=== PATIENT | male | born 1950 | race Caucasian/White ===

== ENCOUNTER 2025-01-25 14:57 | Observation (INO) ==
[2025-01-25] MEDS: ONDANSETRON INJ 2 MG/ML 2 ML VIAL IV STA (16:00)
[2025-01-25 16:09] LABS: Basophils # (auto) 0.02 K/uL (0.00-0.20); Basophils % (auto) 0.2 %; Hematocrit (blood only) 44.7 % (42.0-52.0); Hemoglobin 15.5 g/dl (14.0-18.0); Immature Granulocytes # (auto) 0.05 K/uL (0.01-0.20); Immature Granulocytes % (auto) 0.5 %; Lymphocytes % (auto) 6.5 %; Mean Corpuscular Hemoglobin 30.9 pg (25.0-34.0); Mean Corpuscular Hgb Conc 34.7 g/dL (32.0-36.0); Mean Platelet Volume 12.7 fL (9.4-12.4); Monocytes % (auto) 5.6 %; Neutrophils # (auto) 9.38 K/uL (1.40-6.50); Neutrophils % (auto) 87.2 %; Platelet Count 168 K/uL (130-400); RDW Coefficient of Variation 12.5 % (11.5-14.5); RDW Standard Deviation 40.7 fL (36.4-46.3); Red Blood Count 5.02 M/uL (4.70-6.10); White Blood Count 10.75 K/ul (4.8-10.8)
[2025-01-25 16:15] LABS: Albumin Globulin Ratio 1.3 (0.9-2); Albumin Level 4.8 gm/dl (3.4-5.0); BUN Creatinine Ratio 27.2 (10-20); Bilirubin,Total 0.8 mg/dl (0.2-1.0); Calcium 9.9 mg/dl (8.6-10.3); Creatinine Clr Calc Pharmacy 57.9 ml/min; Globulin 3.7 gm/dl (2.5-4.0); Total Protein 8.5 gm/dl (6.0-8.3)
[2025-01-25 17:28] LABS: Appearance Urine Clear (Clear); Bacteria Urine Automated None Seen (None Seen); Bilirubin Urine Negative (Negative); Blood Urine Negative (Negative); Cast Urine Automated 0-2 /lpf (0-2); Color Urine Yellow; Epithelial Cell Urine Auto 0-2 /hpf (0-2); Glucose Urine UA 3+ (Negative); Ketones Urine 2+ (Negative); Leukocyte Esterase Urine Negative (Negative); Nitrite Urine Negative (Negative); Protein Urine Trace (Negative); RBC Urine Automated 0-2 /hpf (0-2); Specific Gravity Urine 1.035 (1.000-1.030); Urobilinogen Urine Negative (Negative); WBC Urine Automated 21-50 /hpf (0-5); pH Urine 5.5 (4.5-7.5)
[2025-01-25] MEDS: SODIUM CHLORIDE 0.9% 1,000 ML IV SCH ×2 (17:28→23:12)
[2025-01-25] MEDS: SODIUM CHLORIDE 0.9% 500 ML IV ONE (17:28)
--- NOTE | 2025-01-25 18:13 | Emergency Department Note ---
Impression & Plan Generalized weakness ED Provider Note NAME: EMMY GANN AGE: 74 SEX: Male INFORMANT: Patient ED PROVIDER(S): Louis Bloom MD CHIEF COMPLAINT: Illness PLAN: Disposition: Admitted Outpatient prescription management: none Referral: None MEDICAL DECISION MAKING: Patient was evaluated. He was confused but easily redirectable. He seemed clinically dry and given the vomiting and diarrhea patient was hydrated. He responded well to IV fluids. His CBC and chemistry panel only revealed dehydration. He had mild hyperglycemia but no signs of DKA. CO2 was normal. Lipase was unremarkable. ECG was unremarkable. Head CT and CT scan of the abdomen pelvis did not reveal any emergent pathology. Patient might have a UTI and was treated with IV Rocephin. In light of the vomiting and dehydration with confusion the patient will need further evaluation management. Consultation was made with the [facility] service, Dr. Cage. Patient was evaluated in the ER and admitted for further management Care/management discussed with: ED case Man Level of care consideration(s): After review of the information above and other included data, I feel the patient requires escalation of care to admission. Triage Nursing notes: reviewed and agree them. Vital Signs: reviewed and remarkable for no significant abnormalities Additional History obtained from: none Chronic Medical/Social Conditions affecting care: Diabetes Prior/ Outside/ External records reviewed: none Differential Diagnosis: Infection, dehydration, metabolic abnormality, hypo/hyperglycemia, electrolyte disturbance, anemia, hypoxia, cardiac sources, intracerebral event, toxicologic, neurologic, as well as other pathologies. 61 Diagnostics, independently interpreted by me: ECG: Twelve-lead ECG reveals a sinus tachycardia [address] elevation or depression. Cardiac Monitoring: Cardiac monitoring ordered by me: The patient was placed on continuous cardiac monitoring and observed. It revealed a normal sinus rhythm at 61 beats per minute without ectopy or evidence of dysrhythmia. Medical decision rules: none Imaging studies: Head CT: A noncontrast CT scan of the head was performed and was negative for tumor, fracture, intracranial hemorrhage, or other acute pathology. CT scan of the abdomen pelvis was unremarkable for emergent pathology. Cholelithiasis noted. Patient does not have any abdominal pain HPI: 74 year old Male arrives for evaluation of illness. EMS was summoned to the patient's house and he seemed to be confused. The patient was defecating on the kitchen floor. He was also vomiting and had trash can. Apparently he has been sick for the last 2 days with GI symptoms. Significant other told EMS that the patient has had the symptoms plus he was slow, dizzy and had some headaches. No reported trauma. Patient denied any pain currently. He is unable to provide any significant details. He seems confused. History is limited secondary to the patient's confusion and inability to recall details. PAST MEDICAL HISTORY: See Below, diabetes PAST SURGICAL HISTORY: See Below, SOCIAL HISTORY: See Below, non-smoker HOME MEDICATIONS: See Below ALLERGIES: See Below VITALS: See Below PHYSICAL EXAMINATION: GENERAL: Awake, alert, [id number], in no distress HENT: Normocephalic, atraumatic. Oropharynx unremarkable. EYES: Normal conjunctiva. Sclera non-icteric. NECK: Inspection normal. Non-tender. Supple. No nuchal rigidity. FROM. No masses. RESPIRATORY: Clear to auscultation. No wheezes. No rales. Normal respiratory effort. CARDIAC: Borderline tachycardic rate. Normal rhythm. No murmurs. No rubs. Extremities warm and well perfused. Pulses equal. No JVD. GI: Soft, non-distended. No tenderness to palpation. No rebound or guarding. No masses. RECTAL: Deferred. MUSCULOSKELETAL: Atraumatic. Chest examination reveals no tenderness. The back is symmetrical on inspection without obvious abnormality. There is no CVA tenderness to palpation. No joint edema. LOWER EXTREMITIES: Calves are equal size bilaterally and non-tender. No edema. No discoloration. NEURO: Mildly altered sensorium. Confused. Patient oriented to person not place or time. No focal sensory or motor deficits noted. Patient was able to bear weight and ambulate SKIN: No rash or jaundice noted. PROCEDURES: none CRITICAL CARE: none OBSERVATION NOTE: none Past Med/Surg History Problem List (Updated 01/25/25 @ 18:13 by Louis Bloom MD) Generalized weakness (Acute) Social History Smoking Status: Never smoker Hx Alcohol Use: No Hx Substance Use: No Preferred Language: Ghanaian Communication Ability: Effective Multimedia Instructional Designer Required: No Beliefs That Will Affect Care: None Current Living Situation: Spouse Other Information That Helps Us Care for You: No Feels Safe at Home: Yes Safety Concerns: Feels Safe At This Time Assistive Devices: Glasses and Hearing Aid - Bilateral Allergies Allergies Allergy/AdvReac Type Severity Reaction Status Date / Time amoxicillin [From Augmentin] Allergy Intermediate HIVES--PER Verified 01/25/25 18:00 [facility] clavulanic acid Allergy Intermediate HIVES--PER Verified 01/25/25 18:00 [From Augmentin] [facility] metformin AdvReac Severe SEVERE Verified 01/25/25 18:06 [facility] Home Meds Home Medications Medication Instructions Recorded Confirmed atorvastatin 40 mg tablet 40 mg PO DAILY 01/25/25 01/25/25 clobetasol 0.05 % scalp solution 1 applic topical DAILY PRN ITCHY 01/25/25 01/25/25 SCALP dulaglutide 4.5 mg/0.5 mL 4.5 mg subcut WK 01/25/25 01/25/25 subcutaneous pen injector (Trulicity) empagliflozin 25 mg tablet 25 mg PO DAILY 01/25/25 01/25/25 (Jardiance) hydrochlorothiazide 25 mg tablet 25 mg PO QAM 01/25/25 01/25/25 insulin glargine 100 unit/mL (3 30 unit subcut QAM 01/25/25 01/25/25 mL) subcutaneous pen (Lantus Solostar U-100 Insulin) ketoconazole 2 % shampoo 1 ea topical 3XWK 01/25/25 01/25/25 metoprolol tartrate 25 mg tablet 25 mg PO BID 01/25/25 01/25/25 omeprazole 20 mg capsule,delayed 20 mg PO DAILYBB 01/25/25 01/25/25 release tamsulosin 0.4 mg capsule 0.4 mg PO HS 01/25/25 01/25/25 triamcinolone acetonide 0.1 % 1 applic topical BID PRN Skin 01/25/25 01/25/25 topical cream Irritation Previous Rx's Medication Instructions Recorded ciprofloxacin HCl 500 mg tablet 500 mg PO BID 4 days #8 tabs 01/26/25 (Cipro) ondansetron 4 mg disintegrating 4 mg PO Q8H PRN nausea and 01/26/25 tablet vomiting 5 days #20 tabs Results & Data (ED) Vital Signs Vital Signs - 24 hr 01/25/25 15:19 01/25/25 15:19 01/25/25 15:22 Temperature 37.5 C 37.5 C Temperature Source Oral Oral Pulse Rate 106 H 104 H Pulse Rate [Apical] 106 H Pulse Rhythm Regular Pulse Rhythm [Apical] Regular Pulse Strength Normal Pulse Strength [Apical] Normal Respiratory Rate 14 14 Respiratory Effort / Characteristics Non-Labored Spontaneous Non-Labored Spontaneous Respiratory Depth Normal Normal Respiratory Pattern Regular Regular Blood Pressure 168/107 H Blood Pressure [Left Arm] 168/107 H Blood Pressure Mean 127 Blood Pressure Mean [Left Arm] 127 Blood Pressure Position Semi-fowlers Pulse Oximetry 98 98 Oxygen Delivery Method Room Air Room Air Sepsis Recent Fever Within 48 Hours Yes Sepsis New/Unexplained Change in Mental Status Yes Sepsis Action Taken by Nursing No Action Required 01/25/25 17:01 01/25/25 19:02 01/25/25 19:36 Temperature Temperature Source Pulse Rate 92 H Pulse Rate [Apical] 101 H 97 H Pulse Rhythm Pulse Rhythm [Apical] Pulse Strength Pulse Strength [Apical] Respiratory Rate 20 18 Respiratory Effort / Characteristics Non-Labored Spontaneous Respiratory Depth Normal Respiratory Pattern Blood Pressure Blood Pressure [Left Arm] 168/87 H 133/75 Blood Pressure Mean Blood Pressure Mean [Left Arm] 114 94 Blood Pressure Position Pulse Oximetry 98 97 Oxygen Delivery Method Room Air Room Air Sepsis Recent Fever Within 48 Hours Sepsis New/Unexplained Change in Mental Status Sepsis Action Taken by Nursing 01/25/25 21:37 Temperature Temperature Source Pulse Rate Pulse Rate [Apical] 81 Pulse Rhythm Pulse Rhythm [Apical] Pulse Strength Pulse Strength [Apical] Respiratory Rate 18 Respiratory Effort / Characteristics Non-Labored Spontaneous Respiratory Depth Normal Respiratory Pattern Blood Pressure Blood Pressure [Left Arm] 111/65 Blood Pressure Mean Blood Pressure Mean [Left Arm] 80 Blood Pressure Position Pulse Oximetry 94 Oxygen Delivery Method Room Air Sepsis Recent Fever Within 48 Hours Sepsis New/Unexplained Change in Mental Status Sepsis Action Taken by Nursing Laboratory Data 01/26/25 05:42 01/26/25 05:42 Lab Results 01/25/25 01/25/25 Range/Units 15:10 16:40 WBC 10.75 (4.8-10.8) K/ul RBC 5.02 (4.70-6.10) M/uL Hgb 15.5 (14.0-18.0) g/dl Hct 44.7 (42.0-52.0) % MCV 89.0 (80.0-100.0) fL MCH 30.9 (25.0-34.0) pg MCHC 34.7 (32.0-36.0) g/dL RDW Std Deviation 40.7 (36.4-46.3) fL RDW Coeff of Catia 12.5 (11.5-14.5) % Plt Count 168 (130-400) K/uL MPV 12.7 H (9.4-12.4) fL Immature Gran % (Auto) 0.5 % Neut % (Auto) 87.2 % Lymph % (Auto) 6.5 % Pettis % (Auto) 5.6 % Eos % (Auto) 0.0 % Baso % (Auto) 0.2 % Neut # (Auto) 9.38 H (1.40-6.50) K/uL Lymph # (Auto) 0.70 L (1.20-3.40) K/uL Pettis # (Auto) 0.60 H (0.11-0.59) K/uL Eos # (Auto) 0.00 (0.00-0.50) K/uL Baso # (Auto) 0.02 (0.00-0.20) K/uL Immature Gran # (Auto) 0.05 (0.01-0.20) K/uL Sodium 137 (136-145) mmol/L Potassium 4.0 (3.5-5.1) mmol/L Chloride 96 L (98-107) mmol/L Carbon Dioxide 26 (21-32) mmol/L Anion Gap 15 H (3-11) BUN 28 H (6-23) mg/dl Creatinine 1.03 (0.6-1.4) mg/dl Est Cr Clr Drug Dosing 57.9 ml/min eGFR 75.75 BUN/Creatinine Ratio 27.2 H (10-20) Glucose 195 H (70-99(Fasting)) mg/dl Calcium 9.9 (8.6-10.3) mg/dl Total Bilirubin 0.8 (0.2-1.0) mg/dl AST 20 (13-39) U/L ALT 24 (7-52) U/L Alkaline Phosphatase 91 (34-104) U/L Total Protein 8.5 H (6.0-8.3) gm/dl Albumin 4.8 (3.4-5.0) gm/dl Globulin 3.7 (2.5-4.0) gm/dl Albumin/Globulin Ratio 1.3 (0.9-2) Lipase 28 (11-82) U/L Procalcitonin 0.04 (0-0.5) ng/ml Urine Color Yellow Urine Appearance Clear (Clear) Urine pH 5.5 (4.5-7.5) Ur Specific [place] 1.035 H (1.000-1.030) Urine Protein Trace H (Negative) Urine Glucose (UA) 3+ H (Negative) Urine Ketones 2+ H (Negative) Urine Blood Negative (Negative) Urine Nitrite Negative (Negative) Urine Bilirubin Negative (Negative) Urine Urobilinogen Negative (Negative) Ur Leukocyte Esterase Negative (Negative) Urine WBC (Auto) 21-50 H (0-5) /hpf Urine RBC (Auto) 0-2 (0-2) /hpf U Hyaline Cast (Auto) 0-2 (0-2) /lpf U Epithel Cells (Auto) 0-2 (0-2) /hpf Urine Bacteria (Auto) None Seen (None Seen) Administered Medications Discontinued Medications Atorvastatin Calcium (Atorvastatin 40 Mg Tab) 40 mg PO DAILY ANIYAH Stop: 02/25/25 08:59 Last Admin: 01/26/25 10:18 Dose: 40 mg Documented By: OMAYRA Enoxaparin Sodium (Enoxaparin Inj 40 Mg/0.4 Ml Syr) 40 mg SQ QAM ANIYAH Stop: 02/25/25 08:59 Last Admin: 01/26/25 10:17 Dose: Not Given Documented By: OMAYRA Sodium Chloride (Nss) 1,000 mls @ 125 mls/hr IV .Q8H ANIYAH Stop: 01/26/25 17:29 Last Infusion: 01/26/25 01:48 Dose: Infused Documented By: Admin: 01/25/25 17:28 Dose: 125 mls/hr Documented By: LUCIA Sodium Chloride (Nss) 500 mls @ 999 mls/hr IV .Q31M ONE Stop: 01/25/25 17:52 Last Infusion: 01/25/25 18:19 Dose: Infused Documented By: Admin: 01/25/25 17:28 Dose: 999 mls/hr Documented By: LUCIA Ceftriaxone Sodium (Rocephin) 2,000 mg in 50 mls @ 100 mls/hr IV NOW STA Stop: 01/25/25 19:21 Last Infusion: 01/25/25 19:43 Dose: Infused Documented By: Admin: 01/25/25 19:00 Dose: 100 mls/hr Documented By: LUCIA Acetaminophen (Ofirmev) 1,000 mg in 100 mls @ 400 mls/hr IV NOW STA Stop: 01/25/25 19:21 Last Infusion: 01/25/25 20:08 Dose: Infused Documented By: Admin: 01/25/25 19:34 Dose: 400 mls/hr Documented By: CATINA Sodium Chloride (Nss) 1,000 mls @ 125 mls/hr IV .Q8H ANIYAH Stop: 01/26/25 22:54 Last Infusion: 01/26/25 15:12 Dose: Infused Documented By: Admin: 01/26/25 07:22 Dose: 125 mls/hr Documented By: Infusion: 01/26/25 07:20 Dose: Infused Documented By: Admin: 01/25/25 23:12 Dose: 125 mls/hr Documented By: SARTHAK Insulin Aspart (Insulin Aspart Per Unit Charge) 0 units SC ACHS ANIYAH Stop: 02/24/25 23:29 Last Admin: 01/26/25 13:25 Dose: 2 units Documented By: OMAYRA Co-signed By: [facility] Admin: 01/26/25 10:25 Dose: 1 units Documented By: OMAYRA Co-signed By: [facility] Admin: 01/26/25 00:04 Dose: Not Given Documented By: SARTHAK Insulin Glargine (Lantus Per Unit Charge) 30 units SQ QAM ANIYAH Stop: 02/25/25 08:59 Last Admin: 01/26/25 10:26 Dose: 30 units Documented By: OMAYRA Co-signed By: [facility] Metoprolol Tartrate (Metoprolol Tartrate 25 Mg Tab) 25 mg PO BID ANIYAH Stop: 02/25/25 08:59 Last Admin: 01/26/25 10:18 Dose: 25 mg Documented By: OMAYRA Ondansetron HCl (Ondansetron Inj 2 Mg/Ml 2 Ml Vial) 4 mg IV NOW STA Stop: 01/25/25 15:51 Last Admin: 01/25/25 16:00 Dose: 4 mg Documented By: LUCIA Pantoprazole Sodium (Pantoprazole 40 Mg Tab) 40 mg PO DAILYBB ANIYAH Stop: 02/25/25 06:29 Last Admin: 01/26/25 05:20 Dose: 40 mg Documented By: [facility] Imaging Data Radiologist's Impression: Abdomen/Pelvis CT 01/25/25 17:22 Clinical History: Vomiting. Confusion Technique: Axial computed tomography images were obtained of the abdomen and pelvis without intravenous contrast. Findings: The liver is overall of normal size, attenuation, and contour with no sign of cirrhosis or significant fatty infiltration. No definite liver mass lesion is seen on this noncontrast study. There are small gallstones. There is no definite sign of acute cholecystitis. No bile duct dilatation is noted. The spleen is of normal size. No focal splenic lesion is evident. The pancreas appears normal with no sign of acute or chronic pancreatitis and no mass lesion noted. The pancreatic duct is of normal caliber. There is an apparent 1.5 cm right adrenal nodule that measures 30 HU in average attenuation. The left adrenal gland appears normal There is a 1-2 mm calculus in the mid right kidney. No left renal or proximal ureteral calculi are seen. There is no hydronephrosis or perinephric stranding. No definite renal mass lesion is identified. The aorta is of normal caliber. There is extensive calcified plaque in the superior mesenteric artery. There is prominent plaque in the proximal renal arteries bilaterally as well. No abdominal adenopathy is seen. There is a small hiatal hernia. There is no sign of small bowel obstruction. There is diverticulosis without definite diverticulitis. No free intraperitoneal fluid or air is identified. No distal ureteral or bladder calculi are seen. No obvious bladder mass lesion is evident. The iliac arteries are of normal caliber. No pelvic adenopathy is noted. The lungs bases appear clear. There is coronary atherosclerosis Mild thoracolumbar degenerative disc disease is seen. No fracture is identified. There is a small sclerotic lesion in the right femoral head, likely a benign bone island. Impression: 1. Cholelithiasis without definite acute cholecystitis 2. 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 Small hiatal hernia 4. Right adrenal nodule that may represent a benign adenoma but is indeterminate in nature. A follow-up dedicated adrenal protocol CT or MRI could be considered 5. Small nonobstructing right renal calculus 6. Diverticulosis without definite diverticulitis ACT 112: Positive. There are findings on this exam that require communication between the performing entity and the patient following Patient Test Result Information Act ([place] ACT 112) guidelines. Electronically signed by Leonel Salas 01-25-2025 6:[address] 01/25/25 17:22 EXAM: CT Head Without Intravenous Contrast INDICATION: Confusion, altered mental status and vomiting. TECHNIQUE: Axial computed tomography images of the head/brain without intravenous contrast. Sagittal and/or coronal reformats are provided. Sagittal and coronal reformatted images were created and reviewed. This CT exam was performed using one or more of the following dose reduction techniques: automated exposure control, adjustment of the mA and/or kV according to patient size, and/or use of iterative reconstruction technique. COMPARISON: No relevant prior studies available. FINDINGS: Limitations: None. Brain and extra-axial spaces: There is age appropriate cortical atrophy and chronic ischemic periventricular white matter hypodensity. No acute infarct, hemorrhage or mass noted. Bones/joints: No acute changes. Soft tissues: No significant abnormality noted. Vasculature: There is dense atherosclerosis of the intracranial vertebral and carotid arteries. Sinuses: No layering fluid in the visualized portions of the paranasal sinuses. Mastoid air cells: No mastoid effusion. Orbits: No significant abnormality noted. IMPRESSION: Cerebral atrophy. No acute changes. ACT 112: N/A Electronically signed by Rose Grimaldo 01-25-2025 6:19 PM Discharge Plan Visit Data Chief Complaint: Illness ED Provider: Louis Bloom Discharge Problem: Generalized weakness Patient Disposition: Admitted As Inpatient Discharge Instructions Interventions: ED Discharge Assessment Last Done: 01/25/25 22:29
--- NOTE | 2025-01-25 18:20 | CT Scan Report ---
EXAM: CT Head Without Intravenous Contrast INDICATION: Confusion, altered mental status and vomiting. TECHNIQUE: Axial computed tomography images of the head/brain without intravenous contrast. Sagittal and/or coronal reformats are provided. Sagittal and coronal reformatted images were created and reviewed. This CT exam was performed using one or more of the following dose reduction techniques: automated exposure control, adjustment of the mA and/or kV according to patient size, and/or use of iterative reconstruction technique. COMPARISON: No relevant prior studies available. FINDINGS: Limitations: None. Brain and extra-axial spaces: There is age appropriate cortical atrophy and chronic ischemic periventricular white matter hypodensity. No acute infarct, hemorrhage or mass noted. Bones/joints: No acute changes. Soft tissues: No significant abnormality noted. Vasculature: There is dense atherosclerosis of the intracranial vertebral and carotid arteries. Sinuses: No layering fluid in the visualized portions of the paranasal sinuses. Mastoid air cells: No mastoid effusion. Orbits: No significant abnormality noted. IMPRESSION: Cerebral atrophy. No acute changes. ACT 112: N/A Electronically signed by Rose Grimaldo 01-25-2025 6:19 PM
--- NOTE | 2025-01-25 18:37 | CT Scan Report ---
Clinical History: Vomiting. Confusion Technique: Axial computed tomography images were obtained of the abdomen and pelvis without intravenous contrast. Findings: The liver is overall of normal size, attenuation, and contour with no sign of cirrhosis or significant fatty infiltration. No definite liver mass lesion is seen on this noncontrast study. There are small gallstones. There is no definite sign of acute cholecystitis. No bile duct dilatation is noted. The spleen is of normal size. No focal splenic lesion is evident. The pancreas appears normal with no sign of acute or chronic pancreatitis and no mass lesion noted. The pancreatic duct is of normal caliber. There is an apparent 1.5 cm right adrenal nodule that measures 30 HU in average attenuation. The left adrenal gland appears normal There is a 1-2 mm calculus in the mid right kidney. No left renal or proximal ureteral calculi are seen. There is no hydronephrosis or perinephric stranding. No definite renal mass lesion is identified. The aorta is of normal caliber. There is extensive calcified plaque in the superior mesenteric artery. There is prominent plaque in the proximal renal arteries bilaterally as well. No abdominal adenopathy is seen. There is a small hiatal hernia. There is no sign of small bowel obstruction. There is diverticulosis without definite diverticulitis. No free intraperitoneal fluid or air is identified. No distal ureteral or bladder calculi are seen. No obvious bladder mass lesion is evident. The iliac arteries are of normal caliber. No pelvic adenopathy is noted. The lungs bases appear clear. There is coronary atherosclerosis Mild thoracolumbar degenerative disc disease is seen. No fracture is identified. There is a small sclerotic lesion in the right femoral head, likely a benign bone island. Impression: 1. Cholelithiasis without definite acute cholecystitis 2. 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 Small hiatal hernia 4. Right adrenal nodule that may represent a benign adenoma but is indeterminate in nature. A follow-up dedicated adrenal protocol CT or MRI could be considered 5. Small nonobstructing right renal calculus 6. Diverticulosis without definite diverticulitis ACT 112: Positive. There are findings on this exam that require communication between the performing entity and the patient following Patient Test Result Information Act ([place] ACT 112) guidelines. Electronically signed by Leonel Salas 01-25-2025 6:36 PM
[2025-01-25] MEDS: cefTRIAXone SODIUM 2,000 MG/50 ML BAG IV STA (19:00)
[2025-01-25] MEDS: ACETAMINOPHEN 1,000 MG/100 ML VIAL IV STA (19:34)
--- NOTE | 2025-01-25 22:06 | History & Physical Report ---
Date of Service January 25, 2025 Assessment & Plan (1) Generalized weakness: Plan: 74-year-old male with past medical history significant for gout, hyperlipidemia, diabetes, CKD stage III, chronic atrial fibrillation, hypertension, GERD, osteoarthritis, history of psoriasis, history of polymyalgia rheumatica, history of monoclonal paraproteinemia, who lives at home with his fiance was brought in because of weakness and some confusion. Patient is currently alert and awake. Can tell his name. Knows that he is in the hospital. Can tell his age. Could tell current month. But could not tell current year. Denies any headache. Denies neck pain. Denies chest pain. Denies abdominal pain. Denies back pain. Denies leg pain. No runny nose or sore throat or cough. No shortness of breath. No nausea. Somewhat slow to answer. Hemodynamics are okay. As per ER initially was more confused but with the fluids his mental status seem to be improving. Called but could not able to reach his fiance currently Generalized weakness Some confusion Dehydration Possible UTI Empiric Rocephin Fluids Will follow cultures CT head is okay. Follow repeat labs If Not improving will do further workup Diabetes Continue home Lantus Hold p.o. 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 History of Present Illness Chief Complaint: Weakness and confusion Primary Care Provider: Milton Mcdaniel MD 74-year-old male with past medical history significant for gout, hyperlipidemia, diabetes, CKD stage III, chronic atrial fibrillation, hypertension, GERD, osteoarthritis, history of psoriasis, history of polymyalgia rheumatica, history of monoclonal paraproteinemia, who lives at home with his fiance was brought in because of weakness and some confusion. Patient is currently alert and awake. Can tell his name. Knows that he is in the hospital. Can tell his age. Could tell current month. But could not tell current year. Denies any headache. Denies neck pain. Denies chest pain. Denies abdominal pain. Denies back pain. Denies leg pain. No runny nose or sore throat or cough. No shortness of breath. No nausea. Somewhat slow to answer. Hemodynamics are okay. As per ER initially was more confused but with the fluids his mental status seem to be improving. Called but could not able to reach his fiance currently Past medical history. As mentioned above Past surgical history. Left total knee arthroplasty. Bilateral carpal tunnel surgery. Colonoscopy. EGD. Appendectomy. Right reverse shoulder arthroplasty. Left tendon sheath incision finger. Social history. No smoking. No alcohol use. No drug use. Family history. Father had diabetes. Heart attack. Stroke. Mother had diabetes. Brother has diabetes. Allergies Allergy/AdvReac Type Severity Reaction Status Date / Time amoxicillin [From Augmentin] Allergy Intermediate HIVES--PER Verified 01/25/25 18:00 [facility] clavulanic acid Allergy Intermediate HIVES--PER Verified 01/25/25 18:00 [From Augmentin] [facility] metformin AdvReac Severe SEVERE Verified 01/25/25 18:06 [facility] Home Medications Medication Instructions Recorded Confirmed Type atorvastatin 40 mg tablet 40 mg PO DAILY 01/25/25 01/25/25 History clindamycin phosphate 1 % topical 1 - 2 applic topical DAILY PRN TO 01/25/25 01/25/25 History solution SCALP NEEDED clobetasol 0.05 % scalp solution 1 applic topical DAILY PRN ITCHY 01/25/25 01/25/25 History SCALP dulaglutide 4.5 mg/0.5 mL 4.5 mg subcut WK 01/25/25 01/25/25 History subcutaneous pen injector (Trulicity) empagliflozin 25 mg tablet 25 mg PO DAILY 01/25/25 01/25/25 History (Jardiance) hydrochlorothiazide 25 mg tablet 25 mg PO QAM 01/25/25 01/25/25 History insulin glargine 100 unit/mL (3 30 unit subcut QAM 01/25/25 01/25/25 History mL) subcutaneous pen (Lantus Solostar U-100 Insulin) ketoconazole 2 % shampoo 1 ea topical 3XWK 01/25/25 01/25/25 History metoprolol tartrate 25 mg tablet 25 mg PO BID 01/25/25 01/25/25 History omeprazole 20 mg capsule,delayed 20 mg PO DAILYBB 01/25/25 01/25/25 History release tamsulosin 0.4 mg capsule 0.4 mg PO HS 01/25/25 01/25/25 History triamcinolone acetonide 0.1 % 1 applic topical BID PRN Skin 01/25/25 01/25/25 History topical cream Irritation Past Med/Surg History Problem List (Updated 01/25/25 @ 18:13 by Louis Bloom MD) Generalized weakness (Acute) Social History Smoking Status: Never smoker Hx Alcohol Use: No Hx Substance Use: No Preferred Language: Sinhala Communication Ability: Effective Patient Care Secretary Required: No Beliefs That Will Affect Care: None Current Living Situation: Spouse Other Information That Helps Us Care for You: No Feels Safe at Home: Yes Safety Concerns: Feels Safe At This Time Assistive Devices: Glasses and Hearing Aid - Bilateral Review of Systems Review of Systems: All systems reviewed & are unremarkable except as noted in HPI & below Physical Exam Physical Exam: General- Not in distress Head- atraumatic Eyes- PERRL. ENT- oropharynx clear Neck- supple, no JVD. Lungs- clear to auscultation no wheezing or crackles Heart- regular rate and rhythm; no murmur, no gallop. Abdomen- normal bowel sounds, soft, nontender, no distension Extremities- no pretibial edema, no erythema seen Neuro- alert, oriented x 2 PERRL, EOMI; no facial palsy; no dysarthria; moves extremities Results & Data Results & Data Vital Signs (Past 12 Hours) Vital Signs Temp Pulse Pulse Resp BP BP Pulse Ox 01/25/25 21:37 81 18 111/65 94 01/25/25 19:36 97 H 18 133/75 97 01/25/25 19:02 92 H 01/25/25 17:01 101 H 20 168/87 H 98 01/25/25 15:22 104 H 01/25/25 15:19 37.5 C 106 H 14 168/107 H 98 01/25/25 15:19 37.5 C 106 H 14 168/107 H 98 O2 Del Method 01/25/25 21:37 Room Air 01/25/25 19:36 Room Air 01/25/25 19:02 01/25/25 17:01 Room Air 01/25/25 15:22 01/25/25 15:19 Room Air 01/25/25 15:19 Room Air Diagnostic Findings Laboratory Results WBC 10.75 K/ul (4.8-10.8) 01/25/25 15:10 RBC 5.02 M/uL (4.70-6.10) 01/25/25 15:10 Hgb 15.5 g/dl (14.0-18.0) 01/25/25 15:10 Hct 44.7 % (42.0-52.0) 01/25/25 15:10 MCV 89.0 fL (80.0-100.0) 01/25/25 15:10 MCH 30.9 pg (25.0-34.0) 01/25/25 15:10 MCHC 34.7 g/dL (32.0-36.0) 01/25/25 15:10 RDW Std Deviation 40.7 fL (36.4-46.3) 01/25/25 15:10 RDW Coeff of Catia 12.5 % (11.5-14.5) 01/25/25 15:10 Plt Count 168 K/uL (130-400) 01/25/25 15:10 MPV 12.7 fL (9.4-12.4) H 01/25/25 15:10 Immature Gran % (Auto) 0.5 % 01/25/25 15:10 Neut % (Auto) 87.2 % 01/25/25 15:10 Lymph % (Auto) 6.5 % 01/25/25 15:10 [place] % (Auto) 5.6 % 01/25/25 15:10 Eos % (Auto) 0.0 % 01/25/25 15:10 Baso % (Auto) 0.2 % 01/25/25 15:10 Neut # (Auto) 9.38 K/uL (1.40-6.50) H 01/25/25 15:10 Lymph # (Auto) 0.70 K/uL (1.20-3.40) L 01/25/25 15:10 [place] # (Auto) 0.60 K/uL (0.11-0.59) H 01/25/25 15:10 Eos # (Auto) 0.00 K/uL (0.00-0.50) 01/25/25 15:10 Baso # (Auto) 0.02 K/uL (0.00-0.20) 01/25/25 15:10 Immature Gran # (Auto) 0.05 K/uL (0.01-0.20) 01/25/25 15:10 Sodium 137 mmol/L (136-145) 01/25/25 15:10 Potassium 4.0 mmol/L (3.5-5.1) 01/25/25 15:10 Chloride 96 mmol/L (98-107) L 01/25/25 15:10 Carbon Dioxide 26 mmol/L (21-32) 01/25/25 15:10 Anion Gap 15 (3-11) H 01/25/25 15:10 BUN 28 mg/dl (6-23) H 01/25/25 15:10 Creatinine 1.03 mg/dl (0.6-1.4) 01/25/25 15:10 Est Cr Clr Drug Dosing 57.9 ml/min 01/25/25 15:10 eGFR 75.75 01/25/25 15:10 BUN/Creatinine Ratio 27.2 (10-20) H 01/25/25 15:10 Glucose 195 mg/dl (70-99(Fasting)) H 01/25/25 15:10 Calcium 9.9 mg/dl (8.6-10.3) 01/25/25 15:10 Total Bilirubin 0.8 mg/dl (0.2-1.0) 01/25/25 15:10 AST 20 U/L (13-39) 01/25/25 15:10 ALT 24 U/L (7-52) 01/25/25 15:10 Alkaline Phosphatase 91 U/L (34-104) 01/25/25 15:10 Total Protein 8.5 gm/dl (6.0-8.3) H 01/25/25 15:10 Albumin 4.8 gm/dl (3.4-5.0) 01/25/25 15:10 Globulin 3.7 gm/dl (2.5-4.0) 01/25/25 15:10 Albumin/Globulin Ratio 1.3 (0.9-2) 01/25/25 15:10 Lipase 28 U/L (11-82) 01/25/25 15:10 Procalcitonin 0.04 ng/ml (0-0.5) 01/25/25 15:10 Urine Color Yellow 01/25/25 16:40 Urine Appearance Clear (Clear) 01/25/25 16:40 Urine pH 5.5 (4.5-7.5) 01/25/25 16:40 Ur Specific [place] 1.035 (1.000-1.030) H 01/25/25 16:40 Urine Protein Trace (Negative) H 01/25/25 16:40 Urine Glucose (UA) 3+ (Negative) H 01/25/25 16:40 Urine Ketones 2+ (Negative) H 01/25/25 16:40 Urine Blood Negative (Negative) 01/25/25 16:40 Urine Nitrite Negative (Negative) 01/25/25 16:40 Urine Bilirubin Negative (Negative) 01/25/25 16:40 Urine Urobilinogen Negative (Negative) 01/25/25 16:40 Ur Leukocyte Esterase Negative (Negative) 01/25/25 16:40 Urine WBC (Auto) 21-50 /hpf (0-5) H 01/25/25 16:40 Urine RBC (Auto) 0-2 /hpf (0-2) 01/25/25 16:40 U Hyaline Cast (Auto) 0-2 /lpf (0-2) 01/25/25 16:40 U Epithel Cells (Auto) 0-2 /hpf (0-2) 01/25/25 16:40 Urine Bacteria (Auto) None Seen (None Seen) 01/25/25 16:40 Impressions Abdomen/Pelvis CT 01/25/25 17:22 Clinical History: Vomiting. Confusion Technique: Axial computed tomography images were obtained of the abdomen and pelvis without intravenous contrast. Findings: The liver is overall of normal size, attenuation, and contour with no sign of cirrhosis or significant fatty infiltration. No definite liver mass lesion is seen on this noncontrast study. There are small gallstones. There is no definite sign of acute cholecystitis. No bile duct dilatation is noted. The spleen is of normal size. No focal splenic lesion is evident. The pancreas appears normal with no sign of acute or chronic pancreatitis and no mass lesion noted. The pancreatic duct is of normal caliber. There is an apparent 1.5 cm right adrenal nodule that measures 30 HU in average attenuation. The left adrenal gland appears normal There is a 1-2 mm calculus in the mid right kidney. No left renal or proximal ureteral calculi are seen. There is no hydronephrosis or perinephric stranding. No definite renal mass lesion is identified. The aorta is of normal caliber. There is extensive calcified plaque in the superior mesenteric artery. There is prominent plaque in the proximal renal arteries bilaterally as well. No abdominal adenopathy is seen. There is a small hiatal hernia. There is no sign of small bowel obstruction. There is diverticulosis without definite diverticulitis. No free intraperitoneal fluid or air is identified. No distal ureteral or bladder calculi are seen. No obvious bladder mass lesion is evident. The iliac arteries are of normal caliber. No pelvic adenopathy is noted. The lungs bases appear clear. There is coronary atherosclerosis Mild thoracolumbar degenerative disc disease is seen. No fracture is identified. There is a small sclerotic lesion in the right femoral head, likely a benign bone island. Impression: 1. Cholelithiasis without definite acute cholecystitis 2. 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 Small hiatal hernia 4. Right adrenal nodule that may represent a benign adenoma but is indeterminate in nature. A follow-up dedicated adrenal protocol CT or MRI could be considered 5. Small nonobstructing right renal calculus 6. Diverticulosis without definite diverticulitis ACT 112: Positive. There are findings on this exam that require communication between the performing entity and the patient following Patient Test Result Information Act ([place] ACT 112) guidelines. Electronically signed by Leonel Salas 01-25-2025 6:[address] 01/25/25 17:22 EXAM: CT Head Without Intravenous Contrast INDICATION: Confusion, altered mental status and vomiting. TECHNIQUE: Axial computed tomography images of the head/brain without intravenous contrast. Sagittal and/or coronal reformats are provided. Sagittal and coronal reformatted images were created and reviewed. This CT exam was performed using one or more of the following dose reduction techniques: automated exposure control, adjustment of the mA and/or kV according to patient size, and/or use of iterative reconstruction technique. COMPARISON: No relevant prior studies available. FINDINGS: Limitations: None. Brain and extra-axial spaces: There is age appropriate cortical atrophy and chronic ischemic periventricular white matter hypodensity. No acute infarct, hemorrhage or mass noted. Bones/joints: No acute changes. Soft tissues: No significant abnormality noted. Vasculature: There is dense atherosclerosis of the intracranial vertebral and carotid arteries. Sinuses: No layering fluid in the visualized portions of the paranasal sinuses. Mastoid air cells: No mastoid effusion. Orbits: No significant abnormality noted. IMPRESSION: Cerebral atrophy. No acute changes. ACT 112: N/A Electronically signed by Rose Grimaldo 01-25-2025 6:19 PM ECG Additional Comments: ECG. Sinus tachycardia rate of 102. Nonspecific T wave abnormality.
[2025-01-25] MEDS ORDERED: DEXTROSE 50% 50 ML SYRINGE IV PRN (22:55)
[2025-01-25] MEDS ORDERED: CARBOHYDRATES FOR HYPOGLYCEMIA PO PRN (22:55)
[2025-01-25] MEDS ORDERED: GLUCAGON FOR INJ 1 MG VIAL SQ PRN (22:55)
[2025-01-25] MEDS ORDERED: GLUCOSE 10 TAB/TUBE PO PRN (22:55)
[2025-01-25] MEDS ORDERED: ACETAMINOPHEN 325 MG TAB PO PRN (22:55)
[2025-01-25] MEDS ORDERED: GLUCOSE 40% GEL 15 GM TUBE PO PRN (22:55)
[2025-01-25] MEDS ORDERED: NITROGLYCERIN SL 0.4 MG/TAB TAB SL PRN (22:55)
[2025-01-26] MEDS: INSULIN ASPART PER UNIT CHARGE SC SCH (00:04)
--- OUTSIDE RECORDS SUMMARY | 2025-01-26 00:16 | External Medical Summary | Summary of Care ---
Author Name Unknown Organization [facility] Address [address] [place] [address] Phone [phone] Care Team Providers Care Drug Purchaser Name Role Phone Milton Mcdaniel MD Primary Care Provider [phone] Reason for Visit * Auth/Cert Specialty Diagnoses / Procedures Referred By Nikhil polanco Referred To Contact Diagnoses Irritable bowel syndrome with both constipation and diarrhea Irritable bowel syndrome with both constipation and diarrhea [K58.2] Procedures COLONOSCOPY, DIAGNOSTIC (RECTUM) EGD, FLEXIBLE, DIAGNOSTIC COLONOSCOPY FLEXIBLE PROXIMAL DIAGNOSTIC ESOPHAGOGASTRODUODENOSCOPY (EGD), FLEXIBLE, TRANSORAL, DIAGNOSTIC Kermit Arevalo DO [address] [place] [address] Phone: tel: fax: ENDO [facility], Endoscopy Room [facility] [address] [facility] [place] [address] Phone: tel: Referral ID Status Reason Start Date Expiration Date Visits Re quested Visits Authorized [id number] Encounter Details Date Type Department Care Team (Latest Contact Info) Description 12/31/2024 12:36 PM EDT - 12/31/2024 2:35 PM EDT Hospital Encounter ENDO [facility], Endoscopy Room [facility] [address] [place] [address] Kermit Arevalo DO [address] [place] [address] Various: GICOLON,UGI Discharge Disposition: Home - Self Care Allergies Active Allergy Reactions Criticality Noted Date Comments Amoxicillin-Pot Clavulanate Hives 06/16/20 16 Clavulanic Acid Hives 07/09/2016 documented as of this encounter (statuses as of 01/01/2025) Medications Clindamycin Phosphate 1 % External Solution apply to the scalp 1-2 times daily as needed Active Clobetasol Propionate 0.05 % External Liquid apply to the scalp daily as needed when itchy 59 mL 2 2 Active Triamcinolone Acetonide 0.1 % External Cream (Aristocort) Apply to the back/arms/legs twice daily as needed 80 g 1 2 Active Ketoconazole 2 % External Shampoo (Nizoral) Apply topically to affected area every 3 days. Apply to the chest/arms/back/ scalp. Leave on for 5 min then rinse. 120 mL 2 3 Active Trulicity 4.5 MG/0.5ML Subcutaneous Solution Pen-injector (Dulaglutide)Ind ications:Diabete s mellitus with stage 3 chronic kidney disease (HCC) INJECT 4.5MG UNDER THE SKIN ONCE A WEEK 6 mL 3 3 Active Metoprolol Tartrate 25 MG Oral Tablet (Lopressor) TAKE 1 TABLET IN THE MORNING AND 1 TABLET BEFORE BEDTIME 180 Tablet 3 4 Active Pen Elkins 32G X 4 MMIndications:Di abetes mellitus with stage 3 chronic kidney disease (HCC) Use as directed. Once daily with Lantus insulin DX E11.9 - substitution permissible for both size/length as well as brand that are covered by insurance and in stock with pharmacy 100 Each 3 4 Active Jardiance 25 MG Oral Tablet (Empagliflozin) TAKE 1 TABLET BY MOUTH DAILY 90 Tablet 3 4 Active FreeStyle Aida 3 SensorIndication s:Diabetes mellitus with stage 3 chronic kidney disease (HCC) Use as directed. Replace sensor every 14 days DX E11.9 6 Each 3 4 Active Omeprazole 20 MG Oral Capsule Delayed Release (PriLOSEC) TAKE 1 CAPSULE IN THE MORNING 1 HOUR BEFORE THE FIRST MEAL OF THE DAY 90 Capsule 1 4 Active Tamsulosin HCl 0.4 MG Oral Capsule (Flomax)Indicati ons:BPH with obstruction/lowe r urinary tract symptoms Take 1 Capsule by mouth every night at bedtime. 90 Capsule 3 4 Active Atorvastatin Calcium 40 MG Oral Tablet (Lipitor) TAKE 1 TABLET DAILY 90 Tablet 3 5 Active hydroCHLOROthiaz mark 25 MG Oral Tablet (Hydrodiuril) TAKE 1 TABLET IN THE MORNING 90 Tablet 3 5 Active Lantus SoloStar 100 UNIT/ML Subcutaneous Solution Pen-injector (Insulin Glargine Solostar)Indicat ions:Diabetes mellitus with stage 3 chronic kidney disease (HCC) INJECT 23 UNITS UNDER THE SKIN IN THE MORNING 15 mL 4 5 Active metFORMIN HCl ER 500 MG Oral Tablet Extended Release 24 Hour (Glucophage XR)Indications:T ype 2 diabetes mellitus with hemoglobin A1c goal of less than 7.0% (HCC) Take 2 Tablets by mouth in the morning and 2 Tablets before bedtime. 360 Tablet 3 5 Active documented as of this encounter (statuses as of 01/01/2025) Active Problems Problem Noted Date Diagnosed Date Monoclonal paraproteinemia 05/10/2023 PMR (polymyalgia rheumatica) 10/25/2022 Hypertensive kidney disease with stage 3 chronic kidney disease 10/25/2022 Postoperative follow-up 07/12/2022 Bilateral carpal tunnel syndrome 03/23/2022 Arthralgia 03/10/2022 Essential hypertension with goal blood pressure less than 140/90 03/19/2020 Psoriasis 11/26/2019 Gait abnormality 10/24/2019 Osteoarthritis of left knee 10/22/2019 Diabetes mellitus with stage 3 chronic kidney di sease 07/27/2019 Gastroesophageal reflux disease without esophagi tis 11/28/2018 Diabetes mellitus with arthr opathy, without long-term current use of insulin 07/18/2018 Chronic atrial fibrillation 07/18/2018 Gout 05/28/2018 Mixed hyperlipidemia 05/28/2018 documented as of this encounter (statuses as of 01/01/2025) Resolved Problems Problem Noted Date Diagnosed Date Resolved Date Hypertensive kidney disease with stage 3 chronic kidney disease 12/15/2021 12/30/2021 Hypertensive kidney disease with chronic kidney disease stage III 09/12/2019 03/24/2022 Essential hypertension with goal blood pressure less than 130/80 09/12/2019 03/19/2020 Kidney disease, chronic, sta ge III (GFR 30-59 ml/min) 02/26/2019 08/01/2019 Overview: Per CKD protocol #1 Atrial fibrillation 05/28/2018 07/18/20 18 CAD (coronary artery disease) 05/28/2018 07/18/2018 Type 2 diabetes mellitus wit hout complication, without long-term current use of insulin 05/28/2018 07/25/2019 Overview (07/25/2019): Complication on list Impotence of organic origin 05/28/2018 11/28/2018 Lumbago 05/28/2018 07/18/2018 Osteoarthritis 05/28/2018 11/28/2018 Peptic ulcer disease 05/28/2018 019 Rotator cuff arthropathy, right 12/12/2017 11/28/2018 Diverticulosis of colon 11/09/2016 10/11/2017 Overview (05/28/2018): By colonosopy Hemorrhoid 11/09/2016 11/28/2018 Overview (05/28/2018): By colonoscopy documented as of this encounter (statuses as of 01/01/2025) Immunizations Name Administration Dates Next Due COVID-19 mRNA, LNP-s, No Pre serve, 2-Dose Series (SafeNet) 09/23/2021,01/13/2021,12/23/2020 Pneumococcal Conjugate Vacc, 13 Valent (Prevnar) 07/26/2017 Pneumococcal Polysaccharide PPV23 (Pneumovax) 09/12/2019,08/22/2018 Season Influenza, Quad, PF, Adjuvanted, 65+ Yrs, IM (FLUAD) 08/12/2020 Seasonal Influenza, High Dos e, Trivalent, PF, IM (Fluzone HD) 07/11/2024,07/26/2017 Seasonal Influenza, PF, 6 M & above, IM , (FluLaval or Fluzone) 07/18/2018 Seasonal Influenza, Quadriva lent Hd (Fluzone Hd) 07/26/2023,06/30/2022,09/02/2021 Seasonal Influenza, Trivalen t, Adjuvanted, 65+ YRS, PF, (Fluad) 09/12/2019 TDAP (age 10 and older)(Boostrix) 11/25/2021 TDAP, Age 7 and older, IM (Adacel) 04/16/2016 Varicella Zoster Vaccine (Adult) 07/26/2017 Zoster Vaccine Recombinant (Shingrix) 08/25/2018 ,06/06/2018 documented as of this encounter Social History Tobacco Use Types Packs/Day Years Used Date Smoking Tobacco: Never Smokeless Tobacco: Never Alcohol Use Standard Drinks/Week Comments No 0 (1 standard drink = 0.6 oz pur e alcohol) PHQ-2 Answer Date Recorded PHQ Adult Total Score 0 04/03/2024 Hunger Vital Sign Answer Date Recorded Within the past 12 months, y ou worried that your food would run out before you got the money to buy more. Never true 10/02/20 24 Within the past 12 months, t he food you bought just didn't last and you didn't have money to get more. Never true 10/02/2024 Childcare Answer Date Recorded Do you feel overwhelmed with taking care of a child, family member or friend? No 10/02/2024 Does your family need help f inding childcare? (Household - for ages 0-17 years) Not on file 10/02/2024 Clothing Answer Date Recorded Have you been unable to get clothing when it was really needed? No 10/02/2024 Is your family able to get c lothes or diapers when needed? (Household - for ages 0-17 years) Not on file 10/02/2024 Personal Safety Answer Date Recorded Do you feel unsafe or have concerns for your saf ety? No 10/02/2024 Do you have concerns for you r family's safety? (Household - for ages 0-17 years) Not on file 10/02/2024 Utilities Answer Date Recorded Do you have trouble paying y our heating, water, or electric bill? No 10/02/2024 Is your family able to pay t he heat, water, or electric bill? (Household - for ages 0-17 years) Not on file 10/02/2024 Does your family have access to good internet? (Household - for ages 0-17 years) Not on file 10/02/2024 Employment Status Answer Date Recorded Are you unemployed or without regular income? Ye s 10/02/2024 Does the household have a re gular source of income? (Household - for ages 0-17 years) Not on file 10/02/2024 Social Connections Answer Date Recorded How often do you feel lonely or isolated from th ose around you? Never 10/02/2024 Financial Resource Strain Answer Date R ecorded Do you have any trouble payi ng for your medications, or do you think you might in the future? No 10/02/2024 Does your family have troubl e paying for medicine? (Household - for ages 0-17 years) Not on file 10/02/2024 Transportation Needs Answer Date Record ed Do you have trouble getting a ride to medical visits or work? (Adult - for ages 18 years and over) Not on file 10/02/2024 Does your family have a hard time getting a ride to doctors visits? (Household - for ages 0-17 years) Not on file 10/02/2024 Has lack of transportation k ept you from medical appointments, meetings, work, or from getting things needed for daily living? Check all that apply. No 10/02/2024 Do you (or your family) have trouble finding or paying for a ride (transportation)? (Household - for ages 0-17 years) Not on file 10/02/2024 Housing Stability Answer Date Recorded Do you currently live in a s helter or have no steady place to sleep at night? Yes 10/02/2024 Do you think you are at risk of becoming homeless? (Adult - for ages 18 years and over) Not on file 10/02/2024 Does your family worry about paying for your home or becoming homeless? (Household - for ages 0-17 years) Not on file 1 12/03/2023 Are you homeless or worried that you might be in the future? No 10/02/2024 Are you (or your family) ana m eless or worried that you might be in the future? (Household - for ages 0-17 years) Not on file Food Insecurity Answer Date Recorded Do you need food for this week? No 10/02/2024 Are you able to get enough f ood for your family? (Household - for ages 0-17 years) Not on file 10/02/2024 Does your family need food t his week? (Household - for ages 0-17 years) Not on file 10/02/2024 Do you always have enough fo od for your family? (Household - for ages 0-17 years) Not on file 10/02/2024 Food Insecurity Answer Date Recorded Within the past 12 months, y ou worried that your food would run out before you got the money to buy more. Never true 10/02/20 24 Within the past 12 months, t he food you bought just didn't last and you didn't have money to get more. Never true 10/02/2024 Do you need food for this week? No 10/02/2024 Sex and Gender Information Value Date Recorded Sex Assigned at Male 07/25/2023 6:49 PM EDT Legal Sex Male 6:08 AM EST Gender Identity Male 07/25/2023 6:53 PM EDT Sexual Orientation Straight 07/25/2023 6: 53 PM EDT documented as of this encounter Last Filed Vital Signs Vital Sign Reading Time Taken Comments Blood Pressure 159/66 12/31/2024 2:21 PM EDT Pulse 78 12/31/2024 2:21 PM EDT Temperature 36.2 °C (97.2 °F) 12/31/2024 2:21 PM ED T Respiratory Rate 16 12/31/2024 2:21 PM EDT Oxygen Saturation 96% 12/31/2024 2:21 PM EDT Inhaled Oxygen Concentration - - Weight - - Height - - Body Mass Index - - documented in this encounter Functional Status * Are you deaf or do you have serious difficulty hearing? Answer Date of Assessment Author No 10/22/2019 3:14 PM Booker Reece RN * Are you blind or do you have serious difficulty seeing, even when wearing glasses? Answer Date of Assessment Author No 10/22/2019 3:14 PM Booker Reece RN * Do you have serious difficulty walking or climbing stairs? (5 years old or older) Answer Date of Assessment Author No 10/22/2019 3:14 PM Booker Reece RN * Do you have difficulty dressing or bathing? (5 years old or older) Answer Date of Assessment Author No 10/22/2019 3:14 PM Booker Reece RN * Because of a physical, mental, or emotional condition, do you have difficulty doing errands alone such as visiting a doctor’s office or shopping? (15 years old or older) Answer Date of Assessment Author No 10/22/2019 3:14 PM Booker Reece RN documented as of this encounter Mental Status * Because of a physical, mental, or emotional condition, do you have serious difficulty concentrating, remembering, or making decisions? (5 years old or older) Answer Entry Date Author No 10/22/2019 3:14 PM Booker Reece RN documented in this encounter H&P Notes * Kermit Arevalo, - 12/31/2024 1:30 PM EDT Endoscopy Pre-Procedure Assessment Name: Gilberto Valles Date: 12/31/2024 Time: 1:30 PM Procedure(s): Colonoscopy; with Indication(s) of average risk screening Upper GI Endoscopy; with Indication(s) of upper abdominal symptoms that persist despite an appropriate trial of therapy Endoscopy Pre-Procedure Assessment: Prior to the procedure, the patient is identified. The patient's history, medications and allergieshave been reviewed. The patient is competent. The risks and benefits of the proposed procedure and the planned sedation have been discussed with the patient. All questions have been answered and informed consent for the procedure has been obtained. Prior to Admission medications Medication Sig Last Dose Discont. Lantus SoloStar 100 UNIT/ML Subcutaneous Solution Pen-injector (Insulin Glargine Solostar) INJECT 23 UNITS UNDER THE SKIN IN THE MORNING Past Week metFORMIN HCl ER 500 MG Oral Tablet Extended Release 24 Hour (Glucophage XR) Take 2 Tablets by mouth in the morning and 2 Tablets before bedtime. Past Week hydroCHLOROthiazide 25 MG Oral Tablet (Hydrodiuril) TAKE 1 TABLET IN THE MORNING Past Week Atorvastatin Calcium 40 MG Oral Tablet (Lipitor) TAKE 1 TABLET DAILY Past Week Tamsulosin HCl 0.4 MG Oral Capsule (Flomax) Take 1 Capsule by mouth every night at bedtime. Past Week Omeprazole 20 MG Oral Capsule Delayed Release (PriLOSEC) TAKE 1 CAPSULE IN THE MORNING 1 HOUR BEFORE THE FIRST MEAL OF THE DAY Past Week FreeStyle Aida 3 Sensor Use as directed. Replace sensor every 14 days DX E11.9 12/31/2024 Jardiance 25 MG Oral Tablet (Empagliflozin) TAKE 1 TABLET BY MOUTH DAILY Past Week Pen Elkins 32G X 4 MM Use as directed. Once daily with Lantus insulin DX E11.9 - substitution permissible for both size/length as well as brand that are covered by insurance and in stock with pharmacy Past Week Metoprolol Tartrate 25 MG Oral Tablet (Lopressor) TAKE 1 TABLET IN THE MORNING AND 1 TABLET BEFORE BEDTIME Past Week Trulicity 4.5 MG/0.5ML Subcutaneous Solution Pen-injector (Dulaglutide) INJECT 4.5MG UNDER THE SKINONCE A WEEK Past Month Ketoconazole 2 % External Shampoo (Nizoral) Apply topically to affected area every 3 days. Apply tothe chest/arms/back/scalp. Leave on for 5 min then rinse. Over 30 Days Clindamycin Phosphate 1 % External Solution apply to the scalp 1-2 times daily as needed Over 30 Days Clobetasol Propionate 0.05 % External Liquid apply to the scalp daily as needed when itchy Over 30 Days Triamcinolone Acetonide 0.1 % External Cream (Aristocort) Apply to the back/arms/legs twice daily as needed Over 30 Days Review of patient's allergies indicates: Allergen Reactions Augmentin [Amoxicillin-Pot Clavulanate] Hives Clavulanic Acid Hives BP 171/90 | Pulse 63 | Temp 36.3 °C (97.3 °F) (Tympanic) | Resp 16 | SpO2 100% Physical Exam: Mental Status Examination: alert and oriented. Airway Examination: normal oropharyngeal airway and neck mobility. Respiratory Examination: clear to auscultation. CV Examination: systolic murmur. ASA Grade: III - A patient with severe systemic disease. Abdomen: soft and nontender This patient has undergone a preprocedural evaluation. A determination has been made to proceed with the planned procedure under [facility] procedural guidelines and the [facility] Non-Emergent, Elective Medical Services and Treatment Recommendations (published on 01-22-20). The community and hospital prevalence of COVID-19 has been discussed as well as this patient's specific risks associated with SARS-CoV-19 infection. Based upon the clinical acuity and patient-specific care considerations, this procedure is deemed a Tier II - Intermediate acuity treatment or service with either progression or the threat of progressive disease related to the delay in treatment. Not providing the service has the potential for increasing morbidity or mortality. After reviewing the risks and benefits, the patient is deemed in satisfactory condition to undergo the procedure. The anesthesia plan is to use general anesthesia. We have discussed the risks and benefits of upper endoscopy to include bleeding, infection, perforation, discomfort, aspiration and need for follow-up studies. I have discussed the risks of colonoscopy to include bleeding, infection, perforation, pain, missedpolyps, and need for follow-up studies. Kermit Arevalo DO 12/31/2024 documented in this encounter Procedure Notes * Milton Mcdaniel MD - 12/31/2024 1:36 PM EDTAssociated Order(s): COLONOSCOPY [facility] Patient Name: Gilberto Valles Procedure Date: 12/31/2024 1:36 PM Date of : 1950 Admit Type: Outpatient Note Status: Finalized Date of : 1950 Admit Type: Outpatient Age: 74 Room: Endo 4 Gender: Male Note Status: Finalized Procedure: Colonoscopy Indications: Change in bowel habits Providers: Kermit Arevalo DO (Doctor) Referring MD: Milton Mcdaniel (Referring MD), Meagan Chase (Referring MD) Medicines: General Anesthesia Complications: No immediate complications. Estimated blood loss: Minimal. Procedure: Pre-Anesthesia Assessment: - Prior to the procedure, a History and Physical was performed, and patient medications, allergies and sensitivities were reviewed. The patient's tolerance of previous anesthesia was reviewed. - The risks and benefits of the procedure and the sedation options and risks were discussed with the patient. All questions were answered and informed consent was obtained. - Patient identification and proposed procedure were verified prior to the procedure by the physician, the nurse and the best worker. The procedure was verified in the procedure room. - Pre-procedure physical examination revealed no contraindications to sedation. - ASA Grade Assessment: III - A patient with severe systemic disease. - After reviewing the risks and benefits, the patient was deemed in satisfactory condition to undergo the procedure. - The anesthesia plan was to use general anesthesia. - Immediately prior to administration of medications, the patient was re- assessed for adequacy to receive sedatives. - The heart rate, respiratory rate, oxygen saturations, blood pressure, adequacy of pulmonary ventilation, and response to care were monitored throughout the procedure. - The physical status of the patient was re-assessed after the procedure. After I obtained informed consent, the scope was passed under direct vision. All instruments were visually inspected immediately before and after removal from the patient to ensure they are fully intact. Throughout the procedure, the patient's blood pressure, pulse, and oxygen saturations were monitored continuously. The PCF-H190L Colonoscope ([id number]) was introduced through the anus and advanced to the terminal ileum. The colonoscopy was performed without difficulty. The patient tolerated the procedure well. The quality of the bowel preparation was good. Findings & Specimens: Hemorrhoids were found on perianal exam. The terminal ileum appeared normal. Normal mucosa was found in the entire colon. Biopsies for histology were taken with a cold forceps from the entire colon for evaluation of microscopic colitis. The pathology specimen was placed into Bottle Number 3. Estimated blood loss was minimal. Multiple small and large-mouthed diverticula were found in the sigmoid colon and descending colon. Internal hemorrhoids were found during retroflexion. The hemorrhoids were moderate. Anal papilla(e) were hypertrophied. The exam was otherwise without abnormality. Impression: - Hemorrhoids found on perianal exam. - The examined portion of the ileum was normal. - Normal mucosa in the entire examined colon. Biopsied. - Moderate diverticulosis in the sigmoid colon and in the descending colon. - Internal hemorrhoids. - Anal papilla(e) were hypertrophied. - The examination was otherwise normal. Recommendation: - The patient will be observed post-procedure, until all discharge criteria are met. - Advance diet as tolerated today. - Repeat colonoscopy in 10 years for screening purposes. - Return to GI office PRN. Kermit Arevalo DO 12/31/2024 2:01:18 PM This report has been signed electronically. * Milton Mcdaniel MD - 12/31/2024 1:34 PM EDTAssociated Order(s): UPPER GI ENDOSCOPY [facility] Patient Name: Gilberto Valles Procedure Date: 12/31/2024 1:34 PM Date of : 1950 Admit Type: Outpatient Note Status: Finalized Date of : 1950 Admit Type: Outpatient Age: 74 Room: [facility] 4 Gender: Male Note Status: Finalized Procedure: Upper GI endoscopy Indications: Epigastric abdominal pain, Suspected celiac disease Providers: Kermit Arevalo DO (Doctor) Referring MD: Milton Mcdaniel (Referring MD), Meagan Chase (Referring MD) Medicines: General Anesthesia Complications: No immediate complications. Estimated blood loss: Minimal. Procedure: Pre-Anesthesia Assessment: - Prior to the procedure, a History and Physical was performed, and patient medications, allergies and sensitivities were reviewed. The patient's tolerance of previous anesthesia was reviewed. - The risks and benefits of the procedure and the sedation options and risks were discussed with the patient. All questions were answered and informed consent was obtained. - Patient identification and proposed procedure were verified prior to the procedure by the physician, the nurse and the best worker. The procedure was verified in the procedure room. - Pre-procedure physical examination revealed no contraindications to sedation. - ASA Grade Assessment: III - A patient with severe systemic disease. - After reviewing the risks and benefits, the patient was deemed in satisfactory condition to undergo the procedure. - The anesthesia plan was to use general anesthesia. - Immediately prior to administration of medications, the patient was re- assessed for adequacy to receive sedatives. - The heart rate, respiratory rate, oxygen saturations, blood pressure, adequacy of pulmonary ventilation, and response to care were monitored throughout the procedure. - The physical status of the patient was re-assessed after the procedure. After obtaining informed consent, the endoscope was passed under direct vision. All instruments were visually inspected immediately before and after removal from the patient to ensure they are fully intact. Throughout the procedure, the patient's blood pressure, pulse, and oxygen saturations were monitored continuously. The PCF-H190L Colonoscope ([id number]) was introduced through the mouth, and advanced to the third part of duodenum. The upper GI endoscopy was accomplished without difficulty. The patient tolerated the procedure well. Findings & Specimens: The upper third of the esophagus and middle third of the esophagus were normal. The esophagus and gastroesophageal junction were examined with white light. There were esophageal mucosal changes classified as Emery's stage C1-M2 per [place] criteria. These changes involved the mucosa at the upper extent of the gastric folds (32 cm from the incisors) extending to the Z-line (30 cm from the incisors). The maximum longitudinal extent of these esophageal mucosal changes was 2 cmin length. Mucosa was biopsied with a cold forceps for histology. One specimen bottle was sent to pathology. The pathology specimen was placed into Bottle Number 2. Estimated blood loss was minimal. A 5 cm hiatal hernia was found. The proximal extent of the gastric folds (end of tubular esophagus)was 32 cm from the incisors. The hiatal narrowing was 37 cm from the incisors. The Z-line was 30 cm from the incisors. The gastric fundus, gastric body, incisura and gastric antrum were normal. The examined duodenum was normal. Biopsies were taken with a cold forceps for histology. The pathology specimen was placed into Bottle Number 1. Estimated blood loss was minimal. Impression: - Normal upper third of esophagus and middle third of esophagus. 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 Biopsied. - 5 cm hiatal hernia. - Normal gastric fundus, gastric body, incisura and antrum. - Normal examined duodenum. Biopsied. Recommendation: - Perform a colonoscopy today. - Await pathology results. Kermit Arevalo DO 12/31/2024 2:04:52 PM This report has been signed electronically. documented in this encounter Nursing Notes * Gilberto Moore RN - 12/31/2024 2:30 PM EDT Patient is alert, pain free, tolerating po fluids prior to discharge. Patient has been visited by Dr. Kermit Arevalo. Patient has received and demonstrates understanding of discharge instructions. Patient ambulated to private auto accompanied by endo staff. * Gilberto Moore RN - 12/31/2024 2:29 PM EDT Pt sitting at bedside dressing self denies any pain or dizziness. * Gilberto Moore RN - 12/31/2024 2:17 PM EDT Pt sitting up in bed tolerating liquids well. * Gilberto Moore RN - 12/31/2024 2:04 PM EDT Pt received in recovery sleeping on L side easily arousable by name, abd is soft and non distended,pt denies any pain. VSS * Rose Patel RN - 12/31/2024 2:02 PM EDT Specimen(s) and location(s) verified with physician post procedure 2:03 PM Rose Ptael RN See anesthesia record for medication administered during procedure. Rose Patel RN Pre cleaning of scope at the bedside started by audio visual technician. Mid abdominal pressure given per Dr. Kermit Arevalo to assist with scope advancement. Pt tolerated well * Jumana Lilly RN - 12/31/2024 12:47 PM EDT The following pt discharge instructions reviewed with pt prior to prodedure: No driving today. No alcohol today. No signing of legal documents. Rest as much as possible today and can return to normal activities tomorrow. No operating any heavy equipment today. Diet as tolerated. Pt verbalized understanding. documented in this encounter Miscellaneous Notes * Result Encounter Note - Milton Mcdaniel MD - 12/31/2024 2:35 PM EDT Result noted. Milton Mcdaniel MD * Result Encounter Note - Milton Mcdaniel MD - 12/31/2024 2:35 PM EDT Result noted. Milton Mcdaniel MD documented in this encounter Plan of Treatment Upcoming Encounters Date Type Department Care Team (Late st Contact Info) Description 01/09/2025 3:40 PM EDT Office Visit [facility] Tre[facility] [address] [phone] Milton Mcdaniel MD [address] [place] [phone] 01/10/2025 11:00 AM EDT Office Visit Gastroenterology, [facility] [address] [place] [address] Meagan Chase CRNP [address] [place] [address] 04/10/2025 6:20 PM EDT Office Visit [facility]iy Trevizo [address] [phone] Milton Mcdaniel MD [address] [place] [address] 09/19/2025 7:40 AM EST Laboratory Laboratory, [facility] [address] [phone] [facility] [address] [address] 09/26/2025 2:30 PM EST Office Visit Hematology/Oncology [facility] [place] [address] [facility] [place] [phone] Steph Romero CRNP [address] [place] [address] Pending Results Name Type Priority Associated Diagnoses Date /Time SURGICAL PATHOLOGY Pathology Routine Irritable bowel syndrome with both constipation and diarrhea 12/31/2024 2:00 PM EDT Scheduled Orders Name Type Priority Associated Diagnoses Orde r Schedule GLUCOSE METER, POINT OF CARE (COMMUNICATION ORDER) Point of Care Testing Routine Perform Now for 1 Occurrences starting 12/31/2024 until 12/31/2024 SURGICAL PATHOLOGY Pathology Routine Irritable bowel syndrome with both constipation and diarrhea Release Upon Ordering for 1 Occurrences starting 12/31/2024, 1 completed Health Maintenance Due Date Last Done Comments Hepatitis C Screening 1968 Adult Wellness Visit 2015 COVID-19 Vaccine ( season) 2024 09/23/2021, 01/13/2021, 12/23/2020 Albumin/Creatinine Ratio 09/02/2024 023, 09/16/2022, 09/09/2021, Additional history exists CKD PHOS USE SMARTSET 73762 09/02/202408/17, 03/08/2023, 09/16/2022 HbA1c 01/28/2025 07/30/2024, 03/17, 11/14/2023, Additional history exists B-12 03/26/2025 03/26/2024, 02/15, 03/10/2022, Additional history exists GFR 03/26/2025 09/25/2024, 07/17, 03/26/2024, Additional history exists Depression Screening 04/03/2025 04/03/2024 CKD HGB USE SMARTSET 08645 09/25/202509/25, 09/25/2024, 11/14/2023, Additional history exists Diabetic Foot Exam 10/03/2025 10/03/2024, 1 12/01/2022, 10/25/2022, Additional history exists Diabetic Eye Exam 12/27/2025 12/27/2024, , 01/06/2022, Additional history exists Colonoscopy 12/31/2029 12/31/2024, 03/18, 11/09/2016 DTap/Tdap Vaccines (3 - Td or Tdap) 11/25/2031 11/25/2021, 04/16/2016 Zoster Vaccines Completed 08/25/2018, 05/18, 07/26/2017 Fecal Occult Blood Test Discontinued 01/27/2019 Pneumococcal Vaccine: 50+ Years Completed 09/12/2019, 08/22/2018, 07/26/2017 Influenza Vaccine (FLU shot) Completed 07/11/2024, 07/26/2023, 06/30/2022, Additional history exists RETIRED - COLONOSCOPY-EVERY 5 YRS AGES 18-100 Discontinued 12/31/2024, 04/05/2019, 11/09/2016 HPV (Gardasil) Vaccine Aged Out No lo nger eligible based on patient's age to complete this topic Hepatitis B Vaccine Aged Out No longe r eligible based on patient's age to complete this topic MENINGOCOCCAL (MENACTRA/MENVEO) Aged Out No longer eligible based on patient's age to complete this topic Meningitis B Vaccine (Bexsero/Trumemba) Aged Out No longer eligible based on patient's age to complete this topic documented as of this encounter Medical Devices Implanted Type Area Lead Database Administrator Device Identifier Shelf Expiration Date Model / Serial / Lot Reunion Rsa Center Screw 6.5mm X 24mm Implanted:Qty: 1 on 09/14/2017 by Dante Morris DO [place] [facility] [place]: Shoulder PEMA : ORTHOPAEDICS 05/03/2022 [id number] / / [id number] Reunion Rsa Humeral Cup 36mm X 4mm Implanted:Qty: 1 on 09/14/2017 by Dante Morris DO at [place] [facility] [place] Right: Shoulder PEMA : ORTHOPAEDICS 08/22/2022 [id number] / / [id number] Reunion Rsa 3.1mm Drill Bit Implanted:Qty: 1 on 09/14/2017 by Dante Morris DO at [place] [facility] [place] Right: Shoulder PEMA : ORTHOPAEDICS 03/24/2022 [id number] / / [id number] Reunion Rsa Glenoid Baseplate 28mm Implanted:Qty: 1 on 09/14/2017 by Dante Morris DO at [place] [facility] [place] Right: Shoulder PEMA : ORTHOPAEDICS 08/01/2022 [id number] / / [id number] Reunion Rsa Peripheral Screw 4.5mm X 24mm Implanted:Qty: 1 on 09/14/2017 by Dante Morris DO at [place] [facility] [place] Right: Shoulder PEMA : ORTHOPAEDICS 06/30/2022 3815-2802 / / [id number] Reunion Rsa Peripheral Screw 4.5mm X 28mm Implanted:Qty: 1 on 09/14/2017 by Dante Morris DO [place] [facility] [place] Right: Shoulder PEMA : ORTHOPAEDICS 06/30/2022 [id number] / / [id number] Reunion Rsa Peripheral Screw 4.5mm X 20mm Implanted:Qty: 1 on 09/14/2017 by Dante Morris DO [place] [facility] [place] Right: Shoulder PEMA : ORTHOPAEDICS 04/13/2022 [id number] / / [id number] Reunion Rsa Concentric Glenosphere 36mm X 6mm Implanted:Qty: 1 on 09/14/2017 by Dante Morris DO [place] [facility] [place] Right: Shoulder PEMA : ORTHOPAEDICS 06/16/2022 5573-C-36 06 / / [id number] Reunion Rsa Peripheral Screw Implanted:Qty: 1 on 09/14/2017 by Dante Morris DO at [place] [facility] [place] Right: Shoulder PEMA : ORTHOPAEDICS 02/11/2021 8537-1677 / / [id number] Reunion Tsa Modular Humeral Stem Size11 X 123mm Implanted:Qty: 1 on 09/14/2017 by Dante Morris DO at [place] [facility] [place] Right: Shoulder PEMA : ORTHOPAEDICS 05/02/2022 5569-P-20 11 / / [id number] Reunion Rsa X3 Humeral Insert 36mm X 4mm Implanted:Qty: 1 on 09/14/2017 by Dante Morris DO at [place] [facility] [place] Right: Shoulder PEMA : ORTHOPAEDICS 03/22/2022 5571-S-36 04 / / [id number] Baseplate #5 Tritanium - [id number] Implanted:Qty: 1 on 10/22/2019 by Nick Vang MD at OR [facility] Left: Knee PEMA : ORTHOPAEDICS 08/07/2024 5536-B-50 0 / / [id number] Knee Triathlon Ps Stb Bead 4 L - [id number] Implanted:Qty: 1 on 10/22/2019 by Nick Vang MD at OR [facility] Left: Knee PEMA : ORTHOPAEDICS 04/08/2024 5516-F-40 1 / / [id number] Insert Tib Sz5 Knee - [id number] Implanted:Qty: 1 on 10/22/2019 by Nick Vang MD at OR [facility] Left: Knee PEMA : ORTHOPAEDICS 12/13/2022 5532-G-51 1 / / [id number] Triathlon Tritanium Symmetric Patella Implanted:Qty: 1 on 10/22/2019 by Nick Vang MD at OR [facility] Left: Knee 04/21/2024 5556-L-39 1 / / [id number] documented as of this encounter Procedures Procedure Name Priority Date/Time Associated Diagnosis Comments COLONOSCOPY 12/31/2024 1:36 PM EDT UPPER GI ENDOSCOPY 12/31/2024 1: 34 PM EDT GLUCOSE METER, POINT OF CARE ELBERT 12/31/2024 1:23 PM EDT documented in this encounter Results * COLONOSCOPY (12/31/2024 1:36 PM EDT) 12/31/2024 1:36 PM EDT Narrative Procedure Note Milton Mcdaniel MD - 12/31/2024 1:36 PM EDT [facility] Patient Name: Gilberto Valles Procedure Date: 12/31/2024 1:36 PM Date of : 1950 Admit Type: Outpatient Note Status:Finalized Date of : 1950 Admit Type: Outpatient Age: 74 Room: [facility] 4 Gender: Male Note Status: Finalized Procedure: Colonoscopy Indications: Change in bowel habits Providers: Kermit Arevalo DO (Doctor) Referring MD: Milton Mcdaniel (Referring MD), Meagan Chase (ReferringMD) Medicines: General Anesthesia Complications: No immediate complications. Estimated blood loss:Minimal. Procedure: Pre-Anesthesia Assessment: - Prior to the procedure, a History and Physicalwas performed, and patient medications, allergies and sensitivities werereviewed. The patient's tolerance of previous anesthesia was reviewed. - The risks and benefits of the procedure and thesedation options and risks were discussed with the patient. All questions wereanswered and informed consent was obtained. - Patient identification and proposed procedurewere verified prior to the procedure by the physician, the nurse and the best worker.The procedure was verified in the procedure room. - Pre-procedure physical examination revealed nocontraindications to sedation. - ASA Grade Assessment: III - A patient with severesystemic disease. - After reviewing the risks and benefits, thepatient was deemed in satisfactory condition to undergo the procedure. - The anesthesia plan was to use generalanesthesia. - Immediately prior to administration ofmedications, the patient was re-assessed for adequacy to receive sedatives. - The heart rate, respiratory rate, oxygensaturations, blood pressure, adequacy of pulmonary ventilation, and response to care weremonitored throughout the procedure. - The physical status of the patient wasre-assessed after the procedure. After I obtained informed consent, the scope waspassed under direct vision. All instruments were visually inspected immediatelybefore and after removal from the patient to ensure they are fully intact. Throughout the procedure, the patient's bloodpressure, pulse, and oxygen saturations were monitored continuously. The [id number] ([id number]) was introduced through the anus and advanced to the terminalileum. The colonoscopy was performed without difficulty. The patient tolerated theprocedure well. The quality of the bowel preparation was good. Findings & Specimens: Hemorrhoids were found on perianal exam. The terminal ileum appeared normal. Normal mucosa was found in the entire colon. Biopsies for histologywere taken with a cold forceps from the entire colon for evaluation of microscopic colitis. The pathologyspecimen was placed into Bottle Number 3. Estimated blood loss was minimal. Multiple small and large-mouthed diverticula were found in thesigmoid colon and descending colon. Internal hemorrhoids were found during retroflexion. The hemorrhoidswere moderate. Anal papilla(e) were hypertrophied. The exam was otherwise without abnormality. Impression: - Hemorrhoids found on perianal exam. - The examined portion of the ileum was normal. - Normal mucosa in the entire examined colon.Biopsied. - Moderate diverticulosis in the sigmoid colon andin the descending colon. - Internal hemorrhoids. - Anal papilla(e) were hypertrophied. - The examination was otherwise normal. Recommendation: - The patient will be observed post-procedure,until all discharge criteria are met. - Advance diet as tolerated today. - Repeat colonoscopy in 10 years for screeningpurposes. - Return to GI office PRN. Kermit Arevalo DO 12/31/2024 2:01:18 PM This report has been signed electronically. us Milton Mcdaniel MD GASTRO LOWER Final Result * UPPER GI ENDOSCOPY (12/31/2024 1:34 PM EDT) 12/31/2024 1:34 PM EDT Narrative Procedure Note Milton Mcdaniel MD - 12/31/2024 1:34 PM EDT [facility] Patient Name: Gilberto Valles Procedure Date: 12/31/2024 1:34 PM Date of : 1950 Admit Type: Outpatient Note Status:Finalized Date of : 1950 Admit Type: Outpatient Age: 74 Room: [facility] 4 Gender: Male Note Status: Finalized Procedure: Upper GI endoscopy Indications: Epigastric abdominal pain, Suspected celiacdisease Providers: Kermit Arevalo DO (Doctor) Referring MD: Milton Mcdaniel (Referring MD), Meagan Chase(Referring MD) Medicines: General Anesthesia Complications: No immediate complications. Estimated blood loss:Minimal. Procedure: Pre-Anesthesia Assessment: - Prior to the procedure, a History and Physicalwas performed, and patient medications, allergies and sensitivities werereviewed. The patient's tolerance of previous anesthesia was reviewed. - The risks and benefits of the procedure and thesedation options and risks were discussed with the patient. All questions wereanswered and informed consent was obtained. - Patient identification and proposed procedurewere verified prior to the procedure by the physician, the nurse and the best worker.The procedure was verified in the procedure room. - Pre-procedure physical examination revealed nocontraindications to sedation. - ASA Grade Assessment: III - A patient with severesystemic disease. - After reviewing the risks and benefits, thepatient was deemed in satisfactory condition to undergo the procedure. - The anesthesia plan was to use generalanesthesia. - Immediately prior to administration ofmedications, the patient was re-assessed for adequacy to receive sedatives. - The heart rate, respiratory rate, oxygensaturations, blood pressure, adequacy of pulmonary ventilation, and response to care weremonitored throughout the procedure. - The physical status of the patient wasre-assessed after the procedure. After obtaining informed consent, the endoscope waspassed under direct vision. All instruments were visually inspected immediatelybefore and after removal from the patient to ensure they are fully intact. Throughout the procedure, the patient's bloodpressure, pulse, and oxygen saturations were monitored continuously. The PCF-[id number] ([id number]) was introduced through the mouth, and advanced to the third partof duodenum. The upper GI endoscopy was accomplished without difficulty. The patienttolerated the procedure well. Findings & Specimens: The upper third of the esophagus and middle third of the esophaguswere normal. The esophagus and gastroesophageal junction were examined with whitelight. There were esophageal mucosal changes classified as Emery's stage C1-M2 per [place]eria. These changes involved the mucosa at the upper extent of the gastric folds (32 cm from theincisors) extending to the Z-line (30 cm from the incisors). The maximum longitudinal extent of theseesophageal mucosal changes was 2 cm in length. Mucosa was biopsied with a cold forceps for histology. Onespecimen bottle was sent to pathology. The pathology specimen was placed into Bottle Number 2.Estimated blood loss was minimal. A 5 cm hiatal hernia was found. The proximal extent of the gastricfolds (end of tubular esophagus) was 32 cm from the incisors. The hiatal narrowing was 37 cm from theincisors. The Z- line was 30 cm from the incisors. The gastric fundus, gastric body, incisura and gastric antrum werenormal. The examined duodenum was normal. Biopsies were taken with a coldforceps for histology. The pathology specimen was placed into Bottle Number 1. Estimated blood loss wasminimal. Impression: - Normal upper third of esophagus and middle thirdof esophagus. - Esophageal mucosal changes classified asBarrett's stage C1-M2 per [place] criteria. Biopsied. - 5 cm hiatal hernia. - Normal gastric fundus, gastric body, incisura andantrum. - Normal examined duodenum. Biopsied. Recommendation: - Perform a colonoscopy today. - Await pathology results. Kermit Arevalo DO 12/31/2024 2:04:52 PM This report has been signed electronically. Milton Mcdaniel MD GASTRO UPPER Final Result * (ABNORMAL) GLUCOSE METER, POINT OF CARE (12/31/2024 1:23 PM EDT) Glucose - POCT 174(H) 70 - 120 mg/dL 12/31/2024 1:29 PM EDT [facility] 57 Blood Whole blood specimen / Unknown 12/31/2024 1:23 PM EDT 12/31/2024 1:29 PM EDT Kermit Arevalo DO LAB POINT OF CARE TE ST DOCKED DEVICE UNSOLICITED RESULTS Final Result [facility] [address] [facility] [place] [address] documented in this encounter Visit Diagnoses Diagnosis Irritable bowel syndrome with both constipation and diarrhea documented in this encounter Administered Medications Inactive Administered Medications - up to 3 most recent administrations Medication Order MAR Action Action Date Dose Rate Site Isolyte-S pH 7.4 infusion Intravenous, at 100 mL/hr, Plasma-LYTE 148, isolyte-S, and isolyte-S pH 7.4 are considered equivalent - including for MAR barcode scanning., CONTINUOUS, Starting on Tue12/31/24 at 1315, Until 12/31/24 at 1835, Pre-Op Continue from Pre-Op 12/31/2024 1:31 PM EDT 100 mL/hr New Bag 12/31/2024 1:27 PM EDT 100 mL/hr documented in this encounter Active and Recently Administered Medications Times are shown in EDT. Continuous Medication Order 12/29/2024 12/30/2024 12/31/2024 Isolyte-S pH 7.4 infusion Intravenous, at 100 mL/hr, Plasma-LYTE 148, isolyte-S, and isolyte-S pH 7.4 are considered equivalent - including for MAR barcode scanning., CONTINUOUS, Starting on 12/31/24 at 1315, Until Tue12/31/24 at 1835, Pre-Op 1327 (New Bag - Prov ider: Jumana Lilly RN)1331 (Continue from Pre-Op - Provider: Kirstin Rodriguez CRNA)1406 (Anes Intra-Op Fluid - Provider: Kirstin Rodriguez CRNA) documented in this encounter Advance Directives * Full Code (Latest Code Status on File) Date Activated Date Inactivated Comments 06/25/2022 2:32 PM 06/25/2022 8:12 PM This order ref lects the patients wishes and were consensually agreed upon. Question Answer Comments Discussion of Advance Directives occurred with: Patient * Full Code Date Activated Date Inactivated Comments 05/03/2022 12:02 PM 05/03/2022 7:06 PM This order reflects the patients wishes and were consensually agreed upon. * Full Code Date Activated Date Inactivated Comments 10/22/2019 1:19 PM 10/25/2019 4:54 PM This order ref lects the patients wishes and were consensually agreed upon. * Full Code Date Activated Date Inactivated Comments 09/14/2017 1:48 PM 09/15/2017 6:08 PM . Question Answer Comments Discussion of Advance Directives occurred with: Not Discussed Care Teams Drug Purchaser Relationship Specialty Start Date End Date February, Milton Alvarez MD [address] [id number] PCP - General Family Medicine 11/29/24 documented as of this encounter"
--- OUTSIDE RECORDS SUMMARY | 2025-01-26 00:16 | External Medical Summary ---
Author Name Unknown Address Unknown Organization : Laboratory Report Ordering Provider Test Date Status [facility] C[facility] 12/31/2024 13:23:41 Final Observation Date Value Abnormality Reference (Units ) Status Glucose Point of Care 12/31/2024 13:23:41 174 Above high normal 70-120 (mg/dL) Final Performing Location
--- OUTSIDE RECORDS SUMMARY | 2025-01-26 00:16 | External Medical Summary | Summary of Care ---
Author Name Unknown Organization [facility] Address [address] [place] [address] Phone [phone] Care Team Providers Care Sand Slinger Operator Name Role Phone Milton Mcdaniel MD Primary Care Provider [phone] Encounter Details Date Type Department Care Team (Late st Contact Info) Description 12/28/2024 [facility] [address] [address] [place] [address] Milton Mcdaniel MD [address] [place] [address] Allergies Active Allergy Reactions Criticality Noted Date Comments Amoxicillin-Pot Clavulanate Hives 06/16/20 16 Clavulanic Acid Hives 07/09/2016 documented as of this encounter (statuses as of 12/28/2024) Medications Clindamycin Phosphate 1 % External Solution [...] 5 min then rinse. 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 11/28/2018 Diverticulosis of colon 11/09/201611/2017 Overview (05/28/2018): By colonosopy Hemorrhoid 11/09/2016 11/28/2018 Overview (05/28/2018): By colonoscopy documented as of this encounter (statuses as of 12/28/2024) Immunizations Name Administration Dates Next Due COVID-19 mRNA, LNP-s, No Pre serve, 2-Dose Series (Pfizer) 09/23/2021,01/13/2021,12/23/2020 Pneumococcal Conjugate Vacc, 13 Valent (Prevnar) [...] PM EDT documented as of this encounter Functional Status * Are you [...] Booker Reece RN documented in this encounter Plan of Treatment Upcoming Encounters Date Type Department Care Team (Latest Contact Info) Description 12/31/2024 1:30 PM EDT Hospital Encounter ENDO [facility], Endoscopy Room [facility] [address] [place] [phone] Kermit Arevalo, DO [address] [place] [address] 12/31/2024 1:30 PM EDT - 12/31/2024 2:30 PM EDT Surgery ENDO [facility], Endoscopy Room [facility] [address] [place] [phone] Kermit Arevalo, DO [address] [place] [address] COLONOSCOPY FLEXIBLE PROXIMAL DIAGNOSTIC 01/10/2025 11:00 AM EDT Office Visit Gastroenterology, [facility] [address] [place] [address] Meagan Chase CRNP [address] [place] [address] 04/10/2025 6:20 PM EDT [facility] [address] [facility] [address] FebruaryMilton MD [address] [facility] [address] 09/19/2025 7:40 AM EST [facility] [address] [facility] [phone] [place], Laboratory [address] [facility] [address] 09/26/2025 2:30 PM EST Office Visit Hematology/Oncolog y [facility] [address] [place] [phone] Steph Romero CRNP [address] [facility] [place] [address] Scheduled Procedures Name Priority Associated Diagnoses Date/Ti me COLONOSCOPY FLEXIBLE PROXIMA L DIAGNOSTIC Irritable bowel syndrome with both constipation and diarrhea 12/31/2024 1:30 PM EDT ESOPHAGOGASTRODUODENOSCOPY ( EGD), FLEXIBLE, TRANSORAL, DIAGNOSTIC Irritable bowel syndrome with both constipation and diarrhea 12/31/2024 1:30 PM EDT Health Maintenance Due Date Last Done Comments Hepatitis C Screening 1968 Adult Wellness Visit 2015 Colonoscopy 04/05/2024 04/05/2019, 11/09/2016 COVID-19 Vaccine ( season) 2024 09/23/2021, 01/13/2021, 12/23/2020 Albumin/Creatinine Ratio 09/02/2024 023, 09/16/2022, 09/09/2021, Additional history exists CKD PHOS USE SMARTSET 52197 09/02/202408/17, 03/08/2023, 09/16/2022 HbA1c 01/28/2025 07/30/2024, 03/17, 11/14/2023, Additional history exists B-12 03/26/2025 03/26/2024, 02/15, 03/10/2022, Additional history exists GFR 03/26/2025 09/25/2024, 07/17, 03/26/2024, Additional history exists Depression Screening 04/03/2025 04/03/2024 CKD HGB USE SMARTSET 94156 09/25/202509/25, 09/25/2024, 11/14/2023, Additional history exists Diabetic Foot Exam 10/03/2025 10/03/2024, 1 12/01/2022, 10/25/2022, Additional history exists Diabetic Eye Exam 12/28/2025 12/27/2024, , 01/06/2022, Additional history exists DTap/Tdap Vaccines (3 - Td or Tdap) 11/25/2031 11/25/2021, 04/16/2016 Zoster Vaccines Completed 08/25/2018, 05/18, 07/26/2017 Fecal Occult Blood Test Discontinued 01/27/2019 RETIRED - COLONOSCOPY-EVERY 5 YRS AGES 18-100 Discontinued 04/05/2019, 11/09/2016 Pneumococcal Vaccine: 50+ Years Completed 09/12/2019, 08/22/2018, 07/26/2017 Influenza Vaccine (FLU shot) Completed 07/11/2024, 07/26/2023, 06/30/2022, Additional history exists HPV (Gardasil) Vaccine Aged Out No lo [...] this encounter Medical Devices Implanted Type Area Stonehand Device Identifier Shelf Expiration Date Model / Serial / Lot Reunion Rsa Center Screw 6.5mm X 24mm Implanted:Qty: 1 on 09/14/2017 by Dante Morris DO [place] [facility] [place]: Shoulder PEMA : ORTHOPAEDICS 05/03/2022 [id number] / / [id number] Reunion Rsa Humeral Cup 36mm X 4mm Implanted:Qty: 1 on 09/14/2017 by Dante Morris DO [place] [facility] [place]: Shoulder PEMA : ORTHOPAEDICS 08/22/2022 [id number] / / [id number] Reunion Rsa 3.1mm Drill Bit Implanted:Qty: 1 on 09/14/2017 by Dante Morris DO [place] [facility] [place]: Shoulder PEMA : ORTHOPAEDICS 03/24/2022 [id number] / / [id number] Reunion Rsa Glenoid Baseplate 28mm Implanted:Qty: 1 on 09/14/2017 by Dante Morris DO [place] [facility] Right: Shoulder PEMA : ORTHOPAEDICS 08/01/2022 6134-5517 / / [id number] Reunion Rsa Peripheral Screw 4.5mm X 24mm Implanted:Qty: 1 on 09/14/2017 by Dante Morris DO [place] [facility] Right: Shoulder PEMA : ORTHOPAEDICS 06/30/2022 5911-1280 / / [id number] Reunion Rsa Peripheral Screw 4.5mm X 28mm Implanted:Qty: 1 on 09/14/2017 by Dante Morris DO at [place] [facility] Right: Shoulder PEMA : ORTHOPAEDICS 06/30/2022 1258-1849 / / [id number] Reunion Rsa Peripheral Screw 4.5mm X 20mm Implanted:Qty: 1 on 09/14/2017 by Dante Morris DO [place] [facility] Right: Shoulder PEMA : ORTHOPAEDICS 04/13/2022 [id number] / / [id number] Reunion Rsa Concentric Glenosphere 36mm X 6mm Implanted:Qty: 1 on 09/14/2017 by Dante Morris DO [place] [facility] [place]: Shoulder PEMA : ORTHOPAEDICS 06/16/2022 5573-C-36 06 / / [id number] Reunion Rsa Peripheral Screw Implanted:Qty: 1 on 09/14/2017 by Dante Morris DO [place] [facility] Right: Shoulder PEMA : ORTHOPAEDICS 02/11/2021 [id number] / / [id number] Reunion Tsa Modular Humeral Stem Size11 X 123mm Implanted:Qty: 1 on 09/14/2017 by Dante Morris DO [place] [facility] Right: Shoulder PEMA : ORTHOPAEDICS 05/02/2022 5569-P-20 11 / / [id number] Reunion Rsa X3 Humeral Insert 36mm X 4mm Implanted:Qty: 1 on 09/14/2017 by Dante Morris DO [place] [facility] Right: Shoulder PEMA : ORTHOPAEDICS 03/22/2022 5571-S-36 04 / / [id number] Baseplate #5 Tritanium - [id number] Implanted:Qty: 1 on 10/22/2019 by Nick Vang MD at OR [facility] Left: Knee PEMA : ORTHOPAEDICS 08/07/2024 5536-B-50 0 / / [id number] Knee Triathlon Ps Stb Bead 4 L - [id number] Implanted:Qty: 1 on 10/22/2019 by Nick Vang MD at OR [facility] Left: Knee PEMA : ORTHOPAEDICS 04/08/2024 5516-F-40 1 / / [id number] Insert Tib Sz5 Knee - [id number] Implanted:Qty: 1 on 10/22/2019 by Nick Vang MD at OR [facility] Left: Knee PEMA : ORTHOPAEDICS 12/13/2022 5532-G-51 / [id number] Triathlon Tritanium Symmetric Patella Implanted:Qty: 1 on 10/22/2019 by Nick Vang MD at OR [facility] Left: Knee 04/21/2024 5556-L-39 1 / / [id number] documented as of this encounter Procedures Procedure Name Priority Date/Time Associated Diagnosis Comments DIABETIC EYE EXAM Routine 12/27/2024 documented in this encounter Results * DIABETIC EYE EXAM (12/27/2024) 12/27/2024 us History Per Patient OTHER Final Result OUTSIDE LAB (SEE SCANNED REPORT) documented in this encounter Advance Directives * [...] Directives occurred with: Not Discussed Care Teams Sand Slinger Operator Relationship Specialty Start Date End Date February, Milton Alvarez MD [address] [place] [address] PCP - General Family Medicine 11/29/24 documented as of this encounter
--- OUTSIDE RECORDS SUMMARY | 2025-01-26 00:16 | External Medical Summary | Summary of Care ---
Author Name Unknown Organization [facility] Address [address] [place] [address] Phone [phone] Care Team Providers Care Wash Driller Name Role Phone Milton Mcdaniel MD Primary Care Provider [phone] Reason for Visit * Reason Onset Date Comments Advice 12/27/2024 Encounter Details Date Type Department Care Team (Late st Contact Info) Description 12/27/2024 Telephone [facility] [address] [place] [phone] Milton Mcdaniel MD [address] [place] [address] Advice Allergies Active Allergy Reactions Criticality Noted Date Comments Amoxicillin-Pot Clavulanate Hives 06/16/20 16 Clavulanic Acid Hives 07/09/2016 documented as of this encounter (statuses as of 12/31/2024) Medications Clindamycin Phosphate 1 % External Solution [...] BEDTIME 180 Tablet 3 4 Active Pen [place] 32G X 4 MMIndications:Di abetes mellitus with [...] hemoglobin A1c goal of less than 7.0% ([facility]) Take 2 Tablets by mouth in the morning and 2 Tablets before bedtime. 360 Tablet 3 5 Active documented as of this encounter (statuses as of 12/31/2024) Active Problems Problem Noted Date Diagnosed Date [...] as of this encounter (statuses as of 12/31/2024) Resolved Problems Problem Noted Date Diagnosed Date [...] right 12/12/2017 11/28/2018 Diverticulosis of colon 11/09/2016 1011/2017 Overview (05/28/2018): By colonosopy Hemorrhoid 11/09/2016 11/28/2018 Overview (05/28/2018): By colonoscopy documented as of this encounter (statuses as of 12/31/2024) Immunizations Name Administration Dates Next Due COVID-19 mRNA, LNP-s, No Pre serve, 2-Dose Series ([employer]) 09/23/2021,01/13/2021,12/23/2020 Pneumococcal Conjugate Vacc, 13 Valent (Prevnar) [...] Booker Reece RN documented in this encounter Miscellaneous Notes * Telephone Encounter - Carmella Morelos LPN - 12/31/2024 2:08 PM EDT Left message for pt regarding message below. Pt advised to call back to schedule an appointment with PCP to discuss his blood sugars. * Telephone Encounter - Milton Mcdaniel MD - 12/30/2024 5:54 PM EDT No need to hold any medications. He needs an appointment to discuss blood sugar control. Milton Mcdaniel MD * Telephone Encounter - Janelle Cardenas LPN - 12/28/2024 3:06 PM EDT See Note below.pre procedure medication Question: Patient has colonoscopy scheduled on 12/31, they advised him to contact PCP if he needs to hold Lantus and Metformin prior to procedure. Should he hold medications prior? Medication issue: Metformin He states since changed Metformin HCL to Metformin ER his BS have been elevated. Patient called with c/o with BS: Is BS high or low: high When did it start: since 09/2024 How often do you check your BS: Freestyle Aida 3 plus sensor Frequent urination: No Lightheaded: No Irritability or Nervousness: No Blurred vision: No Brain fog: No Cold/clammy: No SOB: No Numbness and/or tingling: No Weakness: No Any recent diet changes: No Tachycardia: No Fatigue: No Recent med changes: Yes - Which medications have been changed/added? Metformin HCL changed to Metformin ER, Lantus increased from 23 units to 26 units around 10/2024 -Review meds and confirm doses- Taking all meds as directed: Yes Date 12/28 FBS 345 Afternoon 145 03:15 PM- 244 No past readings- per patient He states changed med from HCL to ER has not helped with GI issues/Diarrhea. Please contact patient via phone at [phone] * Telephone Encounter - Kay Ching OSA - 12/28/2024 3:01 PM EDT Reason for patient's call: patient is asking to speak to nurse in regards to medication question. Caller was transferred to Anh at the nurse line. * Telephone Encounter - Georgina Vogel OSA - 12/28/2024 11:53 AM EDT Pt still waiting for Dr. Mcdaniel to call back. Pt's colonoscopy on Sunday 12/31. Pt was switched to Metformin ER and pt's numbers are still in the upper 200s. * Telephone Encounter - Brett JanuaryPABLO - 12/27/2024 8:08 AM EDT Pt called & has a colonoscopy scheduled on 12.31.24 & would like to know if he can continue taking Lantus? Also, metformin ER. Please contact pt ELBERT documented in this encounter Plan of Treatment Upcoming Encounters Date Type Department Care Team (Late st Contact Info) Description 01/09/2025 3:40 PM EDT [facility] [address] [place] [phone] Milton Mcdaniel MD [address] [place] [address] 01/10/2025 11:00 AM EDT Office Visit Gastroenterology, [facility] [address] [place] [address] Meagan Chase CRNP [address] [place] [address] 04/10/2025 6:20 PM EDT [facility] [address] [place] [phone] Milton Mcdaniel MD [address] [place] [address] 09/19/2025 7:40 AM EST Laboratory Laboratory, [address] [place] [phone] [place], Laboratory [address] [place] [address] 09/26/2025 2:30 PM EST Office Visit Hematology/Oncology [facility] [place] [address] [facility] [address] Steph Romero, ROBERTO [address] [place] [address] Scheduled Procedures Name Priority Associated Diagnoses Date/Ti me COLONOSCOPY FLEXIBLE PROXIMA L DIAGNOSTIC Irritable bowel syndrome with both constipation and diarrhea 12/31/2024 1:34 PM EDT ESOPHAGOGASTRODUODENOSCOPY ( EGD), FLEXIBLE, TRANSORAL, DIAGNOSTIC Irritable bowel syndrome with both constipation and diarrhea 12/31/2024 1:34 PM EDT Health Maintenance Due Date Last Done Comments Hepatitis C Screening 1968 Adult Wellness Visit 2015 COVID-19 Vaccine ( season) 2024 09/23/2021, 01/13/2021, 12/23/2020 Albumin/Creatinine Ratio 09/02/2024 023, 09/16/2022, 09/09/2021, Additional history exists CKD PHOS USE SMARTSET 01747 09/02/202408/17, 03/08/2023, 09/16/2022 HbA1c 01/28/2025 07/30/2024, 03/17, 11/14/2023, Additional history exists B-12 03/26/2025 03/26/2024, 02/15, 03/10/2022, Additional history exists GFR 03/26/2025 09/25/2024, 07/17, 03/26/2024, Additional history exists Depression Screening 04/03/2025 04/03/2024 CKD HGB USE SMARTSET 30897 09/25/202509/25, 09/25/2024, 11/14/2023, Additional history exists Diabetic [...] this encounter Medical Devices Implanted Type Area Valet Attendant Device Identifier Shelf Expiration Date Model / Serial / Lot Reunion Rsa Center Screw 6.5mm X 24mm Implanted:Qty: 1 on 09/14/2017 [place] DO [place] [facility] [place] PEMA : ORTHOPAEDICS 05/03/2022 9890-4752 / / [id number] Reunion Rsa Humeral Cup 36mm X 4mm Implanted:Qty: 1 on 09/14/2017 by Dante Morris DO [place] [facility] [place] Shoulder PEMA : ORTHOPAEDICS 08/22/2022 1524-2503 / / [id number] Reunion Rsa 3.1mm Drill Bit Implanted:Qty: 1 on 09/14/2017 by Dante Morris DO [place] [facility] [place]: Shoulder PEMA : ORTHOPAEDICS 03/24/2022 [id number] / / [id number] Reunion Rsa Glenoid Baseplate 28mm Implanted:Qty: 1 on 09/14/2017 by Dante Morris DO [place] [facility] [place]: Shoulder PEMA : ORTHOPAEDICS 08/01/2022 1479-3758 / / [id number] Reunion Rsa Peripheral Screw 4.5mm X 24mm Implanted:Qty: 1 on 09/14/2017 by Dante Morris DO [place] [facility] [place]: Shoulder PEMA : ORTHOPAEDICS 06/30/2022 6972-2417 / / [id number] Reunion Rsa Peripheral Screw 4.5mm X 28mm Implanted:Qty: 1 on 09/14/2017 by Dante Morris DO [place] [facility] [place]: Shoulder PEMA : ORTHOPAEDICS 06/30/2022 3132-7740 / / [id number] Reunion Rsa Peripheral Screw 4.5mm X 20mm Implanted:Qty: 1 on 09/14/2017 by Dante Morris DO [place] [facility] [place]: Shoulder PEMA : ORTHOPAEDICS 04/13/2022 4009-0167 / / [id number] Reunion Rsa Concentric Glenosphere 36mm X 6mm Implanted:Qty: 1 on 09/14/2017 by Dante Morris DO [place] [facility] [place]: Shoulder PEMA : ORTHOPAEDICS 06/16/2022 5573-C-36 06 / / [id number] Reunion Rsa Peripheral Screw Implanted:Qty: 1 on 09/14/2017 by Dante Morris DO [place] [facility] [place]: Shoulder PEMA : ORTHOPAEDICS 02/11/2021 3690-3689 / / [id number] Reunion Tsa Modular Humeral Stem Size11 X 123mm Implanted:Qty: 1 on 09/14/2017 by Dante Morris DO [place] [facility] [place]: Shoulder PEMA : ORTHOPAEDICS 05/02/2022 5569-P-20 11 / / [id number] Reunion Rsa X3 Humeral Insert 36mm X 4mm Implanted:Qty: 1 on 09/14/2017 by Dante Morris DO [place] [facility] [place]: Shoulder PEMA : ORTHOPAEDICS 03/22/2022 5571-S-36 04 / / [id number] Baseplate #5 Tritanium - [id number] Implanted:Qty: 1 on 10/22/2019 by Nick Vang MD at OR [facility] Left: Knee PEMA : ORTHOPAEDICS 08/07/2024 5536-B-50 0 / / [id number] Knee Triathlon Ps Stb Bead 4 L - [id number] Implanted:Qty: 1 on 10/22/2019 by Nick Vang MD at OR [facility] Left: Knee PEMA : ORTHOPAEDICS 04/08/2024 5516-F-40 1 / / [id number] Insert Tib Sz5 Knee - [id number] Implanted:Qty: 1 on 10/22/2019 by Nick Vang MD at OR [facility] Left: Knee PEMA : ORTHOPAEDICS 12/13/2022 5532-G-51 1 / / [id number] Triathlon Tritanium Symmetric Patella Implanted:Qty: 1 on 10/22/2019 by Nick Vang MD at OR [facility] Left: Knee 04/21/2024 5556-L-39 1 / / [id number] documented as of this encounter Advance Directives * Full Code [...] Directives occurred with: Not Discussed Care Teams Wash Driller Relationship Specialty Start Date End Date February, Milton Alvarez MD [address] [place] [address] PCP - General Family Medicine 11/29/24 documented as of this encounter
--- OUTSIDE RECORDS SUMMARY | 2025-01-26 00:16 | External Medical Summary | Summary of Care ---
Author Name Unknown Organization [facility] Address [address] [place] [address] Phone [phone] Care Team Providers Care Harp Regulator Name Role Phone Milton Mcdaniel MD Primary Care Provider [phone] Reason for Visit * Reason Onset Date Comments Health Maintenance 11/21/2024 Encounter Details Date Type Department Care Team (Late st Contact Info) Description 11/21/2024 Telephone [facility] [address] [place] [address] Milton Mcdaniel MD [address] [place] [address] Health Maintenance Allergies Active Allergy Reactions Criticality Noted Date Comments Amoxicillin-Pot Clavulanate Hives 06/16/20 16 Clavulanic Acid Hives 07/09/2016 documented as of this encounter (statuses as of 11/22/2024) Medications Clindamycin Phosphate 1 % External Solution [...] BEDTIME 180 Tablet 3 4 Active Pen [place] 32G X 4 MMIndications:Di abetes mellitus with [...] as of this encounter (statuses as of 11/22/2024) Active Problems Problem Noted Date Diagnosed Date [...] as of this encounter (statuses as of 11/22/2024) Resolved Problems Problem Noted Date Diagnosed Date [...] as of this encounter (statuses as of 11/22/2024) Immunizations Name Administration Dates Next Due COVID-19 [...] of Assessment Author No 10/22/2019 3:14 PM Booekr Reece RN documented as of this encounter Mental Status * Because of a physical, mental, or emotional condition, do you have serious difficulty concentrating, remembering, or making decisions? (5 years old or older) Answer Entry Date Author No 10/22/2019 3:14 PM Booker Reece RN documented in this encounter Miscellaneous Notes * Telephone Encounter - Sherie Rankin LPN - 11/21/2024 3:25 PM EST Care Gaps Comprehensive Care Outreach Last Office/Telemedicine Visit: 10/03/2024 (in office), Visit date not found (telemedicine) Next Office Visit: 04/10/2025 Hemoglobin AIC Results: Lab Results Component Value Date/Time HEMOGLOBIN A1C - [facility] 7.4 (H) 07/30/2024 01:23 PM HEMOGLOBIN A1C - [facility] 7.1 (H) 03/26/2024 02:55 PM HEMOGLOBIN A1C - [facility] 7.2 (H) 11/14/2023 07:34 AM HEMOGLOBIN A1C - [facility] 8.1 (H) 08/05/2020 01:52 PM HEMOGLOBIN A1C - [facility] 7.1 (H) 04/05/2020 08:04 AM HEMOGLOBIN A1C - [facility] 7.5 (H) 08/08/2019 04:02 PM BP Readings from Last 1 Encounters: 10/03/24 132/70 Reviewed Health Maintenance below: Health Maintenance Topic Date Due Hepatitis C Screening Never done Adult Wellness Visit Never done Colonoscopy 04/05/2024 Diabetic Eye Exam 06/04/2024 COVID-19 Vaccine ( season) 2024 Albumin/Creatinine Ratio 09/02/2024 CKD PHOS USE SMARTSET 68561 09/02/2024 HbA1c 01/28/2025 GFR 03/26/2025 B-12 03/26/2025 Colon already scheduled Eye will call [facility] and schedule Labs already ordered add phos and b12 Awv Care Gap Outreach Action Taken: Spoke to patient documented in this encounter Plan of Treatment Upcoming Encounters Date Type Department Care Team (Latest Contact Info) Description 12/31/2024 2:00 PM EDT Hospital Encounter ENDO OSSC, Endoscopy Room [facility] [address] [place] [phone] Kermit Arevalo DO [address] [place] [address] 12/31/2024 2:00 PM EDT - 12/31/2024 2:30 PM EDT Surgery ENDO OSSC, Endoscopy Room [facility] [address] [place] [phone] Kermit Arevalo DO [address] [place] [address] COLONOSCOPY FLEXIBLE PROXIMAL DIAGNOSTIC 04/10/2025 6:20 PM EDT [facility] [address] [place] [phone] Milton Mcdaniel MD [address] [place] [address] 09/19/2025 7:40 AM EST Laboratory Laboratory, [address] [place] [phone] V[facility], Laboratory [address] [place] [address] 09/26/2025 2:30 PM EST Office Visit Hematology/Oncolog y [facility] [place] [address] [place], [place] [address] Steph Romero CRNP [address] [facility] [place] [id number] Scheduled Orders Name Type Priority Associated Diagnoses Orde r Schedule PHOSPHORUS Lab Routine Chronic kidney disease, unspecified CKD stage Expected: 11/21/2024, Expires: 11/21/2025 VITAMIN B12 Lab Routine On termite technician drug therapy Expected: 03/26/2025, Expires: 11/21/2025 Scheduled Procedures Name Priority Associated Diagnoses Date/Ti me COLONOSCOPY FLEXIBLE PROXIMA L DIAGNOSTIC Irritable bowel syndrome with both constipation and diarrhea 12/31/2024 2:00 PM EDT ESOPHAGOGASTRODUODENOSCOPY ( EGD), FLEXIBLE, TRANSORAL, DIAGNOSTIC Irritable bowel syndrome with both constipation and diarrhea 12/31/2024 2:00 PM EDT Health Maintenance Due Date Last Done Comments Hepatitis C Screening 1968 Adult Wellness Visit 2015 Colonoscopy 04/05/2024 04/05/2019, 11/09/2016 Diabetic Eye Exam 06/04/2024 06/04/2023, , 02/04/2021, Additional history exists COVID-19 Vaccine ( season) 2024 09/23/2021, 01/13/2021, 12/23/2020 Albumin/Creatinine Ratio 09/02/202409/02/ 023, 09/16/2022, 09/09/2021, Additional history exists CKD PHOS USE SMARTSET 90747 09/02/202408/17, 03/08/2023, 09/16/2022 HbA1c 01/28/2025 07/30/2024, 03/17, 11/14/2023, Additional history exists B-12 03/26/2025 03/26/2024, 02/15, 03/10/2022, Additional history exists GFR 03/26/2025 09/25/2024, 07/17, 03/26/2024, Additional history exists Depression Screening 04/03/2025 04/03/2024 CKD HGB USE SMARTSET 22617 09/25/202509/25, 09/25/2024, 11/14/2023, Additional history exists Diabetic Foot Exam 10/03/2025 10/03/2024, 1 12/01/2022, 10/25/2022, Additional history exists DTap/Tdap Vaccines (3 - [...] this encounter Medical Devices Implanted Type Area Flame Hardening Machine Setter Device Identifier Shelf Expiration Date Model / Serial / Lot Reunion Rsa Center Screw 6.5mm X 24mm Implanted:Qty: 1 on 09/14/2017 by Dante Morris[place] [facility] [place] Shoulder PEMA : ORTHOPAEDICS 05/03/2022 [id number] / / [id number] Reunion Rsa Humeral Cup 36mm X 4mm Implanted:Qty: 1 on 09/14/2017 by Dante Morris DO [place] [facility] [place] Shoulder PEMA : ORTHOPAEDICS 08/22/2022 1998-4785 / / [id number] Reunion Rsa 3.1mm Drill Bit Implanted:Qty: 1 on 09/14/2017 by Dante Morris DO [place] [facility] [place]: Shoulder PEMA : ORTHOPAEDICS 03/24/2022 6110-9515 / / [id number] Reunion Rsa Glenoid Baseplate 28mm Implanted:Qty: 1 on 09/14/2017 by Dante Morris DO [place] [facility] [place]: Shoulder PEMA : ORTHOPAEDICS 08/01/2022 6025-9958 / / [id number] Reunion Rsa Peripheral Screw 4.5mm X 24mm Implanted:Qty: 1 on 09/14/2017 by Dante Morris DO [place] [facility] [place]: Shoulder PEMA : ORTHOPAEDICS 06/30/2022 5025-3652 / / [id number] Reunion Rsa Peripheral Screw 4.5mm X 28mm Implanted:Qty: 1 on 09/14/2017 by Dante Morris DO [place] [facility] [place]: Shoulder PEMA : ORTHOPAEDICS 06/30/2022 8448-4423 / / [id number] Reunion Rsa Peripheral Screw 4.5mm X 20mm Implanted:Qty: 1 on 09/14/2017 by Dante Morris DO [place] [facility] [place]: Shoulder PEMA : ORTHOPAEDICS 04/13/2022 4306-2377 / / [id number] Reunion Rsa Concentric Glenosphere 36mm X 6mm Implanted:Qty: 1 on 09/14/2017 by Dante Morris DO [place] [facility] [place]: Shoulder PEMA : ORTHOPAEDICS 06/16/2022 5573-C-36 06 / / [id number] Reunion Rsa Peripheral Screw Implanted:Qty: 1 on 09/14/2017 by Dante Morris DO [place] [facility] [place]: Shoulder PEMA : ORTHOPAEDICS 02/11/2021 4750-8010 / / [id number] Reunion Tsa Modular Humeral Stem Size11 X 123mm Implanted:Qty: 1 on 09/14/2017 by Dante Morris DO [place] [facility] [place]: Shoulder PEMA : ORTHOPAEDICS 05/02/2022 5569-P-20 11 / / [id number] Reunion Rsa X3 Humeral Insert 36mm X 4mm Implanted:Qty: 1 on 09/14/2017 by Dante Morris DO [place] [facility] [place]: Shoulder PEMA : ORTHOPAEDICS 03/22/2022 5571-S-36 04 / / [id number] Baseplate #5 Tritanium - [id number] Implanted:Qty: 1 on 10/22/2019 by Nick Vang MD at OR [facility] Left: Knee PEMA : ORTHOPAEDICS 08/07/2024 5536-B-50 0 / / [id number] Knee Triathlon Ps Stb Bead 4 L - [id number] Implanted:Qty: 1 on 10/22/2019 by Nick Vang MD at OR [facility] Left: Knee PEMA : ORTHOPAEDICS 04/08/2024 5516-F-40 1 / / [id number] Insert Tib Sz5 Knee - [id number] Implanted:Qty: 1 on 10/22/2019 by Nick Vang MD at OR [facility] Left: Knee PEMA : ORTHOPAEDICS 12/13/2022 5532-G-51 1 / / [id number] Triathlon Tritanium Symmetric Patella Implanted:Qty: 1 on 10/22/2019 by Nick Vang MD at OR [facility] Left: Knee 04/21/2024 5556-L-39 1 / / [id number] documented as of this encounter Visit Diagnoses Diagnosis On fci drug therapy- Primary Chronic kidney disease, unspecified CKD stage Irritable bowel syndrome with both constipation and diarrhea documented in this encounter Advance Directives * [...] Directives occurred with: Not Discussed Care Teams Harp Regulator Relationship Specialty Start Date End Date February, Milton Alvarez MD PCP - General Family Medicine 07/26/23 documented as of this encounter
--- OUTSIDE RECORDS SUMMARY | 2025-01-26 00:17 | External Medical Summary | Summary of Care ---
Author Name Unknown Organization [facility] Address [address] [place] [address] Phone [phone] Care Team Providers Care Pump House Engineer Name Role Phone Milton Mcdaniel MD Primary Care Provider [phone] Encounter Details Date Type Department Care Team (Late st Contact Info) Description 11/08/2024 Population Health External Data Unspecified Department Allergies Active Allergy Reactions Criticality Noted Date Comments Amoxicillin-Pot Clavulanate Hives 06/16/20 16 Clavulanic Acid Hives 07/09/2016 documented as of this encounter (statuses as of 11/08/2024) Medications Clindamycin Phosphate 1 % External Solution [...] then rinse. 120 mL 2 3 Active Insulin Glargine Solostar 100 UNIT/ML Subcutaneous Solution Pen-injector (Lantus SoloStar)Indicat ions:Diabetes mellitus with stage 3 chronic kidney disease (HCC) Inject 23 Units under the skin in the morning. Dx E 11.9. 30 mL 2 3 Active Trulicity 4.5 MG/0.5ML Subcutaneous Solution Pen-injector (Dulaglutide)Ind ications:Diabete s mellitus with stage 3 chronic kidney disease (HCC) INJECT 4.5MG UNDER THE SKIN ONCE A WEEK 6 mL 3 3 Active Metoprolol Tartrate 25 MG Oral Tablet (Lopressor) TAKE 1 TABLET IN THE MORNING AND 1 TABLET BEFORE BEDTIME 180 Tablet 3 4 Active Pen [place] 32G X 4 MMIndications:Di abetes mellitus with stage 3 chronic kidney disease ([facility]) Use as directed. Once daily with Lantus [...] DX E11.9 6 Each 3 4 Active metFORMIN HCl 500 MG Oral Tablet (Glucophage)Hailey cations:Type 2 diabetes mellitus with hemoglobin A1c goal of less than 7.0% ([facility]) TAKE 2 TABLETS BY MOUTH TWICE DAILY WITH MORNING AND EVENING MEALS 360 Tablet 3 4 Active Omeprazole 20 MG Oral [...] THE MORNING 90 Tablet 3 5 Active documented as of this encounter (statuses as of 11/08/2024) Active Problems Problem Noted Date Diagnosed Date [...] as of this encounter (statuses as of 11/08/2024) Resolved Problems Problem Noted Date Diagnosed Date [...] as of this encounter (statuses as of 11/08/2024) Immunizations Name Administration Dates Next Due COVID-19 [...] ages 0-17 years) Not on file 10/02/2024 Sex and Gender Information Value Date [...] EDT Hospital Encounter ENDO O[facility], Endoscopy Room [facility] [address] [place] [phone] Kermit Arevalo, DO [address] [place] [address] 12/31/2024 2:00 PM EDT - 12/31/2024 2:30 PM EDT Surgery ENDO [facility], Endoscopy Room [facility] [address] [place] [phone] Kermit Arevalo, DO [address] [place] [address] COLONOSCOPY FLEXIBLE PROXIMAL DIAGNOSTIC 04/10/2025 6:20 PM EDT [facility] [address] [place] [phone] Milton Mcdaniel MD [address] [place] [address] 09/19/2025 7:40 AM EST Laboratory Laboratory, [address] [place] [phone] Vital[facility], Laboratory [address] [place] [address] 09/26/2025 2:30 PM EST Office Visit Hematology/Oncolog y [place] [facility] [place] [address] [place] [address] Steph Romero CRNP [address] [place] [id number] Scheduled Procedures Name Priority Associated Diagnoses Date/Ti [...] Additional history exists CKD PHOS USE SMARTSET 49966 09/02/202408/17, 03/08/2023, 09/16/2022 HbA1c 01/28/2025 07/30/2024, 03/17, 11/14/2023, Additional history exists B-12 03/26/2025 03/26/2024, 02/15, 03/10/2022, Additional history exists GFR 03/26/2025 09/25/2024, 07/17, 03/26/2024, Additional history exists Depression Screening 04/03/2025 04/03/2024 CKD HGB USE SMARTSET 82510 09/25/202509/25, 09/25/2024, 11/14/2023, Additional history exists Diabetic [...] this encounter Medical Devices Implanted Type Area Custody Officer Device Identifier Shelf Expiration Date Model / Serial / Lot Reunion Rsa Center Screw 6.5mm X 24mm Implanted:Qty: 1 on 09/14/2017 by Dante Morris DO at [place] [facility] Right: Shoulder PEMA : ORTHOPAEDICS 05/03/2022 6093-6115 / / [id number] Reunion Rsa Humeral Cup 36mm X 4mm Implanted:Qty: 1 on 09/14/2017 by Dante Morris DO at [place] [facility] Right: Shoulder PEMA : ORTHOPAEDICS 08/22/2022 1489-5035 / / [id number] Reunion Rsa 3.1mm Drill Bit Implanted:Qty: 1 on 09/14/2017 by Dante Morris DO at [place] [facility] Right: Shoulder PEMA : ORTHOPAEDICS 03/24/2022 0993-3448 / / [id number] Reunion Rsa Glenoid Baseplate 28mm Implanted:Qty: 1 on 09/14/2017 by Dante Morris DO at [place] [facility] Right: Shoulder PEMA : ORTHOPAEDICS 08/01/2022 9339-0798 / / [id number] Reunion Rsa Peripheral Screw 4.5mm X 24mm Implanted:Qty: 1 on 09/14/2017 by Dante Morris DO at [place] [facility] Right: Shoulder PEMA : ORTHOPAEDICS 06/30/2022 8236-8569 / / [id number] Reunion Rsa Peripheral Screw 4.5mm X 28mm Implanted:Qty: 1 on 09/14/2017 by Dante Morris DO at [place] [facility] Right: Shoulder PEMA : ORTHOPAEDICS 06/30/2022 6606-8239 / / [id number] Reunion Rsa Peripheral Screw 4.5mm X 20mm Implanted:Qty: 1 on 09/14/2017 by Dante Morris DO at [place] [facility] Right: Shoulder PEMA : ORTHOPAEDICS 04/13/2022 5026-9883 / / [id number] Reunion Rsa Concentric Glenosphere 36mm X 6mm Implanted:Qty: 1 on 09/14/2017 by Dante Morris DO at [place] [facility] Right: Shoulder PEMA : ORTHOPAEDICS 06/16/2022 5573-C-36 06 / / [id number] Reunion Rsa Peripheral Screw Implanted:Qty: 1 on 09/14/2017 by Dante Morris DO at [place] [facility] Right: Shoulder PEMA : ORTHOPAEDICS 02/11/2021 4361-8512 / / [id number] Reunion Tsa Modular Humeral Stem Size11 X 123mm Implanted:Qty: 1 on 09/14/2017 by Dante Morris DO at [place] [facility] Right: Shoulder PEMA : ORTHOPAEDICS 05/02/2022 5569-P-20 11 / / [id number] Reunion Rsa X3 Humeral Insert 36mm X 4mm Implanted:Qty: 1 on 09/14/2017 by Dante Morris DO at [place] [facility] Right: Shoulder PEMA : ORTHOPAEDICS 03/22/2022 5571-S-36 04 / / [id number] Baseplate #5 Tritanium - [id number] Implanted:Qty: 1 on 10/22/2019 by Nick Vang MD at OR [facility] Left: Knee PEMA : ORTHOPAEDICS 08/07/2024 5536-B-50 0 / / [id number] Knee Triathlon Ps Stb Bead 4 L - [id number] Implanted:Qty: 1 on 10/22/2019 by Nick Vang MD at OR [facility] Left: Knee PEMA : ORTHOPAEDICS 04/08/2024 5516-F-40 1 / / [id number] Insert Tib Sz5 Knee - [id number] Implanted:Qty: 1 on 10/22/2019 by Nick Vang MD at OR [facility] Left: Knee PEMA : ORTHOPAEDICS 12/13/2022 5532-G-51 1 / / [id number] Triathlon Tritanium Symmetric Patella Implanted:Qty: 1 on 10/22/2019 by Nick Vang MD at [place] [facility] Left: Knee 04/21/2024 5556-L-39 1 / / [...] Directives occurred with: Not Discussed Care Teams Pump House Engineer Relationship Specialty Start Date End Date February, Milton Alvarez MD PCP - General Family Medicine 07/26/23 documented as of this encounter
--- OUTSIDE RECORDS SUMMARY | 2025-01-26 00:17 | External Medical Summary | Summary of Care ---
Author Name Unknown Organization [facility] Address [address] [place] [address] Phone [phone] Care Team Providers Care Casualty Claim Adjuster Name Role Phone Milton Mcdaniel MD Primary Care Provider [phone] Reason for Visit * Reason Onset Date Comments Order Request 10/22/2024 Pre Cert/Prior Auth 10/22/2024 Encounter Details Date Type Department Care Team (Late st Contact Info) Description 10/22/2024 Telephone [facility] [address] [facility] [place] [address] Milton Mcdaniel MD [address] [place] [address] Order Request; Pre Cert/Prior Auth Allergies Active Allergy Reactions Criticality Noted Date Comments Amoxicillin-Pot Clavulanate Hives 06/16/20 16 Clavulanic Acid Hives 07/09/2016 documented as of this encounter (statuses as of 10/29/2024) Medications Clindamycin Phosphate 1 % External Solution [...] A WEEK 6 mL 3 3 Active hydroCHLOROthiaz mark 25 MG Oral Tablet (Hydrodiuril) TAKE 1 TABLET IN THE MORNING 90 Tablet 3 4 Active Metoprolol Tartrate 25 MG Oral Tablet (Lopressor) TAKE 1 TABLET IN THE MORNING AND 1 TABLET BEFORE BEDTIME 180 Tablet 3 4 Active Pen K[place]en 32G X 4 MMIndications:Di abetes mellitus with stage 3 chronic kidney disease ([facility]) Use as directed. Once daily with [...] hemoglobin A1c goal of less than 7.0% ([facility]) TAKE 2 TABLETS BY MOUTH TWICE DAILY WITH MORNING AND EVENING MEALS 360 Tablet 3 4 Active Omeprazole 20 MG Oral Capsule Delayed Release (PriLOSEC) TAKE 1 CAPSULE IN THE MORNING 1 HOUR BEFORE THE FIRST MEAL OF THE DAY 90 Capsule 1 4 Active metFORMIN HCl ER 500 MG Oral Tablet Extended Release 24 Hour (Glucophage XR)Indications:T ype 2 diabetes mellitus with hemoglobin A1c goal of less than 7.0% (HCC) Take 2 Tablets by mouth in the morning and 2 Tablets before bedtime. Do all this for 28 days. 112 Tablet 4 025 Active Tamsulosin HCl 0.4 MG Oral Capsule (Flomax)Indicati ons:BPH with obstruction/lowe r urinary tract symptoms Take 1 Capsule by mouth every night at bedtime. 90 Capsule 3 4 Active Atorvastatin Calcium 40 MG Oral Tablet (Lipitor) TAKE 1 TABLET DAILY 90 Tablet 3 5 Active documented as of this encounter (statuses as of 10/29/2024) Active Problems Problem Noted Date Diagnosed Date [...] as of this encounter (statuses as of 10/29/2024) Resolved Problems Problem Noted Date Diagnosed Date [...] as of this encounter (statuses as of 10/29/2024) Immunizations Name Administration Dates Next Due COVID-19 mRNA, LNP-s, No Pre serve, 2-Dose Series (QR Artist) 09/23/2021,01/13/2021,12/23/2020 Pneumococcal Conjugate Vacc, 13 Valent (Prevnar) [...] encounter Miscellaneous Notes * Telephone Encounter - Milton Mcdaniel MD - 10/29/2024 7:35 AM EST Noted. Milton Mcdaniel MD * Telephone Encounter - Milady Kuo [facility] - 10/26/2024 9:26 AM EST Advised patient the FreeStyle Aida is no longer made and the option is the FreeStyle Plus (which has the high copay) He is not interested in changed monitors, so I advised of the Medicare M3P plan. Provided Medicare number to patient and he will call and enroll. Thanks, Milady Kuo [facility] Clinical Pharmacist [facility] ([facility]) [phone] * Telephone Encounter - David Muller CPhT - 10/26/2024 8:04 AM EST Checked with copay assistance "there is no assistance for Medicare patients for the sensor. They can try the new Medicare Repayment Plan but that is all" Unclear how patient would like to proceed. Attempted to ballpark [place] regular meters but estimate tool would not give response Thank you, Jaret Muller (territory sales representative) Utility Bill Collection Clerk III [facility] ([facility]) 10/26/2024, 8:04 AM * Telephone Encounter - David Muller CPhT - 10/25/2024 10:39 AM EST Submitted information in previous note via CMM ([place]: [id number])..for FreeStyle Aida 3 Sensor Instant approval Called pharmacy and while paid claim received copay is still around $224 Patient is unable to afford their prescription and would like assistance in getting this medication. Please see the following for further information regarding this request: Medication: Freestyle Aida 3 Sensor Clinic location: [place] Reason pt cannot pick-up: $224 Initial therapy?: No Has pt been without med?: Will be shortly Patient's contact #: [phone] Pt would like to explore their options for obtaining this medication. Please advise pt at the phonenumber listed above. Thank you. Thank you, Jaret Peterson) Utility Bill Collection Clerk III [facility] ([facility]) 10/25/2024, 10:55 AM * Telephone Encounter - Ying Ro PHARM Tech - 10/25/2024 9:41 AM EST Pt is calling asking high priority due to needing the med. Thank you, Ying Ro [facility] Transportation Broker II [facility] ([facility]) 10/25/2024,9:42 AM * Telephone Encounter - Morena Welch LPN - 10/24/2024 10:15 AM EST Patient is calling. He needs Freestyle Aida 3 sensors ordered and a prior authorization. He only has 3 days left. The plus was ordered the first time and that is wrong. * Telephone Encounter - Morena Welch LPN - 10/24/2024 10:15 AM EST Pending Prescriptions: Disp Refills FreeStyle Aida 3 Sensor 6 Each 3 Sig: Use as directed. Replace sensor every 14 days DX E11.9 Last Visit: 10/03/2024 (in office), Visit date not found (telemedicine) Next Visit: 04/10/2025 Last date the medication was ordered: 07/12/24 Patient Active Problem List Diagnosis Gout Mixed hyperlipidemia Diabetes mellitus with arthropathy, without long-term current use of insulin (HCC) Chronic atrial fibrillation (HCC) Gastroesophageal reflux disease without esophagitis Diabetes mellitus with stage 3 chronic kidney disease (HCC) Osteoarthritis of left knee Gait abnormality Psoriasis Essential hypertension with goal blood pressure less than 140/90 Arthralgia Bilateral carpal tunnel syndrome Postoperative follow-up PMR (polymyalgia rheumatica) (HCC) Hypertensive kidney disease with stage 3 chronic kidney disease (HCC) Monoclonal paraproteinemia Labs: Lab Results Component Value Date/Time CREAT GFR 1.30 02/03/2019 08:34 AM CREATININE - [facility] 1.1 09/25/2024 03:32 PM CREATININE - [facility] 1.1 08/05/2020 01:52 PM CREATININE, RANDOM URINE - [facility] 30 09/02/2023 03:23 PM CREATININE, RANDOM URINE - [facility] 64 08/05/2020 01:52 PM Lab Results Component Value Date/Time POTASSIUM - [facility] 4.4 09/25/2024 03:32 PM POTASSIUM - [facility] 5.1 08/05/2020 01:52 PM Lab Results Component Value Date/Time TSH - [facility] 2.17 08/15/2024 12:51 PM TSH - [facility] 1.86 08/05/2020 01:52 PM Lab Results Component Value Date/Time LDL CHOLESTEROL (CALCULATED) - [facility] 56 07/30/2024 01:23 PM LDL CHOLESTEROL (CALCULATED) - [facility] 79 11/14/2023 07:34 AM LDL CHOLESTEROL (CALCULATED) - [facility] 92 08/05/2020 01:52 PM LDL CHOLESTEROL (CALCULATED) - [facility] 59 02/03/2019 08:34 AM LDL CHOLESTEROL (DIRECT MEASURE) - [facility] 75 09/09/2021 10:53 AM LDL CHOLESTEROL (DIRECT MEASURE) - [facility] NOT APPLICABLE 08/05/2020 01:52 PM LDL CHOLESTEROL (DIRECT MEASURE) - [facility] NOT APPLICABLE 02/03/2019 08:34 AM Lab Results Component Value Date/Time ALT - [facility] 30 09/25/2024 03:32 PM ALT - [facility] 53 (H) 08/05/2020 01:52 PM Hemoglobin AIC Results: Lab Results Component Value Date/Time HEMOGLOBIN A1C - [facility] 7.4 (H) 07/30/2024 01:23 PM HEMOGLOBIN A1C - [facility] 7.1 (H) 03/26/2024 02:55 PM HEMOGLOBIN A1C - [facility] 7.2 (H) 11/14/2023 07:34 AM HEMOGLOBIN A1C - [facility] 8.1 (H) 08/05/2020 01:52 PM HEMOGLOBIN A1C - [facility] 7.1 (H) 04/05/2020 08:04 AM HEMOGLOBIN A1C - [facility] 7.5 (H) 08/08/2019 04:02 PM * Telephone Encounter - Serena Spangler OSA - 10/24/2024 10:07 AM EST Reason for patient's call: Patient requesting to speak with nurse in reference to the Aida 3 sensor Caller was transferred to [facility] at the nurse line. * Telephone Encounter - Haley Cook LPN - 10/24/2024 10:05 AM EST Prior auth is at my desk can you please update the script so I can send the correct sensor. * Telephone Encounter - Delilah Velázquez OSA - 10/23/2024 3:52 PM EST Pt calling because he was informed from his pharmacy that the provider had put the order and prior auth incorrectly for the Freestyle Aida 3. Order was placed for the aida plus sensors and it should've been placed for the Freestyle Aida Sensors (regular sensors). He would like the order to be corrected as well as the prior auth. He only pays $15 for the regularsensors and the plus are not affordable for his as it is $200. Please contact pt with update. * [facility] 1:49 PM EST Please submit PA. Include the following documentation: MTM visit 09/15/23 OV note 10/03/24 A1C 07/30/24 Please copy and paste the following information into PA form: Currently on basal insulin (lantus) What other drugs is there medical record documentation of therapeutic failure on, intolerance to, or contraindication to for this condition? N/A Abhay as urgent: No Diagnosis/ICD-10 Code(s): E11.9 If instantaneous decision is not received after submitting prior auth, please continue to follow upon this and route back to the [facility] if no decision is made by the insurance by 10/30, after clarifying with the pharmacy that the claim is still not processing. If PA is denied, please also route back to [facility]. Thank you, Sara Bajwa, PharmD Clinical Pharmacist [facility] ([facility]) 10/23/24 1:49 PM [phone] * Telephone Encounter - Milton Mcdaniel MD - 10/23/2024 12:57 PM EST Can we please start prior auth for freestyle aida. Thanks, Milton Mcdaniel MD * Telephone Encounter - Perla Freitas photo checker - 10/22/2024 12:35 PM EST Pharmacy calling to inform doctor that the patient's insurance will not pay for this medication without a completed prior authorization. Did confirm this information with the pharmacy. Pt's current insurance information is as follows: Patient name: Gilberto Valles ID number: [id number] BIN number: [id number] PCN number: CBC Group number: [id number] Subscriber name: Gilberto Valles Primary or Secondary Insurance:Primary Medication: FreeStyle Aida 3 Sensor Reason for Request: Needs a prior auth Pharmacy and phone number: [id number] [id number] Rx plan and phone number: [facility] [phone] Is this a new medication for the patient? Yes What alternative medications does the pharmacy have in stock?: Thank you, Perla Freitas Transportation Broker [email or web address] 10/22/2024, 12:35 PM documented in this encounter Plan of Treatment Upcoming Encounters Date Type Department Care Team (Latest Contact Info) Description 12/31/2024 2:00 PM EDT Hospital Encounter [facility]O [facility] Endoscopy Room [facility] [address] [place] [address] Kermit Arevalo DO [address] [place] [address] 12/31/2024 2:00 PM EDT - 12/31/2024 2:30 PM EDT Surgery ENDO [facility], Endoscopy Room [facility] [address], [place] [phone] Kermit Arevalo DO [address] [place] [address] COLONOSCOPY FLEXIBLE PROXIMAL DIAGNOSTIC 04/10/2025 6:20 PM EDT [facility] [address] [place] [phone] FebruaryMilton MD [address] [facility] [place] [address] 09/19/2025 7:40 AM EST Laboratory Laboratory, Vitaliy Ma[address] [facility] [place] [phone] [place], Laboratory [address] [facility] [place] [address] 09/26/2025 2:30 PM EST Office Visit Hematology/Oncolog y [facility] [address] [facility], [place] [phone] Steph Romero CRNP [address] [facility] [id number] Scheduled Procedures Name Priority Associated Diagnoses Date/Ti me COLONOSCOPY FLEXIBLE PROXIMAL DIAGNOSTIC Irritable bowel syndrome with both constipation and diarrhea 12/31/2024 2:00 PM EDT Health Maintenance Due Date Last Done Comments Hepatitis C Screening 1968 Adult Wellness Visit 2015 Colonoscopy 04/05/2024 04/05/2019, 11/09/2016 Diabetic Eye Exam 06/04/2024 06/04/2023, , 02/04/2021, Additional history exists COVID-19 Vaccine ( season) 2024 09/23/2021, 01/13/2021, 12/23/2020 Albumin/Creatinine Ratio 09/02/2024 11/17/2 023, 09/16/2022, 09/09/2021, Additional history exists CKD PHOS USE SMARTSET 38232 09/02/202408/17, 03/08/2023, 09/16/2022 HbA1c 01/28/2025 07/30/2024, 03/17, 11/14/2023, Additional history exists B-12 03/26/2025 03/26/2024, 02/15, 03/10/2022, Additional history exists GFR 03/26/2025 09/25/2024, 07/17, 03/26/2024, Additional history exists Depression Screening 04/03/2025 04/03/2024 CKD HGB USE SMARTSET 11698 09/25/202509/25, 09/25/2024, 11/14/2023, Additional history exists Diabetic [...] this encounter Medical Devices Implanted Type Area Sack Keeper Device Identifier Shelf Expiration Date Model / Serial / Lot Reunion Rsa Center Screw 6.5mm X 24mm Implanted:Qty: 1 on 09/14/2017 by Dante Morris DO at OR [facility] Right: Shoulder PEMA : ORTHOPA[employer] 05/03/2022 [id number] / / [id number] Reunion Rsa Humeral Cup 36mm X 4mm Implanted:Qty: 1 on 09/14/2017 by Dante Morris DO at OR [facility] Right: Shoulder PEMA : ORTHOPA[employer] 08/22/2022 [id number] / / [id number] Reunion Rsa 3.1mm Drill Bit Implanted:Qty: 1 on 09/14/2017 by Dante Morris DO at OR [facility] Right: Shoulder PEMA : ORTHOPA[employer]ICS 03/24/2022 [id number] / / [id number] Reunion Rsa Glenoid Baseplate 28mm Implanted:Qty: 1 on 09/14/2017 by Dante Morris DO at OR [facility] Right: Shoulder PEMA : ORTHOPA[employer]ICS 08/01/2022 [id number] / / [id number] Reunion Rsa Peripheral Screw 4.5mm X 24mm Implanted:Qty: 1 on 09/14/2017 by Dante Morris DO at OR [facility] Right: Shoulder PEMA : ORTHOPA[employer] 06/30/2022 [id number] / / [id number] Reunion Rsa Peripheral Screw 4.5mm X 28mm Implanted:Qty: 1 on 09/14/2017 by Dante Morris DO at OR [facility] [facility] Right: Shoulder PEMA : ORTHOPAEDICS 06/30/2022 [id number] / / [id number] Reunion Rsa Peripheral Screw 4.5mm X 20mm Implanted:Qty: 1 on 09/14/2017 by Dante Morris DO at OR [facility] Right: Shoulder PEMA : ORTHOPAEDICS 04/13/2022 [id number] / / [id number] Reunion Rsa Concentric Glenosphere 36mm X 6mm Implanted:Qty: 1 on 09/14/2017 by Dante Morris DO at OR [facility] Right: Shoulder PEMA : ORTHOPAEDICS 06/16/2022 5573-C-36 06 / / [id number] Reunion Rsa Peripheral Screw Implanted:Qty: 1 on 09/14/2017 by Dante Morris DO at OR [facility] Right: Shoulder PEMA : ORTHOPAEDICS 02/11/2021 [id number] / / [id number] Reunion Tsa Modular Humeral Stem Size11 X 123mm Implanted:Qty: 1 on 09/14/2017 by Dante Morris DO at OR [facility] [facility] Right: Shoulder PEMA : ORTHOPA[employer]ICS 05/02/2022 5569-P-20 11 / / [id number] Reunion Rsa X3 Humeral Insert 36mm X 4mm Implanted:Qty: 1 on 09/14/2017 by Dante Morris DO at OR [facility] Right: Shoulder PEMA : ORTHOPAEDICS 03/22/2022 5571-S-36 04 / / [id number] Baseplate #5 Tritanium - [id number] Implanted:Qty: 1 on 10/22/2019 by Nick Vang MD at OR [facility] Left: Knee PEMA : ORTHOPAEDICS 08/07/2024 5536-B-50 0 / / [id number] Knee Triathlon Ps Stb Bead 4 L - [id number] Implanted:Qty: 1 on 10/22/2019 by Nick Vang MD at OR [facility] Left: Knee PEMA : ORTHOPAEDICS 04/08/2024 5516-F-40 1 / / [id number] Insert Tib Sz5 Knee - [id number] Implanted:Qty: 1 on 10/22/2019 by Nick Vang MD at OR [facility] Left: Knee PEMA : ORTHOPAEDICS 12/13/2022 5532-G-51 / [id number] Triathlon Tritanium Symmetric Patella Implanted:Qty: 1 on 10/22/2019 by Nick Vang MD at OR [facility] Left: Knee 04/21/2024 5556-L-39 [id number] documented as of this encounter Visit Diagnoses Diagnosis Diabetes mellitus with stage 3 chronic kidney disease (HCC) Type II or unspecified type diabetes mellitus with renal manifestations, not stated as uncontrolled Irritable bowel syndrome with both constipation and [...] Directives occurred with: Not Discussed Care Teams Casualty Claim Adjuster Relationship Specialty Start Date End Date February, Milton Alvarez MD PCP - General Family Medicine 07/26/23 documented as of this encounter
--- OUTSIDE RECORDS SUMMARY | 2025-01-26 00:17 | External Medical Summary | Summary of Care ---
Author Name Unknown Organization [facility] Address [address] [place] [address] Phone [phone] Care Team Providers Care Supervisor Garage Name Role Phone Marcin Britton MD Primary Care Provider [phone] Reason for Visit * Reason Comments eRx-Medication Refill Encounter Details Date Type Department Care Team ([facility] st Contact Info) Description 11/08/2024 [address] [phone] Marcin Britton MD [address] [place] [id number] Diabetes mellitus with stage 3 chronic kidney disease (HCC) Allergies Active Allergy Reactions Criticality Noted Date Comments Amoxicillin-Pot Clavulanate Hives 06/16/20 16 Clavulanic Acid Hives 07/09/2016 documented as of this encounter (statuses as of 11/09/2024) Medications Clindamycin Phosphate 1 % External Solution apply to the scalp 1-2 times daily as needed Active Clobetasol Propionate 0.05 % External Liquid apply to the scalp daily as needed when itchy 59 mL 2 022 Active Triamcinolone Acetonide 0.1 % External Cream (Aristocort) Apply to the back/arms/legs twice daily as needed 80 g 1 022 Active Ketoconazole 2 % External Shampoo (Nizoral) Apply topically to affected area every 3 days. Apply to the chest/arms/back /scalp. Leave on for 5 min then rinse. 120 mL 2 023 Active Trulicity 4.5 MG/0.5ML Subcutaneous Solution Pen-injector (Dulaglutide)In dications:Diabe melanie mellitus with stage 3 chronic kidney disease (HCC) INJECT 4.5MG UNDER THE SKIN ONCE A WEEK 6 mL 3 023 Active Metoprolol Tartrate 25 MG Oral Tablet (Lopressor) TAKE 1 TABLET IN THE MORNING AND 1 TABLET BEFORE BEDTIME 180 Tablet 3 024 Active Pen [place] 32G X 4 MMIndications:D iabetes mellitus with stage 3 chronic kidney disease (HCC) Use as directed. Once daily with Lantus insulin DX E11.9 - substitution permissible for both size/length as well as brand that are covered by insurance and in stock with pharmacy 100 Each 3 024 Active Jardiance 25 MG Oral Tablet (Empagliflozin) TAKE 1 TABLET BY MOUTH DAILY 90 Tablet 3 024 Active FreeStyle Aida 3 SensorIndicatio ns:Diabetes mellitus with stage 3 chronic kidney disease (HCC) Use as directed. Replace sensor every 14 days DX E11.9 6 Each 3 024 Active Omeprazole 20 MG Oral Capsule Delayed Release (PriLOSEC) TAKE 1 CAPSULE IN THE MORNING 1 HOUR BEFORE THE FIRST MEAL OF THE DAY 90 Capsule 1 024 Active Tamsulosin HCl 0.4 MG Oral Capsule (Flomax)Indicat ions:BPH with obstruction/low er urinary tract symptoms Take 1 Capsule by mouth every night at bedtime. 90 Capsule 3 024 Active Atorvastatin Calcium 40 MG Oral Tablet (Lipitor) TAKE 1 TABLET DAILY 90 Tablet 3 025 Active hydroCHLOROthia zide 25 MG Oral Tablet (Hydrodiuril) TAKE 1 TABLET IN THE MORNING 90 Tablet 3 025 Active Lantus SoloStar 100 UNIT/ML Subcutaneous Solution Pen-injector (Insulin Glargine Solostar)Indica tions:Diabetes mellitus with stage 3 chronic kidney disease (HCC) INJECT 23 UNITS UNDER THE SKIN IN THE MORNING 15 mL 4 025 Active Insulin Glargine Solostar 100 UNIT/ML Subcutaneous Solution Pen-injector (Lantus SoloStar)Indica tions:Diabetes mellitus with stage 3 chronic kidney disease (HCC) Inject 23 Units under the skin in the morning. Dx E 11.9. 30 mL 2 023 2024 Discontinued metFORMIN HCl 500 MG Oral Tablet (Glucophage)Ind ications:Type 2 diabetes mellitus with hemoglobin A1c goal of less than 7.0% (HCC) TAKE 2 TABLETS BY MOUTH TWICE DAILY WITH MORNING AND EVENING MEALS 360 Tablet 3 024 2024 Discontinued(M edication/Dose Changed) metFORMIN HCl ER 500 MG Oral Tablet Extended Release 24 Hour (Glucophage XR)Indications: Type 2 diabetes mellitus with hemoglobin A1c goal of less than 7.0% (HCC) Take 2 Tablets by mouth in the morning and 2 Tablets before bedtime. Do all this for 28 days. 112 Tablet 024 2024 Discontinued(R efill) documented as of this encounter (statuses as of 11/09/2024) Active Problems Problem Noted Date Diagnosed Date [...] as of this encounter (statuses as of 11/09/2024) Resolved Problems Problem Noted Date Diagnosed Date [...] as of this encounter (statuses as of 11/09/2024) Immunizations Name Administration Dates Next Due COVID-19 mRNA, LNP-s, No Pre serve, 2-Dose Series (OneCard) 09/23/2021,01/13/2021,12/23/2020 Pneumococcal Conjugate Vacc, 13 Valent (Prevnar) [...] encounter Miscellaneous Notes * Telephone Encounter - Marcin Britton MD - 11/09/2024 7:30 AM ESTSigned Prescriptions: Disp Refills Lantus SoloStar 100 UNIT/ML Subcutaneous S*15 mL 4 Sig: INJECT 23 UNITS UNDER THE SKIN IN THE MORNING Authorizing Provider: MARCIN BRITTON * Telephone Encounter - Francisco Javier Bethea [facility] - 11/08/2024 7:46 AM EST Pending Prescriptions: Disp Refills Lantus SoloStar 100 UNIT/ML Subcutaneous S*15 mL 4 Sig: INJECT 23 UNITS UNDER THE SKIN IN THE MORNING documented in this encounter Plan of Treatment Upcoming Encounters Date Type Department Care Team (Latest Contact Info) Description 12/31/2024 2:00 PM EDT Hospital Encounter [facility]O [facility], Endoscopy Room [facility] [address] [place] [phone] Kermit Arevalo, DO [address] [place] [phone] 12/31/2024 2:00 PM EDT - 12/31/2024 2:30 PM EDT Surgery ENDO [facility], Endoscopy Room [facility] [address] [place] [phone] Kermit Arevalo, DO [address] [place] [address] COLONOSCOPY FLEXIBLE PROXIMAL DIAGNOSTIC 04/10/2025 6:20 PM EDT Office Visit [facility] [address] [place] [phone] Marcin Britton MD [address] [place] [address] 09/19/2025 7:40 AM EST Laboratory Laboratory, [address] [place] [phone] Vitaliy, Laboratory [address] [place] [address] 09/26/2025 2:30 PM EST Office Visit Hematology/Oncolog y [facility] [place] [address] [facility] [phone] Steph Romero CRNP [address] [facility] [place] [address] Scheduled Procedures Name Priority Associated Diagnoses Date/Ti [...] Additional history exists CKD PHOS USE SMARTSET 24318 09/02/202408/17, 03/08/2023, 09/16/2022 HbA1c 01/28/2025 07/30/2024, 03/17, 11/14/2023, Additional history exists B-12 03/26/2025 03/26/2024, 02/15, 03/10/2022, Additional history exists GFR 03/26/2025 09/25/2024, 07/17, 03/26/2024, Additional history exists Depression Screening 04/03/2025 04/03/2024 CKD HGB USE SMARTSET 12192 09/25/202509/25, 09/25/2024, 11/14/2023, Additional history exists Diabetic [...] this encounter Medical Devices Implanted Type Area Small Business Director Device Identifier Shelf Expiration Date Model / Serial / Lot Reunion Rsa Center Screw 6.5mm X 24mm Implanted:Qty: 1 on 09/14/2017 by Dante Morris DO at OR [facility] Right: Shoulder PEMA : ORTHOPAEDICS 05/03/2022 [id number] / / [id number] Reunion Rsa Humeral Cup 36mm X 4mm Implanted:Qty: 1 on 09/14/2017 by Dante Morris DO at OR [facility] Right: Shoulder PEMA : ORTHOPAEDICS 08/22/2022 [id number] / / [id number] Reunion Rsa 3.1mm Drill Bit Implanted:Qty: 1 on 09/14/2017 by Dante Morris DO at OR [facility] Right: Shoulder PEMA : ORTHOPAEDICS 03/24/2022 1625-0197 / / [id number] Reunion Rsa Glenoid Baseplate 28mm Implanted:Qty: 1 on 09/14/2017 by Dante Morris DO at OR [facility] Right: Shoulder PEMA : ORTHOPAEDICS 08/01/2022 2876-6608 / / [id number] Reunion Rsa Peripheral Screw 4.5mm X 24mm Implanted:Qty: 1 on 09/14/2017 by Dante Morris DO at OR [facility] Right: Shoulder PEMA : ORTHOPAEDICS 06/30/2022 2627-9386 / / [id number] Reunion Rsa Peripheral Screw 4.5mm X 28mm Implanted:Qty: 1 on 09/14/2017 by Dante Morris DO at OR [facility] Right: Shoulder PEMA : ORTHOPAEDICS 06/30/2022 0118-2667 / / [id number] Reunion Rsa Peripheral Screw 4.5mm X 20mm Implanted:Qty: 1 on 09/14/2017 by Dante Morris DO at OR [facility] Right: Shoulder PEMA : ORTHOPAEDICS 04/13/2022 8360-6119 / / [id number] Reunion Rsa Concentric Glenosphere 36mm X 6mm Implanted:Qty: 1 on 09/14/2017 by Dante Morris DO at OR [facility] Right: Shoulder PEMA : ORTHOPAEDICS 06/16/2022 5573-C-36 06 / / [id number] Reunion Rsa Peripheral Screw Implanted:Qty: 1 on 09/14/2017 by Dante Morris DO at OR [facility] Right: Shoulder PEMA : ORTHOPAEDICS 02/11/2021 9542-8836 / / [id number] Reunion Tsa Modular Humeral Stem Size11 X 123mm Implanted:Qty: 1 on 09/14/2017 by Dante Morris DO at OR [facility] Right: Shoulder PEMA : ORTHOPAEDICS 05/02/2022 5569-P-20 11 / / [id number] Reunion Rsa X3 Humeral Insert 36mm X 4mm Implanted:Qty: 1 on 09/14/2017 by Dante Morris DO at OR [facility] Right: Shoulder PEMA : ORTHOPAEDICS 03/22/2022 5571-S-36 04 / / [id number] Baseplate #5 Tritanium - [id number] Implanted:Qty: 1 on 10/22/2019 by Nick Vang MD at OR [facility] Left: Knee PEMA : ORTHOPAEDICS 08/07/2024 5536-B-50 0 / / [id number] Knee Triathlon Ps Stb Bead 4 L - [id number] Implanted:Qty: 1 on 10/22/2019 by Nick Vang MD at OR [facility] Left: Knee PEMA : ORTHOPAEDICS 04/08/2024 5516-F-40 1 / / [id number] Insert Tib Sz5 Knee - [id number] Implanted:Qty: 1 on 10/22/2019 by Nick Vang MD at OR [facility] Left: Knee PEMA : ORTHOPAEDICS 12/13/2022 5532-G-51 1 / / [id number] Triathlon Tritanium Symmetric Patella Implanted:Qty: 1 on 10/22/2019 by Nick Vang MD at OR [facility] Left: Knee 04/21/2024 5556-L-39 [...] Directives occurred with: Not Discussed Care Teams Supervisor Garage Relationship Specialty Start Date End Date February, Marcin Alvarez MD PCP - General Family Medicine 07/26/23 documented as of this encounter
--- OUTSIDE RECORDS SUMMARY | 2025-01-26 00:17 | External Medical Summary | Summary of Care ---
Author Name Unknown Organization [facility] Address [address] [place] [address] Phone [phone] Care Team Providers Care Packing Floor Worker Name Role Phone FebruaryMarcin MD Primary Care Provider [phone] Reason for Visit * Reason Comments eRx-Medication Refill Encounter Details Date Type Department Care Team (Late st Contact Info) Description 10/30/[address] [facility] [address] [place] [phone] Marcin Britton MD [address] [place], [place] [phone] Allergies Active Allergy Reactions Criticality Noted Date Comments Amoxicillin-Pot Clavulanate Hives 06/16/20 16 Clavulanic Acid Hives 07/09/2016 documented as of this encounter (statuses as of 10/30/2024) Medications Clindamycin Phosphate 1 % External Solution apply to the scalp 1-2 times daily as needed Active Clobetasol Propionate 0.05 % External Liquid apply to the scalp daily as needed when itchy 59 mL 2 12/16/19 22 Active Triamcinolone Acetonide 0.1 % External Cream (Aristocort) Apply to the back/arms/legs twice daily as needed 80 g 1 03/01/20 22 Active Ketoconazole 2 % External Shampoo (Nizoral) Apply topically to affected area every 3 days. Apply to the chest/arms/back /scalp. Leave on for 5 min then rinse. 120 mL 2 07/26/20 23 Active Insulin Glargine Solostar 100 UNIT/ML Subcutaneous Solution Pen-injector (Lantus SoloStar)Indica tions:Diabetes mellitus with stage 3 chronic kidney disease (HCC) Inject 23 Units under the skin in the morning. Dx E 11.9. 30 mL 2 09/15/20 23 Active Trulicity 4.5 MG/0.5ML Subcutaneous Solution Pen-injector (Dulaglutide)In dications:Diabe melanie mellitus with stage 3 chronic kidney disease (HCC) INJECT 4.5MG UNDER THE SKIN ONCE A WEEK 6 mL 3 09/30/20 23 Active Metoprolol Tartrate 25 MG Oral Tablet (Lopressor) TAKE 1 TABLET IN THE MORNING AND 1 TABLET BEFORE BEDTIME 180 Tablet 3 05/11/20 24 Active Pen [place] 32G X 4 MMIndications:D iabetes mellitus with stage 3 chronic kidney disease (HCC) Use as directed. Once daily with Lantus insulin DX E11.9 - substitution permissible for both size/length as well as brand that are covered by insurance and in stock with pharmacy 100 Each 3 05/29/20 24 Active Jardiance 25 MG Oral Tablet (Empagliflozin) TAKE 1 TABLET BY MOUTH DAILY 90 Tablet 3 06/20/20 24 Active FreeStyle Aida 3 SensorIndicatio ns:Diabetes mellitus with stage 3 chronic kidney disease (HCC) Use as directed. Replace sensor every 14 days DX E11.9 6 Each 3 07/12/20 24 Active metFORMIN HCl 500 MG Oral Tablet (Glucophage)Ind ications:Type 2 diabetes mellitus with hemoglobin A1c goal of less than 7.0% ([facility]) TAKE 2 TABLETS BY MOUTH TWICE DAILY WITH MORNING AND EVENING MEALS 360 Tablet 3 09/19/20 24 Active Omeprazole 20 MG Oral Capsule Delayed Release (PriLOSEC) TAKE 1 CAPSULE IN THE MORNING 1 HOUR BEFORE THE FIRST MEAL OF THE DAY 90 Capsule 1 10/02/20 24 Active metFORMIN HCl ER 500 MG Oral Tablet Extended Release 24 Hour (Glucophage XR)Indications: Type 2 diabetes mellitus with hemoglobin A1c goal of less than 7.0% (HCC) Take 2 Tablets by mouth in the morning and 2 Tablets before bedtime. Do all this for 28 days. 112 Tablet 10/03/20 24 2024 Active Tamsulosin HCl 0.4 MG Oral Capsule (Flomax)Indicat ions:BPH with obstruction/low er urinary tract symptoms Take 1 Capsule by mouth every night at bedtime. 90 Capsule 3 10/03/20 24 Active Atorvastatin Calcium 40 MG Oral Tablet (Lipitor) TAKE 1 TABLET DAILY 90 Tablet 3 10/19/19 25 Active hydroCHLOROthia zide 25 MG Oral Tablet (Hydrodiuril) TAKE 1 TABLET IN THE MORNING 90 Tablet 3 10/30/19 25 Active hydroCHLOROthia zide 25 MG Oral Tablet (Hydrodiuril) TAKE 1 TABLET IN THE MORNING 90 Tablet 3 11/05/19 24 2024 Discontinued documented as of this encounter (statuses as of 10/30/2024) Active Problems Problem Noted Date Diagnosed Date [...] as of this encounter (statuses as of 10/30/2024) Resolved Problems Problem Noted Date Diagnosed Date [...] as of this encounter (statuses as of 10/30/2024) Immunizations Name Administration Dates Next Due COVID-19 mRNA, LNP-s, No Pre serve, 2-Dose Series ([employer]) 09/23/2021,01/13/2021,12/23/2020 Pneumococcal Conjugate Vacc, 13 Valent (Prevnar) [...] encounter Miscellaneous Notes * Telephone Encounter - Garret Mcgregor, [facility] - 10/30/2024 1:51 PM EST Signed Prescriptions: Disp Refills hydroCHLOROthiazide 25 MG Oral Tablet (Hyd*90 Tab*3 Sig: TAKE 1 TABLET IN THE MORNINGAuthorizing Provider: MARCIN BRITTON User: GARRET MCGREGOR------ documented in this encounter Plan of Treatment Upcoming Encounters Date Type Department Care Team (Latest Contact Info) Description 12/31/2024 2:00 PM EDT Hospital Encounter ENDO [facility], Endoscopy Room [facility] [address] [place] [phone] Kermit Arevalo, DO [address] [place] [address] 12/31/2024 2:00 PM EDT - 12/31/2024 2:30 PM EDT Surgery ENDO [facility], Endoscopy Room [facility] [address] [place] [phone] Kermit Arevalo, DO [address] [place] [address] COLONOSCOPY FLEXIBLE PROXIMAL DIAGNOSTIC 04/10/2025 6:20 PM EDT [facility] [address] [place] [phone] Marcin Britton MD [address] [place] [address] 09/19/2025 7:40 AM EST Laboratory Laboratory, [address] [place] [phone] [place] [address] [place] [address] 09/26/2025 2:30 PM EST Office Visit Hematology/Oncolog y [facility] [place] [address] [place] [phone] Steph Romero CRNP [address] [place] [address] [place] [phone] Scheduled Procedures Name Priority Associated Diagnoses Date/Ti me COLONOSCOPY FLEXIBLE PROXIMAL DIAGNOSTIC Irritable bowel syndrome with both constipation and diarrhea 12/31/2024 2:00 PM EDT Health Maintenance Due Date Last Done Comments Hepatitis C Screening 1968 Adult Wellness Visit 2015 Colonoscopy 04/05/2024 04/05/2019, 11/09/2016 Diabetic Eye Exam 06/04/2024 06/04/2023, , 02/04/2021, Additional history exists COVID-19 Vaccine (2023- season) 2024 09/23/2021, 01/13/2021, 12/23/2020 Albumin/Creatinine Ratio 09/02/2024 023, 09/16/2022, 09/09/2021, Additional history exists CKD PHOS USE SMARTSET 66375 09/02/202408/17, 03/08/2023, 09/16/2022 HbA1c 01/28/2025 07/30/2024, 03/17, 11/14/2023, Additional history exists B-12 03/26/2025 03/26/2024, 02/15, 03/10/2022, Additional history exists GFR 03/26/2025 09/25/2024, 07/17, 03/26/2024, Additional history exists Depression Screening 04/03/2025 04/03/2024 CKD HGB USE SMARTSET 59386 09/25/202509/25, 09/25/2024, 11/14/2023, Additional history exists Diabetic [...] encounter Medical Devices Implanted Type Area Small Products Assembler Device Identifier Shelf Expiration Date Model / Serial / Lot Reunion Rsa Center Screw 6.5mm X 24mm Implanted:Qty: 1 on 09/14/2017 [place] [facility] [place]: Shoulder PEMA : ORTHOPAEDICS 05/03/2022 8899-4727 / / [id number] Reunion Rsa Humeral Cup 36mm X 4mm Implanted:Qty: 1 on 09/14/2017 by Dante Morris DO [place] [facility] [place]: Shoulder PEMA : ORTHOPAEDICS 08/22/2022 5401-5492 / / [id number] Reunion Rsa 3.1mm Drill Bit Implanted:Qty: 1 on 09/14/2017 by Dante Morris DO [place] [facility] [place]: Shoulder PEMA : ORTHOPAEDICS 03/24/2022 5706-2262 / / [id number] Reunion Rsa Glenoid Baseplate 28mm Implanted:Qty: 1 on 09/14/2017 by Dante Morris DO [place] [facility] [place]: Shoulder PEMA : ORTHOPAEDICS 08/01/2022 4834-3671 / / [id number] Reunion Rsa Peripheral Screw 4.5mm X 24mm Implanted:Qty: 1 on 09/14/2017 by Dante Morris DO [place] [facility] [place]: Shoulder PEMA : ORTHOPAEDICS 06/30/2022 [id number] / / [id number] Reunion Rsa Peripheral Screw 4.5mm X 28mm Implanted:Qty: 1 on 09/14/2017 by Dante Morris DO [place] [facility] [place]: Shoulder PEMA : ORTHOPAEDICS 06/30/2022 9814-6615 / / [id number] Reunion Rsa Peripheral Screw 4.5mm X 20mm Implanted:Qty: 1 on 09/14/2017 by Dante Morris DO [place] [facility] [place]: Shoulder PEMA : ORTHOPAEDICS 04/13/2022 3585-9483 / / [id number] Reunion Rsa Concentric Glenosphere 36mm X 6mm Implanted:Qty: 1 on 09/14/2017 by Dante Morris DO [place] [facility] [place]: Shoulder PEMA : ORTHOPAEDICS 06/16/2022 5573-C-36 06 / / [id number] Reunion Rsa Peripheral Screw Implanted:Qty: 1 on 09/14/2017 by Dante Morris DO [place] [facility] Right: Shoulder PEMA : ORTHOPAEDICS 02/11/2021 0657-1354 / / [id number] Reunion Tsa Modular Humeral Stem Size11 X 123mm Implanted:Qty: 1 on 09/14/2017 by Dante Morris DO [place] [facility] Right: Shoulder PEMA : ORTHOPAEDICS 05/02/2022 5569-P-20 11 / / [id number] Reunion Rsa X3 Humeral Insert 36mm X 4mm Implanted:Qty: 1 on 09/14/2017 by Dante Morris DO [place] [facility] [place]: Shoulder PEMA : ORTHOPAEDICS 03/22/2022 5571-S-36 04 / / [id number] Baseplate #5 Tritanium - [id number] Implanted:Qty: 1 on 10/22/2019 by Nick Vang MD at OR [facility] Left: Knee PEMA : ORTHOPAEDICS 08/07/2024 5536-B-50 0 / / [id number] Knee Triathlon Ps Stb Bead 4 L - [id number] Implanted:Qty: 1 on 10/22/2019 by Nick Vang MD at OR [facility] Left: Knee PEMA : ORTHOPAEDICS 04/08/2024 5516-F-40 1 / / [id number] Insert Tib Sz5 Knee - [id number] Implanted:Qty: 1 on 10/22/2019 by Nick Vang MD at OR [facility] Left: Knee PEMA : ORTHOPAEDICS 12/13/2022 5532-G-51 [id number] Triathlon Tritanium Symmetric Patella Implanted:Qty: 1 on 10/22/2019 by Nick Vang MD at OR [facility] Left: Knee 04/21/2024 5556-L-39 K12T documented as of this encounter Advance [...] Directives occurred with: Not Discussed Care Teams Packing Floor Worker Relationship Specialty Start Date End Date February, Marcin Alvarez MD PCP - General Family Medicine 07/26/23 documented as of this encounter
--- OUTSIDE RECORDS SUMMARY | 2025-01-26 00:17 | External Medical Summary | Summary of Care ---
Author Name Unknown Organization [facility] Address [address] [place] [address] Phone [phone] Care Team Providers Care Range Rider Name Role Phone Milton Mcdaniel MD Primary Care Provider Reason for Visit * Reason Onset Date Comments Order Request 10/22/2024 Pre Cert/Prior Auth 10/22/2024 Encounter Details Date Type Department Care Team (Late st Contact Info) Description 10/22/2024 Telephone [facility] [address] [facility] [place] [address] Milton Mcdaniel MD [address] [place] [address] Order Request; Pre Cert/Prior Auth Allergies Active Allergy Reactions Criticality Noted Date Comments Amoxicillin-Pot Clavulanate Hives 06/16/20 16 Clavulanic Acid Hives 07/09/2016 documented as of this encounter (statuses as of 10/26/2024) Medications Clindamycin Phosphate 1 % External Solution [...] BEDTIME 180 Tablet 3 4 Active Pen [place] 32G X 4 MMIndications:Di abetes mellitus with stage 3 chronic kidney disease ([facility]) Use as directed. Once daily [...] hemoglobin A1c goal of less than 7.0% ([facility]) TAKE 2 TABLETS BY MOUTH [...] as of this encounter (statuses as of 10/26/2024) Active Problems Problem Noted Date Diagnosed Date [...] as of this encounter (statuses as of 10/26/2024) Resolved Problems Problem Noted Date Diagnosed Date [...] as of this encounter (statuses as of 10/26/2024) Immunizations Name Administration Dates Next Due COVID-19 mRNA, LNP-s, No Pre serve, 2-Dose Series (Zenfolio) 09/23/2021,01/13/2021,12/23/2020 Pneumococcal Conjugate Vacc, 13 Valent (Prevnar) [...] of Assessment Author No 10/22/2019 3:14 PM EST Booker Arredondo RN * Are you blind or do [...] encounter Miscellaneous Notes * Telephone Encounter - Milady Kuo RPh - 10/26/2024 9:26 AM EST Advised patient the FreeStyle Aida is no longer made and the option is the FreeStyle Plus (which has the high copay) He is not interested in changed monitors, so I advised of the Medicare M3P plan. Provided Medicare number to patient and he will call and enroll. Thanks, Milady Kuo RPh Clinical Pharmacist [facility] [phone] * Telephone Encounter - David Mluler CPhT - 10/26/2024 8:04 AM EST Checked with copay assistance "there is no assistance for Medicare patients for the sensor. They can try the new Medicare Repayment Plan but that is all" Unclear how patient would like to proceed. Attempted to ballpark [place] regular meters but estimate tool would not give response Thank you, Jaret Muller ([facility]) Visual Effects Editor III [facility] ([facility]) 10/26/2024, 8:04 AM * Telephone Encounter - David Muller CPhT - 10/25/2024 10:39 AM EST Submitted information in previous note via CMM ([place]: [id number])..for FreeStyle Aida 3 Sensor Instant approval Called pharmacy and while paid claim received copay is still around $224 Patient is unable to afford their prescription and would like assistance in getting this medication. Please see the following for further information regarding this request: Medication: Freestyle Aida 3 Sensor Clinic location: [place] Reason pt cannot pick-up: $224 Initial therapy?: No Has pt been without med?: Will be shortly Patient's contact #: [phone] Pt would like to explore their options for obtaining this medication. Please advise pt at the phonenumber listed above. Thank you. Thank you, Jaret Muller ([facility]) Visual Effects Editor III [facility]) 10/25/2024, 10:55 AM * Telephone Encounter - Ying Ro PHARM Tech - 10/25/2024 9:41 AM EST Pt is calling asking high priority due to needing the med. Thank you, Ying Ro CPhT Watch Assembler II [facility] ([facility]) 10/25/2024,9:42 [...] Aida 3 sensor Caller was transferred to [place] at the nurse line. * Telephone Encounter [...] with update. * Telephone Encounter - Sara Bajwa [facility] - 10/23/2024 1:49 PM EST Please submit [...] upon this and route back to the [facility] pool if no decision is made by the insurance by 10/30, after clarifying with the pharmacy that the claim is still not processing. If PA is denied, please also route back to [facility] pool. Thank you, Sara Bajwa, PharmD Clinical Pharmacist [facility] ([facility]) 10/23/24 1:49 PM [phone] * Telephone Encounter - Milton Mcdaniel MD - 10/23/2024 12:57 PM EST Can we please start prior auth for freestyle aida. Thanks, Milton Mcdaniel MD * Telephone Encounter - Perla Freitas PHARM Tech - 10/22/2024 12:35 PM EST Pharmacy calling to inform doctor that the patient's insurance will not pay for this medication without a completed prior authorization. Did confirm this information with the pharmacy. Pt's current insurance information is as follows: Patient name: Gilberto Valles ID number: [id number] BIN number: [id number] PCN number: CBC Group number: [id number] Subscriber name: Gilberto Valles Primary or Secondary Insurance:Primary Medication: FreeStyle Aida 3 Sensor Reason for Request: Needs a prior auth Pharmacy and phone number: [id number] [address] [facility] Rx plan and phone number: [facility] [employer] [phone] Is this a new medication for the patient? Yes What alternative medications does the pharmacy have in stock?: Thank you, Perla Freitas Watch Assembler [employer] 10/22/2024, 12:35 PM documented in this encounter Plan of Treatment Upcoming Encounters Date Type Department Care Team (Latest Contact Info) Description 12/31/2024 2:00 PM EDT Hospital Encounter ENDO [facility], Endoscopy Room [facility] [address] [place] [phone] Kermit Arevalo, DO [address] [place] [address] 12/31/2024 2:00 PM EDT - 12/31/2024 2:30 PM EDT Surgery ENDO [facility], Endoscopy Room [facility] [address] [place] [place] [phone] Kermit Arevalo, DO [address] [place] [address] COLONOSCOPY FLEXIBLE PROXIMAL DIAGNOSTIC 04/10/2025 6:20 PM EDT Office Visit Family [facility], [place] [address] [place] [phone] Milton Mcdaniel MD [address] [place] [address] 09/19/2025 7:40 AM EST Laboratory Laboratory, [place] [address] [place] [phone] [facility] [address] [place] [address] 09/26/2025 2:30 PM EST Office Visit Hematology/Oncolog y [facility] [place] [address] [facility] [address] Steph Romero CRNP [address] [facility] [place] [address] Scheduled Procedures Name Priority Associated Diagnoses Date/Ti me COLONOSCOPY FLEXIBLE PROXIMAL DIAGNOSTIC Irritable bowel syndrome with both constipation and diarrhea 12/31/2024 2:00 PM EDT Health Maintenance Due Date Last Done Comments Hepatitis C Screening 1968 Adult Wellness Visit 2015 Colonoscopy 04/05/2024 04/05/2019, 11/09/2016 Diabetic Eye Exam 06/04/2024 06/04/2023, , 02/04/2021, Additional history exists COVID-19 Vaccine ( season) 2024 09/23/2021, 01/13/2021, 12/23/2020 Albumin/Creatinine Ratio 09/02/202409/02/2 023, 09/16/2022, 09/09/2021, Additional history exists CKD PHOS USE SMARTSET 14678 09/02/202408/17, 03/08/2023, 09/16/2022 HbA1c 01/28/2025 07/30/2024, 03/17, 11/14/2023, Additional history exists B-12 03/26/2025 03/26/2024, 02/15, 03/10/2022, Additional history exists GFR 03/26/2025 09/25/2024, 07/17, 03/26/2024, Additional history exists Depression Screening 04/03/2025 04/03/2024 CKD HGB USE SMARTSET 41804 09/25/202509/25, 09/25/2024, 11/14/2023, Additional history exists Diabetic [...] this encounter Medical Devices Implanted Type Area Corrugator Operator Device Identifier Shelf Expiration Date Model / Serial / Lot Reunion Rsa Center Screw 6.5mm X 24mm Implanted:Qty: 1 on 09/14/2017 by Dante [place] [facility] [place] Shoulder PEMA : ORTHOPAEDICS 05/03/2022 [id number] / / [id number] Reunion Rsa Humeral Cup 36mm X 4mm Implanted:Qty: 1 on 09/14/2017 by Dante Morris DO [place] [facility] [place]: Shoulder PEMA : ORTHOPAEDICS 08/22/2022 4165-4743 / / [id number] Reunion Rsa 3.1mm Drill Bit Implanted:Qty: 1 on 09/14/2017 by Dante Morris DO [place] [facility] [place]: Shoulder PEMA : ORTHOPAEDICS 03/24/2022 4701-9105 / / [id number] Reunion Rsa Glenoid Baseplate 28mm Implanted:Qty: 1 on 09/14/2017 by Dante Morris DO [place] [facility] [place]: Shoulder PEMA : ORTHOPAEDICS 08/01/2022 1795-2970 / / [id number] Reunion Rsa Peripheral Screw 4.5mm X 24mm Implanted:Qty: 1 on 09/14/2017 by Dante Morris DO [place] [facility] [place]: Shoulder PEMA : ORTHOPAEDICS 06/30/2022 2310-7698 / / [id number] Reunion Rsa Peripheral Screw 4.5mm X 28mm Implanted:Qty: 1 on 09/14/2017 by Dante Morris DO [place] [facility] [place]: Shoulder PEMA : ORTHOPAEDICS 06/30/2022 [id number] / / [id number] Reunion Rsa Peripheral Screw 4.5mm X 20mm Implanted:Qty: 1 on 09/14/2017 by Dante Morris DO [place] [facility] [place]: Shoulder PEMA : ORTHOPAEDICS 04/13/2022 3823-3360 / / [id number] Reunion Rsa Concentric Glenosphere 36mm X 6mm Implanted:Qty: 1 on 09/14/2017 by Dante Morris DO [place] [facility] [place]: Shoulder PEMA : ORTHOPAEDICS 06/16/2022 5573-C-36 06 / / [id number] Reunion Rsa Peripheral Screw Implanted:Qty: 1 on 09/14/2017 by Dante Morris DO [place] [facility] [place]: Shoulder PEMA : ORTHOPAEDICS 02/11/2021 3973-7023 / / [id number] Reunion Tsa Modular Humeral Stem Size11 X 123mm Implanted:Qty: 1 on 09/14/2017 by Dante Morris DO [place] [facility] [place]: Shoulder PEMA : ORTHOPAEDICS 05/02/2022 5569-P-20 11 / / [id number] Reunion Rsa X3 Humeral Insert 36mm X 4mm Implanted:Qty: 1 on 09/14/2017 by Dante Morris DO [place] [facility] [place]: Shoulder PEMA : ORTHOPAEDICS 03/22/2022 5571-S-36 04 / / [id number] Baseplate #5 Tritanium - [id number] Implanted:Qty: 1 on 10/22/2019 by Nick Vang MD at OR [facility] Left: Knee PEMA : ORTHOPAEDICS 08/07/2024 5536-B-50 0 / / [id number] Knee Triathlon Ps Stb Bead 4 L - [id number] Implanted:Qty: 1 on 10/22/2019 by Nick Vang MD at OR [facility] Left: Knee PEMA : ORTHOPAEDICS 04/08/2024 5516-F-40 1 / / [id number] Insert Tib Sz5 Knee - [id number] Implanted:Qty: 1 on 10/22/2019 by Nick Vang MD at OR [facility] Left: Knee PEMA : ORTHOPAEDICS 12/13/2022 5532-G-51 1 / / [id number] Triathlon Tritanium Symmetric Patella Implanted:Qty: 1 on 10/22/2019 by Nick Vang MD at OR [facility] Left: Knee 04/21/2024 5556-L-39 1 / / [...] Directives occurred with: Not Discussed Care Teams Range Rider Relationship Specialty Start Date End Date February, Milton Alvarez MD PCP - General Family Medicine 07/26/23 documented as of this encounter
--- OUTSIDE RECORDS SUMMARY | 2025-01-26 00:17 | External Medical Summary | Summary of Care ---
Author Name Unknown Organization [facility] Address [address] [place] [address] Phone [phone] Care Team Providers Care Route Sales Person Name Role Phone Marcin Britton MD Primary Care Provider [phone] Reason for Visit * Reason Comments eRx-Medication Refill Encounter Details Date Type Department Care Team (Late st Contact Info) Description 11/08/2024 Refill [facility] [address] [place] [address] Marcin Britton MD [address] [place], [place] [phone] Type 2 diabetes mellitus with hemoglobin A1c goal of less than 7.0% ([facility]) Allergies Active Allergy Reactions Criticality Noted Date [...] twice daily as needed 80 g 1 12/16/19 22 Active Ketoconazole 2 % External Shampoo (Nizoral) Apply topically to affected area every 3 days. Apply to the chest/arms/back/ scalp. Leave on for 5 min then rinse. 120 mL 2 07/26/20 23 Active Trulicity 4.5 MG/0.5ML Subcutaneous Solution Pen-injector (Dulaglutide)Ind ications:Diabete s mellitus with stage 3 chronic kidney disease (HCC) INJECT 4.5MG UNDER THE SKIN ONCE A WEEK 6 mL 3 09/30/20 23 Active Metoprolol Tartrate 25 MG Oral Tablet (Lopressor) TAKE 1 TABLET IN THE MORNING AND 1 TABLET BEFORE BEDTIME 180 Tablet 3 05/11/20 24 Active Pen [place] 32G X 4 MMIndications:Di abetes mellitus with [...] 3 06/20/20 24 Active FreeStyle Aida 3 SensorIndication s:Diabetes mellitus with stage 3 chronic kidney disease (HCC) Use as directed. Replace sensor every 14 days DX E11.9 6 Each 3 07/12/20 24 Active Omeprazole 20 MG Oral Capsule Delayed Release (PriLOSEC) TAKE 1 CAPSULE IN THE MORNING 1 HOUR BEFORE THE FIRST MEAL OF THE DAY 90 Capsule 1 10/02/20 24 Active Tamsulosin HCl 0.4 MG Oral Capsule (Flomax)Indicati ons:BPH with obstruction/lowe r urinary tract symptoms Take 1 Capsule by mouth every night at bedtime. 90 Capsule 3 10/03/20 24 Active Atorvastatin Calcium 40 MG Oral Tablet (Lipitor) TAKE 1 TABLET DAILY 90 Tablet 3 10/19/19 25 Active hydroCHLOROthiaz mark 25 MG Oral Tablet (Hydrodiuril) TAKE 1 TABLET IN THE MORNING 90 Tablet 3 10/30/19 25 Active Lantus SoloStar 100 UNIT/ML Subcutaneous Solution Pen-injector (Insulin Glargine Solostar)Indicat ions:Diabetes mellitus with stage 3 chronic kidney disease (HCC) INJECT 23 UNITS UNDER THE SKIN IN THE MORNING 15 mL 4 11/09/19 25 Active metFORMIN HCl ER 500 MG Oral Tablet Extended Release 24 Hour (Glucophage XR)Indications:T ype 2 diabetes mellitus with hemoglobin A1c goal of less than 7.0% (HCC) Take 2 Tablets by mouth in the morning and 2 Tablets before bedtime. Do all this for 28 days. 112 Tablet 10/03/20 025 Discontin ued(Refil l) documented as of this encounter (statuses as [...] mRNA, LNP-s, No Pre serve, 2-Dose Series ([employer]) 09/23/2021,01/13/2021,12/23/2020 Pneumococcal Conjugate Vacc, 13 Valent (Prevnar) [...] Encounter - Marcin Britton MD - 11/09/2024 7:42 AM ESTRefused Prescriptions: Disp Refills metFORMIN HCl ER 500 MG Oral Tablet Extend*112 Ta*0 Sig: Take 2 Tablets by mouth in the morning and 2 Tablets before bedtime. Do all this for 28 days.Refused By: MARCIN BRITTON for Refusal: Duplicate Request documented in this encounter Plan of Treatment Upcoming Encounters Date Type Department Care Team (Latest Contact Info) Description 12/31/2024 2:00 PM EDT Hospital Encounter ENDO [facility], Endoscopy Room [facility] [address] [place], [place] [phone] Kermit Arevalo, DO [address] [place], [place] [address] 12/31/2024 2:00 PM EDT - 12/31/2024 2:30 PM EDT Surgery ENDO [facility], Endoscopy Room [facility] [address] [place], [place] [phone] Kermit Arevalo, DO [address] [place], [place] [address] COLONOSCOPY FLEXIBLE PROXIMAL DIAGNOSTIC 04/10/2025 6:20 PM EDT [facility] [address] [place] [phone] Marcin Britton MD [address] [place] [address] 09/19/2025 7:40 AM EST Laboratory Laboratory, [place] [address] [place] [phone] [place], Laboratory [address] [address] 09/26/2025 2:30 PM EST Office Visit Hematology/Oncolog y [facility] [place] [address] [facility] [phone] Steph Romero CRNP [address] [place] [address] Scheduled Procedures Name Priority [...] Additional history exists CKD PHOS USE SMARTSET 63855 09/02/202408/17, 03/08/2023, 09/16/2022 HbA1c 01/28/2025 07/30/2024, 03/17, 11/14/2023, Additional history exists B-12 03/26/2025 03/26/2024, 02/15, 03/10/2022, Additional history exists GFR 03/26/2025 09/25/2024, 07/17, 03/26/2024, Additional history exists Depression Screening 04/03/2025 04/03/2024 CKD HGB USE SMARTSET 69191 09/25/202509/25, 09/25/2024, 11/14/2023, Additional history exists Diabetic [...] this encounter Medical Devices Implanted Type Area Recruiting Assistant Device Identifier Shelf Expiration Date Model / Serial / Lot Reunion Rsa Center Screw 6.5mm X 24mm Implanted:Qty: 1 on 09/14/[place] [facility] [place] PEMA : ORTHOPAEDICS 05/03/2022 8880-2386 / / [id number] Reunion Rsa Humeral Cup 36mm X 4mm Implanted:Qty: 1 on 09/14/2017 [place] Dante Morris DO [place] [facility] [place]er PEMA : ORTHOPAEDICS 08/22/2022 1762-7414 / / [id number] Reunion Rsa 3.1mm Drill Bit Implanted:Qty: 1 on 09/14/2017 by Dante Morris DO [place] [facility] [place]: [place]er PEMA : ORTHOPAEDICS 03/24/2022 4177-3666 / / [id number] Reunion Rsa Glenoid Baseplate 28mm Implanted:Qty: 1 on 09/14/2017 by Dante Morris DO [place] [facility] [place]: Shoulder PEMA : ORTHOPAEDICS 08/01/2022 4563-8580 / / [id number] Reunion Rsa Peripheral Screw 4.5mm X 24mm Implanted:Qty: 1 on 09/14/2017 by Dante Morris DO [place] [facility] [place]: Shoulder PEMA : ORTHOPAEDICS 06/30/2022 2273-4943 / / [id number] Reunion Rsa Peripheral Screw 4.5mm X 28mm Implanted:Qty: 1 on 09/14/2017 by Dante Morris DO [place] [facility] [place] [place]: Shoulder PEMA : ORTHOPAEDICS 06/30/2022 8054-5821 / / [id number] Reunion Rsa Peripheral Screw 4.5mm X 20mm Implanted:Qty: 1 on 09/14/2017 by Dante Morrsi DO [place] [facility] [place]: Shoulder PEMA : ORTHOPAEDICS 04/13/2022 2376-7407 / / [id number] Reunion Rsa Concentric Glenosphere 36mm X 6mm Implanted:Qty: 1 on 09/14/2017 by Dante Morris DO [place] [facility] [place]: Shoulder PEMA : ORTHOPAEDICS 06/16/2022 5573-C-36 06 / / [id number] Reunion Rsa Peripheral Screw Implanted:Qty: 1 on 09/14/2017 by Dante Morris DO [place] [facility] [place]: Shoulder PEMA : ORTHOPAEDICS 02/11/2021 1917-9719 / / [id number] Reunion Tsa Modular Humeral Stem Size11 X 123mm Implanted:Qty: 1 on 09/14/2017 by Dante Morris DO [place] [facility] [place]: Shoulder PEMA : ORTHOPAEDICS 05/02/2022 5569-P-20 11 / / [id number] Reunion Rsa X3 Humeral Insert 36mm X 4mm Implanted:Qty: 1 on 09/14/2017 by Dante Morris DO [place] [facility] [place]: Shoulder PEMA : ORTHOPAEDICS 03/22/2022 5571-S-36 04 / / [id number] Baseplate #5 Tritanium - [id number] Implanted:Qty: 1 on 10/22/2019 by Nick Vang MD at OR [facility] Left: Knee PEMA : ORTHOPAEDICS 08/07/2024 5536-B-50 0 / / [id number] Knee Triathlon Ps Stb Bead 4 L - [id number] Implanted:Qty: 1 on 10/22/2019 by Nick Vang MD at OR [facility] Left: Knee PEMA : ORTHOPAEDICS 04/08/2024 5516-F-40 1 / / [id number] Insert Tib Sz5 Knee - [id number] Implanted:Qty: 1 on 10/22/2019 by Nick Vang MD at OR [facility] Left: Knee PEMA : ORTHOPAEDICS 12/13/2022 5532-G-51 [id number] Triathlon Tritanium Symmetric Patella Implanted:Qty: 1 on 10/22/2019 by Nick Vang MD at OR [facility] Left: Knee 04/21/2024 5556-L-39 K12T documented as of this encounter Visit Diagnoses Diagnosis Type 2 diabetes mellitus with hemoglobin A1c goal of less than 7.0% (HCC) Irritable bowel syndrome with both constipation and [...] Directives occurred with: Not Discussed Care Teams Route Sales Person Relationship Specialty Start Date End Date February, Marcin Alvarez MD PCP - General Family Medicine 07/26/23 documented as of this encounter
--- OUTSIDE RECORDS SUMMARY | 2025-01-26 00:17 | External Medical Summary | Summary of Care ---
Author Name Unknown Organization [facility] Address [address] [place] [address] Phone [phone] Care Team Providers Care School Commissioner Name Role Phone Milton Mcdaniel MD Primary Care Provider [phone] Reason for Visit * Reason Onset Date Comments Medication Problem 11/08/2024 Encounter Details Date Type Department Care Team (Late st Contact Info) Description 11/08/2024 Telephone [facility] [place] [address] [place] [address] Milton Mcdaniel MD [address] [place] [address] Medication Problem Allergies Active Allergy Reactions Criticality Noted Date [...] 180 Tablet 3 05/11/20 24 Active Pen [place] 32G X 4 MMIndications:Di abetes mellitus with [...] MORNING 90 Tablet 3 10/30/19 25 Active metFORMIN HCl ER 500 MG Oral Tablet Extended Release 24 Hour (Glucophage XR)Indications:T ype 2 diabetes mellitus with hemoglobin A1c goal of less than 7.0% ([facility]) Take 2 Tablets by mouth in the morning and 2 Tablets before bedtime. 360 Tablet 3 01/24/20 25 Active metFORMIN HCl 500 MG Oral Tablet (Glucophage)Hailey cations:Type 2 diabetes mellitus with hemoglobin A1c goal of less than 7.0% (HCC) TAKE 2 TABLETS BY MOUTH TWICE DAILY WITH MORNING AND EVENING MEALS 360 Tablet 3 09/19/20 24 025 Discontin ued(Medic ation/Dos e Changed) metFORMIN HCl ER 500 MG Oral Tablet Extended Release 24 Hour (Glucophage XR)Indications:T ype 2 diabetes mellitus with hemoglobin A1c goal of less than 7.0% (HCC) Take 2 Tablets by mouth in the morning and 2 Tablets before bedtime. Do all this for 28 days. 112 Tablet 10/03/20 24 025 Discontin ued(Refil l) documented as of [...] mRNA, LNP-s, No Pre serve, 2-Dose Series ([employer]) 09/23/2021,01/13/2021,12/23/2020 Pneumococcal Conjugate Vacc, 13 Valent (Prevnar) [...] Telephone Encounter - Milton Mcdaniel MD - 11/09/2024 7:43 AM EST Order sent to [facility] in [place]. Can we please notify patient per his request. Milton Mcdaniel MD * Telephone Encounter - Renee Pfeiffer LPN - 11/08/2024 11:20 AM EST Did you pend patient's preferred pharmacy and medication before forwarding?yes Pharmacy: [id number] [id number] Pending Prescriptions: Disp Refills metFORMIN HCl 500 MG Oral Tablet (Glucoph*360 Ta*3 Sig: Take 1 Tablet by mouth daily with breakfast. Last Visit: 10/03/2024 (in office), Visit date not found (telemedicine) Next Visit: 04/10/2025 If no future appointments scheduled, and last appointment is greater than a year ago, please schedule patient for a follow-up appointment Last date the medication was ordered: 10/03/24 Is this request for a controlled substance?No Urine Drug Screen:No results found for this or any previous visit. Patient Phone Numbers Labs: Lab Results Component Value Date/Time CREAT 1.1 09/25/2024 03:32 PM CREAT 1.1 08/05/2020 01:52 PM POTASSIUM 4.4 09/25/2024 03:32 PM POTASSIUM 5.1 08/05/2020 01:52 PM TSH 2.17 08/15/2024 12:51 PM TSH 1.86 08/05/2020 01:52 PM LDL 56 07/30/2024 01:23 PM LDL 92 08/05/2020 01:52 PM LDL NOT APPLICABLE 08/05/2020 01:52 PM ALT 30 09/25/2024 03:32 PM ALT 53 (H) 08/05/2020 01:52 PM HGBA1C 7.4 (H) 07/30/2024 01:23 PM HGBA1C 8.1 (H) 08/05/2020 01:52 PM * Telephone Encounter - Danny Tsang OSA - 11/08/2024 9:54 AM EST Pt calling stating he only has 2 left of his metformin HCl ER 500 mg medication for tonight 11/08. Pt asking for new script with refills. Pt uses [facility] in [place]. Please notify pt when sent at [phone]. documented in this encounter Plan of Treatment Upcoming Encounters Date Type Department Care Team (Latest Contact Info) Description 12/31/2024 2:00 PM EDT Hospital Encounter ENDO [facility], Endoscopy Room [facility] [address] [place] [phone] Kermit Arevalo, DO [address] [place] [address] 12/31/2024 2:00 PM EDT - 12/31/2024 2:30 PM EDT Surgery ENDO [facility], Endoscopy Room [facility] [address] [place] [phone] Kermit Arevalo, DO [address] [place] [address] COLONOSCOPY FLEXIBLE PROXIMAL DIAGNOSTIC 04/10/2025 6:20 PM EDT [facility] [address] [place] [address] Milton Mcdaniel MD [address] [place] [address] 09/19/2025 7:40 AM EST Laboratory Laboratory, [facility] [address] [place] [phone] [facility] [address] [place] [address] 09/26/2025 2:30 PM EST Office Visit Hematology/Oncolog y [facility] [place] [address] [place] [address] Steph Romero CRNP [address] [place] [address] Scheduled Procedures Name Priority [...] Additional history exists CKD PHOS USE SMARTSET 86546 09/02/202408/17, 03/08/2023, 09/16/2022 HbA1c 01/28/2025 07/30/2024, 03/17, 11/14/2023, Additional history exists B-12 03/26/2025 03/26/2024, 02/15, 03/10/2022, Additional history exists GFR 03/26/2025 09/25/2024, 07/17, 03/26/2024, Additional history exists Depression Screening 04/03/2025 04/03/2024 CKD HGB USE SMARTSET 05494 09/25/202509/25, 09/25/2024, 11/14/2023, Additional history exists Diabetic [...] this encounter Medical Devices Implanted Type Area Accounting Recruiter Device Identifier Shelf Expiration Date Model / Serial / Lot Reunion Rsa Center Screw 6.5mm X 24mm Implanted:Qty: 1 on 09/14/2017 [place] [facility] Shoulder PEMA : ORTHOPAEDICS 05/03/2022 8270-1355 / / [id number] Reunion Rsa Humeral Cup 36mm X 4mm Implanted:Qty: 1 on 09/14/2017 by Dante Morris DO [place] [facility] [place] Shoulder PEMA : ORTHOPAEDICS 08/22/2022 2303-1115 / / [id number] Reunion Rsa 3.1mm Drill Bit Implanted:Qty: 1 on 09/14/2017 by Dante Morris DO [place] [facility] [place]: Shoulder PEMA : ORTHOPAEDICS 03/24/2022 6775-7540 / / [id number] Reunion Rsa Glenoid Baseplate 28mm Implanted:Qty: 1 on 09/14/2017 by Dante Morris DO [place] [facility] [place]: Shoulder PEMA : ORTHOPAEDICS 08/01/2022 1395-6368 / / [id number] Reunion Rsa Peripheral Screw 4.5mm X 24mm Implanted:Qty: 1 on 09/14/2017 by Dante Morris DO [place] [facility] [place]: Shoulder PEMA : ORTHOPAEDICS 06/30/2022 8974-2950 / / [id number] Reunion Rsa Peripheral Screw 4.5mm X 28mm Implanted:Qty: 1 on 09/14/2017 by Dante Morris DO [place] [facility] [place]: Shoulder PEMA : ORTHOPAEDICS 06/30/2022 0890-7022 / / [id number] Reunion Rsa Peripheral Screw 4.5mm X 20mm Implanted:Qty: 1 on 09/14/2017 by Dante Morris DO [place] [facility] [place]: Shoulder PEMA : ORTHOPAEDICS 04/13/2022 5380-5963 / / [id number] Reunion Rsa Concentric Glen[place] 36mm X 6mm Implanted:Qty: 1 on 09/14/2017 by Dante Morris DO [place] [facility] [place]: Shoulder PEMA : ORTHOPAEDICS 06/16/2022 5573-C-36 06 / / [id number] Reunion Rsa Peripheral Screw Implanted:Qty: 1 on 09/14/2017 by Dante Morris DO [place] [facility] [place]: Shoulder PEMA : ORTHOPAEDICS 02/11/2021 1686-4688 / / [id number] Reunion Tsa Modular Humeral Stem Size11 X 123mm Implanted:Qty: 1 on 09/14/2017 by Dante Morris DO [place] [facility] [place]: Shoulder PEMA : ORTHOPAEDICS 05/02/2022 5569-P-20 11 / / [id number] Reunion Rsa X3 Humeral Insert 36mm X 4mm Implanted:Qty: 1 on 09/14/2017 by Dante Morris DO [place] [facility] [place]: Shoulder PEMA : ORTHOPAEDICS 03/22/2022 5571-S-36 04 / / [id number] Baseplate #5 Tritanium - [id number] Implanted:Qty: 1 on 10/22/2019 by Nick Vang MD at OR [facility] Left: Knee PEMA : ORTHOPAEDICS 08/07/2024 5536-B-50 0 / / [id number] Knee Triathlon Ps Stb Bead 4 L - [id number] Implanted:Qty: 1 on 10/22/2019 by Nick Vang MD at OR [facility] Left: Knee PEMA : ORTHOPAEDICS 04/08/2024 5516-F-40 1 / / [id number] Insert Tib Sz5 Knee - [id number] Implanted:Qty: 1 on 10/22/2019 by Nick Vang MD at OR [facility] Left: Knee PEMA : ORTHOPAEDICS 12/13/2022 5532-G-51 [id number] Triathlon Tritanium Symmetric Patella Implanted:Qty: 1 on 10/22/2019 by Nick Vang MD at OR [facility] Left: Knee 04/21/2024 5556-L-39 [id number] [...] Directives occurred with: Not Discussed Care Teams School Commissioner Relationship Specialty Start Date End Date February, Milton Alvarez MD PCP - General Family Medicine 07/26/23 documented as of this encounter
--- OUTSIDE RECORDS SUMMARY | 2025-01-26 00:18 | External Medical Summary | Summary of Care ---
Author Name Unknown Organization [facility] Address [address] [place] [address] Phone [phone] Care Team Providers Care Maid Supervisor Name Role Phone Milton Mcdaniel MD Primary Care Provider [phone] Reason for Visit * Reason Onset Date Comments Advice 10/12/2024 Encounter Details Date Type Department Care Team (Late st Contact Info) Description 10/12/2024 [facility]phone [facility] [address] [place] [address] Milton Mcdaniel MD [address] [place] [address] Advice Allergies Active Allergy Reactions Criticality Noted Date Comments Amoxicillin-Pot Clavulanate Hives 06/16/20 16 Clavulanic Acid Hives 07/09/2016 documented as of this encounter (statuses as of 10/18/2024) Medications Clindamycin Phosphate 1 % External Solution [...] THE MORNING 90 Tablet 3 4 Active Atorvastatin Calcium 40 MG Oral Tablet (Lipitor) TAKE 1 TABLET DAILY 90 Tablet 2 4 Active Metoprolol Tartrate 25 MG Oral Tablet (Lopressor) TAKE 1 TABLET IN THE MORNING AND 1 TABLET BEFORE BEDTIME 180 Tablet 3 4 Active Pen [place] 32G X 4 MMIndications:Di abetes mellitus with [...] DX E11.9 6 Each 3 4 Active FreeStyle Aida 3 Plus Sensor Replace sensor every 14 days DX E11.9 6 Each 3 4 Active metFORMIN HCl 500 MG Oral Tablet (Glucophage)Hailey cations:Type 2 diabetes mellitus with hemoglobin A1c goal of less than 7.0% ([facility]) TAKE 2 TABLETS BY MOUTH TWICE DAILY [...] at bedtime. 90 Capsule 3 4 Active documented as of this encounter (statuses as of 10/18/2024) Active Problems Problem Noted Date Diagnosed Date [...] as of this encounter (statuses as of 10/18/2024) Resolved Problems Problem Noted Date Diagnosed Date [...] as of this encounter (statuses as of 10/18/2024) Immunizations Name Administration Dates Next Due COVID-19 mRNA, LNP-s, No Pre serve, 2-Dose Series ([employer]) 09/23/2021,01/13/2021,12/23/2020 Pneumococcal Conjugate Vacc, 13 Valent (Prevnar) [...] encounter Miscellaneous Notes * Telephone Encounter - Fay Garrett LPN - 10/18/2024 2:02 PM EST I called and spoke with patient and he stated that since 10-12 he has been taking four tablets per day as his last prescription states to take 2 tabs in the AM and two tabs in the PM. He states that he was not having any bowel issues until this morning when he started with diarrhea. He states with how he has been taking it his sugars have still been 200 or above. * Telephone Encounter - Milton Mcdaniel MD - 10/16/2024 3:10 PM EST Patient was transitioned from metformin 1000 mg BID (short acting) to metformin ER to help with diarrhea. Please confirm patient is currently taking metformin ER 500 mg once daily. If so, he should increase to metformin ER 500 mg twice daily for one week then increase to metformin ER 1000 mg twice daily moving forward. Monitor for diarrhea. This will result in improvement of blood sugars. Milton Mcdaniel MD * Telephone Encounter - Meliton Lion OSA - 10/15/2024 10:42 AM EST Patient is asking to be notified about this medication. Says his levels are running high, over 200. * Telephone Encounter - Jeremy Hooks OSA - 10/12/2024 10:41 AM EST Patient calling in stating that the medication that Milton Mcdaniel MD prescribed Metformin HCI ER is not working for him and would like to discuss this further, please have nurse contact patient back byphone. Thanks, PABLO Syed documented in this encounter Plan of Treatment Upcoming Encounters Date Type Department Care Team (Latest Contact Info) Description 12/31/2024 2:00 PM EDT Hospital Encounter ENDO [facility], Endoscopy Room [facility] [address] [place] [phone] Kermit Arevalo, [address] [place] [address] 12/31/2024 2:00 PM EDT - 12/31/2024 2:30 PM EDT Surgery ENDO [facility], Endoscopy Room [facility] [address] [place] [phone] Kermit Arevalo, DO [address] [place] [address] COLONOSCOPY FLEXIBLE PROXIMAL DIAGNOSTIC 04/10/2025 6:20 PM EDT Office Visit [facility] [place] [facility] [place] [address] [facility] [address] [place] [address] FebruaryMilton MD [address] [facility] [place] [address] 09/19/2025 7:40 AM EST Laboratory Laboratory, [place] [facility] [address] [facility] [place] [address] [facility] [address] [facility] [place] [address] 09/26/2025 2:30 PM EST Office Visit Hematology/Oncolog y [facility] [place] [address] [place], [place] [address] Steph Romero CRNP [address] [facility] [place] [address] Scheduled Procedures Name Priority Associated Diagnoses [...] Additional history exists CKD PHOS USE SMARTSET 88350 09/02/202408/17, 03/08/2023, 09/16/2022 HbA1c 01/28/2025 07/30/2024, 03/17, 11/14/2023, Additional history exists B-12 03/26/2025 03/26/2024, 02/15, 03/10/2022, Additional history exists GFR 03/26/2025 09/25/2024, 07/17, 03/26/2024, Additional history exists Depression Screening 04/03/2025 04/03/2024 CKD HGB USE SMARTSET 50025 09/25/202509/25, 09/25/2024, 11/14/2023, Additional history exists Diabetic [...] this encounter Medical Devices Implanted Type Area Shank Sorter Device Identifier Shelf Expiration Date Model / Serial / Lot Reunion Rsa Center Screw 6.5mm X 24mm Implanted:Qty: 1 on 09/14/2017 by Dante Morris, at [place] [facility] [place] Right: Shoulder PEMA : ORTHOPAEDICS 05/03/2022 7561-2757 / / [id number] Reunion Rsa Humeral Cup 36mm X 4mm Implanted:Qty: 1 on 09/14/2017 by Dante Morris DO at [place] [facility] [place] Right: Shoulder PEMA : ORTHOPAEDICS 08/22/2022 6481-7647 / / [id number] Reunion Rsa 3.1mm Drill Bit Implanted:Qty: 1 on 09/14/2017 by Dante Morris DO at [place] [facility] [place] Right: Shoulder PEMA : ORTHOPAEDICS 03/24/2022 1529-9662 / / [id number] Reunion Rsa Glenoid Baseplate 28mm Implanted:Qty: 1 on 09/14/2017 by Dante Morris DO at [place] [facility] [place] Right: Shoulder PEMA : ORTHOPAEDICS 08/01/2022 2440-0970 / / [id number] Reunion Rsa Peripheral Screw 4.5mm X 24mm Implanted:Qty: 1 on 09/14/2017 by Dante Morris DO [place] [facility] [place] Right: Shoulder PEMA : ORTHOPAEDICS 06/30/2022 7161-9989 / / [id number] Reunion Rsa Peripheral Screw 4.5mm X 28mm Implanted:Qty: 1 on 09/14/2017 by Dante Morris DO at [place] [facility] [place] Right: Shoulder PEMA : ORTHOPAEDICS 06/30/2022 4575-3930 / / [id number] Reunion Rsa Peripheral Screw 4.5mm X 20mm Implanted:Qty: 1 on 09/14/2017 by Dante Morris DO at [place] [facility] [place] Right: Shoulder PEMA : ORTHOPAEDICS 04/13/2022 9229-2308 / / [id number] Reunion Rsa Concentric Glenosphere 36mm X 6mm Implanted:Qty: 1 on 09/14/2017 by Dante Morris DO at [place] [facility] [place] Right: Shoulder PEMA : ORTHOPAEDICS 06/16/2022 5573-C-36 06 / / [id number] Reunion Rsa Peripheral Screw Implanted:Qty: 1 on 09/14/2017 by Dante Morris DO at [place] [facility] [place] Right: Shoulder PEMA : ORTHOPAEDICS 02/11/2021 2478-1668 / / [id number] Reunion Tsa Modular Humeral Stem Size11 X 123mm Implanted:Qty: 1 on 09/14/2017 by Dante Morris DO at [place] [facility] [place] Right: Shoulder PEMA : ORTHOPAEDICS 05/02/2022 5569-P-20 11 / / [id number] Reunion Rsa X3 Humeral Insert 36mm X 4mm Implanted:Qty: 1 on 09/14/2017 by Dante Morris DO at [place] [facility] [place] Right: Shoulder PEMA : ORTHOPAEDICS 03/22/2022 5571-S-36 04 / / [id number] Baseplate #5 Tritanium - [id number] Implanted:Qty: 1 on 10/22/2019 by Nick Vang MD at OR [facility] Left: Knee PEMA : ORTHOPAEDICS 08/07/2024 5536-B-50 0 / / [id number] Knee Triathlon Ps Stb Bead 4 L - [id number] Implanted:Qty: 1 on 10/22/2019 by Nick Vang MD at OR [facility] Left: Knee PEMA : ORTHOPAEDICS 04/08/2024 5516-F-40 1 / / [id number] Insert Tib Sz5 Knee - [id number] Implanted:Qty: 1 on 10/22/2019 by Nick Vang MD at OR [facility] Left: Knee PEMA : ORTHOPAEDICS 12/13/2022 5532-G-51 1 / / [id number] Triathlon Tritanium Symmetric Patella Implanted:Qty: 1 on 10/22/2019 by Nick Vang MD at OR [facility] Left: Knee 04/21/2024 5556-L-39 1 / / [...] Directives occurred with: Not Discussed Care Teams Maid Supervisor Relationship Specialty Start Date End Date February, Milton Alvarez MD PCP - General Family Medicine 07/26/23 documented as of this encounter
--- OUTSIDE RECORDS SUMMARY | 2025-01-26 00:18 | External Medical Summary | Summary of Care ---
Author Name Unknown Organization [facility] Address [address] [place] [address] Phone [phone] Care Team Providers Care Registered Nurse Midwife Name Role Phone Milton Mcdaniel MD Primary Care Provider [phone] Reason for Visit * Reason Onset Date Comments Advice 10/12/2024 Encounter Details Date Type Department Care Team (Late st Contact Info) Description 10/12/[address] [facility] [address] [place] [address] Milton Mcdaniel MD [address] [place] [address] Advice Allergies Active Allergy Reactions Criticality Noted Date Comments Amoxicillin-Pot Clavulanate Hives 06/16/20 16 Clavulanic Acid Hives 07/09/2016 documented as of this encounter (statuses as of 10/19/2024) Medications Clindamycin Phosphate 1 % External Solution [...] WEEK 6 mL 3 09/30/20 23 Active hydroCHLOROthia zide 25 MG Oral Tablet (Hydrodiuril) TAKE 1 TABLET IN THE MORNING 90 Tablet 3 11/05/19 24 Active Metoprolol Tartrate 25 MG Oral Tablet (Lopressor) TAKE 1 TABLET IN THE MORNING AND 1 TABLET BEFORE BEDTIME 180 Tablet 3 05/11/20 24 Active Pen [place] 32G X 4 MMIndications:D iabetes mellitus with [...] E11.9 6 Each 3 07/12/20 24 Active FreeStyle Aida 3 Plus Sensor Replace sensor every 14 days DX E11.9 6 Each 3 07/16/20 24 Active metFORMIN HCl 500 MG Oral Tablet (Glucophage)Ind ications:Type 2 diabetes mellitus with hemoglobin A1c goal of less than 7.0% ([facility]) TAKE 2 TABLETS BY MOUTH TWICE DAILY [...] TAKE 1 TABLET DAILY 90 Tablet 2 01/18/20 24 2024 Discontinued documented as of this encounter (statuses as of 10/19/2024) Active Problems Problem Noted Date Diagnosed Date [...] as of this encounter (statuses as of 10/19/2024) Resolved Problems Problem Noted Date Diagnosed Date [...] as of this encounter (statuses as of 10/19/2024) Immunizations Name Administration Dates Next Due COVID-19 mRNA, LNP-s, No Pre serve, 2-Dose Series ([employer]) 09/23/2021,01/13/2021,12/23/2020 Pneumococcal Conjugate Vacc, 13 Valent (Prevnar) [...] Telephone Encounter - Milton Mcdaniel MD - 10/19/2024 6:48 PM EST Recommend patient continue extended release metformin at 1000 mg twice daily dosing. He should increase his glargine dosing by 3 units to 26 units daily. We may need to get MTM involved if we continue to have problems with blood sugars on the ER formulation of metformin. Milton Mcdaniel MD * Telephone Encounter - Fay Garrett LPN [...] [facility], Endoscopy Room [facility] [address] [place], [place] [phone] Kermit Arevalo, DO [address] [place], [place] [address] 12/31/2024 2:00 PM EDT - 12/31/2024 2:30 PM EDT Surgery ENDO [facility], Endoscopy Room [facility] [address] [place] [phone] Kermit Arevalo, DO [address] [place], [place] [address] COLONOSCOPY FLEXIBLE PROXIMAL DIAGNOSTIC 04/10/2025 6:20 PM EDT [facility] [address] [place] [phone] FebruaryMilton MD [address] [facility] [place] [address] 09/19/2025 7:40 AM EST Laboratory Laboratory, [facility] [address] [place] [phone] [facility] [address] [place] [address] 09/26/2025 2:30 PM EST Office Visit Hematology/Oncolog y [facility] [place] [address] [facility], [place] [phone] Steph Romero CRNP [address] [place] [place] [address] Scheduled Procedures Name Priority [...] Additional history exists CKD PHOS USE SMARTSET 05954 09/02/202408/17, 03/08/2023, 09/16/2022 HbA1c 01/28/2025 07/30/2024, 03/17, 11/14/2023, Additional history exists B-12 03/26/2025 03/26/2024, 02/15, 03/10/2022, Additional history exists GFR 03/26/2025 09/25/2024, 07/17, 03/26/2024, Additional history exists Depression Screening 04/03/2025 04/03/2024 CKD HGB USE SMARTSET 52900 09/25/202509/25, 09/25/2024, 11/14/2023, Additional history exists Diabetic [...] this encounter Medical Devices Implanted Type Area Fabrication Department Supervisor Device Identifier Shelf Expiration Date Model / Serial / Lot Reunion Rsa Center Screw 6.5mm X 24mm Implanted:Qty: 1 on 09/14/2017 [place] [facility] [place]: Shoulder PEMA : ORTHOPAEDICS 05/03/2022 4501-6218 / / [id number] Reunion Rsa Humeral Cup 36mm X 4mm Implanted:Qty: 1 on 09/14/2017 [place] Dante Morris [place] [facility]: Shoulder PEMA : ORTHOPAEDICS 08/22/2022 6264-6058 / / [id number] Reunion Rsa 3.1mm Drill Bit Implanted:Qty: 1 on 09/14/2017 [place] Dante Morris [place] [facility]: Shoulder PEMA : ORTHOPAEDICS 03/24/2022 2823-8339 / / [id number] Reunion Rsa Glenoid Baseplate 28mm Implanted:Qty: 1 on 09/14/2017 [place] Dante Morris [place] [facility]: Shoulder PEMA : ORTHOPAEDICS 08/01/2022 6896-2662 / / [id number] Reunion Rsa Peripheral Screw 4.5mm X 24mm Implanted:Qty: 1 on 09/14/2017 [place] Dante Morris [place] [facility] [place]: Shoulder PEMA : ORTHOPAEDICS 06/30/2022 5243-4444 / / [id number] Reunion Rsa Peripheral Screw 4.5mm X 28mm Implanted:Qty: 1 on 09/14/2017 by Dante Morris DO [place] [facility]: Shoulder PEMA : ORTHOPAEDICS 06/30/2022 8200-2772 / / [id number] Reunion Rsa Peripheral Screw 4.5mm X 20mm Implanted:Qty: 1 on 09/14/2017 by Dante Morris [place] [facility] [place]: Shoulder PEMA : ORTHOPAEDICS 04/13/2022 9311-3246 / / [id number] Reunion Rsa Concentric Glenosphere 36mm X 6mm Implanted:Qty: 1 on 09/14/2017 by Dante Morris [place] [facility]: Shoulder PEMA : ORTHOPAEDICS 06/16/2022 5573-C-36 06 / / [id number] Reunion Rsa Peripheral Screw Implanted:Qty: 1 on 09/14/2017 by Dante Morris [place] [facility]: Shoulder PEMA : ORTHOPAEDICS 02/11/2021 4523-9628 / / [id number] Reunion Tsa Modular Humeral Stem Size11 X 123mm Implanted:Qty: 1 on 09/14/2017 by Dante Morris [place] [facility]: Shoulder PEMA : ORTHOPAEDICS 05/02/2022 5569-P-20 11 / / [id number] Reunion Rsa X3 Humeral Insert 36mm X 4mm Implanted:Qty: 1 on 09/14/2017 by Dante Morris DO [place] [facility]: Shoulder PEMA : ORTHOPAEDICS 03/22/2022 5571-S-36 04 / / [id number] Baseplate #5 Tritanium - [id number] Implanted:Qty: 1 on 10/22/2019 by Nick Vang MD at OR [facility] Left: Knee PEMA : ORTHOPAEDICS 08/07/2024 5536-B-50 0 / / [id number] Knee Triathlon Ps Stb Bead 4 L - [id number] Implanted:Qty: 1 on 10/22/2019 by Nick Vang MD at OR [facility] Left: Knee PEMA : ORTHOPAEDICS 04/08/2024 5516-F-40 1 / / [id number] Insert Tib Sz5 Knee - [id number] Implanted:Qty: 1 on 10/22/2019 by Nick Vang MD at OR [facility] Left: Knee PEMA : ORTHOPAEDICS 12/13/2022 5532-G-51 / / [id number] Triathlon Tritanium Symmetric Patella Implanted:Qty: 1 on 10/22/2019 by Nick Vang MD at OR [facility] Left: Knee 04/21/2024 5556-L-39 1 / [...] Directives occurred with: Not Discussed Care Teams Registered Nurse Midwife Relationship Specialty Start Date End Date February, Milton Alvarez MD PCP - General Family Medicine 07/26/23 documented as of this encounter
--- OUTSIDE RECORDS SUMMARY | 2025-01-26 00:18 | External Medical Summary | Summary of Care ---
Author Name Unknown Organization [facility] Address [address] [place] [address] Phone [phone] Care Team Providers Care C S S Representative Name Role Phone Milton Mcdaniel MD Primary Care Provider [phone] Reason for Visit * Reason Onset Date Comments Advice 10/12/2024 Encounter Details Date Type Department Care Team (Late st Contact Info) Description 10/12/2024 Telephone [facility] [address] [place] [address] Milton Mcdaniel MD [address] [place] [address] Advice Allergies Active Allergy Reactions Criticality Noted Date Comments Amoxicillin-Pot Clavulanate Hives 06/16/20 16 Clavulanic Acid Hives 07/09/2016 documented as of this encounter (statuses as of 10/23/2024) Medications Clindamycin Phosphate 1 % External Solution [...] 180 Tablet 3 05/11/20 24 Active Pen [place] 32G X 4 MMIndications:D iabetes mellitus with [...] hemoglobin A1c goal of less than 7.0% ([facility]) TAKE 2 TABLETS BY MOUTH TWICE DAILY [...] as of this encounter (statuses as of 10/23/2024) Active Problems Problem Noted Date Diagnosed Date [...] as of this encounter (statuses as of 10/23/2024) Resolved Problems Problem Noted Date Diagnosed Date [...] as of this encounter (statuses as of 10/23/2024) Immunizations Name Administration Dates Next Due COVID-19 mRNA, LNP-s, No Pre serve, 2-Dose Series ([employer]) 09/23/2021,01/13/2021,12/23/2020 Pneumococcal Conjugate Vacc, 13 Valent (Prevnar) [...] documented in this encounter Miscellaneous Notes * Addendum Note - Renee Chao LPN - 10/23/2024 11:29 AM ESTAddended by: RENEE CHAO on: 10/23/2024 11:29 AM Modules accepted: Orders * Telephone Encounter - Renee Chao LPN - 10/23/2024 11:24 AM EST Called patient he is aware and understands message. * Telephone Encounter - Milton Mcdaniel MD [...] [facility], Endoscopy Room [facility] [address] [place] [phone] Kermit Arevalo, DO [address] [place] [address] 12/31/2024 2:00 PM EDT - 12/31/2024 2:30 PM EDT Surgery ENDO [facility], Endoscopy Room [facility] [address] [place] [phone] Kermit Arevalo, DO [address] [place] [address] COLONOSCOPY FLEXIBLE PROXIMAL DIAGNOSTIC 04/10/2025 6:20 PM EDT [facility] [address] [place] [phone] Milton Mcdaniel MD [address] [place] [address] 09/19/2025 7:40 AM EST Laboratory Laboratory, Vitaliy Khan [address] [place] [phone] [facility] [address] [place] [address] 09/26/2025 2:30 PM EST Office Visit [facility]ology[facility]Oncolog y [facility] Yoder [address] [place] [address] Steph Romero CRNP [address] [place] [address] Scheduled Procedures Name Priority [...] Additional history exists CKD PHOS USE SMARTSET 38693 09/02/202408/17, 03/08/2023, 09/16/2022 HbA1c 01/28/2025 07/30/2024, 03/17, 11/14/2023, Additional history exists B-12 03/26/2025 03/26/2024, 02/15, 03/10/2022, Additional history exists GFR 03/26/2025 09/25/2024, 07/17, 03/26/2024, Additional history exists Depression Screening 04/03/2025 04/03/2024 CKD HGB USE SMARTSET 48360 09/25/202509/25, 09/25/2024, 11/14/2023, Additional history exists Diabetic [...] this encounter Medical Devices Implanted Type Area Solar Sales Rep Device Identifier Shelf Expiration Date Model / Serial / Lot Reunion Rsa Center Screw 6.5mm X 24mm Implanted:Qty: 1 on 09/14/2017 by Dante Morris DO at OR [facility] Right: Shoulder PEMA : ORTHOPAEDICS 05/03/2022 7450-4833 / / [id number] Reunion Rsa Humeral Cup 36mm X 4mm Implanted:Qty: 1 on 09/14/2017 by Dante Morris DO at OR [facility] Right: Shoulder PEMA : ORTHOPAEDICS 08/22/2022 7934-9557 / / [id number] Reunion Rsa 3.1mm Drill Bit Implanted:Qty: 1 on 09/14/2017 by Dante Morris DO at OR [facility] Right: Shoulder PEMA : ORTHOPAEDICS 03/24/2022 4150-6931 / / [id number] Reunion Rsa Glenoid Baseplate 28mm Implanted:Qty: 1 on 09/14/2017 by Dante Morris DO at OR [facility] Right: Shoulder PEMA : ORTHOPAEDICS 08/01/2022 4579-9389 / / [id number] Reunion Rsa Peripheral Screw 4.5mm X 24mm Implanted:Qty: 1 on 09/14/2017 by Dante Morris DO at OR [facility] Right: Shoulder PEMA : ORTHOPAEDICS 06/30/2022 0276-8098 / / [id number] Reunion Rsa Peripheral Screw 4.5mm X 28mm Implanted:Qty: 1 on 09/14/2017 by Dante Morris DO at OR [facility] Right: Shoulder PEMA : ORTHOPAEDICS 06/30/2022 0522-5393 / / [id number] Reunion Rsa Peripheral Screw 4.5mm X 20mm Implanted:Qty: 1 on 09/14/2017 by Dante Morris DO at OR [facility] Right: Shoulder PEMA : ORTHOPAEDICS 04/13/2022 3915-7368 / / [id number] Reunion Rsa Concentric Glenosphere 36mm X 6mm Implanted:Qty: 1 on 09/14/2017 by Dante Morris DO at OR [facility] Right: Shoulder PEMA : ORTHOPAEDICS 06/16/2022 5573-C-36 06 / / [id number] Reunion Rsa Peripheral Screw Implanted:Qty: 1 on 09/14/2017 by Dante Morris DO at OR [facility] Right: Shoulder PEMA : ORTHOPAEDICS 02/11/2021 8893-8171 / / [id number] Reunion Tsa Modular Humeral Stem Size11 X 123mm Implanted:Qty: 1 on 09/14/2017 by Dante Morris DO at OR [facility] Right: Shoulder PEMA : ORTHOPAEDICS 05/02/2022 5569-P-20 11 / / [id number] Reunion Rsa X3 Humeral Insert 36mm X 4mm Implanted:Qty: 1 on 09/14/2017 by Dante Morris DO at OR [facility] Right: Shoulder PEMA : ORTHOPAEDICS 03/22/2022 5571-S-36 04 / / [id number] Baseplate #5 Tritanium - [id number] Implanted:Qty: 1 on 10/22/2019 by Nick Vang MD at OR [facility] Left: Knee PEMA : ORTHOPAEDICS 08/07/2024 5536-B-50 0 / / [id number] Knee Triathlon Ps Stb Bead 4 L - [id number] Implanted:Qty: 1 on 10/22/2019 by Nick Vang MD at OR [facility] Left: Knee PEMA : ORTHOPAEDICS 04/08/2024 5516-F-40 HRS3S Insert Tib Sz5 Knee - [id number] Implanted:Qty: 1 on 10/22/2019 by Nick Vang MD at OR [facility] Left: Knee PEMA : ORTHOPAEDICS 12/13/2022 5532-G-51 [id number] Triathlon Tritanium Symmetric Patella Implanted:Qty: 1 on 10/22/2019 by Nick Vang MD at OR [facility] Left: Knee 04/21/2024 5556-L-39 K12T documented as of this encounter Advance Directives * Full Code (Latest Code Status on File) Date Activated Date Inactivated Comments 06/25/2022 2:32 PM 06/25/2022 8:12 PM This order re flects the patients wishes and were consensually agreed [...] Directives occurred with: Not Discussed Care Teams C S S Representative Relationship Specialty Start Date End Date February, Milton Alvarez MD PCP - General Family Medicine 07/26/23 documented as of this encounter
--- OUTSIDE RECORDS SUMMARY | 2025-01-26 00:18 | External Medical Summary | Summary of Care ---
Author Name Unknown Organization [facility] Address [address] [place] [address] Phone [phone] Care Team Providers Care Structural Shop Helper Name Role Phone Milton Mcdaniel MD Primary Care Provider [phone] Reason for Visit * Reason Onset Date Comments Advice 10/12/2024 Encounter Details Date Type Department Care Team (Late st Contact Info) Description 10/12/2024 Telephone [facility] [address] [place] [address] Milton Mcdaniel MD [address] [place] [address] Advice Allergies Active Allergy Reactions Criticality Noted Date Comments Amoxicillin-Pot Clavulanate Hives 06/16/20 16 Clavulanic Acid Hives 07/09/2016 documented as of this encounter (statuses as of 10/16/2024) Medications Clindamycin Phosphate 1 % External Solution [...] BEDTIME 180 Tablet 3 4 Active Pen [place] 32G X 4 MMIndications:Di abetes mellitus with [...] hemoglobin A1c goal of less than 7.0% ([facility]) TAKE 2 TABLETS BY MOUTH TWICE [...] as of this encounter (statuses as of 10/16/2024) Active Problems Problem Noted Date Diagnosed Date [...] as of this encounter (statuses as of 10/16/2024) Resolved Problems Problem Noted Date Diagnosed Date [...] as of this encounter (statuses as of 10/16/2024) Immunizations Name Administration Dates Next Due COVID-19 [...] OSS[facility], Endoscopy Room [facility] [address] [place] [address] Kermit Arevalo, DO [address] [place] [address] 12/31/2024 2:00 PM EDT - 12/31/2024 2:30 PM EDT Surgery ENDO [facility], Endoscopy Room [facility] [address] [place] [phone] Kermit Arevalo, DO [address] [place] [address] COLONOSCOPY FLEXIBLE PROXIMAL DIAGNOSTIC 04/10/2025 6:20 PM EDT Office Visit [facility] [address] [phone] Milton Mcdaniel MD [address] [place] [address] 09/19/2025 7:40 AM EST Laboratory Laboratory, Vitaliy Khan [address] [place] [phone] Vitaliy, Laboratory [address] [place] [address] 09/26/2025 2:30 PM EST Office Visit Hematology/Oncolog y [facility] [place] [address] [facility] [address] Steph Romero CRNP [address] [place] [address] Scheduled Procedures Name Priority Associated Diagnoses Date/Ti [...] Additional history exists CKD PHOS USE SMARTSET 72850 09/02/202408/17, 03/08/2023, 09/16/2022 HbA1c 01/28/2025 07/30/2024, 03/17, 11/14/2023, Additional history exists B-12 03/26/2025 03/26/2024, 02/15, 03/10/2022, Additional history exists GFR 03/26/2025 09/25/2024, 07/17, 03/26/2024, Additional history exists Depression Screening 04/03/2025 04/03/2024 CKD HGB USE SMARTSET 73240 09/25/202509/25, 09/25/2024, 11/14/2023, Additional history exists Diabetic [...] this encounter Medical Devices Implanted Type Area Paper Bag Inspector Device Identifier Shelf Expiration Date Model / Serial / Lot Reunion Rsa Center Screw 6.5mm X 24mm Implanted:Qty: 1 on 09/14/2017 by Dante Morris DO at OR [facility] Right: Shoulder PEMA : ORTHOPAEDICS 05/03/2022 0965-4506 / / [id number] Reunion Rsa Humeral Cup 36mm X 4mm Implanted:Qty: 1 on 09/14/2017 by Dante Morris DO at OR [facility] Right: Shoulder PEMA : ORTHOPAEDICS 08/22/2022 9015-1287 / / [id number] Reunion Rsa 3.1mm Drill Bit Implanted:Qty: 1 on 09/14/2017 by Dante Morris DO at OR [facility] Right: Shoulder PEMA : ORTHOPAEDICS 03/24/2022 7459-5034 / / [id number] Reunion Rsa Glenoid Baseplate 28mm Implanted:Qty: 1 on 09/14/2017 by Dante Morris DO at OR [facility] Right: Shoulder PEMA : ORTHOPAEDICS 08/01/2022 3576-2697 / / [id number] Reunion Rsa Peripheral Screw 4.5mm X 24mm Implanted:Qty: 1 on 09/14/2017 by Dante Morris DO at OR [facility] Right: Shoulder PEMA : ORTHOPAEDICS 06/30/2022 5834-1296 / / [id number] Reunion Rsa Peripheral Screw 4.5mm X 28mm Implanted:Qty: 1 on 09/14/2017 by Dante Morris DO at OR [facility] Right: Shoulder PEMA : ORTHOPAEDICS 06/30/2022 3240-5004 / / [id number] Reunion Rsa Peripheral Screw 4.5mm X 20mm Implanted:Qty: 1 on 09/14/2017 by Dante Morris DO at OR [facility] Right: Shoulder PEMA : ORTHOPAEDICS 04/13/2022 2881-6930 / / [id number] Reunion Rsa Concentric Glenosphere 36mm X 6mm Implanted:Qty: 1 on 09/14/2017 by Dante Morris DO at OR [facility] Right: Shoulder PEMA : ORTHOPAEDICS 06/16/2022 5573-C-36 06 / / [id number] Reunion Rsa Peripheral Screw Implanted:Qty: 1 on 09/14/2017 by Dante Morris DO at OR [facility] Right: Shoulder PEMA : ORTHOPAEDICS 02/11/2021 6605-2944 / / [id number] Reunion Tsa Modular Humeral [...] [facility] Right: Shoulder PEAM : ORTHOPAEDICS 03/22/2022 5571-S-36 04 / / [id number] Baseplate #5 Tritanium - [id number] Implanted:Qty: 1 on 10/22/2019 by Nick Vang MD at OR [facility] Left: Knee PEMA : ORTHOPAEDICS 08/07/2024 5536-B-50 0 / / [id number] Knee Triathlon Ps Stb Bead 4 L - [id number] Implanted:Qty: 1 on 10/22/2019 by Nick Vang MD at OR [facility] Left: Knee PEMA : ORTHOPAEDICS 04/08/2024 5516-F-40 1 / / [id number] Insert Tib Sz5 Knee - [id number] Implanted:Qty: 1 on 10/22/2019 by Nick Vang MD at OR [facility] Left: Knee PEMA : ORTHOPAEDICS 12/13/2022 5532-G-51 1 / / [id number] Triathlon Tritanium Symmetric Patella Implanted:Qty: 1 on 10/22/2019 by Nick Vang MD at OR [facility] Left: Knee 04/21/2024 5556-L-39 1 [...] Directives occurred with: Not Discussed Care Teams Structural Shop Helper Relationship Specialty Start Date End Date February, Milton Alvarez MD PCP - General Family Medicine 07/26/23 documented as of this encounter
--- OUTSIDE RECORDS SUMMARY | 2025-01-26 00:18 | External Medical Summary | Summary of Care ---
Author Name Unknown Organization [facility] Address [address] [place] [address] Phone [phone] Care Team Providers Care Tipple Oiler Name Role Phone Milton Mcdaniel MD Primary Care Provider [phone] Reason for Visit * Reason Onset Date Comments Advice 10/03/2024 Encounter Details Date Type Department Care Team (Late st Contact Info) Description 10/03/2024 Telephone [facility] [address] [place] [address] Milton Mcdaniel MD [address] [place] [address] Advice Allergies Active Allergy Reactions Criticality Noted Date Comments Amoxicillin-Pot Clavulanate Hives 06/16/20 16 Clavulanic Acid Hives 07/09/2016 documented as of this encounter (statuses as of 10/04/2024) Medications Clindamycin Phosphate 1 % External Solution [...] BEDTIME 180 Tablet 3 4 Active Pen [place] 32G X 4 MMIndications:Di abetes mellitus with [...] hemoglobin A1c goal of less than 7.0% ([facility]) TAKE 2 TABLETS BY MOUTH TWICE [...] as of this encounter (statuses as of 10/04/2024) Active Problems Problem Noted Date Diagnosed Date [...] as of this encounter (statuses as of 10/04/2024) Resolved Problems Problem Noted Date Diagnosed Date [...] as of this encounter (statuses as of 10/04/2024) Immunizations Name Administration Dates Next Due COVID-19 [...] Telephone Encounter - Milton Mcdaniel MD - 10/04/2024 2:41 PM EST Please have patient take one pill once daily for the next two weeks and then let the office know ifhis loose stools/diarrhea has resolved. If so, he we will then increase his dose slowly back to the2 pills twice daily dosing which will be his senior living dose. Milton Mcdaniel MD * Telephone Encounter - Ana Rosa Han OSA - 10/03/2024 5:10 PM EST Pt picked up their prescription of metFORMIN HCl ER 500 MG. told pt to only take 1 a day, but instructions say 2 in the morning and two before bed. Pt wants to clarify. documented in this encounter Plan of Treatment Upcoming Encounters Date Type Department Care Team (Latest Contact Info) Description 12/31/2024 2:00 PM EDT Hospital Encounter ENDO [facility], Endoscopy Room [facility] [address] [place] [phone] Kermit Arevalo, DO [address] [place] [address] 12/31/2024 2:00 PM EDT - 12/31/2024 2:30 PM EDT Surgery ENDO [facility], Endoscopy Room [facility] [address] [place] [phone] Kermit Arevalo, DO [address] [place] [address] COLONOSCOPY FLEXIBLE PROXIMAL DIAGNOSTIC 04/10/2025 6:20 PM EDT [facility] [address] [phone] FebruaryMilton MD [address] [place] [address] 09/19/2025 7:40 AM EST Laboratory Laboratory, Vitaliy Khan [address] [place] [address] [phone] Anna Burks [address] [place] [address] 09/26/2025 2:30 PM EST Office Visit Hematology/Oncolog y [facility] Du[place] [address] [place] [address] Steph Romero, ROBERTO [address] [place] [address] Scheduled Procedures Name Priority [...] Additional history exists CKD PHOS USE SMARTSET 34073 09/02/202408/17, 03/08/2023, 09/16/2022 HbA1c 01/28/2025 07/30/2024, 03/17, 11/14/2023, Additional history exists B-12 03/26/2025 03/26/2024, 02/15, 03/10/2022, Additional history exists GFR 03/26/2025 09/25/2024, 07/17, 03/26/2024, Additional history exists Depression Screening 04/03/2025 04/03/2024 CKD HGB USE SMARTSET 73962 09/25/202509/25, 09/25/2024, 11/14/2023, Additional history exists Diabetic Foot Exam 10/03/2025 10/03/2024, 1 12/01/2022, 10/25/2022, Additional history exists DTap/Tdap Vaccines (3 - Td or Tdap) 11/25/2031 11/25/2021, 04/16/2016 Zoster Vaccines Completed 08/25/2018, 05/18, 07/26/2017 Fecal Occult Blood Test Discontinued 01/27/2019 RETIRED - COLONOSCOPY-EVERY 5 YRS AGES 18-100 Discontinued 04/05/2019, 11/09/2016 Pneumococcal Vaccine: 65+ Years Completed 09/12/2019, 08/22/2018, 07/26/2017 Influenza Vaccine [...] this encounter Medical Devices Implanted Type Area Information Security Consultant Device Identifier Shelf Expiration Date Model / Serial / Lot Reunion Rsa Center Screw 6.5mm X 24mm Implanted:Qty: 1 on 09/14/2017 by Dante Morris DO at OR [facility] Right: Shoulder PEMA : ORTHOPAEDICS 05/03/2022 1413-6737 / / [id number] Reunion Rsa Humeral Cup 36mm X 4mm Implanted:Qty: 1 on 09/14/2017 by Dante Morris DO at OR [facility] Right: Shoulder PEMA : ORTHOPAEDICS 08/22/2022 0639-5457 / / [id number] Reunion Rsa 3.1mm Drill Bit Implanted:Qty: 1 on 09/14/2017 by Dante Morris DO at OR [facility] Right: Shoulder PEMA : ORTHOPAEDICS 03/24/2022 7815-3291 / / [id number] Reunion Rsa Glenoid Baseplate 28mm Implanted:Qty: 1 on 09/14/2017 by Dante Morris DO at OR [facility] Right: Shoulder PEMA : ORTHOPAEDICS 08/01/2022 3397-7533 / / [id number] Reunion Rsa Peripheral Screw 4.5mm X 24mm Implanted:Qty: 1 on 09/14/2017 by Dante Morris DO at OR [facility] Right: Shoulder PEMA : ORTHOPAEDICS 06/30/2022 6221-4468 / / [id number] Reunion Rsa Peripheral Screw 4.5mm X 28mm Implanted:Qty: 1 on 09/14/2017 by Dante Morris DO at OR [facility] Right: Shoulder PEMA : ORTHOPAEDICS 06/30/2022 4001-9616 / / [id number] Reunion Rsa Peripheral Screw 4.5mm X 20mm Implanted:Qty: 1 on 09/14/2017 by Dante Morris DO at OR [facility] Right: Shoulder PEMA : ORTHOPAEDICS 04/13/2022 2855-9913 / / [id number] Reunion Rsa Concentric Glenosphere 36mm X 6mm Implanted:Qty: 1 on 09/14/2017 by Dante Morris DO at OR [facility] Right: Shoulder PEMA : ORTHOPAEDICS 06/16/2022 5573-C-36 06 / / [id number] Reunion Rsa Peripheral Screw Implanted:Qty: 1 on 09/14/2017 by Dante Morris DO at OR [facility] Right: Shoulder PEMA : ORTHOPAEDICS 02/11/2021 0386-1822 / / [id number] Reunion Tsa Modular Humeral Stem Size11 X 123mm Implanted:Qty: 1 on 09/14/2017 by Dante Morris DO at OR [facility] Right: Shoulder EPMA : ORTHOPAEDICS 05/02/2022 5569-P-20 11 / / [id number] Reunion Rsa X3 Humeral Insert 36mm X 4mm Implanted:Qty: 1 on 09/14/2017 by Dante Morris DO at OR [facility] Right: Shoulder PEMA : ORTHOPAEDICS 03/22/2022 5571-S-36 04 / / [id number] Baseplate #5 Tritanium - [id number] Implanted:Qty: 1 on 10/22/2019 by Nick Vang MD at OR [facility] Left: Knee PEMA : ORTHOPAEDICS 08/07/2024 5536-B-50 0 / / [id number] Knee Triathlon Ps Stb Bead 4 L - [id number] Implanted:Qty: 1 on 10/22/2019 by Nick Vang MD at OR [facility] Left: Knee PEMA : ORTHOPAEDICS 04/08/2024 5516-F-40 HRS3S Insert Tib Sz5 Knee - [id number] Implanted:Qty: 1 on 10/22/2019 by Nick Vang MD at OR [facility] Left: Knee PEMA : ORTHOPAEDICS 12/13/2022 5532-G-51 [id number] Triathlon Tritanium Symmetric Patella Implanted:Qty: 1 on 10/22/2019 by Nick Vang MD at OR [facility] Left: Knee 04/21/2024 5556-L-39 K12T [...] Directives occurred with: Not Discussed Care Teams Tipple Oiler Relationship Specialty Start Date End Date February, Milton Alvarez MD PCP - General Family Medicine 07/26/23 documented as of this encounter
--- OUTSIDE RECORDS SUMMARY | 2025-01-26 00:18 | External Medical Summary | Summary of Care ---
Author Name Unknown Organization [facility] Address [address] [place] [address] Phone [phone] Care Team Providers Care Scooter Mechanic Name Role Phone FebruaryMarcin MD Primary Care Provider [phone] Reason for Visit * Reason Comments eRx-Medication Refill Encounter Details Date Type Department Care Team (Late st Contact Info) Description 10/18/2024 Refill [facility] [address] [place] [phone] FebruaryMarcin MD [address] [place], [place] [phone] Allergies Active Allergy Reactions Criticality Noted Date [...] 180 Tablet 3 05/11/20 24 Active Pen [place] 32G X 4 MMIndications:D iabetes mellitus with [...] goal of less than 7.0% ([facility]) TAKE 2 TABLETS BY MOUTH TWICE [...] goal of less than 7.0% ([facility]) Take 2 Tablets by mouth in the [...] DAILY 90 Tablet 3 10/19/19 25 Active Atorvastatin Calcium 40 MG Oral Tablet [...] mRNA, LNP-s, No Pre serve, 2-Dose Series ([employer]) 09/23/2021,01/13/2021,12/23/2020 Pneumococcal Conjugate Vacc, 13 Valent (Prevnar) [...] encounter Miscellaneous Notes * Telephone Encounter - Wendy Puentes [facility] - 10/19/2024 10:50 AM ESTSigned Prescriptions: Disp Refills Atorvastatin Calcium 40 MG Oral Tablet (Li*90 Tab*3 Sig: TAKE 1 TABLET DAILYAuthorizing Provider: MARCIN BRITTON User: WENDY PUENTES documented in this encounter Plan of Treatment Upcoming Encounters Date Type Department Care Team (Latest Contact Info) Description 12/31/2024 2:00 PM EDT Hospital Encounter ENDO [facility], Endoscopy Room [facility] [address] [place] [phone] Kermit Arevalo, DO [address] [place] [address] 12/31/2024 2:00 PM EDT - 12/31/2024 2:30 PM EDT Surgery [facility], Endoscopy Room [facility] [address] [place] [phone] Kermit Arevalo, DO [address] [place] [address] COLONOSCOPY FLEXIBLE PROXIMAL DIAGNOSTIC 04/10/2025 6:20 PM EDT Office Visit Family Vitaliy Trevizo [address] [place] [address] [phone] Marcin Britton MD [address] [place] [address] [address] 09/19/2025 7:40 AM EST Laboratory Laboratory, Vitaliy Khan [address] [phone] Anna Burks [address] [address] 09/26/2025 2:30 PM EST Office Visit Hematology/Oncolog y [facility] [place] [address] [facility] [place] [phone] Steph Romero CRNP [address] [place] [address] [place] [address] Scheduled Procedures Name Priority Associated Diagnoses Date/Ti [...] Additional history exists CKD PHOS USE SMARTSET 64259 09/02/202408/17, 03/08/2023, 09/16/2022 HbA1c 01/28/2025 07/30/2024, 03/17, 11/14/2023, Additional history exists B-12 03/26/2025 03/26/2024, 02/15, 03/10/2022, Additional history exists GFR 03/26/2025 09/25/2024, 07/17, 03/26/2024, Additional history exists Depression Screening 04/03/2025 04/03/2024 CKD HGB USE SMARTSET 18489 09/25/202509/25, 09/25/2024, 11/14/2023, Additional history exists Diabetic [...] this encounter Medical Devices Implanted Type Area Grain Broker And Market Operator Device Identifier Shelf Expiration Date Model / Serial / Lot Reunion Rsa Center Screw 6.5mm X 24mm Implanted:Qty: 1 on 09/14/2017 by Dante Morris DO at OR [facility] Right: Shoulder PEMA : ORTHOPAEDICS 05/03/2022 7162-8980 / / [id number] Reunion Rsa Humeral Cup 36mm X 4mm Implanted:Qty: 1 on 09/14/2017 by Dante Morris DO at OR [facility] Right: Shoulder PEMA : ORTHOPAEDICS 08/22/2022 8680-4619 / / [id number] Reunion Rsa 3.1mm Drill Bit Implanted:Qty: 1 on 09/14/2017 by Dante Morris DO at OR [facility] Right: Shoulder PEMA : ORTHOPAEDICS 03/24/2022 0941-3121 / / [id number] Reunion Rsa Glenoid Baseplate 28mm Implanted:Qty: 1 on 09/14/2017 by Dante Morris DO at OR [facility] Right: Shoulder PEMA : ORTHOPAEDICS 08/01/2022 5653-8579 / / [id number] Reunion Rsa Peripheral Screw 4.5mm X 24mm Implanted:Qty: 1 on 09/14/2017 by Dante Morris DO at OR [facility] Right: Shoulder PEMA : ORTHOPAEDICS 06/30/2022 8719-7780 / / [id number] Reunion Rsa Peripheral Screw 4.5mm X 28mm Implanted:Qty: 1 on 09/14/2017 by Dante Morris DO at OR [facility] Right: Shoulder PEMA : ORTHOPAEDICS 06/30/2022 9078-4168 / / [id number] Reunion Rsa Peripheral Screw 4.5mm X 20mm Implanted:Qty: 1 on 09/14/2017 by Dante Morris DO at OR [facility] Right: Shoulder PEMA : ORTHOPAEDICS 04/13/2022 0567-4081 / / [id number] Reunion Rsa Concentric Glenosphere 36mm X 6mm Implanted:Qty: 1 on 09/14/2017 by Dante Morris DO at OR [facility] Right: Shoulder PEMA : ORTHOPAEDICS 06/16/2022 5573-C-36 06 / / [id number] Reunion Rsa Peripheral Screw Implanted:Qty: 1 on 09/14/2017 by Dante Morris DO at OR [facility] Right: Shoulder PEMA : ORTHOPAEDICS 02/11/2021 0685-9656 / / [id number] Reunion Tsa Modular Humeral Stem Size11 X 123mm Implanted:Qty: 1 on 09/14/2017 by Dante Morris DO at OR [facility] Right: Shoulder PEMA : ORTHOPAEDICS 05/02/2022 5569-P-20 11 / / [id number] Reunion Rsa X3 Humeral Insert 36mm X 4mm Implanted:Qty: 1 on 09/14/2017 by Dante Morris DO at OR [facility] Right: Shoulder PEMA : ORTHOPAEDICS 03/22/2022 5571-S-36 04 / / [id number] Baseplate #5 Tritanium - [id number] Implanted:Qty: 1 on 10/22/2019 by Nick Vang MD at OR [facility] Left: Knee PEMA : ORTHOPAEDICS 08/07/2024 5536-B-50 0 / / [id number] Knee Triathlon Ps Stb Bead 4 L - [id number] Implanted:Qty: 1 on 10/22/2019 by Nick Vang MD at OR [facility] Left: Knee PEMA : ORTHOPAEDICS 04/08/2024 5516-F-40 1 / / [id number] Insert Tib Sz5 Knee - [id number] Implanted:Qty: 1 on 10/22/2019 by Nick Vang MD at OR [facility] Left: Knee PEMA : ORTHOPAEDICS 12/13/2022 5532-G-51 [id number] Triathlon Tritanium Symmetric Patella Implanted:Qty: 1 on 10/22/2019 by Nick Vang MD at OR [facility] Left: Knee 04/21/2024 5556-L-39 K12T documented as [...] Directives occurred with: Not Discussed Care Teams Scooter Mechanic Relationship Specialty Start Date End Date February, Marcin Alvarez MD PCP - General Family Medicine 07/26/23 documented as of this encounter
--- OUTSIDE RECORDS SUMMARY | 2025-01-26 00:18 | External Medical Summary | Summary of Care ---
Author Name Unknown Organization [facility] Address [address] [place] [address] Phone [phone] Care Team Providers Care Front End Application Developer Name Role Phone Milton Mcdaniel MD Primary Care Provider [phone] Encounter Details Date Type Department Care Team (Late st Contact Info) Description 10/04/2024 Orders Only PATIENT PORTAL DO NOT DELETE THIS DEPT USED BY [place] [id number] Allergies Active Allergy Reactions Criticality Noted Date [...] BEDTIME 180 Tablet 3 4 Active Pen [place] 32G X 4 MMIndications:Di abetes mellitus with [...] hemoglobin A1c goal of less than 7.0% ([facility]) TAKE 2 TABLETS BY MOUTH TWICE [...] hemoglobin A1c goal of less than 7.0% ([facility]) Take 2 Tablets by mouth in [...] mRNA, LNP-s, No Pre serve, 2-Dose Series ([employer]) 09/23/2021,01/13/2021,12/23/2020 Pneumococcal Conjugate Vacc, 13 Valent (Prevnar) [...] EDT Hospital Encounter [facility], Endoscopy Room [facility] [address] [place] [phone] Kermit Arevalo, DO [address] [place] [phone] 12/31/2024 2:00 PM EDT - 12/31/2024 2:30 PM EDT Surgery [facility], Endoscopy Room [facility] [address] [place] [phone] Kermit Arevalo, DO [address] [place] [phone] COLONOSCOPY FLEXIBLE PROXIMAL DIAGNOSTIC 04/10/2025 6:20 PM EDT Office Visit [facility], [place]iy [place] [address] [place] [phone] Milton Mcdaniel MD [address] [place] [address] 09/19/2025 7:40 AM EST Laboratory Laboratory, Vitaliy Khan [address] [place] [phone] [facility] Laboratory [address] [place] [address] 09/26/2025 2:30 PM EST Office Visit Hematology/Oncolog y [facility] [place] [address] [facility] [phone] Steph Romero CRNP [address] [place] [address] Scheduled Procedures Name Priority Associated Diagnoses Date/Ti [...] Additional history exists CKD PHOS USE SMARTSET 83240 09/02/202408/17, 03/08/2023, 09/16/2022 HbA1c 01/28/2025 07/30/2024, 03/17, 11/14/2023, Additional history exists B-12 03/26/2025 03/26/2024, 02/15, 03/10/2022, Additional history exists GFR 03/26/2025 09/25/2024, 07/17, 03/26/2024, Additional history exists Depression Screening 04/03/2025 04/03/2024 CKD HGB USE SMARTSET 49575 09/25/202509/25, 09/25/2024, 11/14/2023, Additional history exists Diabetic [...] this encounter Medical Devices Implanted Type Area Shredding Specialist Device Identifier Shelf Expiration Date Model / Serial / Lot Reunion Rsa Center Screw 6.5mm X 24mm Implanted:Qty: 1 on 09/14/2017 by Dante Morris DO at [place] [facility] Right: Shoulder PEMA : ORTHOPAEDICS 05/03/2022 4353-5832 / / [id number] Reunion Rsa Humeral Cup 36mm X 4mm Implanted:Qty: 1 on 09/14/2017 by Dante Morris DO at [place] [facility] Right: Shoulder PEMA : ORTHOPAEDICS 08/22/2022 7972-1119 / / [id number] Reunion Rsa 3.1mm Drill Bit Implanted:Qty: 1 on 09/14/2017 by Dante Morris DO at [place] [facility] Right: Shoulder PEMA : ORTHOPAEDICS 03/24/2022 7440-0493 / / [id number] Reunion Rsa Glenoid Baseplate 28mm Implanted:Qty: 1 on 09/14/2017 by Dante Morris DO at [place] [facility] Right: Shoulder PEMA : ORTHOPAEDICS 08/01/2022 3842-4244 / / [id number] Reunion Rsa Peripheral Screw 4.5mm X 24mm Implanted:Qty: 1 on 09/14/2017 by Dante Morris DO [place] [facility] Right: Shoulder PEMA : ORTHOPAEDICS 06/30/2022 3177-4759 / / [id number] Reunion Rsa Peripheral Screw 4.5mm X 28mm Implanted:Qty: 1 on 09/14/2017 by Dante Morris DO [place] [facility] Right: Shoulder PEMA : ORTHOPAEDICS 06/30/2022 5879-1687 / / [id number] Reunion Rsa Peripheral Screw 4.5mm X 20mm Implanted:Qty: 1 on 09/14/2017 by Dante Morris DO OR [facility] Right: Shoulder PEMA : ORTHOPAEDICS 04/13/2022 1353-6976 / / [id number] Reunion Rsa Concentric Glenosphere 36mm X 6mm Implanted:Qty: 1 on 09/14/2017 by Dante Morris DO at OR [facility] Right: Shoulder PEMA : ORTHOPAEDICS 06/16/2022 5573-C-36 06 / / [id number] Reunion Rsa Peripheral Screw Implanted:Qty: 1 on 09/14/2017 by Dante Morris DO at [place] [facility] Right: Shoulder PEMA : ORTHOPAEDICS 02/11/2021 1290-8144 / / [id number] Reunion Tsa Modular Humeral Stem Size11 X 123mm Implanted:Qty: 1 on 09/14/2017 by Dante Morris DO at [place] [facility] Right: Shoulder PEMA : ORTHOPAEDICS 05/02/2022 5569-P-20 11 / / [id number] Reunion Rsa X3 Humeral Insert 36mm X 4mm Implanted:Qty: 1 on 09/14/2017 by Dante Morris DO at [place] [facility] Right: Shoulder PEMA : ORTHOPAEDICS 03/22/2022 5571-S-36 04 / / [id number] Baseplate #5 Tritanium - [id number] Implanted:Qty: 1 on 10/22/2019 by Nick Vang MD at OR [facility] Left: Knee PEMA : ORTHOPAEDICS 08/07/2024 5536-B-50 0 / / [id number] Knee Triathlon Ps Stb Bead 4 L - [id number] Implanted:Qty: 1 on 10/22/2019 by Nick Vang MD at OR [facility] Left: Knee PEMA : ORTHOPAEDICS 04/08/2024 5516-F-40 1 / / [id number] Insert Tib Sz5 Knee - [id number] Implanted:Qty: 1 on 10/22/2019 by Nick Vang MD at OR [facility] Left: Knee PEMA : ORTHOPAEDICS 12/13/2022 5532-G-51 1 / / [id number] Triathlon Tritanium Symmetric Patella Implanted:Qty: 1 on 10/22/2019 by Nick Vang MD at OR [facility] Left: Knee 04/21/2024 5556-L-39 1 [...] Directives occurred with: Not Discussed Care Teams Front End Application Developer Relationship Specialty Start Date End Date February, Milton Alvarez MD PCP - General Family Medicine 07/26/23 documented as of this encounter
--- OUTSIDE RECORDS SUMMARY | 2025-01-26 00:18 | External Medical Summary | Summary of Care ---
Author Name Unknown Organization [facility] Address [address] [place] [address] Phone [phone] Care Team Providers Care Valve Tester Name Role Phone Milton Mcdaniel MD Primary Care Provider [phone] Reason for Visit * Reason Onset Date Comments Advice 10/12/2024 Encounter Details Date Type Department Care Team (Late st Contact Info) Description 10/12/2024 Telephone [facility] [address] [place] [address] Milton Mcdaniel MD [address] [place] [address] Advice Allergies Active Allergy Reactions Criticality Noted Date Comments Amoxicillin-Pot Clavulanate Hives 06/16/20 16 Clavulanic Acid Hives 07/09/2016 documented as of this encounter (statuses as of 10/15/2024) Medications Clindamycin Phosphate 1 % External Solution [...] BEDTIME 180 Tablet 3 4 Active Pen [place] 32G X 4 MMIndications:Di abetes mellitus with [...] hemoglobin A1c goal of less than 7.0% ([facility]) TAKE 2 TABLETS BY MOUTH TWICE DAILY [...] as of this encounter (statuses as of 10/15/2024) Active Problems Problem Noted Date Diagnosed Date [...] as of this encounter (statuses as of 10/15/2024) Resolved Problems Problem Noted Date Diagnosed Date [...] as of this encounter (statuses as of 10/15/2024) Immunizations Name Administration Dates Next Due COVID-19 [...] encounter Miscellaneous Notes * Telephone Encounter - Meliton Lion [facility] [...] 12/31/2024 2:00 PM EDT Hospital Encounter [facility]O [facility], Endoscopy Room [facility] [address] [place] [phone] Kermit Arevalo, DO [address] [place] [address] 12/31/2024 2:00 PM EDT - 12/31/2024 2:30 PM EDT Surgery [facility], Endoscopy Room [facility] [address] [place] [phone] Kermit Arevalo, DO [address] [place] [address] COLONOSCOPY FLEXIBLE PROXIMAL DIAGNOSTIC 04/10/2025 6:20 PM EDT Office Visit [facility] Vitaliy Trevizo [address] [place] [address] [phone] Milton Mcdaniel MD [address] [place] [address] 09/19/2025 7:40 AM EST Laboratory Laboratory, Vitaliy Khan [address] [address] [phone] Anna Burks [address] [address] 09/26/2025 2:30 PM EST Office Visit Hematology/Oncolog y [place] Du[place] [address] [place] [phone] Steph Romero CRNP [address] [place] [address] [place] [address] Scheduled Procedures Name Priority [...] Additional history exists CKD PHOS USE SMARTSET 51741 09/02/202408/17, 03/08/2023, 09/16/2022 HbA1c 01/28/2025 07/30/2024, 03/17, 11/14/2023, Additional history exists B-12 03/26/2025 03/26/2024, 02/15, 03/10/2022, Additional history exists GFR 03/26/2025 09/25/2024, 07/17, 03/26/2024, Additional history exists Depression Screening 04/03/2025 04/03/2024 CKD HGB USE SMARTSET 41263 09/25/202509/25, 09/25/2024, 11/14/2023, Additional history exists Diabetic [...] this encounter Medical Devices Implanted Type Area Sample Weaver Device Identifier Shelf Expiration Date Model / Serial / Lot Reunion Rsa Center Screw 6.5mm X 24mm Implanted:Qty: 1 on 09/14/2017 by Dante Morris DO at OR [facility] Right: Shoulder PEMA : ORTHOPAEDICS 05/03/2022 0007-6146 / / [id number] Reunion Rsa Humeral Cup 36mm X 4mm Implanted:Qty: 1 on 09/14/2017 by Dante Morris DO OR [facility] Right: Shoulder PEMA : ORTHOPAEDICS 08/22/2022 0663-7858 / / [id number] Reunion Rsa 3.1mm Drill Bit Implanted:Qty: 1 on 09/14/2017 by Dante Morris DO OR [facility] Right: Shoulder PEMA : ORTHOPAEDICS 03/24/2022 4369-9043 / / [id number] Reunion Rsa Glenoid Baseplate 28mm Implanted:Qty: 1 on 09/14/2017 by Dante Morris DO OR [facility] Right: Shoulder PEMA : ORTHOPAEDICS 08/01/2022 7834-8229 / / [id number] Reunion Rsa Peripheral Screw 4.5mm X 24mm Implanted:Qty: 1 on 09/14/2017 by Dante Morris DO OR [facility] Right: Shoulder PEMA : ORTHOPAEDICS 06/30/2022 0688-3507 / / [id number] Reunion Rsa Peripheral Screw 4.5mm X 28mm Implanted:Qty: 1 on 09/14/2017 by Dante Morris DO at OR [facility] Right: Shoulder PEMA : ORTHOPAEDICS 06/30/2022 0498-1101 / / [id number] Reunion Rsa Peripheral Screw 4.5mm X 20mm Implanted:Qty: 1 on 09/14/2017 by Dante Morris DO at OR [facility] Right: Shoulder PEMA : ORTHOPAEDICS 04/13/2022 2156-4117 / / [id number] Reunion Rsa Concentric Glenosphere 36mm X 6mm Implanted:Qty: 1 on 09/14/2017 by Dante Morris DO at OR [facility] Right: Shoulder PEMA : ORTHOPAEDICS 06/16/2022 5573-C-36 06 / / [id number] Reunion Rsa Peripheral Screw Implanted:Qty: 1 on 09/14/2017 by Dante Morris DO at OR [facility] Right: Shoulder PEMA : ORTHOPAEDICS 02/11/2021 2917-7461 / / [id number] Reunion Tsa Modular Humeral Stem Size11 X 123mm Implanted:Qty: 1 on 09/14/2017 by Dante Morris DO at OR [facility] Right: Shoulder PEMA : ORTHOPAEDICS 05/02/2022 5569-P-20 11 / / [id number] Reunion Rsa X3 Humeral Insert 36mm X 4mm Implanted:Qty: 1 on 09/14/2017 by Dante Morris DO at OR [facility] Right: Shoulder PEMA : ORTHOPAEDICS 03/22/2022 5571-S-36 04 / / [id number] Baseplate #5 Tritanium - [id number] Implanted:Qty: 1 on 10/22/2019 by Nick Vang MD at OR [facility] Left: Knee PEMA : ORTHOPAEDICS 08/07/2024 5536-B-50 0 / / [id number] Knee Triathlon Ps Stb Bead 4 L - [id number] Implanted:Qty: 1 on 10/22/2019 by Nick Vang MD at OR [facility] Left: Knee PEMA : ORTHOPAEDICS 04/08/2024 5516-F-40 1 / / [id number] Insert Tib Sz5 Knee - [id number] Implanted:Qty: 1 on 10/22/2019 by Nick Vang MD at OR [facility] Left: Knee PEMA : ORTHOPAEDICS 12/13/2022 5532-G-51 [id number] Triathlon Tritanium Symmetric Patella Implanted:Qty: 1 on 10/22/2019 by Nick Vang MD at OR [facility] Left: Knee 04/21/2024 5556-L-39 K12T documented as [...] Directives occurred with: Not Discussed Care Teams Valve Tester Relationship Specialty Start Date End Date February, Milton Alvarez MD PCP - General Family Medicine 07/26/23 documented as of this encounter
--- OUTSIDE RECORDS SUMMARY | 2025-01-26 00:19 | External Medical Summary | Summary of Care ---
Author Name Unknown Organization [facility] Address [address] [place] [address] Phone [phone] Care Team Providers Care Optician Apprentice Name Role Phone Milton Mcdaniel MD Primary Care Provider [phone] Reason for Visit * Reason Comments Outpatient Testing Encounter Details Date Type Department Care Team (Latest Contact Info) Description 09/25/2024 3:30 PM EST Laboratory [facility] [place] [address] [place] [phone] [place] [address] [place] [address] Monoclonal paraproteinemia Allergies Active Allergy Reactions Criticality Noted Date Comments Amoxicillin-Pot Clavulanate Hives 06/16/20 16 Clavulanic Acid Hives 07/09/2016 documented as of this encounter (statuses as of 09/25/2024) Medications Clindamycin Phosphate 1 % External Solution apply to the scalp 1-2 times daily as needed Active Clobetasol Propionate 0.05 % External Liquid apply to the scalp daily as needed when itchy 59 mL 2 2 Active Triamcinolone Acetonide 0.1 % External Cream (Aristocort) Apply to the back/arms/legs twice daily as needed 80 g 1 2 Active Repaglinide 2 MG Oral Tablet (Prandin)Indicat ions:Diabetes mellitus with stage 3 chronic kidney disease (HCC) Take 2 tablets by mouth prior to meals 540 Tablet 1 2 Active Additional Information Patient taking differently: 2 mg Oral BEFORE BREAKFAST, Take 2 tablets by mouth prior to meals, Reported on 03/10/2023 Ketoconazole 2 % External Shampoo (Nizoral) Apply topically to affected area every 3 days. Apply to the chest/arms/back/ scalp. Leave on for 5 min then rinse. 120 mL 2 3 Active Tamsulosin HCl 0.4 MG Oral Capsule (Flomax) Take 1 Capsule by mouth every night at bedtime. 90 Capsule 3 3 Active Insulin Glargine Solostar 100 UNIT/ML [...] TABLET DAILY 90 Tablet 2 4 Active Omeprazole 20 MG Oral Capsule Delayed Release (PriLOSEC) TAKE 1 CAPSULE IN THE MORNING 1 HOUR BEFORE THE FIRST MEAL OF THE DAY 90 Capsule 1 4 Active Metoprolol Tartrate 25 MG Oral Tablet (Lopressor) TAKE 1 TABLET IN THE MORNING AND 1 TABLET BEFORE BEDTIME 180 Tablet 3 4 Active Pen [place] 32G X 4 MMIndications:Di abetes mellitus with [...] DX E11.9 6 Each 3 4 Active Psyllium 58.6 % Oral Packet (Metamucil) Take 1 Packet by mouth in the morning. 4 Active Polyethylene Glycol 3350 17 GM/SCOOP Oral Powder (MiraLax) Take 17 g by mouth in the morning. One cap full in juice, to effect 1 stool per day. .. 4 Active metFORMIN HCl 500 MG Oral Tablet (Glucophage)Hailey cations:Type 2 diabetes mellitus with hemoglobin A1c goal of less than 7.0% ([facility]) TAKE 2 TABLETS BY MOUTH TWICE DAILY WITH MORNING AND EVENING MEALS 360 Tablet 3 4 Active documented as of this encounter (statuses as of 09/25/2024) Active Problems Problem Noted Date Diagnosed Date [...] as of this encounter (statuses as of 09/25/2024) Resolved Problems Problem Noted Date Diagnosed Date [...] as of this encounter (statuses as of 09/25/2024) Immunizations Name Administration Dates Next Due COVID-19 mRNA, LNP-s, No Pre serve, 2-Dose Series (RxAdvance) 09/23/2021,01/13/2021,12/23/2020 Pneumococcal Conjugate Vacc, 13 Valent (Prevnar) [...] the money to buy more. Never true 07/25/20 23 Within the past 12 months, t he food you bought just didn't last and you didn't have money to get more. Never true 07/25/2023 Childcare Answer Date Recorded Do you feel overwhelmed with taking care of a child, family member or friend? No 07/25/2023 Does your family need help f inding childcare? (Household - for ages 0-17 years) Not on file 07/25/2023 Clothing Answer Date Recorded Have you been unable to get clothing when it was really needed? No 07/25/2023 Is your family able to get c lothes or diapers when needed? (Household - for ages 0-17 years) Not on file 07/25/2023 Personal Safety Answer Date Recorded Do you feel unsafe or have concerns for your saf ety? No 07/25/2023 Do you have concerns for you r family's safety? (Household - for ages 0-17 years) Not on file 07/25/2023 Utilities Answer Date Recorded Do you have trouble paying y our heating, water, or electric bill? (Adult - for ages 18 years and over) Not on file 07/27/2024 Is your family able to pay t he heat, water, or electric bill? (Household - for ages 0-17 years) Not on file 07/27/2024 Does your family have access to good internet? (Household - for ages 0-17 years) Not on file 07/27/2024 Employment Status Answer Date Recorded Are you unemployed or without regular income? No 07/25/2023 Does the household have a re gular source of income? (Household - for ages 0-17 years) Not on file 07/25/2023 Social Connections Answer Date Recorded How often do you feel lonely or isolated from those around you? (Adult - for ages 18 years and over) Not on file 07/27/2024 Financial Resource Strain Answer Date R ecorded Do you have any trouble payi ng for your medications, or do you think you might in the future? No 07/25/2023 Does your family have troubl e paying for medicine? (Household - for ages 0-17 years) Not on file 07/25/2023 Transportation Needs Answer Date Record ed READ ONLY Do you have troubl e getting a ride to medical visits or work? Never True 07/25/2023 Does your family have a hard time getting a ride to doctors visits? (Household - for ages 0-17 years) Not on file 07/25/2023 Has lack of transportation k ept you from medical appointments, meetings, work, or from getting things needed for daily living? Check all that apply. (Adult - for ages 18 years and over) Not on file 07/25/2023 Do you (or your family) have trouble finding or paying for a ride (transportation)? (Household - for ages 0-17 years) Not on file 07/25/2023 Housing Stability Answer Date Recorded Do you currently live in a s helter or have no steady place to sleep at night? No 07/25/2023 READ ONLY Do you think you a re at risk of becoming homeless? No 07/25/2023 Does your family worry about paying for your home or becoming homeless? (Household - for ages 0-17 years) Not on file 1 Are you homeless or worried that you might be in the future? (Adult - for ages 18 years and over) Not on file Are you (or your family) ana m eless or worried that you might be in the future? (Household - for ages 0-17 years) Not on file Food Insecurity Answer Date Recorded Do you need food for this week? No 07/25/2023 Are you able to get enough f ood for your family? (Household - for ages 0-17 years) Not on file 07/25/2023 Does your family need food t his week? (Household - for ages 0-17 years) Not on file 07/25/2023 Do you always have enough fo od for your family? (Household - for ages 0-17 years) Not on file 07/25/2023 Sex and Gender Information Value Date Recorded [...] Department Care Team (Latest Contact Info) Description 10/03/2024 3:00 PM EST Office Visit [facility] [address] [place] [phone] Milton Mcdaniel MD [address] [facility] [place] [address] 12/31/2024 2:00 PM EDT Hospital Encounter [facility], Endoscopy Room [facility] [address] [place], [place] [phone] Kermit Arevalo, DO [address] [place], [place] [address] 12/31/2024 2:00 PM EDT - 12/31/2024 2:30 PM EDT Surgery ENDO [facility], Endoscopy Room [facility] [address] [place], [place] [phone] Kermit Arevalo, DO [address] [place], [place] [address] COLONOSCOPY FLEXIBLE PROXIMAL DIAGNOSTIC 09/19/2025 7:40 AM EST Laboratory [facility], [place] [facility] [address] [facility] [phone] [place] [address] [facility] [address] 09/26/2025 2:30 PM EST Office Visit Hematology/Oncolog y [facility] [place] [address] [facility], [place] [phone] Steph Romero CRNP [address] [place] [address] [place] [address] Pending Results Name Type Priority Associated Diagnoses Date /Time CBC WITH WBC DIFFERENTIAL Lab Routine Monoclonal paraproteinemia 09/25/2024 3:32 PM EST COMPREHENSIVE METABOLIC PANEL Lab Routine Monoclonal paraproteinemia 09/25/2024 3:32 PM EST SERUM PROTEIN ELECTROPHORESIS REFLEX PROFILE Lab Routine Monoclonal paraproteinemia 09/25/2024 3:32 PM EST SERUM FREE LIGHT CHAINS Lab Routine Monoclonal paraproteinemia 09/25/2024 3:32 PM EST IMMUNOGLOBULIN QUANTITATIVE Lab Routine Monoclonal paraproteinemia 09/25/2024 3:32 PM EST CBC Lab Routine Monoclonal paraproteinemia 09/25/2024 3:32 PM EST DIFFERENTIAL, AUTOMATED Lab Routine Monoclonal paraproteinemia 09/25/2024 3:32 PM EST Scheduled Procedures Name Priority Associated Diagnoses Date/Ti [...] Additional history exists CKD PHOS USE SMARTSET 03815 09/02/202408/17, 03/08/2023, 09/16/2022 Diabetic Foot Exam 09/30/2024 09/30/2023, 0 10/25/2022, 12/15/2021, Additional history exists CKD HGB USE SMARTSET 73183 11/14/202411/14, 09/02/2023, 09/02/2023, Additional history exists GFR 01/28/2025 07/30/2024, 03/17, 11/14/2023, Additional history exists HbA1c 01/28/2025 07/30/2024, 03/17, 11/14/2023, Additional history exists B-12 03/26/2025 03/26/2024, 02/15, 03/10/2022, Additional history exists Depression Screening 04/03/2025 04/03/2024 DTap/Tdap Vaccines (3 - Td or Tdap) [...] this encounter Medical Devices Implanted Type Area Color Adviser Device Identifier Shelf Expiration Date Model / Serial / Lot Reunion Rsa Center Screw 6.5mm X 24mm Implanted:Qty: 1 on 09/14/2017 by Dante Morris [place] [facility] [place] Shoulder [employer]EMA : ORTH[employer] 05/03/2022 [id number] / / [id number] Reunion Rsa Humeral Cup 36mm X 4mm Implanted:Qty: 1 on 09/14/2017 by Dante Morris DO [place] [facility] [place] Shoulder [employer] : [employer]TH[employer] 08/22/2022 [id number] / / [id number] Reunion Rsa 3.1mm Drill Bit Implanted:Qty: 1 on 09/14/2017 by Dante Morris DO [place] [facility] [place]: Shoulder [employer] : [employer] 03/24/2022 [id number] / / [id number] Reunion Rsa Glenoid Baseplate 28mm Implanted:Qty: 1 on 09/14/2017 by Dante Morris DO [place] [facility] [place]: Shoulder [employer] : [employer] 08/01/2022 [id number] / / [id number] Reunion Rsa Peripheral Screw 4.5mm X 24mm Implanted:Qty: 1 on 09/14/2017 by Dante Morris DO [place] [facility] [place]: Shoulder [employer] : [employer] 06/30/2022 [id number] / / [id number] Reunion Rsa Peripheral Screw 4.5mm X 28mm Implanted:Qty: 1 on 09/14/2017 by Dante Morris DO [place] [facility] [place]: Shoulder [employer] : [employer] 06/30/2022 [id number] / / [id number] Reunion Rsa Peripheral Screw 4.5mm X 20mm Implanted:Qty: 1 on 09/14/2017 by Dante Morris DO [place] [facility] [place]: Shoulder [employer] : [employer] 04/13/2022 [id number] / / [id number] Reunion Rsa Concentric Glenosphere 36mm X 6mm Implanted:Qty: 1 on 09/14/2017 by Dante Morris DO [place] [facility] [place]: Shoulder [employer] : [employer] 06/16/2022 [id number]-[id number] 06 / / [id number] Reunion Rsa Peripheral Screw Implanted:Qty: 1 on 09/14/2017 by Dante Morris DO [place] [facility] [place]: Shoulder [employer] : OR[employer] 02/11/2021 [id number] / / [id number] Reunion Tsa Modular Humeral Stem Size11 X 123mm Implanted:Qty: 1 on 09/14/2017 by Dante Morris DO [place] [facility] [place]: Shoulder [employer] : OR[employer] 05/02/2022 5569-P-20 11 / / [id number] Reunion Rsa X3 Humeral Insert 36mm X 4mm Implanted:Qty: 1 on 09/14/2017 by Dante Morris DO [place] [facility] [place]: Shoulder [employer] : OR[employer] 03/22/2022 5571-S-36 04 / / [id number] Baseplate #5 Tritanium - [id number] Implanted:Qty: 1 on 10/22/2019 by Nick Vang MD at OR [facility] Left: Knee [employer] : OR[employer] 08/07/2024 5536-B-50 0 / / [id number] Knee Triathlon Ps Stb Bead 4 L - [id number] Implanted:Qty: 1 on 10/22/2019 by Nick Vang MD at OR [facility] Left: Knee [employer] : OR[employer] 04/08/2024 [id number] Insert Tib Sz5 Knee - [id number] Implanted:Qty: 1 on 10/22/2019 by Nick Vang MD at OR [facility] Left: Knee [employer] : [employer] 12/13/2022 5532-[id number] Triathlon Tritanium Symmetric Patella Implanted:Qty: 1 on 10/22/2019 by Nick Vang MD at OR [facility] Left: Knee 04/21/2024 5556-L-39 [id number] documented as of this encounter Visit Diagnoses Diagnosis Monoclonal paraproteinemia Irritable bowel syndrome with both constipation and [...] Directives occurred with: Not Discussed Care Teams Optician Apprentice Relationship Specialty Start Date End Date February, Milton Alvarez MD [address] [place] [address] PCP - General Family Medicine 07/26/23 documented as of this encounter
--- OUTSIDE RECORDS SUMMARY | 2025-01-26 00:19 | External Medical Summary | Summary of Care ---
Author Name Unknown Organization [facility] Address [address] [place] [address] Phone [phone] Care Team Providers Care Client Analyst Name Role Phone Milton Mcdaniel MD Primary Care Provider [phone] Reason for Visit * Reason Comments Follow Up 1 year follow up Encounter Details Date Type Department Care Team (Late st Contact Info) Description 09/25/2024 3:00 PM EST Office Visit Hematology/Oncology [facility] [address] [place] [address] Steph Romero CRNP [address] [place] [address] Monoclonal paraproteinemia* Allergies Active Allergy Reactions Criticality Noted Date Comments Amoxicillin-Pot Clavulanate Hives 06/16/20 16 Clavulanic Acid Hives 07/09/2016 documented as of this encounter (statuses as of 09/26/2024) Medications Clindamycin Phosphate 1 % External Solution apply to the scalp 1-2 times daily as needed Active Clobetasol Propionate 0.05 % External Liquid apply to the scalp daily as needed when itchy 59 mL 2 12/16/19 22 Active Triamcinolone Acetonide 0.1 % External Cream (Aristocort) Apply to the back/arms/legs twice daily as needed 80 g 1 12/16/19 22 Active Repaglinide 2 MG Oral Tablet (Prandin)Indicat ions: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 Apply to the chest/arms/back/ scalp. Leave on for 5 min then rinse. 120 mL 2 07/26/20 23 Active Tamsulosin HCl 0.4 MG Oral Capsule (Flomax) Take 1 Capsule by mouth every night at bedtime. 90 Capsule 3 08/17/20 23 Active Insulin Glargine Solostar 100 UNIT/ML [...] WEEK 6 mL 3 09/30/20 23 Active hydroCHLOROthiaz mark 25 MG Oral Tablet (Hydrodiuril) TAKE 1 TABLET IN THE MORNING 90 Tablet 3 11/05/19 24 Active Atorvastatin Calcium 40 MG Oral Tablet (Lipitor) TAKE 1 TABLET DAILY 90 Tablet 2 01/18/20 24 Active Omeprazole 20 MG Oral Capsule Delayed Release (PriLOSEC) TAKE 1 CAPSULE IN THE MORNING 1 HOUR BEFORE THE FIRST MEAL OF THE DAY 90 Capsule 1 04/02/20 24 Active Metoprolol Tartrate 25 MG Oral Tablet (Lopressor) TAKE 1 TABLET IN THE MORNING AND 1 TABLET BEFORE BEDTIME 180 Tablet 3 05/11/20 24 Active Pen Keswick 32G X 4 MMIndications:Di abetes mellitus with [...] E11.9 6 Each 3 07/16/20 24 Active Psyllium 58.6 % Oral Packet (Metamucil) Take 1 Packet by mouth in the morning. 08/15/20 24 Active Polyethylene Glycol 3350 17 GM/SCOOP Oral Powder (MiraLax) Take 17 g by mouth in the morning. One cap full in juice, to effect 1 stool per day. .. 08/15/20 24 Active metFORMIN HCl 500 MG Oral Tablet (Glucophage)Hailey cations:Type 2 diabetes mellitus with hemoglobin A1c goal of less than 7.0% ([facility]) TAKE 2 TABLETS BY MOUTH TWICE DAILY WITH MORNING AND EVENING MEALS 360 Tablet 3 09/19/20 24 Active OneTouch Verio w/Device KitIndications:D iabetes mellitus with stage 3 chronic kidney disease (HCC) Use as directed . Use to test blood sugars once daily e11.22 1 Kit 1 12/31/19 22 024 Discontin ued(Medic ation List Clean Up) OneTouch Verio In Vitro Strip Use to test blood sugar three times daily DX: E11.9 300 Strip 1 08/09/20 22 024 Discontin ued(Medic ation List Clean Up) OneTouch Delica Lancets 33G Use as directed to test blood sugars three times per day E11.65 300 Each 1 08/09/20 22 024 Discontin ued(Medic ation List Clean Up) Fruit & Vegetable Daily Oral Capsule Take by mouth. 024 Discontin ued(Medic ation List Clean Up) Neuro-Essentials Oral Tablet Take by mouth. 024 Discontin ued(Medic ation List Clean Up) documented as of this encounter (statuses as of 09/26/2024) Active Problems Problem Noted Date Diagnosed Date [...] as of this encounter (statuses as of 09/26/2024) Resolved Problems Problem Noted Date Diagnosed Date [...] as of this encounter (statuses as of 09/26/2024) Immunizations Name Administration Dates Next Due COVID-19 [...] 07/25/2023 Does the household have a re lar source of income? (Household - for ages [...] 6:53 PM EDT Sexual Orientation Straight 07/25/2023 6 :53 PM EDT documented as of this encounter Last Filed Vital Signs Vital Sign Reading Time Taken Comments Blood Pressure 133/76 09/25/2024 2:59 PM EST Pulse 70 09/25/2024 2:59 PM EST Temperature 36.5 °C (97.7 °F) 09/25/2024 2:59 PM ES T Respiratory Rate - - Oxygen Saturation 95% 09/25/2024 2:59 PM EST Inhaled Oxygen Concentration - - Weight 71.6 kg (157 lb 14.4 oz) 09/25/2024 2:59 PM EST Height 157.5 cm (5' 2") 09/25/2024 2:59 PM EST Body Mass Index 28.88 09/25/2024 2:59 PM EST documented in this encounter Functional Status * [...] Booker Reece RN documented in this encounter Progress Notes * Steph Romero CRNP - 09/25/2024 2:59 PM EST Hematology/Oncology Outpatient Clinic note [facility] [place] [address] Name: Gilberto Hai Date: 09/25/2024 CHIEF COMPLAINT: Gilberto Valles is a 74 year old male here today for f/u visit today. Patient of Dr. Héctor Bhatti. From Patient chart confirmed with patient. From Dr. Héctor Bhatti note 09/02/23. HEMATOLOGY/ONCOLOGY DIAGNOSIS: IgG kappa paraproteinemia CURRENT TREATMENT: Observation DIAGNOSTIC WORKUP: He has underlying polymyalgia rheumatica, he was on steroid for some time, seen by v belt builder, in April 2022, started him on Plaquenil for that. Monoclonal protein workup: -M spike --> 0.54 (IgG kappa) -free kappa light chain 22.5, free lambda light chain 102, [place]/Lambda ratio 0.22 -IgG 1300, IgA 268, IgM 94. -WBC 9300, H&H of 13.2/43.2, Platelet 309,000. -BUN/Creat: 40/1.1, Calcium 9.0. (04/14/2022) HISTORY OF PRESENT ILLNESS: Gilberto Valles is a 74 year old male with a history as outlined above. Currently here for f/u visit today. Patient feeling well today. No complaints or concerns verbalized. No past medical history on file. Past Surgical History: Procedure Laterality Date ARTHROPLASTY KNEE TOTAL ARTHROPLASTY KNEE TOTAL Left 10/22/2019 ARTHROPLASTY KNEE TOTAL performed by Nick Vang MD at [facility] CARPAL TUNNEL SURGERY Left 05/03/2022 NEUROPLASTY MEDIAN NERVE AT CARPAL TUNNEL performed by Nick Vang MD at [facility] CARPAL TUNNEL SURGERY Right 06/25/2022 NEUROPLASTY MEDIAN NERVE AT CARPAL TUNNEL performed by Nick Vang MD at [facility] COLONOSCOPY 11/09/201611/02 diverticulosis and hemorrhoids 04/28/05 06/15/10 REMOVAL OF APPENDIX REVERSE TOTAL SHOULDER ARTHROPLASTY Right 09/14/2017 REVERSE TOTAL SHOULDER ARTHROPLASTY performed by Dante Morris DO at OR [facility] TENDON SHEATH INCISION, FINGER Left 05/03/2022 TRIGGER FINGER RELEASE performed by Nick Vang MD at [facility] Social History Socioeconomic History Marital status: Spouse name: Not on file Number of children: Not on file Years of education: Not on file Highest education level: Not on file Occupational History Not on file Tobacco Use Smoking status: Never Smokeless tobacco: Never Vaping Use Vaping status: Never Used Substance and Sexual Activity Alcohol use: No Drug use: No Sexual activity: Not on file Other Topics Concern Not on file Social History Narrative Not on file Social Needs Financial Resource Strain: Low Risk (07/25/2023) Financial Resource Strain Do you have any trouble paying for your medications, or do you think you might in the future? (Adult - for ages 18 years and over): No Does your family have trouble paying for medicine? (Household - for ages 0-17 years): Not on file Food Insecurity: No Food Insecurity (07/25/2023) Food Insecurity Do you need food for this week? (Adult - for ages 18 years and over): No Are you able to get enough food for your family? (Household - for ages 0-17 years): Not on file Does your family need food this week? (Household - for ages 0-17 years): Not on file Do you always have enough food for your family? (Household - for ages 0-17 years): Not on file Transportation Needs: No Transportation Needs (07/25/2023) Transportation Needs Do you have trouble getting a ride to medical visits or work? (Adult - for ages 18 years and over):Never True Does your family have a hard time getting a ride to doctors’ visits? (Household - for ages 0-17 years): Not on file Has lack of transportation kept you from medical appointments, meetings, work, or from getting things needed for daily living? Check all that apply. (Adult - for ages 18 years and over): Not on file Do you (or your family) have trouble finding or paying for a ride (transportation)? (Household - for ages 0-17 years): Not on file Social Connections: Unknown (07/27/2024) Social Connections How often do you feel lonely or isolated from those around you? (Adult - for ages 18 years and over): Not on file Housing Stability: Low Risk (07/25/2023) Housing Stability Do you currently live in a fdc or have no steady place to sleep at night? (Adult - for ages 18 years and over): No Do you think you are at risk of becoming homeless? (Adult - for ages 18 years and over): No Does your family worry about paying for your home or becoming homeless? (Household - for ages 0-17 years): Not on file Are you homeless or worried that you might be in the future? (Adult - for ages 18 years and over): Not on file Are you (or your family) homeless or worried that you might be in the future? (Household - for ages0-17 years): Not on file Review of patient's allergies indicates: Allergen Reactions Augmentin [Amoxicillin-Pot Clavulanate] Hives Clavulanic Acid Hives Current Outpatient Medications Medication Sig Dispense Refill Clindamycin Phosphate 1 % External Solution apply to the scalp 1-2 times daily as needed Clobetasol Propionate 0.05 % External Liquid apply to the scalp daily as needed when itchy 59 mL 2 Triamcinolone Acetonide 0.1 % External Cream (Aristocort) Apply to the back/arms/legs twice daily as needed 80 g 1 Berry Kitchen Verio w/Device Kit Use as directed . Use to test blood sugars once daily e11.22 1 Kit 1 G.I. Java In Vitro Strip Use to test blood sugar three times daily DX: E11.9 300 Strip 1 iFood Lancets 33G Use as directed to test blood sugars three times per day E11.65 300 Each 1 Repaglinide 2 MG Oral Tablet (Prandin) Take 2 tablets by mouth prior to meals (Patient taking differently: Take 1 Tablet by mouth daily before breakfast. Take 2 tablets by mouth prior to meals) 540 Tablet 1 Ketoconazole 2 % External Shampoo (Nizoral) Apply topically to affected area every 3 days. Apply tothe chest/arms/back/scalp. Leave on for 5 min then rinse. 120 mL 2 Tamsulosin HCl 0.4 MG Oral Capsule (Flomax) Take 1 Capsule by mouth every night at bedtime. 90 Capsule 3 Insulin Glargine Solostar 100 UNIT/ML Subcutaneous Solution Pen-injector (Lantus SoloStar) Inject 23 Units under the skin in the morning. Dx E 11.9. 30 mL 2 Trulicity 4.5 MG/0.5ML Subcutaneous Solution Pen-injector (Dulaglutide) INJECT 4.5MG UNDER THE SKINONCE A WEEK 6 mL 3 hydroCHLOROthiazide 25 MG Oral Tablet (Hydrodiuril) TAKE 1 TABLET IN THE MORNING 90 Tablet 3 Fruit & Vegetable Daily Oral Capsule Take by mouth. Neuro-Essentials Oral Tablet Take by mouth. Atorvastatin Calcium 40 MG Oral Tablet (Lipitor) TAKE 1 TABLET DAILY 90 Tablet 2 Omeprazole 20 MG Oral Capsule Delayed Release (PriLOSEC) TAKE 1 CAPSULE IN THE MORNING 1 HOUR BEFORE THE FIRST MEAL OF THE DAY 90 Capsule 1 Metoprolol Tartrate 25 MG Oral Tablet (Lopressor) TAKE 1 TABLET IN THE MORNING AND 1 TABLET BEFORE BEDTIME 180 Tablet 3 Pen Keswick 32G X 4 MM Use as directed. Once daily with Lantus insulin DX E11.9 - substitution permissible for both size/length as well as brand that are covered by insurance and in stock with pharmacy 100 Each 3 Jardiance 25 MG Oral Tablet (Empagliflozin) TAKE 1 TABLET BY MOUTH DAILY 90 Tablet 3 FreeStyle Aida 3 Sensor Use as directed. Replace sensor every 14 days DX E11.9 6 Each 3 FreeStyle Aida 3 Plus Sensor Replace sensor every 14 days DX E11.9 6 Each 3 Psyllium 58.6 % Oral Packet (Metamucil) Take 1 Packet by mouth in the morning. Polyethylene Glycol 3350 17 GM/SCOOP Oral Powder (MiraLax) Take 17 g by mouth in the morning. One cap full in juice, to effect 1 stool per day. .. metFORMIN HCl 500 MG Oral Tablet (Glucophage) TAKE 2 TABLETS BY MOUTH TWICE DAILY WITH MORNING AND EVENING MEALS 360 Tablet 3 No current facility-administered medications for this visit. REVIEW OF SYSTEMS: See HPI - otherwise negative OBJECTIVE: Filed Vitals: 09/25/24 1459 BP: 133/76 Pulse: 70 Temp: 36.5 °C (97.7 °F) TempSrc: Oral SpO2: 95% Weight: 71.6 kg (157 lb 14.4 oz) Height: 1.575 m (5' 2") Wt Readings from Last 5 Encounters: 09/25/24 71.6 kg (157 lb 14.4 oz) 08/15/24 70.8 kg (156 lb) 07/11/24 72.3 kg (159 lb 4.8 oz) 04/03/24 71.7 kg (158 lb) 11/29/23 74.4 kg (164 lb) PHYSICAL EXAM: General Appearance: No acute distress Lymph Nodes: Normal - No palpable lymph nodes in the neck or supraclavicular areas Lungs/Thorax: Normal respiratory effort Extremities: No edema Neurologic: Normal - Grossly intact LABS: N/A IMPRESSION/PLAN: IgG kappa paraproteinemia Patient will have CBCd, CMP and myeloma panel completed today Patient feeling clinically stable today If lab work stable will continue observation RTC in one year with provider with cbc/diff, cmp, and myeloma panel ROBERTO Dockery documented in this encounter Nursing Notes * Cristin Tiwari CMA - 09/25/2024 3:12 PM EST Patient identifed by name and birthdate Do you have any concerns about pain management for today's visit? No Living Will or Advance Directive for Health Care as noted on the problem list. [facility] is a way you can talk to your provider on line through e-mail. Would you like to sign up? I can activate it for you? ALREADY ACTIVE Filed Vitals: 09/25/24 1459 BP: 133/76 Pulse: 70 Temp: 36.5 °C (97.7 °F) TempSrc: Oral SpO2: 95% Weight: 71.6 kg (157 lb 14.4 oz) Height: 1.575 m (5' 2") Patient was instructed to not get up on the exam table/exam chair until directed and assisted by their provider; patient is to remain seated in the chair/ wheelchair/ exam table/ exam chair for fall prevention and safety reasons. Patient is aware to have assistance to step down off exam table/exam chair with personnel. Patient voiced full comprehension of instructions. documented in this encounter Plan of Treatment Upcoming Encounters Date Type Department Care Team (Latest Contact Info) Description 10/03/2024 3:00 PM EST [facility] [address] [phone] FebruaryMilton MD [address] [address] 12/31/2024 2:00 PM EDT Hospital Encounter ENDO [facility], Endoscopy Room [facility] [address] [place], [place] [phone] Kermit Arevalo, DO [address] [place], [place] [address] 12/31/2024 2:00 PM EDT - 12/31/2024 2:30 PM EDT Surgery ENDO [facility], Endoscopy Room [facility] [address] [place], [place] [phone] Kermit Arevalo, DO [address] [place], [place] [address] COLONOSCOPY FLEXIBLE PROXIMAL DIAGNOSTIC 09/19/2025 7:40 AM EST Laboratory Laboratory, [facility] [address] [phone] [place] [address] [place] [address], [place] [address] 09/26/2025 2:30 PM EST Office Visit Hematology/Oncolog y [facility] [address] [facility] [phone] Steph Romero CRNP [address] [facility] [address] Pending Results Name Type Priority Associated Diagnoses Date /Time SERUM PROTEIN ELECTROPHORESIS REFLEX PROFILE Lab Routine Monoclonal paraproteinemia 09/25/2024 3:32 PM EST Scheduled Orders Name Type Priority Associated Diagnoses Orde r Schedule SERUM PROTEIN ELECTROPHORESIS REFLEX PROFILE Lab Routine Monoclonal paraproteinemia Expected: 09/25/2024 (Approximate), Expires: 09/25/2025 CBC WITH WBC DIFFERENTIAL Lab STAT Monoclonal paraproteinemia Expected: 09/25/2025 (Approximate), Expires: 10/25/2025 COMPREHENSIVE METABOLIC PANEL Lab STAT Monoclonal paraproteinemia Expected: 09/25/2025 (Approximate), Expires: 10/25/2025 SERUM PROTEIN ELECTROPHORESIS REFLEX PROFILE Lab STAT Monoclonal paraproteinemia Expected: 09/25/2025 (Approximate), Expires: 10/25/2025 SERUM FREE LIGHT CHAINS Lab STAT Monoclonal paraproteinemia Expected: 09/25/2025 (Approximate), Expires: 10/25/2025 IMMUNOGLOBULIN QUANTITATIVE Lab STAT Monoclonal paraproteinemia Expected: 09/25/2025 (Approximate), Expires: 10/25/2025 Scheduled Procedures Name Priority Associated Diagnoses Date/Ti [...] Additional history exists CKD PHOS USE SMARTSET 77961 09/02/202408/17, 03/08/2023, 09/16/2022 Diabetic Foot Exam 09/30/2024 09/30/2023, 0 10/25/2022, 12/15/2021, Additional history exists HbA1c 01/28/2025 07/30/2024, 03/17, 11/14/2023, Additional history exists B-12 03/26/2025 03/26/2024, 02/15, 03/10/2022, Additional history exists GFR 03/26/2025 09/25/2024, 07/17, 03/26/2024, Additional history exists Depression Screening 04/03/2025 04/03/2024 CKD HGB USE SMARTSET 97030 09/25/202509/25, 09/25/2024, 11/14/2023, Additional history exists DTap/Tdap Vaccines (3 - [...] this encounter Medical Devices Implanted Type Area Echo Vasc Tech Device Identifier Shelf Expiration Date Model / Serial / Lot Reunion Rsa Center Screw 6.5mm X 24mm Implanted:Qty: 1 on 09/14/2017 by Dante Morris DO at [facility] Right: Shoulder PEMA : ORTHOPAEDICS 05/03/2022 [id number] / / [id number] Reunion Rsa Humeral Cup 36mm X 4mm Implanted:Qty: 1 on 09/14/2017 by Dante Morris DO at OR [facility] Right: Shoulder PEMA : ORTHOPAEDICS 08/22/2022 [id number] / / [id number] Reunion Rsa 3.1mm Drill Bit Implanted:Qty: 1 on 09/14/2017 by Dante Morris DO at OR [facility] Right: Shoulder PEMA : ORTHOPAEDICS 03/24/2022 [id number] / / [id number] Reunion Rsa Glenoid Baseplate 28mm Implanted:Qty: 1 on 09/14/2017 by Dante Morris DO at OR [facility] Right: Shoulder PEMA : ORTHOPAEDICS 08/01/2022 [id number] / / [id number] Reunion Rsa Peripheral Screw 4.5mm X 24mm Implanted:Qty: 1 on 09/14/2017 by Dante Morris DO at OR [facility] Right: Shoulder PEMA : ORTHOPAEDICS 06/30/2022 [id number] / / [id number] Reunion Rsa Peripheral Screw 4.5mm X 28mm Implanted:Qty: 1 on 09/14/2017 by Dante Morris DO at OR [facility] Right: Shoulder PEMA : ORTHOPAEDICS 06/30/2022 [id number] / / [id number] Reunion Rsa Peripheral Screw 4.5mm X 20mm Implanted:Qty: 1 on 09/14/2017 by Dante Morris DO at OR [facility] Right: Shoulder PEMA : ORTHOPAEDICS 04/13/2022 [id number] / / [id number] Reunion Rsa Concentric Glenosphere 36mm X 6mm Implanted:Qty: 1 on 09/14/2017 by Dante Morris DO at OR [facility] Right: Shoulder PEMA : ORTHOPAEDICS 06/16/2022 [id number] / / [id number] Reunion Rsa Peripheral Screw Implanted:Qty: 1 on 09/14/2017 by Dante Morris DO at OR [facility] Right: Shoulder PEMA : ORTHOPAEDICS 02/11/2021 [id number] / / [id number] Reunion Tsa Modular Humeral [...] / / [id number] Baseplate #5 Tritanium - [id number] Implanted:Qty: 1 on 10/22/2019 by Nick Vang MD at [facility] Left: Knee PEMA : ORTHOPAEDICS 08/07/2024 5536-B-50 0 / / [id number] Knee Triathlon Ps Stb Bead 4 L - [id number] Implanted:Qty: 1 on 10/22/2019 by Nick Vang MD at OR [facility] Left: Knee PEMA : ORTHOPAEDICS 04/08/2024 5516-F-40 1 / / [id number] Insert Tib Sz5 Knee - [id number] Implanted:Qty: 1 on 10/22/2019 by Nick Vang MD at [facility] Left: Knee PEMA : ORTHOPAEDICS 12/13/2022 5532-G-51 / / [id number] Triathlon Tritanium Symmetric Patella Implanted:Qty: 1 on 10/22/2019 by Nick Vang MD at [facility] Left: Knee 04/21/2024 5556-L-39 1 / / [id number] documented as of this encounter Results * IMMUNOGLOBULIN QUANTITATIVE (09/25/2024 3:32 PM EST) [facility] IgG 1,420 700 - 1,600 mg/dL 09/26/2024 2:13 AM EST [facility] IgA 214 70 - 400 mg/dL 09/26/2024 2:13 AM EST [facility] IgM 84 40 - 230 mg/dL 09/26/2024 2:13 AM EST LABORATORY [facility] Blood Venous blood specimen / Unknown Venipuncture / Unknown 09/25/2024 3:32 PM EST 09/25/2024 3:32 PM EST Steph MEJIA LAB BLOOD ORDERABLES nal Result [facility] [address] [place] [address] * (ABNORMAL) SERUM FREE LIGHT CHAINS (09/25/2024 3:32 PM EST) [facility] [place] Free Light Chains, Serum 29.32(H) 3.30 - 19.40 mg/L 09/26/2024 8:42 AM EST LABORATORY GM Lambda Free Light Chains, Serum 135.37(H) 5.71 - 26.30 mg/L 09/26/2024 8:42 AM EST LABORATORY [facility] [place] Lambda Free Light Chains Ratio 0.22(L) 0.26 - 1.65 09/26/2024 8:42 AM EST LABORATORY [facility] Blood Venous blood specimen / Unknown Venipuncture / Unknown 09/25/2024 3:32 PM EST 09/25/2024 3:32 PM EST us Steph MEJIA LAB BLOOD ORDERABLES Fi nal Result LABORATORY [facility] [address] [place] [address] * (ABNORMAL) COMPREHENSIVE METABOLIC PANEL (09/25/2024 3:32 PM EST) BUN 25(H) 6 - 20 mg/dL 09/25/2024 4:26 PM [facility] 56 CREATININE 1.1 0.6 - 1.2 mg/dL 09/25/2024 4:26 PM [facility] 56 EGFR 72 >=60 mL/min 09/25/2024 4:26 PM [facility] 56 Comment:eGFR is calculated b ased on the CKD-EPI 2020 equation. SODIUM 136 135 - 146 mmol/L 09/25/2024 4:26 PM [facility] 56- POTASSIUM 4.4 3.5 - 5.1 mmol/L 09/25/2024 4:26 PM [facility] 56- CHLORIDE 96(L) 98 - 107 mmol/L 09/25/2024 4:26 PM [facility] 56- CO2 26 22 - 32 mmol/L 09/25/2024 4:26 PM [facility] 56 ANION GAP 14 7 - 15 mmol/L 09/25/2024 4:26 PM [facility] 56- GLUCOSE 117 70 - 120 mg/dL 09/25/2024 4:26 PM [facility] 56- Albumin 4.4 3.8 - 5.0 g/dL 09/25/2024 4:26 PM [facility] 56- AST 29 10 - 50 U/L 09/25/2024 4:26 PM [facility] 56- Alkaline Phosphatase 71 35 - 130 U/L 09/25/2024 4:26 PM EST [facility] 56- Bilirubin, Total 0.3 <=1.2 mg/dL 09/25/2024 4:26 PM EST [facility] 56- CALCIUM 9.7 8.4 - 10.2 mg/dL 09/25/2024 4:26 PM EST [facility] 56- Protein 7.6 6.0 - 8.3 g/dL 09/25/2024 4:26 PM EST [facility] 56- ALT 30 10 - 50 U/L 09/25/2024 4:26 PM EST [facility] 56- Blood Venous blood specimen / Unknown Venipuncture / Unknown 09/25/2024 3:32 PM EST 09/25/2024 3:32 PM EST us Steph MEJIA LAB BLOOD ORDERABLES Fi nal Result [place] [address] [place] [address] documented in this encounter Visit Diagnoses Diagnosis Monoclonal paraproteinemia- Primary Irritable bowel syndrome with both constipation and [...] Directives occurred with: Not Discussed Care Teams Client Analyst Relationship Specialty Start Date End Date February, Milton Alvarez MD [address] [place] [address] PCP - General Family Medicine 07/26/23 documented as of this encounter
--- OUTSIDE RECORDS SUMMARY | 2025-01-26 00:19 | External Medical Summary | Summary of Care ---
Author Name Unknown Organization [facility] Address [address] [place] [address] Phone [phone] Care Team Providers Care Hydro Pneumatic Tester Name Role Phone Marcin Britton MD Primary Care Provider [phone] Reason for Visit * Reason Comments eRx-Medication Refill Encounter Details Date Type Department Care Team (Late st Contact Info) Description 10/01/2024 Refill [facility] [address] [place] [phone] Marcin Britton MD [address] [place], [place] [phone] Encounter for long-term (current) use of medications* Allergies Active Allergy Reactions Criticality Noted Date Comments Amoxicillin-Pot Clavulanate Hives 06/16/20 16 Clavulanic Acid Hives 07/09/2016 documented as of this encounter (statuses as of 10/02/2024) Medications Clindamycin Phosphate 1 % External Solution [...] 22 Active Repaglinide 2 MG Oral Tablet (Prandin)Indica tions:Diabetes mellitus with stage 3 chronic kidney [...] DAILY 90 Tablet 2 01/18/20 24 Active Metoprolol Tartrate 25 MG Oral Tablet (Lopressor) TAKE 1 TABLET IN THE MORNING AND 1 TABLET BEFORE BEDTIME 180 Tablet 3 05/11/20 24 Active Pen [place] 32G X 4 MMIndications:D iabetes mellitus with [...] hemoglobin A1c goal of less than 7.0% ([facility]) TAKE 2 TABLETS BY MOUTH TWICE DAILY WITH MORNING AND EVENING MEALS 360 Tablet 3 09/19/20 24 Active Omeprazole 20 MG Oral Capsule Delayed Release (PriLOSEC) TAKE 1 CAPSULE IN THE MORNING 1 HOUR BEFORE THE FIRST MEAL OF THE DAY 90 Capsule 1 10/02/20 24 Active Omeprazole 20 MG Oral Capsule Delayed Release (PriLOSEC) TAKE 1 CAPSULE IN THE MORNING 1 HOUR BEFORE THE FIRST MEAL OF THE DAY 90 Capsule 1 04/02/20 24 2023 Discontinued documented as of this encounter (statuses as of 10/02/2024) Active Problems Problem Noted Date Diagnosed Date [...] as of this encounter (statuses as of 10/02/2024) Resolved Problems Problem Noted Date Diagnosed Date [...] as of this encounter (statuses as of 10/02/2024) Immunizations Name Administration Dates Next Due COVID-19 mRNA, LNP-s, No Pre serve, 2-Dose Series (Wavemark) 09/23/2021,01/13/2021,12/23/2020 Pneumococcal Conjugate Vacc, 13 Valent (Prevnar) [...] our heating, water, or electric bill? No 07/25/2023 Is your family able to pay t he heat, water, or electric bill? (Household - for ages 0-17 years) Not on file 07/25/2023 Does your family have access to good internet? (Household - for ages 0-17 years) Not on file 07/25/2023 Employment Status Answer Date Recorded Are you unemployed or without regular income? No 07/25/2023 Does the household have a re gular source of income? (Household - for ages 0-17 years) Not on file 07/25/2023 Social Connections Answer Date Recorded How often do you feel lonely or isolated from th ose around you? Never 07/25/2023 Financial Resource Strain Answer Date R ecorded [...] Miscellaneous Notes * Telephone Encounter - Wendy Puentes, [facility] - 10/02/2024 6:48 AM ESTSigned Prescriptions: Disp Refills Omeprazole 20 MG Oral Capsule Delayed Rele*90 Cap*1 Sig: TAKE 1 CAPSULE IN THE MORNING 1 HOUR BEFORE THE FIRST MEAL OF THE DAYAuthorizing Provider: MARCIN BRITTON User: WENDY PUENTES * Telephone Encounter - Wendy Puentes RPh - 10/02/2024 6:47 AM EST Per refill protocol patient needs magnesium lab on file within the past 2 years while using PPIs. Lab work ordered. Patient may obtain with next routine labs. ThanksWendy, PharmD Clinical Pharmacist [facility] [phone] 10/02/2024 6:48 AM documented in this encounter Plan of Treatment Upcoming Encounters Date Type Department Care Team (Latest Contact Info) Description 10/03/2024 3:00 PM EST Office Visit [facility] [address] [place] [phone] Marcin Britton MD [address] [place] [address] 12/31/2024 2:00 PM EDT Hospital Encounter [facility], Endoscopy Room [facility] [address] [place] [phone] Kermit Arevalo DO [address] [place] [address] 12/31/2024 2:00 PM EDT - 12/31/2024 2:30 PM EDT Surgery [facility]O [facility], Endoscopy Room [facility] [address] [place], [place] [phone] Kermit Arevalo DO [address] [place] [address] COLONOSCOPY FLEXIBLE PROXIMAL DIAGNOSTIC 09/19/2025 7:40 AM EST Laboratory Laboratory, [facility] [address] [facility] [place] [phone] [place] [address] [facility] [address] 09/26/2025 2:30 PM EST Office Visit Hematology/Oncolog y [facility] [place] [address] [place], [place] [address] Steph Romero CRNP [address] [facility] [place] [address] Scheduled Orders Name Type Priority Associated Diagnoses Orde r Schedule MAGNESIUM Lab Routine Encounter for long-term (current) use of medications Expected: 10/02/2024 (Approximate), Expires: 10/02/2025 Scheduled Procedures Name Priority Associated Diagnoses Date/Ti [...] Additional history exists CKD PHOS USE SMARTSET 91057 09/02/202408/17, 03/08/2023, 09/16/2022 Diabetic Foot Exam 09/30/2024 09/30/2023, 0 10/25/2022, 12/15/2021, Additional history exists HbA1c 01/28/2025 07/30/2024, 03/17, 11/14/2023, Additional history exists B-12 03/26/2025 03/26/2024, 02/15, 03/10/2022, Additional history exists GFR 03/26/2025 09/25/2024, 07/17, 03/26/2024, Additional history exists Depression Screening 04/03/2025 04/03/2024 CKD HGB USE SMARTSET 56740 09/25/202509/25, 09/25/2024, 11/14/2023, Additional history exists DTap/Tdap [...] this encounter Medical Devices Implanted Type Area Motor Equipment Lieutenant Device Identifier Shelf Expiration Date Model / Serial / Lot Reunion Rsa Center Screw 6.5mm X 24mm Implanted:Qty: 1 on 09/14/2017 by Dante Morris DO at [place] [facility] [place] Right: Shoulder PEMA : ORTHOPAEDICS 05/03/2022 [id number] / / [id number] Reunion Rsa Humeral Cup 36mm X 4mm Implanted:Qty: 1 on 09/14/2017 by Dante Morris DO at [place] [facility] [place] Right: Shoulder PEMA : ORTHOPAEDICS 08/22/2022 [id number] / / [id number] Reunion Rsa 3.1mm Drill Bit Implanted:Qty: 1 on 09/14/2017 by Dante Morris DO at [place] [facility] [place] Right: Shoulder PEMA : ORTHOPAEDICS 03/24/2022 1467-9968 / / [id number] Reunion Rsa Glenoid Baseplate 28mm Implanted:Qty: 1 on 09/14/2017 by Dante Morris DO at OR [facility] [place] Right: Shoulder PEMA : ORTHOPAEDICS 08/01/2022 1301-9913 / / [id number] Reunion Rsa Peripheral Screw 4.5mm X 24mm Implanted:Qty: 1 on 09/14/2017 by Dante Morris DO OR [facility] [place] Right: Shoulder PEMA : ORTHOPAEDICS 06/30/2022 8102-0847 / / [id number] Reunion Rsa Peripheral Screw 4.5mm X 28mm Implanted:Qty: 1 on 09/14/2017 by Dante Morris DO at OR [facility] [place] Right: Shoulder PEMA : ORTHOPAEDICS 06/30/2022 [id number] / / [id number] Reunion Rsa Peripheral Screw 4.5mm X 20mm Implanted:Qty: 1 on 09/14/2017 by Dante Morris DO at OR [facility] [place] Right: Shoulder PEMA : ORTHOPAEDICS 04/13/2022 6270-5869 / / [id number] Reunion Rsa Concentric Glenosphere 36mm X 6mm Implanted:Qty: 1 on 09/14/2017 by Dante Morris DO OR [facility] [place] Right: Shoulder PEMA : ORTHOPAEDICS 06/16/2022 5573-C-36 06 / / [id number] Reunion Rsa Peripheral Screw Implanted:Qty: 1 on 09/14/2017 by Dante Morris DO OR [facility] [place] Right: Shoulder PEMA : ORTHOPAEDICS 02/11/2021 1658-8305 / / [id number] Reunion Tsa Modular Humeral Stem Size11 X 123mm Implanted:Qty: 1 on 09/14/2017 by Dante Morris DO at OR [facility] [place] Right: Shoulder PEMA : ORTHOPAEDICS 05/02/2022 5569-P-20 11 / / [id number] Reunion Rsa X3 Humeral Insert 36mm X 4mm Implanted:Qty: 1 on 09/14/2017 by Dante Morris DO at OR [facility] [place] Right: Shoulder PEMA : ORTHOPAEDICS 03/22/2022 5571-S-36 04 / / [id number] Baseplate #5 Tritanium - [id number] Implanted:Qty: 1 on 10/22/2019 by Nick Vang MD at OR [facility] Left: Knee PEMA : ORTHOPAEDICS 08/07/2024 5536-B-50 0 / / [id number] Knee Triathlon Ps Stb Bead 4 L - [id number] Implanted:Qty: 1 on 10/22/2019 by Nick Vang MD at OR [facility] Left: Knee PEMA : ORTHOPAEDICS 04/08/2024 5516-F-40 1 / / [id number] Insert Tib Sz5 Knee - [id number] Implanted:Qty: 1 on 10/22/2019 by Nick Vang MD at OR [facility] Left: Knee PEMA : ORTHOPAEDICS 12/13/2022 5532-G-51 1 / / [id number] Triathlon Tritanium Symmetric Patella Implanted:Qty: 1 on 10/22/2019 by Nick Vang MD at OR [facility] Left: Knee 04/21/2024 5556-L-39 1 / / [id number] documented as of this encounter Visit Diagnoses Diagnosis Encounter for long-term (current) use of medications- Primary Encounter for long-term (current) use of other medications Irritable bowel syndrome with both constipation and [...] Directives occurred with: Not Discussed Care Teams Hydro Pneumatic Tester Relationship Specialty Start Date End Date February, Marcin Alvarez MD [address] [facility] [place] [address] PCP - General Family Medicine 07/26/23 documented as of this encounter
--- OUTSIDE RECORDS SUMMARY | 2025-01-26 00:19 | External Medical Summary | Summary of Care ---
Author Name Unknown Organization [facility] Address [address] [place] [address] Phone [phone] Care Team Providers Care Rigger Apprentice Name Role Phone Milton Mcdaniel MD Primary Care Provider [phone] Reason for Visit * Reason Onset Date Comments Order Request 10/01/2024 Labs Encounter Details Date Type Department Care Team (Late st Contact Info) Description 10/01/2024 Telephone [facility] [address] [place] [phone] Milton Mcdaniel MD [address] [place] [address] Order Request (Labs) Allergies Active Allergy Reactions Criticality Noted Date [...] 180 Tablet 3 05/11/20 24 Active Pen [place] 32G X 4 MMIndications:D iabetes mellitus with [...] hemoglobin A1c goal of less than 7.0% ([facility]) TAKE 2 TABLETS BY MOUTH TWICE DAILY WITH MORNING AND EVENING MEALS 360 Tablet 3 09/19/20 Active Omeprazole 20 MG Oral Capsule Delayed [...] mRNA, LNP-s, No Pre serve, 2-Dose Series ([employer]at[employer]) 09/23/2021,01/13/2021,12/23/2020 Pneumococcal Conjugate Vacc, 13 Valent (Prevnar) [...] Date Author No 10/22/2019 3:14 PM Booker Recee RN documented in this encounter Miscellaneous Notes * Telephone Encounter - Renee Pfeiffer LPN - 10/02/2024 11:11 AM EST The patient is aware, and verbalizes an understanding. * Telephone Encounter - Milton Mcdaniel MD - 10/01/2024 5:33 PM EST No further lab work needed. Will plan to collect urine microalbumin at the appointment. Rest of labwork was completed in July. Milton Mcdaniel MD * Telephone Encounter - Renee Pfeiffer LPN - 10/01/2024 2:17 PM EST Patient wants to know if need he needs to have any lab work done prior to his appt on 10.03.2024? Please advise. * Telephone Encounter - Kimber Del Angel OSA - 10/01/2024 7:07 AM EST An order was requested for this patient. Name of Requesting Provider: Gilberto Valles Order Requested: Labs Diagnosis/Reason for Request: Gilberto would like to know, if he needs to have any lab work done prior to his appt with Dr Milton Mcdaniel on 10.03.2024? If order request is for Mammogram: Is the patient having any breast symptoms? N/A Is there a chance of ? N/A Has the patient had any breast problems in the past? NA What location AND department does the patient wish to have their order completed at? N/a Fax Number, if applicable: N/A If the caller is not a current patient, please advise the patient to call their current PCP to havethe order's prior to being seen in our office. The patient was informed that our providers would not order anything (medication, labs, etc.) prior to being seen. documented in this encounter Plan of Treatment Upcoming Encounters Date Type Department Care Team (Latest Contact Info) Description 10/03/2024 3:00 PM EST [facility] [address] [place] [phone] Milton Mcdaniel MD [address] [place] [address] 12/31/2024 2:00 PM EDT Hospital Encounter ENDO [facility], Endoscopy Room [facility] [address] [place], [place] [phone] Kermit Arvealo, DO [address] [place], [place] [address] 12/31/2024 2:00 PM EDT - 12/31/2024 2:30 PM EDT Surgery ENDO [facility], Endoscopy Room [facility] [address] [place], [place] [phone] Kermit Arevalo, DO [address] [place], [place] [address] COLONOSCOPY FLEXIBLE PROXIMAL DIAGNOSTIC 09/19/2025 7:40 AM EST [facility] [place] [facility] [address] [facility] [phone] [place], Laboratory [facility] [place] [address] 09/26/2025 2:30 PM EST Office Visit Hematology/Oncolog y [facility] [address] [facility], [place] [phone] Steph Romero CRNP [address] [place] [address] Scheduled Orders Name Type Priority Associated Diagnoses Orde r Schedule ALBUMIN / CREATININE RATIO, URINE Lab Routine Diabetes mellitus with stage 3 chronic kidney disease (HCC) Expected: 10/01/2024, Expires: 10/01/2025 Scheduled Procedures Name Priority Associated Diagnoses Date/Ti [...] Additional history exists CKD PHOS USE SMARTSET 24734 09/02/202408/17, 03/08/2023, 09/16/2022 Diabetic Foot Exam 09/30/2024 09/30/2023, 0 10/25/2022, 12/15/2021, Additional history exists HbA1c 01/28/2025 07/30/2024, 03/17, 11/14/2023, Additional history exists B-12 03/26/2025 03/26/2024, 02/15, 03/10/2022, Additional history exists GFR 03/26/2025 09/25/2024, 07/17, 03/26/2024, Additional history exists Depression Screening 04/03/2025 04/03/2024 CKD HGB USE SMARTSET 99485 09/25/202509/25, 09/25/2024, 11/14/2023, Additional history exists DTap/Tdap [...] this encounter Medical Devices Implanted Type Area Fibre Cement [place]oulder Device Identifier Shelf Expiration Date Model / Serial / Lot Reunion Rsa Center Screw 6.5mm X 24mm Implanted:Qty: 1 on 09/14/2017 by Dante Morris DO at OR [facility] [place] Right: Shoulder PEMA : ORTHOPAEDICS 05/03/2022 8948-2587 / / [id number] Reunion Rsa Humeral Cup 36mm X 4mm Implanted:Qty: 1 on 09/14/2017 by Dante Morris DO at OR [facility] [place] Right: Shoulder PEMA : ORTHOPAEDICS 08/22/2022 4514-8615 / / [id number] Reunion Rsa 3.1mm Drill Bit Implanted:Qty: 1 on 09/14/2017 by Dante Morris DO at OR [facility] [place] Right: Shoulder PEMA : ORTHOPAEDICS 03/24/2022 7209-7464 / / [id number] Reunion Rsa Glenoid Baseplate 28mm Implanted:Qty: 1 on 09/14/2017 by Dante Morris DO at OR [facility] [place] Right: Shoulder PEMA : ORTHOPAEDICS 08/01/2022 8828-0573 / / [id number] Reunion Rsa Peripheral Screw 4.5mm X 24mm Implanted:Qty: 1 on 09/14/2017 by Dante Morris DO at OR [facility] [place] Right: Shoulder PEMA : ORTHOPAEDICS 06/30/2022 8639-6422 / / [id number] Reunion Rsa Peripheral Screw 4.5mm X 28mm Implanted:Qty: 1 on 09/14/2017 by Dante Morris DO at OR [facility] Right: Shoulder PEMA : ORTHOPAEDICS 06/30/2022 2885-7618 / / [id number] Reunion Rsa Peripheral Screw 4.5mm X 20mm Implanted:Qty: 1 on 09/14/2017 by Dante Morris DO at OR [facility] Right: Shoulder PEMA : ORTHOPAEDICS 04/13/2022 9532-8374 / / [id number] Reunion Rsa Concentric Glenosphere 36mm X 6mm Implanted:Qty: 1 on 09/14/2017 by Dante Morris DO at OR [facility] Right: Shoulder PEMA : ORTHOPAEDICS 06/16/2022 5573-C-36 06 / / [id number] Reunion Rsa Peripheral Screw Implanted:Qty: 1 on 09/14/2017 by Dante Morris DO at OR [facility] Right: Shoulder PEMA : ORTHOPAEDICS 02/11/2021 4717-6611 / / [id number] Reunion Tsa Modular Humeral Stem Size11 X 123mm Implanted:Qty: 1 on 09/14/2017 by Dante Morris DO at OR [facility] Right: Shoulder PEMA : ORTHOPAEDICS 05/02/2022 5569-P-20 11 / / [id number] Reunion Rsa X3 Humeral Insert 36mm X 4mm Implanted:Qty: 1 on 09/14/2017 by Dante Morris DO at OR [facility] Right: Shoulder PEMA : ORTHOPAEDICS 03/22/2022 5571-S-36 04 / / [id number] Baseplate #5 Tritanium - [id number] Implanted:Qty: 1 on 10/22/2019 by Nick Vang MD at OR [facility] Left: Knee PEMA : ORTHOPAEDICS 08/07/2024 5536-B-50 0 / / [id number] Knee Triathlon Ps Stb Bead 4 L - [id number] Implanted:Qty: 1 on 10/22/2019 by Nick Vang MD at OR [facility] Left: Knee PEMA : ORTHOPAEDICS 04/08/2024 5516-F-40 1 / / [id number] Insert Tib Sz5 Knee - [id number] Implanted:Qty: 1 on 10/22/2019 by Nick Vang MD at OR [facility] Left: Knee PEMA : ORTHOPAEDICS 12/13/2022 5532-G-51 [id number] Triathlon Tritanium Symmetric Patella Implanted:Qty: 1 on 10/22/2019 by Nick Vang MD at OR [facility] Left: Knee 04/21/2024 5556-L-39 T documented as of this encounter Visit Diagnoses [...] Directives occurred with: Not Discussed Care Teams Rigger Apprentice Relationship Specialty Start Date End Date February, Milton Alvarez MD [address] [place] [address] PCP - General Family Medicine 07/26/23 documented as of this encounter
--- OUTSIDE RECORDS SUMMARY | 2025-01-26 00:19 | External Medical Summary ---
Author Name Unknown Address Unknown Organization K09:[facility] [address] [place] [address] Laboratory Report Ordering Provider Test Date Status MUNIRA GALLEGOS 09/25/2024 15:32:06 Final Observation Date Value Abnormality Reference (Units ) Status SYNC LEUKOCYTES IN BLOOD BY AUTOMATED COUNT 09/25/2024 15:32:06 8.76 4.00-10.80 (K/uL) Final Segs 09/25/2024 15:32:06 56.7 40.0-75.0 (%) Final Lymphs % 09/25/2024 15:32:06 31.6 18.0-42.0 (%) Final Monos 09/25/2024 15:32:06 9.7 1.0-11.0 (%) Final Eosinophils 09/25/2024 15:32:06 1.7 0.0-6.0 (%) Final Basos 09/25/2024 15:32:06 0.3 0.0-2.0 (%) Final Absolute Segs 09/25/2024 15:32:06 4.96 1.80-7.70 (K/uL) Final Lymphs, absolute 09/25/2024 15:32:06 2.77 1.00-4.80 (K/ul) Final Monos, Abs 09/25/2024 15:32:06 0.85 0.00-1.10 (K/uL) Final Eos, Abs 09/25/2024 15:32:06 0.15 0.00-0.70 (K/uL) Final Basos, Abs 09/25/2024 15:32:06 0.03 0.00-0.20 (K/uL) Final Performing Location [facility] [address] [place] [address]
--- OUTSIDE RECORDS SUMMARY | 2025-01-26 00:19 | External Medical Summary | Summary of Care ---
Author Name Unknown Organization [facility] Address [address] [place] [address] Phone [phone] Care Team Providers Care Printed Circuit Boards Router Name Role Phone Milton Mcdaniel MD Primary Care Provider Reason for Visit * Reason Comments Follow Up Patient is here for a 6 month follow up.Patient has had a cold/cough for a week. He is taking mucinex every 12 hours with no relief. Patient states he is still having BM troubles- not being able to hold BM and going to often. Encounter Details Date Type Department Care Team (Late st Contact Info) Description 10/03/2024 3:00 PM EST Office Visit [facility] [place] [address] [place] [id number] Milton Mcdaniel MD [address] [place] [address] Type 2 diabetes mellitus with stage 3a chronic kidney disease, with long-term current use of insulin ([facility])*; Type 2 diabetes mellitus with hemoglobin A1c goal of less than 7.0% ([facility]); BPH with obstruction/lower urinary tract symptoms; Diabetes mellitus with stage 3 chronic kidney disease ([facility]); Mixed hyperlipidemia; Monoclonal paraproteinemia; Chronic diarrhea Allergies Active Allergy Reactions Criticality Noted Date Comments Amoxicillin-Pot Clavulanate Hives 06/16/20 16 Clavulanic Acid Hives 07/09/2016 documented as of this encounter (statuses as of 10/03/2024) Medications Clindamycin Phosphate 1 % External Solution [...] Solostar 100 UNIT/ML Subcutaneous Solution Pen-injector (Lantus SoloStar)Indicati ons:Diabetes mellitus with stage 3 chronic kidney disease (HCC) Inject 23 Units under the skin in the morning. Dx E 11.9. 30 mL 2 09/15/20 23 Active Trulicity 4.5 MG/0.5ML Subcutaneous Solution Pen-injector (Dulaglutide)Hailey cations:Diabetes mellitus with stage 3 chronic kidney disease (HCC) INJECT 4.5MG UNDER THE SKIN ONCE A WEEK 6 mL 3 09/30/20 23 Active hydroCHLOROthiazi de 25 MG Oral Tablet (Hydrodiuril) TAKE 1 TABLET IN THE MORNING 90 Tablet 3 11/05/19 24 Active Atorvastatin Calcium 40 MG Oral Tablet (Lipitor) TAKE 1 TABLET DAILY 90 Tablet 2 01/18/20 24 Active Metoprolol Tartrate 25 MG Oral Tablet (Lopressor) TAKE 1 TABLET IN THE MORNING AND 1 TABLET BEFORE BEDTIME 180 Tablet 3 05/11/20 24 Active Pen Stark 32G X 4 MMIndications:Lexii betes mellitus with stage 3 chronic kidney disease [...] 3 06/20/20 24 Active FreeStyle Aida 3 SensorIndications :Diabetes mellitus with stage 3 chronic kidney disease (HCC) Use as directed. Replace sensor every 14 days DX E11.9 6 Each 3 07/12/20 24 Active FreeStyle Aida 3 Plus Sensor Replace sensor every 14 days DX E11.9 6 Each 3 07/16/20 24 Active metFORMIN HCl 500 MG Oral Tablet (Glucophage)Indic ations:Type 2 diabetes mellitus with hemoglobin A1c goal [...] Oral Tablet Extended Release 24 Hour (Glucophage XR)Indications:Ty pe 2 diabetes mellitus with hemoglobin A1c goal of less than 7.0% (HCC) Take 2 Tablets by mouth in the morning and 2 Tablets before bedtime. Do all this for 28 days. 112 Tablet 10/03/20 24 025 Active Tamsulosin HCl 0.4 MG Oral Capsule (Flomax)Indicatio ns:BPH with obstruction/lower urinary tract symptoms Take 1 Capsule by mouth every night at bedtime. 90 Capsule 3 10/03/20 24 Active Repaglinide 2 MG Oral Tablet (Prandin)Indicati ons:Diabetes mellitus with stage 3 chronic kidney disease (HCC) Take 2 tablets by mouth prior to meals 540 Tablet 1 09/10/20 22 024 Discontin ued(Medic ation List Clean Up) Tamsulosin HCl 0.4 MG Oral Capsule (Flomax) Take 1 Capsule by mouth every night at bedtime. 90 Capsule 3 08/17/20 23 024 Discontin ued(Refil l) RSVPreF3 Vac Recomb Adjuvanted 120 MCG/0.5ML Intramuscular Suspension Reconstituted (Arexvy)Indicatio ns:Immunization due Inject 0.5 mL into a large muscle once for 1 dose. 0.5 mL 07/11/20 24 024 Discontin ued(Medic ation List Clean Up) Psyllium 58.6 % Oral Packet (Metamucil) Take 1 Packet by mouth in the morning. 08/15/20 24 024 Discontin ued(Medic ation List Clean Up) Polyethylene Glycol 3350 17 GM/SCOOP Oral Powder (MiraLax) Take 17 g by mouth in the morning. One cap full in juice, to effect 1 stool per day. .. 08/15/20 24 024 Discontin ued(Medic ation List Clean Up) Tamsulosin HCl 0.4 MG Oral Capsule (Flomax)Indicatio ns:BPH with obstruction/lower urinary tract symptoms Take 1 Capsule by mouth every night at bedtime. 90 Capsule 3 10/03/20 24 024 Discontin ued(Refil l) documented as of this encounter (statuses as of 10/03/2024) Active Problems Problem Noted Date Diagnosed Date [...] as of this encounter (statuses as of 10/03/2024) Resolved Problems Problem Noted Date Diagnosed Date Resolved Date Hypertensive kidney disease with stage 3 chronic kidney disease 12/15/2021 12/30/2021 Hypertensive kidney disease with chronic kidney disease stage III 09/12/2019 03/24/2022 Essential hypertension with goal blood pressure less than 130/80 09/12/2019 03/19/2020 Kidney disease, chronic, sta ge III (GFR 30-59 ml/min) 02/26/2019 08/01/2019 Overview: Per CKD protocol #1 Atrial fibrillation 05/28/2018 07/18/20 CAD (coronary artery disease) 05/28/2018 07/18/2018 Type [...] as of this encounter (statuses as of 10/03/2024) Immunizations Name Administration Dates Next Due COVID-19 mRNA, LNP-s, No Pre serve, 2-Dose Series (Fiberspar) 09/23/2021,01/13/2021,12/23/2020 Pneumococcal Conjugate Vacc, 13 Valent (Prevnar) [...] Sign Reading Time Taken Comments Blood Pressure 132/70 10/03/2024 2:47 PM EST Pulse 83 10/03/2024 2:47 PM EST Temperature 36.8 °C (98.2 °F) 10/03/2024 2:47 PM ES T Respiratory Rate 16 10/03/2024 2:47 PM EST Oxygen Saturation 97% 10/03/2024 2:47 PM EST Inhaled Oxygen Concentration - - Weight 70.5 kg (155 lb 6.4 oz) 10/03/2024 2:47 P M EST Height - - Body Mass Index 28.42 09/25/2024 2:59 PM EST documented in this [...] Booker Reece RN documented in this encounter Patient Instructions * Patient Instructions* Nano Mccain LPN - 10/03/2024 2:58 PM EST Diabetes: Keeping Feet Healthy Inspect your feet every day for signs of a problem. Diabetes can damage nerves in your feet and cause neuropathy. This condition makes it hard for you to feel injuries or sore spots. Diabetes can also change blood flow, making it harder for small problems, like a blister, to heal properly. In fact, minor injuries can quickly become serious infections that send you to the hospital. Practice self-care to protect your feet and keep them healthy. Take Special Care Inspect your feet daily for problems such as redness, blisters, cracks, dry skin, or numbness. Use a mirror to see the bottoms of your feet. Or, ask for help. Manage your diabetes. Monitor and control your blood sugar. Take all your medications as prescribed. Avoid walking barefoot, even indoors. Wash your feet with warm water and mild soap. Dry well, especially between toes. Don’t treat corns or calluses yourself. Talk to your doctor or automatic teller machine servicer (a doctor who specializes in foot care) if you need assistance trimming your toenails. Use moisturizing cream or lotion if you have dry skin, but don’t use it between toes. Don’t use heating pads on your feet. If you have neuropathy, you could get a burn and not feel it. Stop smoking. Smoking restricts blood flow and can make it harder for wounds to heal. Have Regular Checkups Foot problems can develop quickly. So be sure to follow your healthcare team’s schedule for regular checkups. During office visits, take off your shoes and socks as soon as you get in the exam room. Ask your healthcare provider to examine your feet for problems. This will make it easier to find and treat small skin irritations before they get worse. Regular checkups can also help keep track of the blood flow and feeling in your feet. If you have neuropathy, you may need to have checkups more often. Wear Proper Footwear Wearing proper footwear is very important. If areas of your feet have been damaged by too much pressure, your healthcare provider may recommend changing your footwear. In some cases, avoiding high heels or tight work boots may be all that’s needed. Or, your healthcare provider may recommend special shoes or custom inserts. These help protect your feet and keep existing irritations from getting worse. If you need special footwear, ask your healthcare provider if you qualify for Medicare’s diabetic shoe program. Make Sure Shoes and Socks Fit Any pair of shoes--new or old--should feel comfortable as soon as you put them on. There shouldn’t be any rubbing when you walk. Wear the right shoe for any activity. For instance, a running shoe is designed to keep your feet injury-free while jogging. Buy shoes at the end of the day, when your feet are larger. Make sure they provide support without feeling too loose. Make sure your socks fit, t oo. Wear soft, seamless, well-padded socks for activity. Cotton or microfiber socks are best to help to absorb sweat. To protect your feet, avoid shoes that are open-toed or open-heeled. If you have questions about what kinds of shoes and socks are best, talk to your healthcare team. Get Regular Exercise Regular exercise improves blood flow in your feet. It also increases foot strength and flexibility.Gentle exercises, like walking or riding a stationary bicycle, are best. You can also do special foot exercises. Just be sure to talk with your healthcare provider before starting any exercise program. Also mention if any exercise causes pain, redness, or other signs of foot problems. Note: If you have any kind of break in the skin of your foot or ankle, keep the area clean. Then call your doctor--especially if the area doesn’t appear to be healing. © 7081-3820 [employer] [address] [place] [address], [place] [address]. All rights reserved. This information is not intended as a substitute for professional medical care. Always follow your healthcare professional's instructions. documented in this encounter Progress Notes * Milton Mcdaniel MD - 10/03/2024 3:04 PM EST Images from the original note were not included. Assessment and Plan 1. Diabetes mellitus (HCC) (Primary) A1c 7.4. Continue George Bhagat, 23 units of glargine daily. Transitioned to extended-release metformin 1000 mg twice daily. I suspect this is a primary contributor to his loose stools over the last number of months to year. Repeat A1c prior to next appointment. Diabetic foot exam completed in office today. - DIABETES FOOT EXAM - HEMOGLOBIN A1C; Future 2. Type 2 diabetes mellitus with hemoglobin A1c goal of less than 7.0% ([facility]) - metFORMIN HCl ER 500 MG Oral Tablet Extended Release 24 Hour (Glucophage XR); Take 2 Tablets by mouth in the morning and 2 Tablets before bedtime. Do all this for 28 days. Dispense: 112 Tablet; Refill: 0 3. BPH with obstruction/lower urinary tract symptoms Refill Flomax. - Tamsulosin HCl 0.4 MG Oral Capsule (Flomax); Take 1 Capsule by mouth every night at bedtime. Dispense: 90 Capsule; Refill: 3 4. Diabetes mellitus with stage 3 chronic kidney disease (HCC) Stable renal function. - COMPREHENSIVE METABOLIC PANEL; Future 5. Mixed hyperlipidemia Continue statin. - LIPID PANEL WITH DIRECT LDL IF TG IS HIGH; Future 6. Monoclonal paraproteinemia Stable. Continue to follow up yearly with Hematology/Oncology. 7. Chronic diarrhea Patient has been on short-acting metformin. Recommend switching to long-acting metformin at 1000 mgtwice daily if. If not seeing improvement in symptoms over the next 2 weeks consider decreasing to 1 pill once daily and working back up towards 1000 mg twice daily if diarrhea improves. Wrap-Up Follow up in 6 months. History of Present Illness The patient is a 74 year old male with past medical history of gout, dyslipidemia, type 2 diabetes,atrial fibrillation, HTN, GERD, CKD3 who presents for 6 month follow up. 74-year-old male presents for routine six-month follow up. Reviewed recent lab work. This shows stable renal function and electrolytes. Blood count normal. Stable monoclonal paraproteinemia. Patient continues to take atorvastatin for hyperlipidemia. Diabetes is under good control with A1c 7.4. He currently takes max dose Trulicity, Jardiance, metformin. He takes 23 units of insulin glargine daily. Blood pressure is at goal today 132/70 on hydrochlorothiazide, metoprolol. Since last visit he has been seen by GI for chronic diarrhea. This has been ongoing for a year. Workup thus far has been negative. Of note patient he was currently taking metformin rather than the extended release version. Patient also was seen by Hematology Oncology who recommended ongoing monitoring of his monoclonal paraproteinemia. Patient's main concern in office today is his ongoing diarrhea. Continues to be a major problem with 4 episodes yesterday. Has difficulty making it to the bathroom at times. Also has been sick over the last week. Mild congestion and cough. He does need a few refills. Physical Exam Vitals: 10/03/24 1447 Temp: 98.2 °F (36.8 °C) Pulse: 83 Resp: 16 SpO2: 97% BP: 132/70 Physical Exam Physical Exam Vitals reviewed. Constitutional: General: He is not in acute distress. Cardiovascular: Rate and Rhythm: Normal rate and regular rhythm. Heart sounds: No murmur heard. Pulmonary: Effort: Pulmonary effort is normal. No respiratory distress. Breath sounds: Normal breath sounds. Musculoskeletal: Cervical back: Neck supple. Lymphadenopathy: Cervical: No cervical adenopathy. Skin: General: Skin is warm and dry. Neurological: General: No focal deficit present. Mental Status: He is alert. This note has been completed in part utilizing [employer] Speech Voice Recognition Software. Due to technical limitations of the software, grammatical errors, random word insertions, prounoun errors, and incomplete sentences may occur. Any formal questions or concerns about the content, text, or information contained within the body of this dictation should be directly addressed to the provider for clarification. * Nano Mccain LPN - 10/03/2024 2:55 PM EST DM Foot Exam completed today. Provider aware. Nano Mccain LPN Socks and Shoes Removed for Annual Diabetic Foot Screening RIGHT FOOT: No Reddened, Cracking, Or Open Areas Noted. RIGHT Dorsalis Pedis Pulse: Palpable RIGHT Posterior Tibial Pulse: Palpable RIGHT Monofilament:Patient reports feeling monofilament pressure on plantar surface of foot LEFT FOOT: No Reddened, Cracking or Open Areas Noted. LEFT Dorsalis Pedis Pulse: Palpable LEFT Posterior Tibial Pulse: Palpable LEFT Monofilament:Patient reports feeling monofilament pressure on plantar surface of foot Do you need diabetic shoes: No documented in this encounter Nursing Notes * Nano Mccain LPN - 10/03/2024 2:52 PM EST The patient has been properly identified by confirmation of name and date of . Chief Complaint Patient presents with Follow Up Patient is here for a 6 month follow up. Patient has had a cold/cough for a week. He is taking mucinex every 12 hours with no relief. Patient states he is still having BM troubles- not being able to hold BM and going to often. documented in this encounter Plan of Treatment Upcoming Encounters Date Type Department Care Team (Latest Contact Info) Description 12/31/2024 2:00 PM EDT [facility] [address] [place] [phone] Kermit Arevalo, [address] [place] [address] 12/31/2024 2:00 PM EDT - 12/31/2024 2:30 PM EDT Surgery ENDO [facility], Endoscopy Room [facility] [address] [place] [phone] Kermit Arevalo, [address] [place] [id number] COLONOSCOPY FLEXIBLE PROXIMAL DIAGNOSTIC 04/10/2025 6:20 PM EDT Office Visit [facility], Vitaliy [address] [place] [phone] FebruaryMilton MD [address] [place] [address] 09/19/2025 7:40 AM EST Laboratory Laboratory, Vitaliy Khan [address] [place] [phone] [place], Laboratory [address] [place] [address] 09/26/2025 2:30 PM EST Office Visit Hematology/Oncolog y [facility] Yulissa [place] [address] [place], [place] [phone] Steph Romero CRNP [address] [facility] [place] [address] Scheduled Orders Name Type Priority Associated Diagnoses Orde r Schedule HEMOGLOBIN A1C Lab Routine Type 2 diabetes mellitus with stage 3a chronic kidney disease, with long-term current use of insulin (HCC) Expected: 10/03/2024 (Approximate), Expires: 10/03/2025 COMPREHENSIVE METABOLIC PANEL Lab Routine Diabetes mellitus with stage 3 chronic kidney disease (HCC) Expected: 10/03/2024 (Approximate), Expires: 10/03/2025 LIPID PANEL WITH DIRECT LDL IF TG IS HIGH Lab Routine Mixed hyperlipidemia Expected: 10/03/2024, Expires: 10/03/2025 Scheduled Procedures Name Priority Associated Diagnoses Date/Ti [...] Additional history exists CKD PHOS USE SMARTSET 07084 09/02/202408/17, 03/08/2023, 09/16/2022 HbA1c 01/28/2025 07/30/2024, 03/17, 11/14/2023, Additional history exists B-12 03/26/2025 03/26/2024, 02/15, 03/10/2022, Additional history exists GFR 03/26/2025 09/25/2024, 07/17, 03/26/2024, Additional history exists Depression Screening 04/03/2025 04/03/2024 CKD HGB USE SMARTSET 33301 09/25/202509/25, 09/25/2024, 11/14/2023, Additional history exists Diabetic [...] this encounter Medical Devices Implanted Type Area Bottle Filler Device Identifier Shelf Expiration Date Model / Serial / Lot Reunion Rsa Center Screw 6.5mm X 24mm Implanted:Qty: 1 on 09/14/2017 by Dante Morris DO at OR [facility] [place] Right: Shoulder PEAM : ORTHOPAEDICS 05/03/2022 [id number] / / [id number] Reunion Rsa Humeral Cup 36mm X 4mm Implanted:Qty: 1 on 09/14/2017 by Dante Morris DO at OR [facility] [place] Right: Shoulder PEMA : ORTHOPAEDICS 08/22/2022 [id number] / / [id number] Reunion Rsa 3.1mm Drill Bit Implanted:Qty: 1 on 09/14/2017 by Dante Morris DO at OR [facility] [place] Right: Shoulder PEMA : ORTHOPAEDICS 03/24/2022 [id number] / / [id number] Reunion Rsa Glenoid Baseplate 28mm Implanted:Qty: 1 on 09/14/2017 by Dante Morris DO at OR [facility] [place] Right: Shoulder PEMA : ORTHOPAEDICS 08/01/2022 [id number] / / [id number] Reunion Rsa Peripheral Screw 4.5mm X 24mm Implanted:Qty: 1 on 09/14/2017 by Dante Morris DO at OR [facility] [place] Right: Shoulder PEMA : ORTHOPAEDICS 06/30/2022 4650-0551 / / [id number] Reunion Rsa Peripheral Screw 4.5mm X 28mm Implanted:Qty: 1 on 09/14/2017 by Dante Morris DO at OR [facility] [place] Right: Shoulder PEMA : ORTHOPAEDICS 06/30/2022 [id number] / / [id number] Reunion Rsa Peripheral Screw 4.5mm X 20mm Implanted:Qty: 1 on 09/14/2017 by Dante Morris DO at OR [facility] [place] Right: Shoulder PEMA : ORTHOPAEDICS 04/13/2022 [id number] / / [id number] Reunion Rsa Concentric Glenosphere 36mm X 6mm Implanted:Qty: 1 on 09/14/2017 by Dante Morris DO at OR [facility] [place] Right: Shoulder PEMA : ORTHOPAEDICS 06/16/2022 5573-C-36 06 / / [id number] Reunion Rsa Peripheral Screw Implanted:Qty: 1 on 09/14/2017 by Dante Morris DO at OR [facility] [place] Right: Shoulder PEMA : ORTHOPAEDICS 02/11/2021 [id number] / / [id number] Reunion Tsa Modular Humeral Stem Size11 X 123mm Implanted:Qty: 1 on 09/14/2017 by Dante Morris DO at OR [facility] [place] Right: Shoulder PEMA : ORTHOPAEDICS 05/02/2022 5569-P-20 11 / / [id number] Reunion Rsa X3 Humeral Insert 36mm X 4mm Implanted:Qty: 1 on 09/14/2017 by Dante Morris DO at OR [facility] [place] Right: Shoulder PEMA : ORTHOPAEDICS 03/22/2022 5571-[id number] 04 / / [id number] Baseplate #5 Tritanium - [id number] Implanted:Qty: 1 on 10/22/2019 by Nick Vang MD at OR [facility] Left: Knee PEMA : ORTHOPAEDICS 08/07/2024 5536-B-50 0 / / [id number] Knee Triathlon Ps Stb Bead 4 L - [id number] Implanted:Qty: 1 on 10/22/2019 by Nick Vang MD at OR [facility] Left: Knee PEMA : ORTHOPAEDICS 04/08/2024 5516-F-40 1 / / [id number] Insert Tib Sz5 Knee - [id number] Implanted:Qty: 1 on 10/22/2019 by Nick Vang MD at OR [facility] Left: Knee PEMA : ORTHOPAEDICS 12/13/2022 5532-G-51 1 / [id number] Triathlon Tritanium Symmetric Patella Implanted:Qty: 1 on 10/22/2019 by Nick Vang MD at OR [facility] Left: Knee 04/21/2024 5556-L-39 1 / / [id number] documented as of this encounter Visit Diagnoses Diagnosis Type 2 diabetes mellitus with stage 3a chronic kidney disease, with long-term current use of insulin (HCC)- Primary Type 2 diabetes mellitus with hemoglobin A1c goal of less than 7.0% (HCC) BPH with obstruction/lower urinary tract symptoms Hypertrophy of prostate with urinary obstruction and other lower urinary tract symptoms (LUTS) Diabetes mellitus with stage 3 chronic kidney disease (HCC) Type II or unspecified type diabetes mellitus with renal manifestations, not stated as uncontrolled Mixed hyperlipidemia Monoclonal paraproteinemia Chronic diarrhea Diarrhea Irritable bowel syndrome with both constipation and [...] Directives occurred with: Not Discussed Care Teams Printed Circuit Boards Router Relationship Specialty Start Date End Date February, Milton Alvarez MD PCP - General Family Medicine 07/26/23 documented as of this encounter
--- OUTSIDE RECORDS SUMMARY | 2025-01-26 00:19 | External Medical Summary | Summary of Care ---
Author Name Unknown Organization [facility] Address [address] [place] [address] Phone [phone] Care Team Providers Care Branch Associate Name Role Phone Milton Mcdaniel MD Primary Care Provider [phone] Encounter Details Date Type Department Care Team (Late st Contact Info) Description 09/25/2024 Patient Reported Data Patient Survey Ortho FORCE Allergies Active Allergy Reactions Criticality Noted Date [...] as needed 80 g 1 2 Active OneTouch Verio w/Device KitIndications:D iabetes mellitus with stage 3 chronic kidney disease (HCC) Use as directed . Use to test blood sugars once daily e11.22 1 Kit 1 2 Active OneTouch Verio In Vitro Strip Use to test blood sugar three times daily DX: E11.9 300 Strip 1 2 Active OneTouch Delica Lancets 33G Use as directed to test blood sugars three times per day E11.65 300 Each 1 2 Active Repaglinide 2 MG Oral [...] THE MORNING 90 Tablet 3 4 Active Fruit & Vegetable Daily Oral Capsule Take by mouth. Ac tive Neuro-Essentials Oral Tablet Take by mouth. Act sriram Atorvastatin Calcium 40 MG Oral Tablet (Lipitor) [...] BEDTIME 180 Tablet 3 4 Active Pen [place] 32G X 4 MMIndications:Di abetes mellitus with [...] with stage 3 chronic kidney disease ([facility]) Use as directed. Replace sensor every 14 [...] A1c goal of less than 7.0% ([facility]) TAKE 2 TABLETS BY MOUTH TWICE [...] mRNA, LNP-s, No Pre serve, 2-Dose Series ([employer]) 09/23/2021,01/13/2021,12/23/2020 Pneumococcal Conjugate Vacc, 13 Valent (Prevnar) [...] 18 years and over) Not on file 10/09/202 3 Are you (or your family) ana m [...] Entry Date Author No 10/22/2019 3:14 PM EST Cillo, Be th, RN documented in this encounter Plan of Treatment Upcoming Encounters Date Type Department Care Team (Latest Contact Info) Description 09/25/2024 3:00 PM EST Office Visit Hematology/Oncology [facility] [place] [address] [facility] [place] [phone] Steph Romero CRNP [address] [place] [address] 10/03/2024 3:00 PM EST [facility] [address] [facility] [phone] FebruaryMilton MD [address] [place] [address] 12/31/2024 2:00 PM EDT Hospital Encounter ENDO [facility], Endoscopy Room [facility] [address] [place] [phone] Kermit Arevalo, DO [address] [place] [address] 12/31/2024 2:00 PM EDT - 12/31/2024 2:30 PM EDT Surgery ENDO [facility], Endoscopy Room [facility] [address] [place] [phone] Kermit Arevalo, DO [address] [place] [address] COLONOSCOPY FLEXIBLE PROXIMAL DIAGNOSTIC Scheduled Procedures Name Priority Associated Diagnoses Date/Ti [...] Additional history exists CKD PHOS USE SMARTSET 22174 09/02/202408/17, 03/08/2023, 09/16/2022 Diabetic Foot Exam 09/30/2024 09/30/2023, 0 10/25/2022, 12/15/2021, Additional history exists CKD HGB USE SMARTSET 69492 11/14/202411/14, 09/02/2023, 09/02/2023, Additional history exists GFR [...] this encounter Medical Devices Implanted Type Area Trademark Paralegal Device Identifier Shelf Expiration Date Model / Serial / Lot Reunion Rsa Center Screw 6.5mm X 24mm Implanted:Qty: 1 on 09/14/2017 [place] [facility] PEMA : ORTHOPAEDICS 05/03/2022 [id number] / / [id number] Reunion Rsa Humeral Cup 36mm X 4mm Implanted:Qty: 1 on 09/14/2017 by Dante Morris DO [place] [facility]er PEMA : ORTHOPAEDICS 08/22/2022 [id number] / / [id number] Reunion Rsa 3.1mm Drill Bit Implanted:Qty: 1 on 09/14/2017 by Dante Morris [place] [facility] [place]er PEMA : ORTHOPAEDICS 03/24/2022 [id number] / / [id number] Reunion Rsa Glenoid Baseplate 28mm Implanted:Qty: 1 on 09/14/2017 by Dante Morris DO [place] [facility] [place]: Shoulder PEMA : ORTHOPAEDICS 08/01/2022 [id number] / / [id number] Reunion Rsa Peripheral Screw 4.5mm X 24mm Implanted:Qty: 1 on 09/14/2017 by Dante Morris DO [place] [facility] [place]: Shoulder PEMA : ORTHOPAEDICS 06/30/2022 2255-8792 / / [id number] Reunion Rsa Peripheral Screw 4.5mm X 28mm Implanted:Qty: 1 on 09/14/2017 by Dante Morris DO [place] [facility] [place] Shoulder PEMA : ORTHOPAEDICS 06/30/2022 [id number] / / [id number] Reunion Rsa Peripheral Screw 4.5mm X 20mm Implanted:Qty: 1 on 09/14/2017 by Dante Morris DO [place] [facility] [place]: Shoulder PEMA : ORTHOPAEDICS 04/13/2022 [id number] / / [id number] Reunion Rsa Concentric Glenosphere 36mm X 6mm Implanted:Qty: 1 on 09/14/2017 by Dante Morris DO [place] [facility] [place]: Shoulder PEMA : ORTHOPAEDICS 06/16/2022 5573-C-36 06 / / [id number] Reunion Rsa Peripheral Screw Implanted:Qty: 1 on 09/14/2017 by Dante Morris DO [place] [facility] [place]: Shoulder PEMA : ORTHOPAEDICS 02/11/2021 [id number] / / [id number] Reunion Tsa Modular Humeral Stem Size11 X 123mm Implanted:Qty: 1 on 09/14/2017 by Dante Morris DO [place] [facility] [place]: Shoulder PEMA : ORTHOPAEDICS 05/02/2022 5569-P-20 11 / / [id number] Reunion Rsa X3 Humeral Insert 36mm X 4mm Implanted:Qty: 1 on 09/14/2017 by Dante Morris DO [place] [facility] [place]: Shoulder PEMA : ORTHOPAEDICS 03/22/2022 5571-S-36 04 / / [id number] Baseplate #5 Tritanium - [id number] Implanted:Qty: 1 on 10/22/2019 by Nick Vang MD at OR [facility] Left: Knee PEMA : ORTHOPAEDICS 08/07/2024 5536-B-50 0 / / [id number] Knee Triathlon Ps Stb Bead 4 L - [id number] Implanted:Qty: 1 on 10/22/2019 by Nick Vang MD at OR [facility] Left: Knee PEMA : ORTHOPAEDICS 04/08/2024 5516-F-40 1 / / [id number] Insert Tib Sz5 Knee - [id number] Implanted:Qty: 1 on 10/22/2019 by Nick Vang MD at OR [facility] Left: Knee PEMA : ORTHOPAEDICS 12/13/2022 5532-G-51 1 / / [id number] Triathlon Tritanium Symmetric Patella Implanted:Qty: 1 on 10/22/2019 by Nick Vang MD at OR [facility] Left: Knee 04/21/2024 5556-L-39 1 / / [...] Directives occurred with: Not Discussed Care Teams Branch Associate Relationship Specialty Start Date End Date February, Milton Alvarez MD [address] [place] [address] PCP - General Family Medicine 07/26/23 documented as of this encounter
--- OUTSIDE RECORDS SUMMARY | 2025-01-26 00:19 | External Medical Summary | Summary of Care ---
Author Name Unknown Organization [facility] Address [address] [place] [address] Phone [phone] Care Team Providers Care Urology Physician Assistant Name Role Phone Milton Mcdaniel MD Primary Care Provider [phone] Reason for Visit * Reason Onset Date Comments Order Request 10/01/2024 Labs Encounter Details Date Type Department Care Team (Late st Contact Info) Description 10/01/2024 Telephone [facility] [address] [place] [phone] Milton Mcdaniel MD [address] [place] [address] Order Request (Labs) Allergies Active Allergy Reactions Criticality Noted Date Comments Amoxicillin-Pot Clavulanate Hives 06/16/20 16 Clavulanic Acid Hives 07/09/2016 documented as of this encounter (statuses as of 10/01/2024) Medications Clindamycin Phosphate 1 % External Solution [...] BEDTIME 180 Tablet 3 4 Active Pen [place] 32G X 4 MMIndications:Di abetes mellitus with [...] goal of less than 7.0% ([facility]) TAKE 2 TABLETS BY MOUTH TWICE DAILY WITH MORNING AND EVENING MEALS 360 Tablet 3 4 Active documented as of this encounter (statuses as of 10/01/2024) Active Problems Problem Noted Date Diagnosed Date [...] as of this encounter (statuses as of 10/01/2024) Resolved Problems Problem Noted Date Diagnosed Date [...] as of this encounter (statuses as of 10/01/2024) Immunizations Name Administration Dates Next Due COVID-19 mRNA, LNP-s, No Pre serve, 2-Dose Series ([employer]) 09/23/2021,01/13/2021,12/23/2020 Pneumococcal Conjugate Vacc, 13 Valent (Prevnar) [...] Description 10/03/2024 3:00 PM EST Office Visit Vitaliy Rincon [address] [place] [phone] Milton Mcdaniel MD [address] [place] [address] 12/31/2024 2:00 PM EDT Hospital Encounter ENDO [facility], Endoscopy Room [facility] [address] [place], [place] [phone] Kermit Arevalo, DO [address] [place], [place] [address] 12/31/2024 2:00 PM EDT - 12/31/2024 2:30 PM EDT Surgery ENDO [facility], Endoscopy Room [facility] [address] [place], [place] [phone] Kermit Arevalo, DO [address] [place], [place] [address] COLONOSCOPY FLEXIBLE PROXIMAL DIAGNOSTIC 09/19/2025 7:40 AM EST Laboratory Laboratory, [facility] [address] [place] [phone] [place], Laboratory [address] [place] [address] 09/26/2025 2:30 PM EST Office Visit Hematology/Oncolog y [facility] [address] [facility] [place] [address] Steph Romero CRNP [address] [place] [address] Scheduled Orders Name Type Priority Associated Diagnoses [...] Additional history exists CKD PHOS USE SMARTSET 19437 09/02/202408/17, 03/08/2023, 09/16/2022 Diabetic Foot Exam 09/30/2024 09/30/2023, 0 10/25/2022, 12/15/2021, Additional history exists HbA1c 01/28/2025 07/30/2024, 03/17, 11/14/2023, Additional history exists B-12 03/26/2025 03/26/2024, 02/15, 03/10/2022, Additional history exists GFR 03/26/2025 09/25/2024, 07/17, 03/26/2024, Additional history exists Depression Screening 04/03/2025 04/03/2024 CKD HGB USE SMARTSET 99098 09/25/202509/25, 09/25/2024, 11/14/2023, Additional history exists DTap/Tdap [...] this encounter Medical Devices Implanted Type Area Decision Unit Rn Device Identifier Shelf Expiration Date Model / Serial / Lot Reunion Rsa Center Screw 6.5mm X 24mm Implanted:Qty: 1 on 09/14/2017 by Dante Morris DO [place] [facility] [place]: Shoulder PEMA : ORTHOPAEDICS 05/03/2022 [id number] / / [id number] Reunion Rsa Humeral Cup 36mm X 4mm Implanted:Qty: 1 on 09/14/2017 by Dante Morris DO [place] [facility] [place]: Shoulder PEMA : ORTHOPAEDICS 08/22/2022 8326-9407 / / [id number] Reunion Rsa 3.1mm Drill Bit Implanted:Qty: 1 on 09/14/2017 by Dante Morris DO [place] [facility] Right: Shoulder PEMA : ORTHOPAEDICS 03/24/2022 7436-2121 / / [id number] Reunion Rsa Glenoid Baseplate 28mm Implanted:Qty: 1 on 09/14/2017 by Dante Morris DO at [place] [facility] Right: Shoulder PEMA : ORTHOPAEDICS 08/01/2022 4288-1078 / / [id number] Reunion Rsa Peripheral Screw 4.5mm X 24mm Implanted:Qty: 1 on 09/14/2017 by Dante Morris DO [place] [facility] Right: Shoulder PEMA : ORTHOPAEDICS 06/30/2022 [id number] / / [id number] Reunion Rsa Peripheral Screw 4.5mm X 28mm Implanted:Qty: 1 on 09/14/2017 by Dante Morris DO [place] [facility] Right: Shoulder PEMA : ORTHOPAEDICS 06/30/2022 7803-3832 / / [id number] Reunion Rsa Peripheral Screw 4.5mm X 20mm Implanted:Qty: 1 on 09/14/2017 by Dante Morris DO [place] [facility] Right: Shoulder PEMA : ORTHOPAEDICS 04/13/2022 2184-9704 / / [id number] Reunion Rsa Concentric Glenosphere 36mm X 6mm Implanted:Qty: 1 on 09/14/2017 by Dante Morris DO at [place] [facility] Right: Shoulder PEMA : ORTHOPAEDICS 06/16/2022 5573-C-36 06 / / [id number] Reunion Rsa Peripheral Screw Implanted:Qty: 1 on 09/14/2017 by Dante Morris DO at [place] [facility] Right: Shoulder PEMA : ORTHOPAEDICS 02/11/2021 8897-6275 / / [id number] Reunion Tsa Modular Humeral Stem Size11 X 123mm Implanted:Qty: 1 on 09/14/2017 by Dante Morris DO at [place] [facility] Right: Shoulder PEMA : ORTHOPAEDICS 05/02/2022 5569-P-20 11 / / [id number] Reunion Rsa X3 Humeral Insert 36mm X 4mm Implanted:Qty: 1 on 09/14/2017 by Dante Morris DO at [place] [facility] Right: Shoulder EPMA : ORTHOPAEDICS 03/22/2022 5571-S-36 04 / / [id number] Baseplate #5 Tritanium - [id number] Implanted:Qty: 1 on 10/22/2019 by Nick Vang MD at OR [facility] Left: Knee PEMA : ORTHOPAEDICS 08/07/2024 5536-B-50 0 / / [id number] Knee Triathlon Ps Stb Bead 4 L - [id number] Implanted:Qty: 1 on 10/22/2019 by Nick Vang MD at OR [facility] Left: Knee PEMA : ORTHOPAEDICS 04/08/2024 5516-F-40 1 / / [id number] Insert Tib Sz5 Knee - [id number] Implanted:Qty: 1 on 10/22/2019 by Nick Vang MD at OR [facility] Left: Knee PEMA : ORTHOPAEDICS 12/13/2022 5532-G-51 / / [id number] Triathlon Tritanium Symmetric Patella Implanted:Qty: 1 on 10/22/2019 by Nick Vang MD at OR [facility] Left: Knee 04/21/2024 5556-L-39 1 / [...] Directives occurred with: Not Discussed Care Teams Urology Physician Assistant Relationship Specialty Start Date End Date February, Milton Alvarez MD [address] [facility] [place] [address] PCP - General Family Medicine 07/26/23 documented as of this encounter
--- OUTSIDE RECORDS SUMMARY | 2025-01-26 00:20 | External Medical Summary ---
Author Name Unknown Address Unknown Organization K01:[facility] [address] [facility] [address] Laboratory Report Ordering Provider Test Date Status MUNIRA GALLEGOS 09/25/2024 15:32:06 Final Observation Date Value Abnormality Reference (Units) Status PARAPROTEIN NORMAL/ABNORMAL 09/25/2024 15:32:06 Abnormal Abnormal Normal Final Protein 09/25/2024 15:32:06 7.4 6.0-8.3 (g/dL) Final Albumin/Protein.total [Pure mass fraction] in Serum or Plasma by Electrophoresis 09/25/2024 15:32:06 3.67 3.30-4.40 (g/dL) Final Alpha 1 globulin/Protein.tota l [Pure mass fraction] in Serum or Plasma by Electrophoresis 09/25/2024 15:32:06 0.23 0.10-0.30 (g/dL) Final Alpha 2 globulin/Protein.tota l [Pure mass fraction] in Serum or Plasma by Electrophoresis 09/25/2024 15:32:06 1.13 Above high normal 0.60-1.00 (g/dL) Final Beta globulin/Protein.tota l [Pure mass fraction] in Serum or Plasma by Electrophoresis 09/25/2024 15:32:06 0.96 0.80-1.30 (g/dL) Final Gamma globulin/Protein.tota l [Pure mass fraction] in Serum or Plasma by Electrophoresis 09/25/2024 15:32:06 1.41 0.70-1.70 (g/dL) Final Protein Fractions [Interpretation] in Serum or Plasma by Electrophoresis Narrative 09/25/2024 15:32:06 Abnormal. 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 Dual M spikes are observed with values of 0.43 and 0.26 g/dL. Final Performing Location [facility] - [address] [facility] [address]
--- OUTSIDE RECORDS SUMMARY | 2025-01-26 00:20 | External Medical Summary | Summary of Care ---
Author Name Unknown Organization [facility] Address [address] [place] [address] Phone [phone] Care Team Providers Care Outside Medical Sales Representative Name Role Phone Milton Mcdaniel MD Primary Care Provider [phone] Reason for Referral * Evaluate & Treat - Unlimited Visits (Within 30 days (routine)) - Authorized Specialty Diagnoses / Procedures Referred By Nikhil polanco Referred To Contact Ophthalmology Diagnoses Visit for eye and vision exam Milton Mcdaniel MD [address] [place] [address] Phone: tel: fax: Referral ID Status Reason Start Date Expiration Date Visits Requested Visits Authorized [id number] Authorized Specialty Services Required 4 [phone] Question Answer Referral Priority Within 30 days (routine) Where should this appointment be scheduled? 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 * Reason Onset Date Comments Referral 09/06/2024 Encounter Details Date Type Department Care Team (Late st Contact Info) Description 09/06/2024 Telephone [facility] [address] [place] [address] Milton Mcdaniel MD [address] [place] [address] Referral Allergies Active Allergy Reactions Criticality Noted Date Comments Amoxicillin-Pot Clavulanate Hives 06/16/20 16 Clavulanic Acid Hives 07/09/2016 documented as of this encounter (statuses as of 09/10/2024) Medications Clindamycin Phosphate 1 % External Solution [...] TABLET DAILY 90 Tablet 2 4 Active metFORMIN HCl 500 MG Oral Tablet (Glucophage)Hailey cations:Type 2 diabetes mellitus with hemoglobin A1c goal of less than 7.0% ([facility]) TAKE 2 TABLETS BY MOUTH TWICE DAILY WITH MORNING AND EVENING MEALS 360 Tablet 1 4 Active Omeprazole 20 MG Oral Capsule Delayed Release (PriLOSEC) TAKE 1 CAPSULE IN THE MORNING 1 HOUR BEFORE THE FIRST MEAL OF THE DAY 90 Capsule 1 4 Active Metoprolol Tartrate 25 MG Oral Tablet (Lopressor) TAKE 1 TABLET IN THE MORNING AND 1 TABLET BEFORE BEDTIME 180 Tablet 3 4 Active Pen [place] 32G X 4 MMIndications:Di abetes mellitus with [...] 1 stool per day. .. 4 Active documented as of this encounter (statuses as of 09/10/2024) Active Problems Problem Noted Date Diagnosed Date [...] as of this encounter (statuses as of 09/10/2024) Resolved Problems Problem Noted Date Diagnosed Date [...] as of this encounter (statuses as of 09/10/2024) Immunizations Name Administration Dates Next Due COVID-19 [...] encounter Miscellaneous Notes * Telephone Encounter - Sherry Young RN - 09/10/2024 11:29 AM EST Provider to address: Ophthalmology referral placed. Encounter to office to assist with sending referral. Reason for Call: Referral Contact: Telephone Call Contact Type: Referral(s) Placed Provider In-Basket: Yes Outcome: see above Face to face time spent with Patient (minutes): 0 Total Time including non face to face (minutes): 10 * Telephone Encounter - Fay Garrett LPN - 09/10/2024 11:19 AM EST Can referral be placed for patient? * Telephone Encounter - Taty Knight OSA - 09/07/2024 11:27 AM EST Patient calling in to check on the status of previous message. Patient Called within 48 hour timeframe. Reminded patient of 48 hour turn-around time. * Telephone Encounter - Maria Antonia Carson OSA - 09/06/2024 2:56 PM EST Has the patient been seen for this problem? (Y/N)?: Yes If No, an appt needs to be scheduled before a referral will be placed (exception: proceed with referral request if referral request is for a yearly routine appointment with speciality) Patient Name: Gilberto Valles Patient Primary care provider: Milton Mcdaniel MD Does this need to be an insurance referral (Y/N)?: No If Yes, does the insurance referral need to be placed into the [employer] system? 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 Date of visit: 09/14/24 documented in this encounter Plan of Treatment Upcoming Encounters Date Type Department Care Team (Latest Contact Info) Description 09/25/2024 3:00 PM EST Office Visit Hematology/Oncology [facility] [place] [address] [facility] [phone] Steph Romero CRNP [address] [place] [address] 10/03/2024 3:00 PM EST [facility] [place] [address] [place] [address] Milton Mcdaniel MD [address] [place] [address] 12/31/2024 2:00 PM EDT Hospital Encounter ENDO [facility], Endoscopy Room [facility] [address] [place] [phone] Kermit Arevalo, DO [address] [place] [address] 12/31/2024 2:00 PM EDT - 12/31/2024 2:30 PM EDT Surgery ENDO [facility], Endoscopy Room [facility] [address] [place] [phone] Kermit Arevalo, DO [address] [place] [address] COLONOSCOPY FLEXIBLE PROXIMAL DIAGNOSTIC Scheduled Procedures Name Priority Associated Diagnoses Date/Ti or COLONOSCOPY FLEXIBLE PROXIMAL DIAGNOSTIC Irritable bowel syndrome with both constipation and diarrhea 12/31/2024 2:00 PM EDT Scheduled Referrals Name Type Priority Associated Diagnoses Orde r Schedule ADULT/PEDS OPHTHALMOLOGY/OPTOM ETRY REFERRAL OP Referral Within 30 days (routine) Visit for eye and vision exam Ordered: 09/10/2024 Health Maintenance Due Date Last Done Comments Hepatitis C Screening 1968 Adult Wellness Visit 2015 Colonoscopy 04/05/2024 04/05/2019, 11/09/2016 Diabetic Eye Exam 06/04/2024 06/04/2023, , 02/04/2021, Additional history exists COVID-19 Vaccine ( season) 2024 09/23/2021, 01/13/2021, 12/23/2020 Albumin/Creatinine Ratio 09/02/202409/02/2 023, 09/16/2022, 09/09/2021, Additional history exists CKD PHOS USE SMARTSET 76530 09/02/202408/17, 03/08/2023, 09/16/2022 Diabetic Foot Exam 09/30/2024 09/30/2023, 0 10/25/2022, 12/15/2021, Additional history exists CKD HGB USE SMARTSET 79072 11/14/202411/14, 09/02/2023, 09/02/2023, Additional history exists GFR [...] this encounter Medical Devices Implanted Type Area Road Builder Device Identifier Shelf Expiration Date Model / Serial / Lot Reunion Rsa Center Screw 6.5mm X 24mm Implanted:Qty: 1 on 09/14/2017 by Dante Morris DO [place] [facility] [place]: Shoulder PEMA : ORTHOPAEDICS 05/03/2022 [id number] / / [id number] Reunion Rsa Humeral Cup 36mm X 4mm Implanted:Qty: 1 on 09/14/2017 by Dante Morris DO [place] [facility]: Shoulder PEMA : ORTHOPAEDICS 08/22/2022 [id number] / / [id number] Reunion Rsa 3.1mm Drill Bit Implanted:Qty: 1 on 09/14/2017 by Dante Morris DO [place] [facility]: Shoulder PEMA : ORTHOPAEDICS 03/24/2022 [id number] / / [id number] Reunion Rsa Glenoid Baseplate 28mm Implanted:Qty: 1 on 09/14/2017 by Dante Morris DO [place] [facility] [place]: Shoulder PEMA : ORTHOPAEDICS 08/01/2022 [id number] / / [id number] Reunion Rsa Peripheral Screw 4.5mm X 24mm Implanted:Qty: 1 on 09/14/2017 by Dante Morris DO [place] [facility] Right: Shoulder PEMA : ORTHOPAEDICS 06/30/2022 5570-1138 / / [id number] Reunion Rsa Peripheral Screw 4.5mm X 28mm Implanted:Qty: 1 on 09/14/2017 by Dante Morris DO [place] [facility] [place]: Shoulder PEMA : ORTHOPAEDICS 06/30/2022 [id number] / / [id number] Reunion Rsa Peripheral Screw 4.5mm X 20mm Implanted:Qty: 1 on 09/14/2017 by Dante Morris DO [place] [facility] [place]: Shoulder PEMA : ORTHOPAEDICS 04/13/2022 7574-3035 / / [id number] Reunion Rsa Concentric Glenosphere 36mm X 6mm Implanted:Qty: 1 on 09/14/2017 by Dante Morris DO [place] [facility] Right: Shoulder PEMA : ORTHOPAEDICS 06/16/2022 5573-C-36 06 / / [id number] Reunion Rsa Peripheral Screw Implanted:Qty: 1 on 09/14/2017 by Dante Morris DO [place] [facility] [place]: Shoulder PEMA : ORTHOPAEDICS 02/11/2021 [id number] / / [id number] Reunion Tsa Modular Humeral Stem Size11 X 123mm Implanted:Qty: 1 on 09/14/2017 by Dante Morris DO [place] [facility]: Shoulder PEMA : ORTHOPAEDICS 05/02/2022 5569-P-20 11 / / [id number] Reunion Rsa X3 Humeral Insert 36mm X 4mm Implanted:Qty: 1 on 09/14/2017 by Dante Morris DO [place] [facility] [place]: Shoulder PEMA : ORTHOPAEDICS 03/22/2022 5571-S-36 04 / / [id number] Baseplate #5 Tritanium - [id number] Implanted:Qty: 1 on 10/22/2019 by Nick Vang MD at OR [facility] Left: Knee PEMA : ORTHOPAEDICS 08/07/2024 5536-B-50 0 / / [id number] Knee Triathlon Ps Stb Bead 4 L - [id number] Implanted:Qty: 1 on 10/22/2019 by Nick Vang MD at OR [facility] Left: Knee PEMA : ORTHOPAEDICS 04/08/2024 5516-F-40 1 / / [id number] Insert Tib Sz5 Knee - [id number] Implanted:Qty: 1 on 10/22/2019 by Nick Vang MD at OR [facility] Left: Knee PEMA : ORTHOPAEDICS 12/13/2022 5532-G-51 1 / / [id number] Triathlon Tritanium Symmetric Patella Implanted:Qty: 1 on 10/22/2019 by Nick Vang MD at OR [facility] Left: Knee 04/21/2024 5556-L-39 / / [id number] documented as of this encounter Visit Diagnoses Diagnosis Visit for eye and vision exam- Primary Examination of eyes and vision Irritable bowel syndrome with both constipation and [...] Directives occurred with: Not Discussed Care Teams Outside Medical Sales Representative Relationship Specialty Start Date End Date February, Milton Alvarez MD [address] [place] [address] PCP - General Family Medicine 07/26/23 documented as of this encounter
--- OUTSIDE RECORDS SUMMARY | 2025-01-26 00:20 | External Medical Summary | Summary of Care ---
Author Name Unknown Organization [facility] Address [address] [place] [address] Phone [phone] Care Team Providers Care Facer Operator Name Role Phone Marcin Britton MD Primary Care Provider [phone] Reason for Visit * Reason Comments eRx-Medication Refill Encounter Details Date Type Department Care Team (Late st Contact Info) Description 09/18/2024 Refill [facility] [address] [place] [address] Marcin Britton MD [address] [place], [place] [id number] Type 2 diabetes mellitus with hemoglobin A1c goal of less than 7.0% ([facility]) Allergies Active Allergy Reactions Criticality Noted Date Comments Amoxicillin-Pot Clavulanate Hives 06/16/20 16 Clavulanic Acid Hives 07/09/2016 documented as of this encounter (statuses as of 09/19/2024) Medications Clindamycin Phosphate 1 % External Solution apply to the scalp 1-2 times daily as needed Active Clobetasol Propionate 0.05 % External Liquid apply to the scalp daily as needed when itchy 59 mL 2 12/16/19 22 Active Triamcinolone Acetonide 0.1 % External Cream (Aristocort) Apply to the back/arms/legs twice daily as needed 80 g 1 12/16/19 22 Active DigilabTouch Verio w/Device KitIndications: Diabetes mellitus with stage 3 chronic kidney disease (HCC) Use as directed . Use to test blood sugars once daily e11.22 1 Kit 1 12/31/19 22 Active OneTouch Verio In Vitro Strip Use to test blood sugar three times daily DX: E11.9 300 Strip 1 08/09/20 22 Active DigilabTouch Delica Lancets 33G Use as directed to test blood sugars three times per day E11.65 300 Each 1 08/09/20 22 Active Repaglinide 2 MG Oral Tablet [...] MORNING 90 Tablet 3 11/05/19 24 Active Fruit & Vegetable Daily Oral Capsule Take by mouth. Ac tive Neuro-Essential s Oral Tablet Take by mouth. A ctive Atorvastatin Calcium 40 MG Oral Tablet (Lipitor) [...] 180 Tablet 3 05/11/20 24 Active Pen [place] 32G X 4 MMIndications:D iabetes mellitus with [...] every 14 days DX E11.9 6 Each 07/12/20 24 Active FreeStyle Aida 3 Plus [...] goal of less than 7.0% ([facility]) TAKE 2 TABLETS BY MOUTH TWICE DAILY WITH MORNING AND EVENING MEALS 360 Tablet 3 09/19/20 24 Active metFORMIN HCl 500 MG Oral Tablet (Glucophage)Ind ications:Type 2 diabetes mellitus with hemoglobin A1c goal of less than 7.0% ([facility]) TAKE 2 TABLETS BY MOUTH TWICE DAILY WITH MORNING AND EVENING MEALS 360 Tablet 1 03/22/20 24 2023 Discontinued documented as of this encounter (statuses as of 09/19/2024) Active Problems Problem Noted Date Diagnosed Date [...] as of this encounter (statuses as of 09/19/2024) Resolved Problems Problem Noted Date Diagnosed Date [...] as of this encounter (statuses as of 09/19/2024) Immunizations Name Administration Dates Next Due COVID-19 [...] No 07/25/2023 Does the household have a ascension macombr source of income? (Household - for ages [...] Assessment Author No 10/22/2019 3:14 PM EST Cillo, Be th, RN * Do you have difficulty dressing [...] encounter Miscellaneous Notes * Telephone Encounter - Gilberto Gabriel [facility] - 09/19/2024 11:28 AM EST Signed Prescriptions: Disp Refills metFORMIN HCl 500 MG Oral Tablet (Glucopha*360 Ta*3 Sig: TAKE 2TABLETS BY MOUTH TWICE DAILY WITH MORNING AND EVENING MEALSAuthorizing Provider: MARCIN BRITTON User: GILBERTO GABRIEL documented in this encounter Plan of Treatment Upcoming Encounters Date Type Department Care Team (Latest Contact Info) Description 09/25/2024 3:00 PM EST Office Visit Hematology/Oncology [facility] [place] [address] [facility] [address] Steph Romero CRNP [address] [facility] [place] [address] 10/03/2024 3:00 PM EST [facility] [place] [address] [place] [address] [address] Marcin Britton MD [address] [place] [address] 12/31/2024 2:00 PM EDT Hospital Encounter ENDO [facility], Endoscopy Room [facility] [address] [place] [phone] Kermit Arevalo, DO [address] [place], [place] [address] 12/31/2024 2:00 PM EDT - 12/31/2024 2:30 PM EDT Surgery ENDO [facility], Endoscopy Room [facility] [address] [place], [place] [phone] Kermit Arevalo, DO [address] [place], [place] [address] COLONOSCOPY FLEXIBLE PROXIMAL DIAGNOSTIC Scheduled Procedures Name Priority Associated Diagnoses Date/Ti mn COLONOSCOPY FLEXIBLE PROXIMAL DIAGNOSTIC Irritable bowel syndrome with both constipation and diarrhea 12/31/2024 2:00 PM EDT Health Maintenance Due Date Last Done Comments Hepatitis C Screening 1968 Adult Wellness Visit 2015 Colonoscopy 04/05/2024 04/05/2019, 11/09/2016 Diabetic Eye Exam 06/04/2024 06/04/2023, , 02/04/2021, Additional history exists COVID-19 Vaccine ( season) 2024 09/23/2021, 01/13/2021, 12/23/2020 Albumin/Creatinine Ratio 09/02/20242 023, 09/16/2022, 09/09/2021, Additional history exists CKD PHOS USE SMARTSET 30197 09/02/202408/17, 03/08/2023, 09/16/2022 Diabetic Foot Exam 09/30/2024 09/30/2023, 0 10/25/2022, 12/15/2021, Additional history exists CKD HGB USE SMARTSET 41855 11/14/202411/14, 09/02/2023, 09/02/2023, Additional history exists GFR [...] this encounter Medical Devices Implanted Type Area Dental Technology Advisor Device Identifier Shelf Expiration Date Model / Serial / Lot Reunion Rsa Center Screw 6.5mm X 24mm Implanted:Qty: 1 on 09/14/2017 by Dante Morris DO at [place] [facility] Right: Shoulder PEMA : ORTHOPAEDICS 05/03/2022 9880-6348 / / [id number] Reunion Rsa Humeral Cup 36mm X 4mm Implanted:Qty: 1 on 09/14/2017 by Dante Morris DO at [place] [facility] Right: Shoulder PEMA : ORTHOPAEDICS 08/22/2022 9693-4679 / / [id number] Reunion Rsa 3.1mm Drill Bit Implanted:Qty: 1 on 09/14/2017 by Dante Morris DO at [place] [facility] Right: Shoulder PEMA : ORTHOPAEDICS 03/24/2022 1315-6776 / / [id number] Reunion Rsa Glenoid Baseplate 28mm Implanted:Qty: 1 on 09/14/2017 by Dante Morris DO at [place] [facility] Right: Shoulder PEMA : ORTHOPAEDICS 08/01/2022 5660-5708 / / [id number] Reunion Rsa Peripheral Screw 4.5mm X 24mm Implanted:Qty: 1 on 09/14/2017 by Dante Morris DO at [place] [facility] Right: Shoulder PEMA : ORTHOPAEDICS 06/30/2022 4463-6157 / / [id number] Reunion Rsa Peripheral Screw 4.5mm X 28mm Implanted:Qty: 1 on 09/14/2017 by Dante Morris DO at [place] [facility] Right: Shoulder PEMA : ORTHOPAEDICS 06/30/2022 6026-3376 / / [id number] Reunion Rsa Peripheral Screw 4.5mm X 20mm Implanted:Qty: 1 on 09/14/2017 by Dante Morris DO at [place] [facility] Right: Shoulder PEMA : ORTHOPAEDICS 04/13/2022 5982-5281 / / [id number] Reunion Rsa Concentric Glenosphere 36mm X 6mm Implanted:Qty: 1 on 09/14/2017 by Dante Morris DO at [place] [facility] Right: Shoulder PEMA : ORTHOPAEDICS 06/16/2022 5573-C-36 06 / / [id number] Reunion Rsa Peripheral Screw Implanted:Qty: 1 on 09/14/2017 by Dante Morris DO at OR [facility] Right: Shoulder PEMA : ORTHOPAEDICS 02/11/2021 8966-8450 / / [id number] Reunion Tsa Modular Humeral Stem Size11 X 123mm Implanted:Qty: 1 on 09/14/2017 by Dante Morris DO at [place] [facility] Right: Shoulder PEMA : ORTHOPAEDICS 05/02/2022 5569-P-20 11 / / [id number] Reunion Rsa X3 Humeral Insert 36mm X 4mm Implanted:Qty: 1 on 09/14/2017 by Dante Morris DO at [place] [facility] Right: Shoulder PEMA : ORTHOPAEDICS 03/22/2022 5571-S-36 04 / / [id number] Baseplate #5 Tritanium - [id number] Implanted:Qty: 1 on 10/22/2019 by Nick Vang MD at OR [facility] Left: Knee PEMA : ORTHOPAEDICS 08/07/2024 5536-B-50 0 / / [id number] Knee Triathlon Ps Stb Bead 4 L - [id number] Implanted:Qty: 1 on 10/22/2019 by Nick Vang MD at OR [facility] Left: Knee PEMA : ORTHOPAEDICS 04/08/2024 5516-F-40 1 / / [id number] Insert Tib Sz5 Knee - [id number] Implanted:Qty: 1 on 10/22/2019 by Nick Vang MD at OR [facility] Left: Knee PEMA : ORTHOPAEDICS 12/13/2022 5532-G-51 1 / / [id number] Triathlon Tritanium Symmetric Patella Implanted:Qty: 1 on 10/22/2019 by Nick Vang MD at OR [facility] Left: Knee 04/21/2024 5556-L-39 1 [...] Directives occurred with: Not Discussed Care Teams Facer Operator Relationship Specialty Start Date End Date February, Marcin Alvarez MD [address] [place] [address] PCP - General Family Medicine 07/26/23 documented as of this encounter
--- OUTSIDE RECORDS SUMMARY | 2025-01-26 00:20 | External Medical Summary ---
Author Name Unknown Address Unknown Organization K01:LABORATORY [facility] [address] [facility] [address] Laboratory Report Ordering Provider Test Date Status MUNIRA GALLEGOS 09/25/2024 15:32:06 Final Observation Date Value Abnormality Reference (Units ) Status IgG 09/25/2024 15:32:06 [phone] ( mg/dL) Final IgA 09/25/2024 15:32:06 214 70-400 (mg /dL) Final IgM 09/25/2024 15:32:06 84 40-230 (mg /dL) Final Performing Location LABORATORY C - [address] [place] [address]
--- OUTSIDE RECORDS SUMMARY | 2025-01-26 00:20 | External Medical Summary | Summary of Care ---
Author Name Unknown Organization [facility] Address [address] [facility] [place] [address] Phone [phone] Care Team Providers Care Die Stamper Name Role Phone Milton Mcdaniel MD Primary Care Provider [phone] Reason for Visit * Reason Onset Date Comments Test Results Lab 08/16/2024 Encounter Details Date Type Department Care Team (Late st Contact Info) Description 08/16/2024 Telephone Gastroenterology, [facility] [address] [place] [address] [place] CRNP [address] [place] [address] Test Results Lab Allergies Active Allergy Reactions Criticality Noted Date Comments Amoxicillin-Pot Clavulanate Hives 06/16/20 16 Clavulanic Acid Hives 07/09/2016 documented as of this encounter (statuses as of 08/20/2024) Medications Medication Sig Dispensed Refills Start Date End Date Status Clindamycin Phosphate 1 % External Solution apply to the scalp 1-2 times daily as needed Active Clobetasol Propionate 0.05 % External Liquid apply to the scalp daily as needed when itchy 59 mL 2 12/15/2021 Active Triamcinolone Acetonide 0.1 % External Cream (Aristocort) Apply to the back/arms/legs twice daily as needed 80 g 1 12/15/2021 Active OneTouch VerSyntervention w/Device KitIndications:Diab etes mellitus with stage 3 chronic kidney disease (HCC) Use as directed . Use to test blood sugars once daily e11.22 1 Kit 1 12/30/2021 Active Weblo.comToBroadSoft Verio In Vitro Strip Use to test blood sugar three times daily DX: E11.9 300 Strip 1 08/09/2022 Active Freshmilk NetTV Delica Lancets 33G Use as directed to test blood sugars three times per day E11.65 300 Each 1 08/09/2022 Active Repaglinide 2 MG Oral Tablet (Prandin)Indication s:Diabetes mellitus with stage 3 chronic kidney disease (HCC) Take 2 tablets by mouth prior to meals 540 Tablet 1 09/10/2022 Active Additional Information Patient taking differently: 2 mg Oral BEFORE BREAKFAST, Take 2 tablets by mouth prior to meals, Reported on 03/10/2023 Ketoconazole 2 % External Shampoo (Nizoral) Apply topically to affected area every 3 days. Apply to the chest/arms/back/sc alp. Leave on for 5 min then rinse. 120 mL 2 07/26/2023 Active Tamsulosin HCl 0.4 MG Oral Capsule (Flomax) Take 1 Capsule by mouth every night at bedtime. 90 Capsule 3 08/17/2023 Active Insulin Glargine Solostar 100 UNIT/ML Subcutaneous Solution Pen-injector (Lantus SoloStar)Indication s:Diabetes mellitus with stage 3 chronic kidney disease (HCC) Inject 23 Units under the skin in the morning. Dx E 11.9. 30 mL 2 09/15/2023 Active Trulicity 4.5 MG/0.5ML Subcutaneous Solution Pen-injector (Dulaglutide)Indica tions:Diabetes mellitus with stage 3 chronic kidney disease (HCC) INJECT 4.5MG UNDER THE SKIN ONCE A WEEK 6 mL 3 09/30/2023 Active hydroCHLOROthiazide 25 MG Oral Tablet (Hydrodiuril) TAKE 1 TABLET IN THE MORNING 90 Tablet 3 11/05/2023 Active Fruit & Vegetable Daily Oral Capsule Take by mouth. Ac tive Neuro-Essentials Oral Tablet Take by mouth. Active Atorvastatin Calcium 40 MG Oral Tablet (Lipitor) TAKE 1 TABLET DAILY 90 Tablet 2 01/18/2024 Active metFORMIN HCl 500 MG Oral Tablet (Glucophage)Indicat ions:Type 2 diabetes mellitus with hemoglobin A1c goal of less than 7.0% (HCC) TAKE 2 TABLETS BY MOUTH TWICE DAILY WITH MORNING AND EVENING MEALS 360 Tablet 1 03/22/2024 Active Omeprazole 20 MG Oral Capsule Delayed Release (PriLOSEC) TAKE 1 CAPSULE IN THE MORNING 1 HOUR BEFORE THE FIRST MEAL OF THE DAY 90 Capsule 1 04/02/2024 Active Metoprolol Tartrate 25 MG Oral Tablet (Lopressor) TAKE 1 TABLET IN THE MORNING AND 1 TABLET BEFORE BEDTIME 180 Tablet 3 05/11/2024 Active Pen [place] 32G X 4 MMIndications:Diabe melanie mellitus with stage 3 chronic kidney disease (HCC) Use as directed. Once daily with Lantus insulin DX E11.9 - substitution permissible for both size/length as well as brand that are covered by insurance and in stock with pharmacy 100 Each 3 05/29/2024 Active Jardiance 25 MG Oral Tablet (Empagliflozin) TAKE 1 TABLET BY MOUTH DAILY 90 Tablet 3 06/20/2024 Active FreeStyle Aida 3 SensorIndications:D iabetes mellitus with stage 3 chronic kidney disease (HCC) Use as directed. Replace sensor every 14 days DX E11.9 6 Each 3 07/12/2024 Active FreeStyle Aida 3 Plus Sensor Replace sensor every 14 days DX E11.9 6 Each 3 07/16/2024 Active Psyllium 58.6 % Oral Packet (Metamucil) Take 1 Packet by mouth in the morning. 08/15/2024 Active Polyethylene Glycol 3350 17 GM/SCOOP Oral Powder (MiraLax) Take 17 g by mouth in the morning. One cap full in juice, to effect 1 stool per day. .. 08/15/2024 Active documented as of this encounter (statuses as of 08/20/2024) Active Problems Problem Noted Date Diagnosed Date [...] as of this encounter (statuses as of 08/20/2024) Resolved Problems Problem Noted Date Diagnosed Date [...] long-term current use of insulin 05/28/2018 07/25/2019 Overview: Complication on list Impotence of organic origin 05/28/2018 11/28/2018 Lumbago 05/28/2018 07/18/2018 Osteoarthritis 05/28/2018 11/28/2018 Peptic ulcer disease 05/28/2018 019 Rotator cuff arthropathy, right 12/12/2017 11/28/2018 Diverticulosis of colon 11/09/2016 10/11/2017 Overview: By colonosopy Hemorrhoid 11/09/2016 11/28/2018 Overview: By colonoscopy documented as of this encounter (statuses as of 08/20/2024) Immunizations Name Administration Dates Next Due COVID-19 mRNA, LNP-s, No Pre serve, 2-Dose Series (Onzo) 09/23/2021,01/13/2021,12/23/2020 Pneumococcal Conjugate Vacc, 13 Valent (Prevnar) [...] 18 years and over) Not on file 3 Are you (or your family) ana [...] Assigned at Male 07/25/2023 6:49 PM EDT Gender Identity Male 07/25/2023 6:53 PM EDT Sexual Orientation Straight 07/25/2023 6: 53 PM EDT Job Start Date Occupation Industry Not on file Not on file Not on file documented as of this encounter Functional Status Functional Status Response Date of Assess ment Are you deaf or do you have serious difficulty hearing? No-b/l hearing aides 10/22/2019 Are you blind or do you have serious difficulty seeing, even when wearing glasses? No 10/22/19 20 Do you have serious difficul ty walking or climbing stairs? (5 years old or older) No 10/22/2019 Do you have difficulty dress ing or bathing? (5 years old or older) No 10/22/2019 Because of a physical, menta l, or emotional condition, do you have difficulty doing errands alone such as visiting a doctor s office or shopping? (15 years old or older) No 10/22/19 20 Cognitive Status Response Date of Assessm ent Because of a physical, menta l, or emotional condition, do you have serious difficulty concentrating, remembering, or making decisions? (5 years old or older) No 10/22/2019 documented as of this encounter Miscellaneous Notes * Telephone Encounter - Jes Velez, PABLO - 08/20/2024 11:15 AM EST Schedule is full at this time. Placed msg on snapboard to add EGD if anyone cx's PABLO Calhoun 08/20/2024 11:16 AM * Addendum Note - Scott Park CRNP - 08/20/2024 8:23 AM ESTAddended by: SCOTT PARK on: 08/20/2024 08:23 AM Modules accepted: Orders * Telephone Encounter - [place] CRNP - 08/20/2024 8:23 AM EST Patient is scheduled for a colonoscopy on 12/31/2024. Can we please add on an EGD. Orders placed. Patient agreeable. * Telephone Encounter - Kirstin Danielson LPN - 08/17/2024 12:29 PM EDT Spoke with Gilberto. He is agreeable to EGD with Bx. * Telephone Encounter - Stacey Allison OSA - 08/17/2024 10:28 AM EDT Patient is calling back because he is unable to open his [employer] message so he is calling backto speak with the nurse in regards to the message and what he needs to do * Telephone Encounter - Kirstin Danielson LPN - 08/16/2024 1:44 PM EDT Spoke to Gilberto. Results and recommendations given. He is driving right now, so unable to concentrateon recommendations. Informed him that I would send a MyG message and he can think about his decision. * Telephone Encounter - [place] Park CRNP - 08/16/2024 12:58 PM EDT Equivocal TTG, unable to rule out celiac. Recommend EGD with small-bowel biopsy. If patient agreeable will place order. documented in this encounter Plan of Treatment Upcoming Encounters Date Type Department Care Team (Latest Contact Info) Description 09/07/2024 11:15 AM EST Office Visit Hematology/Oncology [facility] [place] [address] [facility] [place] [phone] Héctor Bhatti MD [address] [facility] [place] [address] 10/03/2024 3:00 PM EST Office Visit [facility] [address] [place] [address] FebruaryMilton MD [address] [place] [address] 12/31/2024 2:00 PM EDT Hospital Encounter ENDO [facility], Endoscopy Room [facility] [address] [place] [phone] Kermit Arevalo, [address] [place] [address] 12/31/2024 2:00 PM EDT - 12/31/2024 2:30 PM EDT Surgery ENDO [facility], Endoscopy Room [facility] [address] [place] [phone] Kermit Arevalo, [address] [place] [address] COLONOSCOPY FLEXIBLE PROXIMAL DIAGNOSTIC Scheduled Orders Name Type Priority Associated Diagnoses Orde r Schedule EGD, FLEXIBLE, DIAGNOSTIC Procedures Routine Irritable bowel syndrome with both constipation and diarrhea Ordered: 08/20/2024 Scheduled Procedures Name Priority Associated Diagnoses Date/Ti [...] Additional history exists CKD PHOS USE SMARTSET 59716 09/02/202408/17, 03/08/2023, 09/16/2022 Diabetic Foot Exam 09/30/2024 09/30/2023, 0 10/25/2022, 12/15/2021, Additional history exists CKD HGB USE SMARTSET 66688 11/14/202411/14, 09/02/2023, 09/02/2023, Additional history exists GFR [...] this encounter Medical Devices Implanted Type Area Plaster Maker Device Identifier Shelf Expiration Date Model / Serial / Lot Reunion Rsa Center Screw 6.5mm X 24mm Implanted:Qty: 1 on 09/14/2017 by Dante Morris DO [place] [facility] [place]: Shoulder PEMA : ORTHOPAEDICS 05/03/2022 [id number] / / [id number] Reunion Rsa Humeral Cup 36mm X 4mm Implanted:Qty: 1 on 09/14/2017 by Dante Morris DO [place] [facility] [place]: Shoulder PEMA : ORTHOPAEDICS 08/22/2022 7411-1419 / / [id number] Reunion Rsa 3.1mm Drill Bit Implanted:Qty: 1 on 09/14/2017 by Dante Morris DO [place] [facility] [place]: Shoulder PEMA : ORTHOPAEDICS 03/24/2022 4914-4987 / / [id number] Reunion Rsa Glenoid Baseplate 28mm Implanted:Qty: 1 on 09/14/2017 by Dante Morris DO [place] [facility] [place]: Shoulder PEMA : ORTHOPAEDICS 08/01/2022 4210-8066 / / [id number] Reunion Rsa Peripheral Screw 4.5mm X 24mm Implanted:Qty: 1 on 09/14/2017 by Dante Morris DO [place] [facility] [place]: Shoulder PEMA : ORTHOPAEDICS 06/30/2022 5089-5100 / / [id number] Reunion Rsa Peripheral Screw 4.5mm X 28mm Implanted:Qty: 1 on 09/14/2017 by Dante Morris DO [place] [facility] [place]: Shoulder PEMA : ORTHOPAEDICS 06/30/2022 4616-3163 / / [id number] Reunion Rsa Peripheral Screw 4.5mm X 20mm Implanted:Qty: 1 on 09/14/2017 by Dante Morris DO [place] [facility] [place]: Shoulder PEMA : ORTHOPAEDICS 04/13/2022 6012-8088 / / [id number] Reunion Rsa Concentric Glenosphere 36mm X 6mm Implanted:Qty: 1 on 09/14/2017 by Dante Morris DO [place] [facility] [place]: Shoulder PEMA : ORTHOPAEDICS 06/16/2022 5573-C-36 06 / / [id number] Reunion Rsa Peripheral Screw Implanted:Qty: 1 on 09/14/2017 by Dante Morris DO [place] [facility] [place]: Shoulder PEMA : ORTHOPAEDICS 02/11/2021 1872-7945 / / [id number] Reunion Tsa Modular Humeral Stem Size11 X 123mm Implanted:Qty: 1 on 09/14/2017 by Dante Morris DO [place] [facility] [place]: Shoulder PEMA : ORTHOPAEDICS 05/02/2022 5569-P-20 11 / / [id number] Reunion Rsa X3 Humeral Insert 36mm X 4mm Implanted:Qty: 1 on 09/14/2017 by Dante Morris DO [place] [facility] [place]: Shoulder PEMA : ORTHOPAEDICS 03/22/2022 5571-S-36 04 / / [id number] Baseplate #5 Tritanium - [id number] Implanted:Qty: 1 on 10/22/2019 by Nick Vang MD at OR [facility] Left: Knee PEMA : ORTHOPAEDICS 08/07/2024 5536-B-50 0 / / [id number] Knee Triathlon Ps Stb Bead 4 L - [id number] Implanted:Qty: 1 on 10/22/2019 by Nick Vang MD at OR [facility] Left: Knee PEMA : ORTHOPAEDICS 04/08/2024 5516-F-40 [id number] Insert Tib Sz5 Knee - [id number] Implanted:Qty: 1 on 10/22/2019 by Nick Vang MD at OR [facility] Left: Knee PEMA : ORTHOPAEDICS 12/13/2022 5532-G-51 [id number] Triathlon Tritanium Symmetric Patella Implanted:Qty: 1 on 10/22/2019 by Nick Vang MD at OR [facility] Left: Knee 04/21/2024 5556-L-39 K12T documented as of this encounter Visit Diagnoses Diagnosis Irritable bowel syndrome with both constipation and diarrhea- Primary Irritable bowel syndrome with both constipation [...] Directives occurred with: Not Discussed Care Teams Die Stamper Relationship Specialty Start Date End Date February, Milton Alvarez MD [address] [place] [facility] [place] [address] PCP - General Family Medicine 07/26/23 documented as of this encounter
--- OUTSIDE RECORDS SUMMARY | 2025-01-26 00:20 | External Medical Summary ---
Author Name Unknown Address Unknown Organization K01:[facility] [place] [address] [facility] [address] Laboratory Report Ordering Provider Test Date Status MUNIRA GALLEGOS 09/25/2024 15:32:06 Final Observation Date Value Abnormality Reference (Units ) Status Orlovista light chains, Free, Serum 09/25/2024 15:32:06 29.32 Above high normal 3.30-19.40 (mg/L) Final Lambda light chains, free, Serum 09/25/2024 15:32:06 135.37 Above high normal 5.71-26.30 (mg/L) Final KAPPA LAMBDA FLC RATIO 09/25/2024 15:32:06 0.22 Below low normal 0.26-1.65 Final Performing Location LAB[facility]ATORY [facility] [place] - [facility] [address] [facility] [address]
--- OUTSIDE RECORDS SUMMARY | 2025-01-26 00:20 | External Medical Summary ---
Author Name Unknown Address Unknown Organization K09:[facility] [place] [address] Laboratory Report Ordering Provider Test Date Status MUNIRA GALLEGOS 09/25/2024 15:32:06 Final Observation Date Value Abnormality Reference (Units ) Status WBC, Total 09/25/2024 15:32:06 8.76 4.00-10.8 0 (K/uL) Final RBC 09/25/2024 15:32:06 4.76 4.50-5.25 (M/uL) Final Hemoglobin 09/25/2024 15:32:06 15.1 14.0-16.8 (g/dL) Final HCT 09/25/2024 15:32:06 44.9 40.0-48.4 (%) Final MCV 09/25/2024 15:32:06 94.3 82.0-99.5 (fL) Final MCH 09/25/2024 15:32:06 31.7 27.0-34.0 (pg) Final MCHC 09/25/2024 15:32:06 33.6 32.0-36.0 (g/dL) Final RDW 09/25/2024 15:32:06 13.3 11.5-15.5 (%) Final Platelets 09/25/2024 15:32:06 156 140-400 (K /uL) Final MPV 09/25/2024 15:32:06 11.9 6.6-11.1 ( fL) Final Performing Location [facility] [place] [address]
--- OUTSIDE RECORDS SUMMARY | 2025-01-26 00:20 | External Medical Summary ---
Author Name Unknown Address Unknown Organization K09:[facility] [place] [address] [place] [address] Laboratory Report Ordering Provider Test Date Status MUNIRA GALLEGOS 09/25/2024 15:32:06 Final Observation Date Value Abnormality Reference (Units ) Status BUN 09/25/2024 15:32:06 25 Above high normal 6-20 (mg/dL) Final Creatinine 09/25/2024 15:32:06 1.1 0.6-1.2 (mg/dL) Final Glomerular filtration rate/1.73 sq M.predicted [Volume Rate/Area] in Serum, Plasma or Blood by Creatinine-based formula (CKD-EPI) 09/25/2024 15:32:06 72 >=60 (mL/min) Final eGFR is calculated based on the CKD-EPI 2020 equation. Sodium 09/25/2024 15:32:06 136 135-146 (m mol/L) Final Potassium 09/25/2024 15:32:06 4.4 3.5-5.1 (m mol/L) Final Cl 09/25/2024 15:32:06 96 Below low normal 98- 107 (mmol/L) Final CO2 09/25/2024 15:32:06 26 22-32 (mmo l/L) Final Anion gap 09/25/2024 15:32:06 14 7-15 (mmol /L) Final Glucose 09/25/2024 15:32:06 117 70-120 (mg /dL) Final Albumin 09/25/2024 15:32:06 4.4 3.8-5.0 (g /dL) Final AST (Aspartate aminotransferase) 09/25/2024 15:32:06 29 10-50 (U/L) Fin al Alk Phos 09/25/2024 15:32:06 71 35-130 (U/ L) Final Bilirubin, Total 09/25/2024 15:32:06 0.3 <=1 .2 (mg/dL) Final Calcium 09/25/2024 15:32:06 9.7 8.4-10.2 ( mg/dL) Final Protein 09/25/2024 15:32:06 7.6 6.0-8.3 (g /dL) Final ALT (Alanine aminotransferase) 09/25/2024 15:32:06 30 10-50 (U/L) Abilio lacey Performing Location [facility] [place] [address] [place] [address]
--- OUTSIDE RECORDS SUMMARY | 2025-01-26 00:20 | External Medical Summary | Summary of Care ---
Author Name Unknown Organization [facility] Address [address] [facility] [place] [address] Phone [phone] Care Team Providers Care Soda Column Operator Name Role Phone Milton Mcdaniel MD Primary Care Provider [phone] Reason for Visit * Reason Onset Date Comments Test Results Lab 08/16/2024 Encounter Details Date Type Department Care Team (Late st Contact Info) Description 08/16/2024 Telephone Gastroenterology, [facility] [address] [place] [address] [place] CRNP [address] [place] [address] Test Results Lab Allergies Active Allergy Reactions [...] needed 80 g 1 12/15/2021 Active OneTouch VerHydrophi w/Device KitIndications:Diab etes mellitus with stage 3 chronic kidney disease (HCC) Use as directed . Use to test blood sugars once daily e11.22 1 Kit 1 12/30/2021 Active Magma HQToSwipp Verio In Vitro Strip Use to test blood sugar three times daily DX: E11.9 300 Strip 1 08/09/2022 Active Kallik Delica Lancets 33G Use as directed to [...] BEDTIME 180 Tablet 3 05/11/2024 Active Pen [place] 32G X 4 MMIndications:Diabe melanie mellitus with [...] mRNA, LNP-s, No Pre serve, 2-Dose Series (Ubalo) 09/23/2021,01/13/2021,12/23/2020 Pneumococcal Conjugate Vacc, 13 Valent (Prevnar) [...] as of this encounter Miscellaneous Notes * Addendum Note - RenaScott CRNP - 08/20/2024 8:23 AM ESTAddended by: [...] because he is unable to open his [employer] message so he is calling backto speak with the nurse in regards to the message and what he needs to do * Telephone Encounter - Kirstin Danielson LPN - 08/16/2024 1:44 PM EDT Spoke to Gilberto. Results and recommendations given. He is driving right now, so unable to concentrateon recommendations. Informed him that I would send a [employer] message and he can think about his decision. * Telephone Encounter - [place] CRNP - 08/16/2024 12:58 PM EDT Equivocal TTG, unable to rule out celiac. Recommend EGD with small-bowel biopsy. If patient agreeable will place order. documented in this encounter Plan of Treatment Upcoming Encounters Date Type Department Care Team (Latest Contact Info) Description 09/07/2024 11:15 AM EST Office Visit Hematology/Oncology [facility] [place] [address] [facility] [place] [phone] Héctor Bhatti MD [address] [facility] [place], [place] [address] 10/03/2024 3:00 PM EST Office Visit [facility] [address] [place] [address] FebruaryMilton MD [address] [place] [address] 12/31/2024 2:00 PM EDT Hospital Encounter ENDO [facility], Endoscopy Room [facility] [address] [place] [phone] Kermit Arevalo, DO [address] [place] [address] 12/31/2024 2:00 PM EDT - 12/31/2024 2:30 PM EDT Surgery ENDO [facility], Endoscopy Room [facility] [address] [place] [phone] Kermit Arevalo DO [address] [place] [address] COLONOSCOPY FLEXIBLE PROXIMAL DIAGNOSTIC Scheduled Orders Name [...] Additional history exists CKD PHOS USE SMARTSET 86893 09/02/202408/17, 03/08/2023, 09/16/2022 Diabetic Foot Exam 09/30/2024 09/30/2023, 0 10/25/2022, 12/15/2021, Additional history exists CKD HGB USE SMARTSET 61487 11/14/202411/14, 09/02/2023, 09/02/2023, Additional history exists GFR [...] this encounter Medical Devices Implanted Type Area Web Press Operator Apprentice Device Identifier Shelf Expiration Date Model / Serial / Lot Reunion Rsa Center Screw 6.5mm X 24mm Implanted:Qty: 1 on 09/14/2017 by Dante Morris DO at OR [facility] [place] Right: Shoulder PEMA : ORTHOPAEDICS 05/03/2022 5612-9630 / / [id number] Reunion Rsa Humeral Cup 36mm X 4mm Implanted:Qty: 1 on 09/14/2017 by Dante Morris DO at OR [facility] [place] Right: Shoulder PEMA : ORTHOPAEDICS 08/22/2022 1527-9476 / / [id number] Reunion Rsa 3.1mm Drill Bit Implanted:Qty: 1 on 09/14/2017 by Dante Morris DO at OR [facility] [place] Right: Shoulder PEMA : ORTHOPAEDICS 03/24/2022 3245-5749 / / [id number] Reunion Rsa Glenoid Baseplate 28mm Implanted:Qty: 1 on 09/14/2017 by Dante Morris DO at OR [facility] [place] Right: Shoulder PEMA : ORTHOPAEDICS 08/01/2022 6168-9520 / / [id number] Reunion Rsa Peripheral Screw 4.5mm X 24mm Implanted:Qty: 1 on 09/14/2017 by Dante Morris DO at OR [facility] Right: Shoulder PEMA : ORTHOPAEDICS 06/30/2022 1336-2064 / / [id number] Reunion Rsa Peripheral Screw 4.5mm X 28mm Implanted:Qty: 1 on 09/14/2017 by Dante Morris DO at OR [facility] Right: Shoulder PEMA : ORTHOPAEDICS 06/30/2022 0297-1400 / / [id number] Reunion Rsa Peripheral Screw 4.5mm X 20mm Implanted:Qty: 1 on 09/14/2017 by Dante Morris DO at OR [facility] [place] Right: Shoulder PEMA : ORTHOPAEDICS 04/13/2022 5198-9662 / / [id number] Reunion Rsa Concentric Glenosphere 36mm X 6mm Implanted:Qty: 1 on 09/14/2017 by Dante Morris DO at OR [facility] [place] Right: Shoulder PEMA : ORTHOPAEDICS 06/16/2022 5573-C-36 06 / / [id number] Reunion Rsa Peripheral Screw Implanted:Qty: 1 on 09/14/2017 by Dante Morris DO at OR [facility] [place] Right: Shoulder PEMA : ORTHOPAEDICS 02/11/2021 6304-5110 / / [id number] Reunion Tsa Modular Humeral Stem Size11 X 123mm Implanted:Qty: 1 on 09/14/2017 by Dante Morris DO at OR [facility] [place] Right: Shoulder PEMA : ORTHOPAEDICS 05/02/2022 5569-P-20 11 / / [id number] Reunion Rsa X3 Humeral Insert 36mm X 4mm Implanted:Qty: 1 on 09/14/2017 by Dante Morris DO at OR [facility] Right: Shoulder PEMA : ORTHOPAEDICS 03/22/2022 5571-S-36 04 / / [id number] Baseplate #5 Tritanium - [id number] Implanted:Qty: 1 on 10/22/2019 by Nick Vang MD at OR [facility] Left: Knee PEMA : ORTHOPAEDICS 08/07/2024 5536-B-50 0 / / [id number] Knee Triathlon Ps Stb Bead 4 L - [id number] Implanted:Qty: 1 on 10/22/2019 by Nick Vang MD at OR [facility] Left: Knee PEMA : ORTHOPAEDICS 04/08/2024 5516-F-40 1 / / [id number] Insert Tib Sz5 Knee - [id number] Implanted:Qty: 1 on 10/22/2019 by Nick Vang MD at OR [facility] Left: Knee PEMA : ORTHOPAEDICS 12/13/2022 5532-G-51 1 / / [id number] Triathlon Tritanium Symmetric Patella Implanted:Qty: 1 on 10/22/2019 by Nick Vang MD at OR [facility] Left: Knee 04/21/2024 5556-L-39 1 K12T documented as of this encounter Visit [...] Directives occurred with: Not Discussed Care Teams Soda Column Operator Relationship Specialty Start Date End Date February, Milton Alvarez MD [address] [facility] [place] [address] PCP - General Family Medicine 07/26/23 documented as of this encounter
--- OUTSIDE RECORDS SUMMARY | 2025-01-26 00:20 | External Medical Summary | Summary of Care ---
Author Name Unknown Organization [facility] Address [address] [place] [address] Phone [phone] Care Team Providers Care Barrel Lapper Name Role Phone Milton Mcdaniel MD Primary Care Provider [phone] Reason for Referral * Evaluate & Treat - Unlimited Visits (Within 30 days (routine)) - Authorized Specialty Diagnoses / Procedures Referred By Nikhil polanco Referred To Contact Ophthalmology Diagnoses Visit for eye and vision exam Milton Mcdaniel MD [address] [place] [address] Phone: tel: fax: Referral ID Status Reason Start Date Expiration Date Visits Requested Visits Authorized [id number] Authorized Specialty Services Required 4 [phone] Question Answer Referral Priority Within 30 days (routine) Where should this appointment be scheduled? 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 * Reason Onset Date Comments Referral 09/06/2024 Encounter Details Date Type Department Care Team (Late st Contact Info) Description 09/06/2024 Telephone [facility] [address] [place] [address] Milton Mcdaniel MD [address] [place] [address] Referral Allergies Active Allergy Reactions Criticality Noted Date Comments Amoxicillin-Pot Clavulanate Hives 06/16/20 16 Clavulanic Acid Hives 07/09/2016 documented as of this encounter (statuses as of 09/17/2024) Medications Clindamycin Phosphate 1 % External Solution [...] BEDTIME 180 Tablet 3 4 Active Pen Lomita 32G X 4 MMIndications:Di abetes mellitus with [...] to effect 1 stool per day. .. Active documented as of this encounter (statuses as of 09/17/2024) Active Problems Problem Noted Date Diagnosed Date [...] as of this encounter (statuses as of 09/17/2024) Resolved Problems Problem Noted Date Diagnosed Date [...] as of this encounter (statuses as of 09/17/2024) Immunizations Name Administration Dates Next Due COVID-19 [...] encounter Miscellaneous Notes * Telephone Encounter - Taty Baires OSA - 09/17/2024 4:02 PM EST Called patient to get more info as there was NO NAME NO PHONE OR NO FAX NUMBER PROVIDED. I can't send a referral to somewhere that there is no information on where to send it. Called patient and he states he no longer needs the referral. 09/17/2024 * Telephone Encounter - Sherry Young RN [...] time. * Telephone Encounter - Maria Antonia aCrson OSA - 09/06/2024 2:56 PM EST Has [...] referral need to be placed into the [facility] system? 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 Date of visit: 09/14/24 documented in this encounter Plan of Treatment Upcoming Encounters Date Type Department Care Team (Latest Contact Info) Description 09/25/2024 3:00 PM EST Office Visit Hematology/Oncology State Katya Yoder [address] [place] [address] Steph Romero CRNP [address] [place] [address] [place] [address] 10/03/2024 3:00 PM EST Office Visit [facility] [address] [phone] FebruaryMilton MD [address] [place] [address] 12/31/2024 2:00 PM EDT Hospital Encounter ENDO [facility], Endoscopy Room [facility] [address] [place], [place] [phone] Kermit Arevalo, DO [address] [place] [address] 12/31/2024 2:00 PM EDT - 12/31/2024 2:30 PM EDT Surgery ENDO [facility], Endoscopy Room [facility] [address] [place] [phone] Kermit Arevalo, DO [address] [place] [address] COLONOSCOPY FLEXIBLE PROXIMAL DIAGNOSTIC Scheduled Procedures Name [...] Additional history exists CKD PHOS USE SMARTSET 06500 09/02/202408/17, 03/08/2023, 09/16/2022 Diabetic Foot Exam 09/30/2024 09/30/2023, 0 10/25/2022, 12/15/2021, Additional history exists CKD HGB USE SMARTSET 44748 11/14/202411/14, 09/02/2023, 09/02/2023, Additional history exists GFR [...] encounter Medical Devices Implanted Type Area Plaster Mold Maker Device Identifier Shelf Expiration Date Model / Serial / Lot Reunion Rsa Center Screw 6.5mm X 24mm Implanted:Qty: 1 on 09/14/2017 by Dante Morris DO [place] [facility] [place]: Shoulder PEMA : ORTHOPAEDICS 05/03/2022 5708-4100 / / [id number] Reunion Rsa Humeral Cup 36mm X 4mm Implanted:Qty: 1 on 09/14/2017 by Dante Morris DO at [place] [facility] [place] Right: Shoulder PEMA : ORTHOPAEDICS 08/22/2022 2570-5743 / / [id number] Reunion Rsa 3.1mm Drill Bit Implanted:Qty: 1 on 09/14/2017 by Dante Morris DO OR [facility] [place] Right: Shoulder PEMA : ORTHOPAEDICS 03/24/2022 1814-3434 / / [id number] Reunion Rsa Glenoid Baseplate 28mm Implanted:Qty: 1 on 09/14/2017 by Dante Morris DO OR [facility] [place] Right: Shoulder PEMA : ORTHOPAEDICS 08/01/2022 1399-1089 / / [id number] Reunion Rsa Peripheral Screw 4.5mm X 24mm Implanted:Qty: 1 on 09/14/2017 by Dante Morris DO OR [facility] [place] Right: Shoulder PEMA : ORTHOPAEDICS 06/30/2022 2887-7411 / / [id number] Reunion Rsa Peripheral Screw 4.5mm X 28mm Implanted:Qty: 1 on 09/14/2017 by Dante Morris DO OR [facility] [place] Right: Shoulder PEMA : ORTHOPAEDICS 06/30/2022 0200-5250 / / [id number] Reunion Rsa Peripheral Screw 4.5mm X 20mm Implanted:Qty: 1 on 09/14/2017 by Dante Morris DO OR [facility] [place] Right: Shoulder PEMA : ORTHOPAEDICS 04/13/2022 2383-9892 / / [id number] Reunion Rsa Concentric Glenosphere 36mm X 6mm Implanted:Qty: 1 on 09/14/2017 by Dante Morris DO OR [facility] [place] Right: Shoulder PEMA : ORTHOPAEDICS 06/16/2022 5573-C-36 06 / / [id number] Reunion Rsa Peripheral Screw Implanted:Qty: 1 on 09/14/2017 by Dante Morris DO at [place] [facility] [place] Right: Shoulder PEMA : ORTHOPAEDICS 02/11/2021 6268-8352 / / [id number] Reunion Tsa Modular Humeral Stem Size11 X 123mm Implanted:Qty: 1 on 09/14/2017 by Dante Morris DO at [place] [facility] [place] Right: Shoulder PEMA : ORTHOPAEDICS 05/02/2022 5569-P-20 11 / / [id number] Reunion Rsa X3 Humeral Insert 36mm X 4mm Implanted:Qty: 1 on 09/14/2017 by Dante Morris DO at [place] [facility] [place] Right: Shoulder PEMA : ORTHOPAEDICS 03/22/2022 5571-S-36 04 / / [id number] Baseplate #5 Tritanium - [id number] Implanted:Qty: 1 on 10/22/2019 by Nick Vang MD at OR [facility] Left: Knee PEMA : ORTHOPAEDICS 08/07/2024 5536-B-50 0 / / [id number] Knee Triathlon Ps Stb Bead 4 L - [id number] Implanted:Qty: 1 on 10/22/2019 by Nick Vang MD at OR [facility] Left: Knee PEMA : ORTHOPAEDICS 04/08/2024 5516-F-40 1 / / [id number] Insert Tib Sz5 Knee - [id number] Implanted:Qty: 1 on 10/22/2019 by Nick Vang MD at OR [facility] Left: Knee PEMA : ORTHOPAEDICS 12/13/2022 5532-G-51 1 / / [id number] Triathlon Tritanium Symmetric Patella Implanted:Qty: 1 on [...] Directives occurred with: Not Discussed Care Teams Barrel Lapper Relationship Specialty Start Date End Date February, Milton Alvarez MD [address] [place] [address] PCP - General Family Medicine 07/26/23 documented as of this encounter
--- OUTSIDE RECORDS SUMMARY | 2025-01-26 00:21 | External Medical Summary | Summary of Care ---
Author Name Unknown Organization [facility] Address [address] [place] [address] Phone [phone] Care Team Providers Care Firebrick Layer Name Role Phone FebruaryMilton MD Primary Care Provider [phone] Reason for Visit * Reason Onset Date Comments Advice 07/27/2024 Encounter Details Date Type Department Care Team (Late st Contact Info) Description 07/27/2024 Telephone [facility] [address] [place] [address] FebruaryMilton MD [address] [place] [address] Advice Allergies Active Allergy Reactions Criticality Noted Date Comments Amoxicillin-Pot Clavulanate Hives 06/16/20 16 Clavulanic Acid Hives 07/09/2016 documented as of this encounter (statuses as of 08/13/2024) Medications Medication Sig Dispensed Refills Start Date [...] needed 80 g 1 12/15/2021 Active OneTouch Verio w/Device KitIndications:Diab etes mellitus with stage 3 chronic kidney disease (HCC) Use as directed . Use to test blood sugars once daily e11.22 1 Kit 1 12/30/2021 Active Resale TherapyTouch Verio In Vitro Strip Use to test blood sugar three times daily DX: E11.9 300 Strip 1 08/09/2022 Active Wowza Media Systemsuch Delica Lancets 33G Use as directed to [...] BEDTIME 180 Tablet 3 05/11/2024 Active Pen Dayhoit 32G X 4 MMIndications:Diabe melanie mellitus with [...] DX E11.9 6 Each 3 07/16/2024 Active documented as of this encounter (statuses as of 08/13/2024) Active Problems Problem Noted Date Diagnosed Date [...] as of this encounter (statuses as of 08/13/2024) Resolved Problems Problem Noted Date Diagnosed Date [...] 12/12/2017 11/28/2018 Diverticulosis of colon 11/09/2016 1011/2017 Overview: By colonosopy Hemorrhoid 11/09/2016 11/28/2018 Overview: By colonoscopy documented as of this encounter (statuses as of 08/13/2024) Immunizations Name Administration Dates Next Due COVID-19 mRNA, LNP-s, No Pre serve, 2-Dose Series (Vetr) 09/23/2021,01/13/2021,12/23/2020 Pneumococcal Conjugate Vacc, 13 Valent (Prevnar) [...] encounter Miscellaneous Notes * Telephone Encounter - Lillian Morales OSA - 07/27/2024 8:09 AM EDT Patient calling did a stool sample on 07/21/24 kept refrigerated asking if he could bring to lab today Checked with lab - stool sample needs to be returned within 24 hour of taking sample Lab will have another test kit left at front office for patient to picker and repeat test Pt aware documented in this encounter Plan of Treatment Upcoming Encounters Date Type Department Care Team (Late st Contact Info) Description 08/15/2024 12:00 PM EDT Office Visit Gastroenterology, [facility] [address] [place] [address] Meagan Chase CRNP [address] [place] [address] 09/07/2024 11:15 AM EST Office Visit Hematology/Oncology [facility] [address] [facility] [place] [phone] Héctro Bhatti MD [address] [facility] [place] [address] 10/03/2024 3:00 PM EST Office Visit [facility] [address] [place] [phone] FebruaryMilton MD [address] [place] [address] Health Maintenance Due Date Last Done Comments Hepatitis C Screening 1968 Adult Wellness Visit 2015 Colonoscopy 04/05/2024 04/05/2019, 11/09/2016 Diabetic Eye Exam 06/04/2024 06/04/2023, , 02/04/2021, Additional history exists COVID-19 Vaccine ( season) 2024 09/23/2021, 01/13/2021, 12/23/2020 Albumin/Creatinine Ratio 09/02/202409/02/2 023, 09/16/2022, 09/09/2021, Additional history exists CKD PHOS USE SMARTSET 23373 09/02/2024 1104/2023, 03/08/2023, 09/16/2022 Diabetic Foot Exam 09/30/2024 09/30/2023, 0 10/25/2022, 12/15/2021, Additional history exists CKD HGB USE SMARTSET 86117 11/14/202411/14, 09/02/2023, 09/02/2023, Additional history exists GFR [...] this encounter Medical Devices Implanted Type Area Regional Facilities Specialist Device Identifier Shelf Expiration Date Model / Serial / Lot Reunion Rsa Center Screw 6.5mm X 24mm Implanted:Qty: 1 on 09/14/2017 by Dante Morris DO [place] [facility] [place] Shoulder PEMA : ORTHOPAEDICS 05/03/2022 2401-1274 / / [id number] Reunion Rsa Humeral Cup 36mm X 4mm Implanted:Qty: 1 on 09/14/2017 by Dante Mroris DO [place] [facility]: Shoulder PEMA : ORTHOPAEDICS 08/22/2022 2733-2556 / / [id number] Reunion Rsa 3.1mm Drill Bit Implanted:Qty: 1 on 09/14/2017 by Dante Morris DO [place] [facility]: Shoulder PEMA : ORTHOPAEDICS 03/24/2022 3266-6933 / / [id number] Reunion Rsa Glenoid Baseplate 28mm Implanted:Qty: 1 on 09/14/2017 by Dante Morris DO [place] [facility] [place]: Shoulder PEMA : ORTHOPAEDICS 08/01/2022 6120-1784 / / [id number] Reunion Rsa Peripheral Screw 4.5mm X 24mm Implanted:Qty: 1 on 09/14/2017 by Dante Morris DO [place] [facility]: Shoulder PEMA : ORTHOPAEDICS 06/30/2022 3816-2863 / / [id number] Reunion Rsa Peripheral Screw 4.5mm X 28mm Implanted:Qty: 1 on 09/14/2017 by Dante Morris DO [place] [facility]: Shoulder PEMA : ORTHOPAEDICS 06/30/2022 1260-2298 / / [id number] Reunion Rsa Peripheral Screw 4.5mm X 20mm Implanted:Qty: 1 on 09/14/2017 by Dante Morris DO [place] [facility] [place]: Shoulder PEMA : ORTHOPAEDICS 04/13/2022 3564-5105 / / [id number] Reunion Rsa Concentric Glenosphere 36mm X 6mm Implanted:Qty: 1 on 09/14/2017 by Dante Morris DO [place] [facility]: Shoulder PEMA : ORTHOPAEDICS 06/16/2022 5573-C-36 06 / / [id number] Reunion Rsa Peripheral Screw Implanted:Qty: 1 on 09/14/2017 by Dante Morris DO [place] [facility]: Shoulder PEMA : ORTHOPAEDICS 02/11/2021 7563-8597 / / [id number] Reunion Tsa Modular Humeral [...] / / [id number] Baseplate #5 Tritanium - [id number] Implanted:Qty: 1 on 10/22/2019 by Nick Vang MD at OR [facility] Left: Knee PEMA : ORTHOPAEDICS 08/07/2024 5536-B-50 0 / / [id number] Knee Triathlon Ps Stb Bead 4 L - [id number] Implanted:Qty: 1 on 10/22/2019 by Nick Vang MD at OR [facility] Left: Knee PEMA : ORTHOPAEDICS 04/08/2024 5516-F-40 1 / / [id number] Insert Tib Sz5 Knee - [id number] Implanted:Qty: 1 on 10/22/2019 by Nick Vang MD at OR [facility] Left: Knee PEMA : ORTHOPAEDICS 12/13/2022 5532-G-51 1 / / [id number] Triathlon Tritanium Symmetric Patella Implanted:Qty: 1 on 10/22/2019 by Nick Vang MD at OR [facility] Left: Knee 04/21/2024 5556-L-39 1 / / [id number] documented as of this encounter Additional Health Concerns Infection Onset Date Last Indicated Resolved Time Gastrointestinal Rule-Out 07/30/2024 07/30/2024 10:19 AM EDT C. difficile Rule-Out 08/04/2024 08/04/20242023 9:26 PM EDT documented as of this encounter Advance Directives [...] Directives occurred with: Not Discussed Care Teams Firebrick Layer Relationship Specialty Start Date End Date February, Milton Alvarez MD [address] [facility] [place] [address] PCP - General Family Medicine 07/26/23 documented as of this encounter
--- OUTSIDE RECORDS SUMMARY | 2025-01-26 00:21 | External Medical Summary | Summary of Care ---
Author Name Unknown Organization [facility] Address [address] [facility] [place] [address] Phone [phone] Care Team Providers Care Wood Shop Teacher Name Role Phone Milton Mcdaniel MD Primary Care Provider [phone] Reason for Visit * Reason Onset Date Comments Test Results Lab 08/16/2024 Encounter Details Date Type Department Care Team (Late st Contact Info) Description 08/16/2024 Telephone Gastroenterology, [facility] [address] [place] [address] Meagan Chase CRNP [address] [place] [address] Test Results Lab Allergies Active Allergy Reactions Criticality Noted Date Comments Amoxicillin-Pot Clavulanate Hives 06/16/20 16 Clavulanic Acid Hives 07/09/2016 documented as of this encounter (statuses as of 08/17/2024) Medications Medication Sig Dispensed Refills Start Date [...] needed 80 g 1 12/15/2021 Active OneTouch VerEvident Health w/Device KitIndications:Diab etes mellitus with stage 3 chronic kidney disease (HCC) Use as directed . Use to test blood sugars once daily e11.22 1 Kit 1 12/30/2021 Active Digital Safety TechnologiesToHead Held High Verio In Vitro Strip Use to test blood sugar three times daily DX: E11.9 300 Strip 1 08/09/2022 Active Cardiac Guard Delica Lancets 33G Use as directed to [...] BEDTIME 180 Tablet 3 05/11/2024 Active Pen Oldhams 32G X 4 MMIndications:Diabe melanie mellitus with [...] as of this encounter (statuses as of 08/17/2024) Active Problems Problem Noted Date Diagnosed Date [...] as of this encounter (statuses as of 08/17/2024) Resolved Problems Problem Noted Date Diagnosed Date [...] as of this encounter (statuses as of 08/17/2024) Immunizations Name Administration Dates Next Due COVID-19 mRNA, LNP-s, No Pre serve, 2-Dose Series ([facility]) 09/23/2021,01/13/2021,12/23/2020 Pneumococcal Conjugate Vacc, 13 Valent (Prevnar) [...] encounter Miscellaneous Notes * Telephone Encounter - Kirstin Danielson LPN - 08/17/2024 12:29 PM EDT Spoke with Gilberto. He is agreeable to EGD with Bx. * Telephone Encounter - Stacey Allison OSA - 08/17/2024 10:28 AM EDT Patient is calling back because he is unable to open his Fjuul message so he is calling backto speak with the nurse in regards to the message and what he needs to do * Telephone Encounter - Kirstin Danielson LPN - 08/16/2024 1:44 PM EDT Spoke to Gilberto. Results and recommendations given. He is driving right now, so unable to concentrateon recommendations. Informed him that I would send a PDV message and he can think about his decision. * Telephone Encounter - Meagan Chase CRNP - 08/16/2024 12:58 PM EDT Equivocal TTG, unable to rule out celiac. Recommend EGD with small-bowel biopsy. If patient agreeable will place order. documented in this encounter Plan of Treatment Upcoming Encounters Date Type Department Care Team (Latest Contact Info) Description 09/07/2024 11:15 AM EST Office Visit Hematology/Oncology State Katya Yoder [address] [place] [address] Héctor Bhatti MD [address] [place] [address] 10/03/2024 3:00 PM EST [facility] [address] [place] [phone] Milton Mcdaniel MD [address] [facility], [place] [address] 12/31/2024 2:00 PM EDT Hospital Encounter ENDO [facility], Endoscopy Room [facility] [address] [place], [place] [phone] Kermit Arevalo, DO [address] [place], [place] [address] 12/31/2024 2:00 PM EDT - 12/31/2024 2:30 PM EDT Surgery ENDO [facility], Endoscopy Room [facility] [address] [place], [place] [phone] Kermit Arevalo, DO [address] [place], [place] [address] COLONOSCOPY FLEXIBLE PROXIMAL DIAGNOSTIC Scheduled Procedures Name [...] Additional history exists CKD PHOS USE SMARTSET 79460 09/02/202408/17, 03/08/2023, 09/16/2022 Diabetic Foot Exam 09/30/2024 09/30/2023, 0 10/25/2022, 12/15/2021, Additional history exists CKD HGB USE SMARTSET 96665 11/14/202411/14, 09/02/2023, 09/02/2023, Additional history exists GFR [...] this encounter Medical Devices Implanted Type Area Pan Pusher Device Identifier Shelf Expiration Date Model / Serial / Lot Reunion Rsa Center Screw 6.5mm X 24mm Implanted:Qty: 1 on 09/14/2017 by Dante Morris DO at OR [facility] [place] Right: Shoulder PEMA : ORTHOPAEDICS 05/03/2022 2616-1410 / / [id number] Reunion Rsa Humeral Cup 36mm X 4mm Implanted:Qty: 1 on 09/14/2017 by Dante Morris DO at OR [facility] [place] Right: Shoulder PEMA : ORTHOPAEDICS 08/22/2022 2977-7285 / / [id number] Reunion Rsa 3.1mm Drill Bit Implanted:Qty: 1 on 09/14/2017 by Dante Morris DO at OR [facility] [place] Right: Shoulder PEMA : ORTHOPAEDICS 03/24/2022 9433-5074 / / [id number] Reunion Rsa Glenoid Baseplate 28mm Implanted:Qty: 1 on 09/14/2017 by Dante Morris DO at OR [facility] [place] Right: Shoulder PEMA : ORTHOPAEDICS 08/01/2022 2696-0331 / / [id number] Reunion Rsa Peripheral Screw 4.5mm X 24mm Implanted:Qty: 1 on 09/14/2017 by Dante Morris DO at OR [facility] [place] Right: Shoulder PEMA : ORTHOPAEDICS 06/30/2022 4535-4637 / / [id number] Reunion Rsa Peripheral Screw 4.5mm X 28mm Implanted:Qty: 1 on 09/14/2017 by Dante Morris DO at OR [facility] [place] Right: Shoulder PEMA : ORTHOPAEDICS 06/30/2022 4302-6026 / / [id number] Reunion Rsa Peripheral Screw 4.5mm X 20mm Implanted:Qty: 1 on 09/14/2017 by Dante Morris DO at OR [facility] [place] Right: Shoulder PEMA : ORTHOPAEDICS 04/13/2022 0021-9097 / / [id number] Reunion Rsa Concentric Glenosphere 36mm X 6mm Implanted:Qty: 1 on 09/14/2017 by Dante Morris DO at OR [facility] [place] Right: Shoulder PEMA : ORTHOPAEDICS 06/16/2022 5573-C-36 06 / / [id number] Reunion Rsa Peripheral Screw Implanted:Qty: 1 on 09/14/2017 by Dante Morris DO at OR [facility] [place] Right: Shoulder PEMA : ORTHOPAEDICS 02/11/2021 7477-6226 / / [id number] Reunion Tsa Modular Humeral Stem Size11 X 123mm Implanted:Qty: 1 on 09/14/2017 by Dante Morris DO at OR [facility] [place] Right: Shoulder PEMA : ORTHOPAEDICS 05/02/2022 5569-P-20 11 / / [id number] Reunion Rsa X3 Humeral Insert 36mm X 4mm Implanted:Qty: 1 on 09/14/2017 by Dante Morris DO at OR [facility] [place] Right: Shoulder PEMA : ORTHOPAEDICS 03/22/2022 5571-S-36 04 / / [id number] Baseplate #5 Tritanium - [id number] Implanted:Qty: 1 on 10/22/2019 by Nick Vang MD at OR [facility] Left: Knee PEMA : ORTHOPAEDICS 08/07/2024 5536-B-50 0 / / [id number] Knee Triathlon Ps Stb Bead 4 L - [id number] Implanted:Qty: 1 on 10/22/2019 by Nick Vang MD at OR [facility] Left: Knee PEMA : ORTHOPAEDICS 04/08/2024 5516-F-40 1 / / [id number] Insert Tib Sz5 Knee - [id number] Implanted:Qty: 1 on 10/22/2019 by Nick Vang MD at OR [facility] Left: Knee PEMA : ORTHOPAEDICS 12/13/2022 5532-G-51 1 / / [id number] Triathlon Tritanium Symmetric Patella Implanted:Qty: 1 on 10/22/2019 by Nick Vang MD at OR [facility] Left: Knee 04/21/2024 5556-L-39 1 [...] Directives occurred with: Not Discussed Care Teams Wood Shop Teacher Relationship Specialty Start Date End Date February, Milton Alvarez MD [address] [place] [address] PCP - General Family Medicine 07/26/23 documented as of this encounter
--- OUTSIDE RECORDS SUMMARY | 2025-01-26 00:21 | External Medical Summary | Summary of Care ---
Author Name Unknown Organization [facility] Address [address] [place] [address] Phone [phone] Care Team Providers Care Spaghetti Press Helper Name Role Phone Milton Mcdaniel MD Primary Care Provider [phone] Reason for Visit * Reason Comments NEW PATIENT New pt ref by Dr Mcdaniel for diarrhea. Pt states he has had intermittent diarrhea for a year now. Pt c/o abd pain/cramping with urgency. * Evaluate & Treat - Unlimited Visits (Within 10 days (routine)) - Authorized Specialty Diagnoses / Procedures Referred By Nikhil t Referred To Contact Gastroenterology Diagnoses Chronic diarrhea Milton Mcdaniel MD [address] [place] [address] Referral ID Status Reason Start Date Expiration Date Visits Requested Visits Authorized [id number] Authorized Specialty Services Required 07/11/2024 [id number] Encounter Details Date Type Department Care Team (Late st Contact Info) Description 08/15/2024 12:00 PM EDT Office Visit Gastroenterology, [facility] [address] [place] [address] Meagan Chase CRNP [address] [place] [address] Irritable bowel syndrome with both constipation and diarrhea* Allergies Active Allergy Reactions Criticality Noted Date Comments Amoxicillin-Pot Clavulanate Hives 06/16/20 16 Clavulanic Acid Hives 07/09/2016 documented as of this encounter (statuses as of 08/15/2024) Medications Medication Sig Dispensed Refills Start Date [...] as needed 80 g 1 12/15/2021 Active AdisnTouch Verio w/Device KitIndications:Diab etes mellitus with stage 3 chronic kidney disease (HCC) Use as directed . Use to test blood sugars once daily e11.22 1 Kit 1 12/30/2021 Active AdisnTouch Verio In Vitro Strip Use to test blood sugar three times daily DX: E11.9 300 Strip 1 08/09/2022 Active AdisnToPlanGrid Delica Lancets 33G Use as directed to [...] BEDTIME 180 Tablet 3 05/11/2024 Active Pen [place] 32G X 4 MMIndications:Diabe melanie mellitus with [...] as of this encounter (statuses as of 08/15/2024) Active Problems Problem Noted Date Diagnosed Date [...] as of this encounter (statuses as of 08/15/2024) Resolved Problems Problem Noted Date Diagnosed Date [...] right 12/12/2017 11/28/2018 Diverticulosis of colon 11/09/2016 10/0 11/2017 Overview: By colonosopy Hemorrhoid 11/09/2016 11/28/2018 Overview: By colonoscopy documented as of this encounter (statuses as of 08/15/2024) Immunizations Name Administration Dates Next Due COVID-19 [...] on file documented as of this encounter Last Filed Vital Signs Vital Sign Reading Time Taken Comments Blood Pressure 118/70 08/15/2024 11:45 AM EDT Pulse 68 08/15/2024 11:45 AM EDT Temperature 36.6 °C (97.9 °F) 08/15/2024 11:45 AM E DT Respiratory Rate - - Oxygen Saturation - - Inhaled Oxygen Concentration - - Weight 70.8 kg (156 lb) 08/15/2024 11:45 AM EDT Height - - Body Mass Index 29.48 07/11/2024 6:00 PM EDT documented in this encounter Functional Status Functional Status Response [...] No 10/22/2019 documented as of this encounter Patient Instructions * Patient Instructions* Meagan Chase CRNP - 08/15/2024 12:04 PM EDT -Labs today and Xray -Start metamucil 2tsp daily -Start Miralax 1 capful daily -Schedule colonoscopy documented in this encounter Progress Notes * Meagan Chase CRNP - 08/15/2024 12:00 PM EDT Gastroenterology Outpatient Visit 08/15/2024 Referring physician:Milton Mcdaniel MD PCP: Milton Mcdaniel MD Past medical history: GERD on PPI Diverticulosis Appendectomy, age 11 Polymyalgia rheumatica Monoclonal paraproteinemia, follows with Hematology Type 2 diabetes CKD stage 3 Permanent atrial fibrillation Hypertension CC: IBS with mixed diarrhea and constipation HPI: Very pleasant 74-year-old male presents today to the gastroenterology office as a new patient afterbeing referred by his PCP due to concerns regarding intermittent constipation as well as diarrhea. Over the last 10-12 months he has been struggling with diarrhea. Notes that he will go 2-3 days being constipated only producing very small hard stools and then have 2-3 days of breakthrough diarrheawith urgency and has had some episodes of incontinence. Recent stool studies were negative including a negative C diff. Current symptoms as described below. Onset/duration: Over the last year Stool consistency: Alternating between constipated hard stools and loose/watery diarrhea Frequency: 1-4x depending on day with diarrhea. Constipated-- can go 2-3 days with out BM Triggers: No specific triggers. Urgency: Yes, episides of incontience (most recently today, 08/15) Boating: None Abdominal pain/pressure: Cramping prior to bowel movements, relieved with BM. 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 Medications tried for above complaint: Imodium Previous GI workup: Colonoscopy: 03/2019--fair prep, internal hemorrhoids, anal papilla were hypertrophic, diverticulosis of the sigmoid colon EGD: n/a CTAP: n/a Social history: Tobacco use: None ETOH use: None Illicit drug use: None NSAIDs: None Drives truck locally Family Hx: No known family history of inflammatory bowel disease or GI malignancy. Current Outpatient Medications Medication Sig Dispense Refill Clindamycin Phosphate 1 % External Solution apply to the scalp 1-2 times daily as needed Repaglinide 2 MG Oral Tablet (Prandin) Take 2 tablets by mouth prior to meals (Patient taking differently: Take 1 Tablet by mouth daily before breakfast. Take 2 tablets by mouth prior to meals) 540 Tablet 1 Tamsulosin HCl 0.4 MG Oral Capsule (Flomax) [...] TAKE 1 TABLET DAILY 90 Tablet 2 metFORMIN HCl 500 MG Oral Tablet (Glucophage) TAKE 2 TABLETS BY MOUTH TWICE DAILY WITH MORNING AND EVENING MEALS 360 Tablet 1 Omeprazole 20 MG Oral Capsule Delayed Release (PriLOSEC) TAKE 1 CAPSULE IN THE MORNING 1 HOUR BEFORE THE FIRST MEAL OF THE DAY 90 Capsule 1 Metoprolol Tartrate 25 MG Oral Tablet (Lopressor) TAKE 1 TABLET IN THE MORNING AND 1 TABLET BEFORE BEDTIME 180 Tablet 3 Jardiance 25 MG Oral Tablet (Empagliflozin) TAKE 1 TABLET BY MOUTH DAILY 90 Tablet 3 Psyllium 58.6 % Oral Packet (Metamucil) Take 1 Packet by mouth in the morning. Polyethylene Glycol 3350 17 GM/SCOOP Oral Powder (MiraLax) Take 17 g by mouth in the morning. One cap full in juice, to effect 1 stool per day. .. Clobetasol Propionate 0.05 % External Liquid apply to the scalp daily as needed when itchy 59 mL 2 Triamcinolone Acetonide 0.1 % External Cream (Aristocort) Apply to the back/arms/legs twice daily as needed 80 g 1 MEDOVENT Verio w/Device Kit Use as directed . Use to test blood sugars once daily e11.22 1 Kit 1 Teleus In Vitro Strip Use to test blood sugar three times daily DX: E11.9 300 Strip 1 MEDOVENT Delica Lancets 33G Use as directed to test blood sugars three times per day E11.65 300 Each 1 Ketoconazole 2 % External Shampoo (Nizoral) Apply topically to affected area every 3 days. Apply tothe chest/arms/back/scalp. Leave on for 5 min then rinse. 120 mL 2 Pen [place] 32G X 4 MM Use as directed. Once daily with Lantus insulin DX E11.9 - substitution permissible for both size/length as well as brand that are covered by insurance and in stock with pharmacy 100 Each 3 FreeStyle Aida 3 Sensor Use as directed. Replace sensor every 14 days DX E11.9 6 Each 3 FreeStyle Aida 3 Plus Sensor Replace sensor every 14 days DX E11.9 6 Each 3 No current facility-administered medications for this visit. No past medical history on file. Past Surgical History: Procedure Laterality Date ARTHROPLASTY KNEE TOTAL ARTHROPLASTY KNEE TOTAL Left 10/22/2019 ARTHROPLASTY KNEE TOTAL performed by Nick Vang MD at OR [facility] CARPAL TUNNEL SURGERY Left 05/03/2022 NEUROPLASTY MEDIAN NERVE AT CARPAL TUNNEL performed by Nick Vang MD at OR [facility] CARPAL TUNNEL SURGERY Right 06/25/2022 NEUROPLASTY MEDIAN NERVE AT CARPAL TUNNEL performed by Nick Vang MD at OR [facility] COLONOSCOPY 11/09/201611/02 diverticulosis and hemorrhoids 04/28/05 06/15/10 REMOVAL OF APPENDIX REVERSE TOTAL SHOULDER ARTHROPLASTY Right 09/14/2017 REVERSE TOTAL SHOULDER ARTHROPLASTY performed by Dante Morris DO at OR [facility] TENDON SHEATH INCISION, FINGER Left 05/03/2022 TRIGGER FINGER RELEASE performed by Nick Vang MD at OR [facility] Social History Tobacco Use Smoking status: Never Smokeless tobacco: Never Vaping Use Vaping status: Never Used Substance Use Topics Alcohol use: No Drug use: No Review of patient's allergies indicates: Allergen Reactions Augmentin [Amoxicillin-Pot Clavulanate] Hives Clavulanic Acid Hives Review of Systems: See HPI for pertinent positives. All others negative, other than those noted in HPI. Physical Exam: BP 118/70 | Pulse 68 | Temp 36.6 °C (97.9 °F) | Wt 70.8 kg (156 lb) | BMI 29.48 kg/m² | BSA 1.75m² GENERAL: Well developed and well nourished in no acute distress. SKIN: No rashes, ulcers, jaundice or spider angiomata. HEENT: Normocephalic, sclera clear, pharynx normal. NECK: Supple, no lymphadenopathy, no masses or thyroid enlargement. LUNGS: Clear to auscultation bilaterally, no respiratory distress or accessory muscles used. HEART: Regular rate & rhythm, no murmurs and no gallops. ABDOMEN: Normal bowel sounds, soft. Right lower quadrant tenderness. no masses or hepatosplenomegaly. EXTREMITIES: No palmar erythema, no ankle edema, no skin discoloration, no clubbing, no cyanosis. NEURO: No lateralizing findings. Sensory/Motor grossly normal. Lab data/imaging study review: Reviewed via chart Impression/Plan: This is a(n) 74 year old male who is being evaluated in the office for ongoing care/risk managementfor the below diagnoses. 1. Irritable bowel syndrome with both constipation and diarrhea Patient with intermittent constipation followed by diarrhea, concerns for overflow diarrhea. Recentstool samples negative Blood work ordered including: TTG and IGA (rule out celiacs) and TSH/FreeT4 Colonoscopy ordered- rule out microscopic colitis and malignancy KUB- rule out overflow diarrhea Start Metamucil 2 tsp daily+ MiraLax 1 capful daily; pending KUB results may need to consider "clean out". The patient agrees to the above plan and will call with additional questions or concerns. ER with all emergencies advised. Follow-up: Return in about 6 weeks (around 09/26/2024). | Check-out note: -Labs and KUB -Colonoscopy -Print instructions I spent a total of Greater than 55 mins (exact time 60 mins) on the date of service in preparation,delivery, and documentation of the care provided to Gilberto Valles excluding any time spent in the performance of separately billed services or time spent by another provider/QHP. [facility] This chart was completed in part utilizing Wow! Stuff Speech Voice Recognition Software. Grammatical errors, random word insertions, prounoun errors, and incomplete sentences are an occasional consequence of this system due to software limitations, ambient noise, and hardware issues. Any formal questions or concerns about the content, text, or information contained within the body of this dictation should be directly addressed to the provider for clarification. documented in this encounter Nursing Notes * Marilin Dow CMA - 08/15/2024 11:44 AM EDT Chief Complaint Patient presents with NEW PATIENT New pt ref by Dr Mcdaniel for diarrhea. Pt states he has had intermittent diarrhea for a year now. Pt c/o abd pain/cramping with urgency. documented in this encounter Plan of Treatment Upcoming Encounters Date Type Department Care Team (Latest Contact Info) Description 08/15/2024 1:00 PM EDT Imaging [facility] [address] [place] [address] Arrived 08/15/2024 1:50 PM EDT Laboratory Laboratory, [facility] [address] [place] [phone] [facility] [address] [place], [place] [address] 09/07/2024 11:15 AM EST Office Visit [facility]ology/On[facility] [address] [facility] [place], [place] [phone] Héctor Bhatti MD [address] [place] [address] 10/03/2024 3:00 PM EST Office Visit [facility] [address], [place] [phone] Milton Mcdaniel MD [address] [place] [address] 12/31/2024 2:00 PM EDT Hospital Encounter ENDO OSSC, Endoscopy Room [facility] [address] [place] [phone] Kermit Arevalo, DO [address] [place] [address] 12/31/2024 2:00 PM EDT - 12/31/2024 2:30 PM EDT Surgery ENDO OSS, Endoscopy Room [facility] [address] [place] [phone] Kermit Arevalo, DO [address] [place] [address] COLONOSCOPY FLEXIBLE PROXIMAL DIAGNOSTIC Pending Results Name Type Priority Associated Diagnoses Date /Time XR ABDOMEN 1 VIEW Medical Imaging STAT Irritable bowel syndrome with both constipation and diarrhea 08/15/2024 12:18 PM EDT Scheduled Orders Name Type Priority Associated Diagnoses Orde r Schedule COLONOSCOPY, DIAGNOSTIC (RECTUM) Procedures Routine Irritable bowel syndrome with both constipation and diarrhea Ordered: 08/15/2024 TSH WITH FREE T4 IF INDICATED Lab Routine Irritable bowel syndrome with both constipation and diarrhea Expected: 08/15/2024, Expires: 08/15/2025 TISSUE TRANSGLUTAMINASE IGA ANTIBODY Lab Routine Irritable bowel syndrome with both constipation and diarrhea Expected: 08/15/2024, Expires: 08/15/2025 IGA Lab Routine Irritable bowel syndrome with both constipation and diarrhea Expected: 08/15/2024, Expires: 08/15/2025 Scheduled Procedures Name Priority Associated Diagnoses Date/Ti mi COLONOSCOPY FLEXIBLE PROXIMAL DIAGNOSTIC Irritable bowel syndrome [...] Additional history exists CKD PHOS USE SMARTSET 00935 09/02/202408/17, 03/08/2023, 09/16/2022 Diabetic Foot Exam 09/30/2024 09/30/2023, 0 10/25/2022, 12/15/2021, Additional history exists CKD HGB USE SMARTSET 25948 11/14/202411/14, 09/02/2023, 09/02/2023, Additional history exists GFR [...] this encounter Medical Devices Implanted Type Area Exchange Administrator Device Identifier Shelf Expiration Date Model / Serial / Lot Reunion Rsa Center Screw 6.5mm X 24mm Implanted:Qty: 1 on 09/14/2017 by Dante Morris DO at OR [facility] Right: Shoulder PEMA : ORTHOPAEDICS 05/03/2022 [id number] / / [id number] Reunion Rsa Humeral Cup 36mm X 4mm Implanted:Qty: 1 on 09/14/2017 by Dante Morris DO at OR [facility] Right: Shoulder PEMA : ORTHOPAEDICS 08/22/2022 [id number] / / [id number] Reunion Rsa 3.1mm Drill Bit Implanted:Qty: 1 on 09/14/2017 by Dante Morris DO at OR [facility] Right: Shoulder PEMA : ORTHOPAEDICS 03/24/2022 [id number] / / [id number] Reunion Rsa Glenoid Baseplate 28mm Implanted:Qty: 1 on 09/14/2017 by Dante Morris DO at OR [facility] Right: Shoulder PEMA : ORTHOPAEDICS 08/01/2022 [id number] / / [id number] Reunion Rsa Peripheral Screw 4.5mm X 24mm Implanted:Qty: 1 on 09/14/2017 by Dante Morris DO at OR [facility] Right: Shoulder PEMA : ORTHOPAEDICS 06/30/2022 [id number] / / [id number] Reunion Rsa Peripheral Screw 4.5mm X 28mm Implanted:Qty: 1 on 09/14/2017 by Dante Morris DO at OR [facility] Right: Shoulder PEMA : ORTHOPAEDICS 06/30/2022 [id number] / / [id number] Reunion Rsa Peripheral Screw 4.5mm X 20mm Implanted:Qty: 1 on 09/14/2017 by Dante Morris DO at OR [facility] Right: Shoulder PEMA : ORTHOPAEDICS 04/13/2022 [id number] / / [id number] Reunion Rsa Concentric Glenosphere 36mm X 6mm Implanted:Qty: 1 on 09/14/2017 by Dante Morris DO at OR [facility] Right: Shoulder PEMA : ORTHOPAEDICS 06/16/2022 [id number]-C-36 06 / / [id number] Reunion Rsa Peripheral Screw Implanted:Qty: 1 on 09/14/2017 by Dante Morris DO at OR [facility] Right: Shoulder PEMA : ORTHOPAEDICS 02/11/2021 [id number] / / [id number] Reunion Tsa Modular Humeral Stem Size11 X 123mm Implanted:Qty: 1 on 09/14/2017 by Dante Morris DO at OR [facility] Right: Shoulder PEMA : ORTHOPAEDICS 05/02/2022 5569-P-20 11 / / [id number] Reunion Rsa X3 Humeral Insert 36mm X 4mm Implanted:Qty: 1 on 09/14/2017 by Dante Morris DO at OR [facility] Right: Shoulder PEMA : ORTHOPAEDICS 03/22/2022 5571-S-36 04 / / [id number] Baseplate #5 Tritanium - [id number] Implanted:Qty: 1 on 10/22/2019 by Nick Vang MD at OR [facility] Left: Knee PEMA : ORTHOPAEDICS 08/07/2024 5536-B-50 0 / / [id number] Knee Triathlon Ps Stb Bead 4 L - [id number] Implanted:Qty: 1 on 10/22/2019 by Nick Vang MD at OR [facility] Left: Knee PEMA : ORTHOPAEDICS 04/08/2024 5516-F-40 1 / / [id number] Insert Tib Sz5 Knee - [id number] Implanted:Qty: 1 on 10/22/2019 by Nick Vang MD at OR [facility] Left: Knee PEMA : ORTHOPAEDICS 12/13/2022 5532-G-51 1 / / [id number] Triathlon Tritanium Symmetric Patella Implanted:Qty: 1 on 10/22/2019 by Nick Vang MD at OR [facility] Left: Knee 04/21/2024 5556-L-39 1 / [...] Directives occurred with: Not Discussed Care Teams Spaghetti Press Helper Relationship Specialty Start Date End Date February, Milton Alvarez MD [address] [place] [address] PCP - General Family Medicine 07/26/23 documented as of this encounter
--- OUTSIDE RECORDS SUMMARY | 2025-01-26 00:21 | External Medical Summary | Summary of Care ---
Author Name Unknown Organization [facility] Address [address] [facility] [address] Phone [phone] Care Team Providers Care Farmer General Name Role Phone Milton Mcdaniel MD Primary Care Provider [phone] Reason for Visit * Reason Onset Date Comments Test Results 08/15/2024 Encounter Details Date Type Department Care Team (Late st Contact Info) Description 08/15/2024 Telephone Gastroenterology, [facility] [address] [place] [address] Meagan Chase CRNP [address] [place] [address] Test Results Allergies Active Allergy Reactions Criticality Noted Date Comments Amoxicillin-Pot Clavulanate Hives 06/16/20 16 Clavulanic Acid Hives 07/09/2016 documented as of this encounter (statuses as of 08/16/2024) Medications Medication Sig Dispensed Refills Start Date [...] daily e11.22 1 Kit 1 12/30/2021 Active BevBucksToSure Chill VerImmunoPhotonics In Vitro Strip Use to test blood sugar three times daily DX: E11.9 300 Strip 1 08/09/2022 Active Knowlarity Communications Delica Lancets 33G Use as directed to [...] BEDTIME 180 Tablet 3 05/11/2024 Active Pen [place] 32G X 4 MMIndications:Diabe melanie mellitus with [...] as of this encounter (statuses as of 08/16/2024) Active Problems Problem Noted Date Diagnosed Date [...] as of this encounter (statuses as of 08/16/2024) Resolved Problems Problem Noted Date Diagnosed Date [...] as of this encounter (statuses as of 08/16/2024) Immunizations Name Administration Dates Next Due COVID-19 mRNA, LNP-s, No Pre serve, 2-Dose Series ([employer]) 09/23/2021,01/13/2021,12/23/2020 Pneumococcal Conjugate Vacc, 13 Valent (Prevnar) [...] encounter Miscellaneous Notes * Telephone Encounter - Marilin Dow CMA - 08/16/2024 9:21 AM EDT Called pt and notified him of xray results. Pt unable to talk at this time as his vehicle is broke down and waiting for assistance. Informed pt I will send him a My Chart message with clean out instructions and a phone number to call back with questions/concerns. * Telephone Encounter - Meagan Chase CRNP - 08/15/2024 3:45 PM EDT X-ray shows constipation. I would like the patinet to do a clean out. - Give 1 Dulcolax suppository, followed by: - Bowel prep with Miralax: - Mix 7 heaping capfuls in 1 Liter of Gatorade - Drink 1 measuring cupful every 10 mins until 1 liter is consumed. - If no result or stool is not running clear, can repeat the dose of Miralax the following day. -Then start Miralax 1 capful daily +metamucil 2 tsp daily to keep bowels moving documented in this encounter Plan of Treatment Upcoming Encounters Date Type Department Care Team (Latest Contact Info) Description 09/07/2024 11:15 AM EST Office Visit Hematology/Oncology [facility] [address] [facility] [place] [phone] Héctor Bhatti MD [address] [facility] [place] [address] 10/03/2024 3:00 PM EST [facility] [address] [facility] [phone] Milton Mcdaniel MD [address] [facility] [address] 12/31/2024 2:00 PM EDT Hospital Encounter ENDO [facility], Endoscopy Room [facility] [address] [place] [phone] Kermit Arevalo, DO [address] [place] [address] 12/31/2024 2:00 PM EDT - 12/31/2024 2:30 PM EDT Surgery ENDO [facility], Endoscopy Room [facility] [address] [place] [phone] Kermit Arevalo, DO [address] [place] [address] COLONOSCOPY FLEXIBLE PROXIMAL DIAGNOSTIC Scheduled Procedures Name Priority Associated Diagnoses Date/Ti vt COLONOSCOPY FLEXIBLE PROXIMAL DIAGNOSTIC Irritable bowel syndrome [...] Additional history exists CKD PHOS USE SMARTSET 25636 09/02/202408/17, 03/08/2023, 09/16/2022 Diabetic Foot Exam 09/30/2024 09/30/2023, 0 10/25/2022, 12/15/2021, Additional history exists CKD HGB USE SMARTSET 47760 11/14/202411/14, 09/02/2023, 09/02/2023, Additional history exists GFR [...] this encounter Medical Devices Implanted Type Area Racehorse Trainer Device Identifier Shelf Expiration Date Model / Serial / Lot Reunion Rsa Center Screw 6.5mm X 24mm Implanted:Qty: 1 on 09/14/2017 by Dante Morris DO at [place] [facility] [place] Right: Shoulder PEMA : ORTHOPAEDICS 05/03/2022 [id number] / / [id number] Reunion Rsa Humeral Cup 36mm X 4mm Implanted:Qty: 1 on 09/14/2017 by Dante Morris DO at [place] [facility] [place] Right: Shoulder PEMA : ORTHOPAEDICS 08/22/2022 0189-0137 / / [id number] Reunion Rsa 3.1mm Drill Bit Implanted:Qty: 1 on 09/14/2017 by Dante Morris DO at [place] [facility] [place] Right: Shoulder PEMA : ORTHOPAEDICS 03/24/2022 1082-3178 / / [id number] Reunion Rsa Glenoid Baseplate 28mm Implanted:Qty: 1 on 09/14/2017 by Dante Morris DO at [place] [facility] [place] Right: Shoulder PEMA : ORTHOPAEDICS 08/01/2022 4312-7430 / / [id number] Reunion Rsa Peripheral Screw 4.5mm X 24mm Implanted:Qty: 1 on 09/14/2017 by Dante Morris DO at OR [facility] [place] Right: Shoulder PEMA : ORTHOPAEDICS 06/30/2022 0146-4308 / / [id number] Reunion Rsa Peripheral Screw 4.5mm X 28mm Implanted:Qty: 1 on 09/14/2017 by Dante Morris DO at [place] [facility] [place] Right: Shoulder PEMA : ORTHOPAEDICS 06/30/2022 4074-8926 / / [id number] Reunion Rsa Peripheral Screw 4.5mm X 20mm Implanted:Qty: 1 on 09/14/2017 by Dante Morris DO at OR [facility] [place] Right: Shoulder PEMA : ORTHOPAEDICS 04/13/2022 9989-4857 / / [id number] Reunion Rsa Concentric Glenosphere 36mm X 6mm Implanted:Qty: 1 on 09/14/2017 by Dante Morris DO at [place] [facility] [place] Right: Shoulder PEMA : ORTHOPAEDICS 06/16/2022 5573-C-36 06 / / [id number] Reunion Rsa Peripheral Screw Implanted:Qty: 1 on 09/14/2017 by Dante Morris DO at [place] [facility] [place] Right: Shoulder PEMA : ORTHOPAEDICS 02/11/2021 2023-5174 / / [id number] Reunion Tsa Modular Humeral [...] / / [id number] Baseplate #5 Tritanium - [id number] Implanted:Qty: 1 on 10/22/2019 by Nick Vang MD at OR [facility] Left: Knee PEMA : ORTHOPAEDICS 08/07/2024 5536-B-50 0 / / [id number] Knee Triathlon Ps Stb Bead 4 L - [id number] Implanted:Qty: 1 on 10/22/2019 by Nick Vang MD at OR [facility] Left: Knee PEMA : ORTHOPAEDICS 04/08/2024 5516-F-40 1 / / [id number] Insert Tib Sz5 Knee - [id number] Implanted:Qty: 1 on 10/22/2019 by Nick Vang MD at OR [facility] Left: Knee PEMA : ORTHOPAEDICS 12/13/2022 5532-G-51 1 / / [id number] Triathlon Tritanium Symmetric Patella Implanted:Qty: 1 on [...] Directives occurred with: Not Discussed Care Teams Farmer General Relationship Specialty Start Date End Date February, Milton Alvarez MD [address] [place] [address] PCP - General Family Medicine 07/26/23 documented as of this encounter
--- OUTSIDE RECORDS SUMMARY | 2025-01-26 00:21 | External Medical Summary ---
Author Name Unknown Address Unknown Organization K01:[facility] [place] [address] [facility] [address] Laboratory Report Ordering Provider Test Date Status VIVIAN CHAVEZ 08/15/2024 12:51:29 Final Observation Date Value Abnormality Reference (Units ) Status Tissue transglutaminase IgA Ab [Presence] in Serum by Immunoassay 08/15/2024 12:51:29 Equivocal Abnormal Negative Final Tissue transglutaminase IgA Ab [Units/volume] in Serum by Immunoassay 08/15/2024 12:51:29 7.5 <7 (U/mL) Final Performing Location [facility] [address] [facility] [address]
--- OUTSIDE RECORDS SUMMARY | 2025-01-26 00:21 | External Medical Summary ---
Author Name Unknown Address Unknown Organization [id number]:[facility] [place] [address] [facility] [address] Laboratory Report Ordering Provider Test Date Status VIVIAN CHAVEZ 08/15/2024 12:51:29 Final Observation Date Value Abnormality Reference (Units ) Status TSH 08/15/2024 12:51:29 2.17 0.27-4.20 (uIU/mL) Final Performing Location [facility] [place] [address] [facility] [address]
--- OUTSIDE RECORDS SUMMARY | 2025-01-26 00:21 | External Medical Summary | Summary of Care ---
Author Name Unknown Organization [facility] Address [address] [facility] [place] [address] Phone [phone] Care Team Providers Care Strategy Planning Consultant Name Role Phone Milton Mcdaniel MD Primary Care Provider Reason for Visit * Reason Onset Date Comments Test Results Lab 08/16/2024 Encounter Details Date Type Department Care Team (Late st Contact Info) Description 08/16/2024 Telephone Gastroenterology, [facility] [address] [place] [address] Meagan Chase CRNP [address] [place] [address] Test Results Lab Allergies Active Allergy Reactions [...] needed 80 g 1 12/15/2021 Active OneTouch VerTjobs Recruit w/Device KitIndications:Diab etes mellitus with stage 3 chronic kidney disease (HCC) Use as directed . Use to test blood sugars once daily e11.22 1 Kit 1 12/30/2021 Active AlertEnterpriseToPanXchange Verio In Vitro Strip Use to test blood sugar three times daily DX: E11.9 300 Strip 1 08/09/2022 Active Autogrid Delica Lancets 33G Use as directed to [...] BEDTIME 180 Tablet 3 05/11/2024 Active Pen [place] 32G X 4 MMIndications:Diabe melanie mellitus with [...] mRNA, LNP-s, No Pre serve, 2-Dose Series ([employer]) 09/23/2021,01/13/2021,12/23/2020 Pneumococcal Conjugate Vacc, 13 Valent [...] encounter Miscellaneous Notes * Telephone Encounter - Stacey Allison OSA - 08/17/2024 10:28 AM EDT Patient is calling back because he is unable to open his InviteDEV message so he is calling backto speak with the nurse in regards to the message and what he needs to do * Telephone Encounter - Kirstin Danielson LPN - 08/16/2024 1:44 PM EDT Spoke to Gilberto. Results and recommendations given. He is driving right now, so unable to concentrateon recommendations. Informed him that I would send a NearWoo message and he can think about his decision. * Telephone Encounter - Meagan Chase CRNP - 08/16/2024 12:58 PM EDT Equivocal TTG, unable to rule out celiac. Recommend EGD with small-bowel biopsy. If patient agreeable will place order. documented in this encounter Plan of Treatment Upcoming Encounters Date Type Department Care Team (Latest Contact Info) Description 09/07/2024 11:15 AM EST Office Visit Hematology/Oncology [facility] [address] [facility] [place] [phone] Héctor Bhatti MD [address] [facility] [address] 10/03/2024 3:00 PM EST Office Visit [facility] [address] [place] [address] FebruaryMilton MD [address] [place] [address] 12/31/2024 2:00 PM EDT Hospital Encounter ENDO [facility], Endoscopy Room [facility] [address] [facility] [place] [phone] Kermit Arevalo, DO [address] [place] [address] 12/31/2024 2:00 PM EDT - 12/31/2024 2:30 PM EDT Surgery ENDO [facility], Endoscopy Room [facility] [address] [place] [phone] Kermit Arevalo, DO [address] [place] [address] COLONOSCOPY FLEXIBLE PROXIMAL DIAGNOSTIC Scheduled Procedures Name [...] Additional history exists CKD PHOS USE SMARTSET 63363 09/02/202408/17, 03/08/2023, 09/16/2022 Diabetic Foot Exam 09/30/2024 09/30/2023, 0 10/25/2022, 12/15/2021, Additional history exists CKD HGB USE SMARTSET 71201 11/14/202411/14, 09/02/2023, 09/02/2023, Additional history exists GFR [...] this encounter Medical Devices Implanted Type Area Fourchette Sewer Device Identifier Shelf Expiration Date Model / Serial / Lot Reunion Rsa Center Screw 6.5mm X 24mm Implanted:Qty: 1 on 09/14/2017 by Dante Morris DO [place] [facility] [place]: Shoulder PEMA : ORTHOPAEDICS 05/03/2022 3724-0263 / / [id number] Reunion Rsa Humeral Cup 36mm X 4mm Implanted:Qty: 1 on 09/14/2017 by Dante Morris DO at [place] [facility] [place] Right: Shoulder PEMA : ORTHOPAEDICS 08/22/2022 6090-1045 / / [id number] Reunion Rsa 3.1mm Drill Bit Implanted:Qty: 1 on 09/14/2017 by Dante Morris DO at [place] [facility] [place] Right: Shoulder PEMA : ORTHOPAEDICS 03/24/2022 7264-8510 / / [id number] Reunion Rsa Glenoid Baseplate 28mm Implanted:Qty: 1 on 09/14/2017 by Dante Morris DO at [place] [facility] [place] Right: Shoulder PEMA : ORTHOPAEDICS 08/01/2022 4832-8081 / / [id number] Reunion Rsa Peripheral Screw 4.5mm X 24mm Implanted:Qty: 1 on 09/14/2017 by Dante Morris DO at [place] [facility] [place] Right: Shoulder PEMA : ORTHOPAEDICS 06/30/2022 8383-0464 / / [id number] Reunion Rsa Peripheral Screw 4.5mm X 28mm Implanted:Qty: 1 on 09/14/2017 by Dante Morris DO at [place] [facility] [place] Right: Shoulder PEMA : ORTHOPAEDICS 06/30/2022 5080-0683 / / [id number] Reunion Rsa Peripheral Screw 4.5mm X 20mm Implanted:Qty: 1 on 09/14/2017 by Dante Morris DO at [place] [facility] [place] Right: Shoulder PEMA : ORTHOPAEDICS 04/13/2022 9002-4125 / / [id number] Reunion Rsa Concentric Glenosphere 36mm X 6mm Implanted:Qty: 1 on 09/14/2017 by Dante Morris DO at [place] [facility] Right: Shoulder PEMA : ORTHOPAEDICS 06/16/2022 5573-C-36 06 / / [id number] Reunion Rsa Peripheral Screw Implanted:Qty: 1 on 09/14/2017 by Dante Morris DO at [place] [facility] Right: Shoulder PEMA : ORTHOPAEDICS 02/11/2021 9708-2638 / / [id number] Reunion Tsa Modular Humeral Stem Size11 X 123mm Implanted:Qty: 1 on 09/14/2017 by Dante Morris DO at [place] [facility] Right: Shoulder PEMA : ORTHOPAEDICS 05/02/2022 5569-P-20 11 / / [id number] Reunion Rsa X3 Humeral Insert 36mm X 4mm Implanted:Qty: 1 on 09/14/2017 by Dante Morris DO at [place] [facility] Right: Shoulder PEMA : ORTHOPAEDICS 03/22/2022 5571-S-36 04 / / [id number] Baseplate #5 Tritanium - [id number] Implanted:Qty: 1 on 10/22/2019 by Nick Vang MD at OR [facility] Left: Knee PEMA : ORTHOPAEDICS 08/07/2024 5536-B-50 0 / / [id number] Knee Triathlon Ps Stb Bead 4 L - [id number] Implanted:Qty: 1 on 10/22/2019 by Nick Vang MD at OR [facility] Left: Knee PEMA : ORTHOPAEDICS 04/08/2024 5516-F-40 1 / / [id number] Insert Tib Sz5 Knee - [id number] Implanted:Qty: 1 on 10/22/2019 by Nick Vang MD at OR [facility] Left: Knee PEMA : ORTHOPAEDICS 12/13/2022 5532-G-51 1 / / [id number] Triathlon Tritanium Symmetric Patella Implanted:Qty: 1 on [...] Directives occurred with: Not Discussed Care Teams Strategy Planning Consultant Relationship Specialty Start Date End Date February, Milton Alvarez MD [address] [facility] [place] [address] PCP - General Family Medicine 07/26/23 documented as of this encounter
--- OUTSIDE RECORDS SUMMARY | 2025-01-26 00:21 | External Medical Summary | Summary of Care ---
Author Name Unknown Organization [facility] Address [address] [place] [address] Phone [phone] Care Team Providers Care Radial Router Operator Name Role Phone Milton Mcdaniel MD Primary Care Provider [phone] Reason for Visit * Reason Comments Outpatient Testing Encounter Details Date Type Department Care Team (Late st Contact Info) Description 08/15/2024 1:50 PM EDT Laboratory Laboratory, [facility] [address] [facility] [phone] [facility] [address] [place] [address] Irritable bowel syndrome with both constipation and diarrhea Allergies Active Allergy Reactions Criticality Noted [...] daily e11.22 1 Kit 1 12/30/2021 Active WipitTouch Verio In Vitro Strip Use to test blood sugar three times daily DX: E11.9 300 Strip 1 08/09/2022 Active AquaMost Delica Lancets 33G Use as directed to [...] BEDTIME 180 Tablet 3 05/11/2024 Active Pen Model 32G X 4 MMIndications:Diabe melanie mellitus with [...] mRNA, LNP-s, No Pre serve, 2-Dose Series ([employer]) 09/23/2021,01/13/2021,12/23/2020 Pneumococcal Conjugate Vacc, 13 Valent (Prevnar) [...] No 10/22/2019 documented as of this encounter Plan of Treatment Upcoming Encounters Date Type Department Care Team (Latest Contact Info) Description 09/07/2024 11:15 AM EST Office Visit Hematology/Oncology [facility] [place] [address] [facility] [place], [place] [phone] Héctor Bhatti MD [address] [facility] [place] [address] 10/03/2024 3:00 PM EST Office Visit [facility] [address] [facility], [place] [address] Milton Mcdaniel MD [address] [facility], [place] [address] 12/31/2024 2:00 PM EDT Hospital Encounter ENDO [facility], Endoscopy Room [facility] [address] [place] [phone] Kermit Arevalo, DO [address] [place] [address] 12/31/2024 2:00 PM EDT - 12/31/2024 2:30 PM EDT Surgery ENDO [facility], Endoscopy Room [facility] [address] [place] [phone] Kermit Arevalo, DO [address] [place] [address] COLONOSCOPY FLEXIBLE PROXIMAL DIAGNOSTIC Pending Results Name Type Priority Associated Diagnoses Date /Time TSH WITH FREE T4 IF INDICATED Lab Routine Irritable bowel syndrome with both constipation and diarrhea 08/15/2024 12:51 PM EDT TISSUE TRANSGLUTAMINASE IGA ANTIBODY Lab Routine Irritable bowel syndrome with both constipation and diarrhea 08/15/2024 12:51 PM EDT IGA Lab Routine Irritable bowel syndrome with both constipation and diarrhea 08/15/2024 12:51 PM EDT Scheduled Procedures Name Priority Associated Diagnoses Date/Ti [...] Additional history exists CKD PHOS USE SMARTSET 41869 09/02/202408/17, 03/08/2023, 09/16/2022 Diabetic Foot Exam 09/30/2024 09/30/2023, 0 10/25/2022, 12/15/2021, Additional history exists CKD HGB USE SMARTSET 24584 11/14/202411/14, 09/02/2023, 09/02/2023, Additional history exists GFR [...] this encounter Medical Devices Implanted Type Area Pharmaceutical Detailer Device Identifier Shelf Expiration Date Model / Serial / Lot Reunion Rsa Center Screw 6.5mm X 24mm Implanted:Qty: 1 on 09/14/2017 by Dante Morris DO at [place] [facility] [place] Right: Shoulder PEMA : ORTHOPAEDICS 05/03/2022 1611-9566 / / [id number] Reunion Rsa Humeral Cup 36mm X 4mm Implanted:Qty: 1 on 09/14/2017 by Dante Morris DO at OR [facility] Right: Shoulder PEMA : ORTHOPAEDICS 08/22/2022 3392-6091 / / [id number] Reunion Rsa 3.1mm Drill Bit Implanted:Qty: 1 on 09/14/2017 by Dante Morris DO at OR [facility] Right: Shoulder PEMA : ORTHOPAEDICS 03/24/2022 8819-3614 / / [id number] Reunion Rsa Glenoid Baseplate 28mm Implanted:Qty: 1 on 09/14/2017 by Dante Morris DO at OR [facility] Right: Shoulder PEMA : ORTHOPAEDICS 08/01/2022 4541-5438 / / [id number] Reunion Rsa Peripheral Screw 4.5mm X 24mm Implanted:Qty: 1 on 09/14/2017 by Dante Morris DO at OR [facility] Right: Shoulder PEMA : ORTHOPAEDICS 06/30/2022 4631-1962 / / [id number] Reunion Rsa Peripheral Screw 4.5mm X 28mm Implanted:Qty: 1 on 09/14/2017 by Dante Morris DO at OR [facility] Right: Shoulder PEMA : ORTHOPAEDICS 06/30/2022 6838-3144 / / [id number] Reunion Rsa Peripheral Screw 4.5mm X 20mm Implanted:Qty: 1 on 09/14/2017 by Dante Morris DO at OR [facility] Right: Shoulder PEMA : ORTHOPAEDICS 04/13/2022 1104-2538 / / [id number] Reunion Rsa Concentric Glenosphere 36mm X 6mm Implanted:Qty: 1 on 09/14/2017 by Dante Morris DO at OR [facility] Right: Shoulder PEMA : ORTHOPAEDICS 06/16/2022 5573-C-36 06 / / [id number] Reunion Rsa Peripheral Screw Implanted:Qty: 1 on 09/14/2017 by Dante Morris DO at OR [facility] Right: Shoulder PEMA : ORTHOPAEDICS 02/11/2021 5239-8797 / / [id number] Reunion Tsa Modular Humeral Stem Size11 X 123mm Implanted:Qty: 1 on 09/14/2017 by Dante Morris DO at OR [facility] Right: Shoulder PEMA : ORTHOPAEDICS 05/02/2022 5569-P-20 11 / / [id number] Reunion Rsa X3 Humeral Insert 36mm X 4mm Implanted:Qty: 1 on 09/14/2017 by Dante Morris DO at OR [facility] Right: Shoulder PEMA : ORTHOPAEDICS 03/22/2022 5571-S-36 04 / / [id number] Baseplate #5 Tritanium - [id number] Implanted:Qty: 1 on 10/22/2019 by Nick Vang MD at OR [facility] Left: Knee PEMA : ORTHOPAEDICS 08/07/2024 5536-B-50 0 / / [id number] Knee Triathlon Ps Stb Bead 4 L - [id number] Implanted:Qty: 1 on 10/22/2019 by Nick Vang MD at OR [facility] Left: Knee PEMA : ORTHOPAEDICS 04/08/2024 5516-F-40 1 / / [id number] Insert Tib Sz5 Knee - [id number] Implanted:Qty: 1 on 10/22/2019 by Nick Vang MD at OR [facility] Left: Knee PEMA : ORTHOPAEDICS 12/13/2022 5532-G-51 1 / / [id number] Triathlon Tritanium Symmetric Patella Implanted:Qty: 1 on 10/22/2019 by Nick Vang MD at OR [facility] Left: Knee 04/21/2024 5556-L-39 T documented [...] Directives occurred with: Not Discussed Care Teams Radial Router Operator Relationship Specialty Start Date End Date February, Milton Alvarez MD [address] [facility] [place] [address] PCP - General Family Medicine 07/26/23 documented as of this encounter
--- OUTSIDE RECORDS SUMMARY | 2025-01-26 00:21 | External Medical Summary ---
Author Name Unknown Address Unknown Organization K01:[facility] - [address] [place] [address] Laboratory Report Ordering Provider Test Date Status VIVIAN CHAVEZ 08/15/2024 12:51:29 Final Observation Date Value Abnormality Reference (Units ) Status IgA 08/15/2024 12:51:29 215 70-400 (mg /dL) Final Performing Location [facility] - [address] [place] [address]
--- OUTSIDE RECORDS SUMMARY | 2025-01-26 00:21 | External Medical Summary | Summary of Care ---
Author Name Unknown Organization [facility] Address [address] [facility] [place] [address] Phone [phone] Care Team Providers Care Founder Name Role Phone Milton Mcdaniel MD Primary Care Provider [phone] Reason for Visit * Reason Onset Date Comments Test Results Lab 08/16/2024 Encounter Details Date Type Department Care Team (Late st Contact Info) Description 08/16/2024 Telephone Gastroenterology, [facility] [address] [place] [address] Meagan Chase CRNP [address] [place] [address] Test Results Lab Allergies Active Allergy Reactions [...] needed 80 g 1 12/15/2021 Active OneTouch VerHouseFix w/Device KitIndications:Diab etes mellitus with stage 3 chronic kidney disease (HCC) Use as directed . Use to test blood sugars once daily e11.22 1 Kit 1 12/30/2021 Active [employer] Systems[employer]ONT[employer] Verio In Vitro Strip Use to test blood sugar three times daily DX: E11.9 300 Strip 1 08/09/2022 Active Keldelice Delica Lancets 33G Use as directed to [...] BEDTIME 180 Tablet 3 05/11/2024 Active Pen [place] 32G X 4 MMIndications:Diabe melanie mellitus with [...] mRNA, LNP-s, No Pre serve, 2-Dose Series (Known) 09/23/2021,01/13/2021,12/23/2020 Pneumococcal Conjugate Vacc, 13 Valent (Prevnar) [...] Informed him that I would send a [email or web address] message and he can think about his decision. * Telephone Encounter - Meagan Chase CRNP - 08/16/2024 12:58 PM EDT Equivocal TTG, unable to rule out celiac. Recommend EGD with small-bowel biopsy. If patient agreeable will place order. documented in this encounter Plan of Treatment Upcoming Encounters Date Type Department Care Team (Latest Contact Info) Description 09/07/2024 11:15 AM EST Office Visit Hematology/Oncology [facility] [address] [facility] [place] [address] Héctor Bhatti MD [address] [facility] [place] [address] 10/03/2024 3:00 PM EST Office Visit [facility] [address] [place] [facility] [place] [address] Milton Mcdaniel MD [address] [place] [address] 12/31/2024 2:00 PM EDT Hospital Encounter ENDO O[facility], Endoscopy Room [facility] [address] [place] [address] Kermit Arevalo DO [address] [place] [address] 12/31/2024 2:00 PM EDT - 12/31/2024 2:30 PM EDT Surgery ENDO O[facility], Endoscopy Room [facility] [address] [place] [phone] Kermit Arevalo, DO [address] [place] [address] COLONOSCOPY FLEXIBLE PROXIMAL DIAGNOSTIC Scheduled Procedures Name [...] Additional history exists CKD PHOS USE SMARTSET 87481 09/02/202408/17, 03/08/2023, 09/16/2022 Diabetic Foot Exam 09/30/2024 09/30/2023, 0 10/25/2022, 12/15/2021, Additional history exists CKD HGB USE SMARTSET 60354 11/14/202411/14, 09/02/2023, 09/02/2023, Additional history exists GFR [...] this encounter Medical Devices Implanted Type Area Right Of Way Cutter Device Identifier Shelf Expiration Date Model / Serial / Lot Reunion Rsa Center Screw 6.5mm X 24mm Implanted:Qty: 1 on 09/14/2017 by Dante Morris DO [place] [facility]: Shoulder PEMA : ORTHOPAEDICS 05/03/2022 [id number] / / [id number] Reunion Rsa Humeral Cup 36mm X 4mm Implanted:Qty: 1 on 09/14/2017 by Dante Morris DO at [place] [facility] Right: Shoulder PEMA : ORTHOPAEDICS 08/22/2022 0859-7096 / / [id number] Reunion Rsa 3.1mm Drill Bit Implanted:Qty: 1 on 09/14/2017 by Dante Morris DO at [place] [facility] Right: Shoulder PEMA : ORTHOPAEDICS 03/24/2022 6705-7068 / / [id number] Reunion Rsa Glenoid Baseplate 28mm Implanted:Qty: 1 on 09/14/2017 by Dante Morris DO at [place] [facility] Right: Shoulder PEMA : ORTHOPAEDICS 08/01/2022 0491-3641 / / [id number] Reunion Rsa Peripheral Screw 4.5mm X 24mm Implanted:Qty: 1 on 09/14/2017 by Dante Morris DO at [place] [facility] Right: Shoulder PEMA : ORTHOPAEDICS 06/30/2022 4616-8775 / / [id number] Reunion Rsa Peripheral Screw 4.5mm X 28mm Implanted:Qty: 1 on 09/14/2017 by Dante Morris DO at [place] [facility] Right: Shoulder PEMA : ORTHOPAEDICS 06/30/2022 2612-5922 / / [id number] Reunion Rsa Peripheral Screw 4.5mm X 20mm Implanted:Qty: 1 on 09/14/2017 by Dante Morris DO at [place] [facility] Right: Shoulder PEMA : ORTHOPAEDICS 04/13/2022 4451-6043 / / [id number] Reunion Rsa Concentric Glenosphere 36mm X 6mm Implanted:Qty: 1 on 09/14/2017 by Dante Morris DO at [place] [facility] Right: Shoulder PEMA : ORTHOPAEDICS 06/16/2022 5573-C-36 06 / / [id number] Reunion Rsa Peripheral Screw Implanted:Qty: 1 on 09/14/2017 by Dante Morris DO at [place] [facility] Right: Shoulder PEMA : ORTHOPAEDICS 02/11/2021 2421-2722 / / [id number] Reunion Tsa Modular Humeral [...] / / [id number] Baseplate #5 Tritanium - [id number] Implanted:Qty: 1 on 10/22/2019 by Nick Vang MD at OR [facility] Left: Knee PEMA : ORTHOPAEDICS 08/07/2024 5536-B-50 0 / / [id number] Knee Triathlon Ps Stb Bead 4 L - [id number] Implanted:Qty: 1 on 10/22/2019 by Nick Vang MD at OR [facility] Left: Knee PEMA : ORTHOPAEDICS 04/08/2024 5516-F-40 / [id number] Insert Tib Sz5 Knee - [id number] Implanted:Qty: 1 on 10/22/2019 by Nick Vang MD at OR [facility] Left: Knee PEMA : ORTHOPAEDICS 12/13/2022 5532-G-51 [id number] Triathlon Tritanium Symmetric Patella Implanted:Qty: 1 on 10/22/2019 by Nick Vang MD at OR [facility] Left: Knee 04/21/2024 5556-L-39 / [id number] documented as of this encounter [...] Directives occurred with: Not Discussed Care Teams Founder Relationship Specialty Start Date End Date February, Milton Alvarez MD [address] [place] [address] PCP - General Family Medicine 07/26/23 documented as of this encounter
--- OUTSIDE RECORDS SUMMARY | 2025-01-26 00:22 | External Medical Summary | Summary of Care ---
Author Name Unknown Organization [facility] Address [address] [place] [facility] [place] [address] Phone [phone] Care Team Providers Care Programming Internship Name Role Phone Milton Mcdaniel MD Primary Care Provider [phone] Reason for Visit * Reason Comments Outpatient Testing Encounter Details Date Type Department Care Team (Late st Contact Info) Description 08/04/2024 9:20 AM EDT Laboratory Laboratory, [facility] [address] [facility] [place] [address] [place], Specimen Drop Off [facility] [address] [facility] [address] Chronic diarrhea Allergies Active Allergy Reactions Criticality Noted Date Comments Amoxicillin-Pot Clavulanate Hives 06/16/20 16 Clavulanic Acid Hives 07/09/2016 documented as of this encounter (statuses as of 08/04/2024) Medications Medication Sig Dispensed Refills Start Date [...] daily e11.22 1 Kit 1 12/30/2021 Active [employer] VerFondeadora In Vitro Strip Use to test blood sugar three times daily DX: E11.9 300 Strip 1 08/09/2022 Active Alac[employer]ch Delica Lancets 33G Use as directed to [...] hemoglobin A1c goal of less than 7.0% ([facility]) TAKE 2 TABLETS BY MOUTH [...] BEDTIME 180 Tablet 3 05/11/2024 Active Pen [place] 32G X 4 MMIndications:Diabe melanie mellitus with [...] as of this encounter (statuses as of 08/04/2024) Active Problems Problem Noted Date Diagnosed Date [...] as of this encounter (statuses as of 08/04/2024) Resolved Problems Problem Noted Date Diagnosed Date [...] as of this encounter (statuses as of 08/04/2024) Immunizations Name Administration Dates Next Due COVID-19 mRNA, LNP-s, No Pre serve, 2-Dose Series ([employer] 09/23/2021,01/13/2021,12/23/2020 Pneumococcal Conjugate Vacc, 13 Valent (Prevnar) [...] 08/15/2024 12:00 PM EDT Office Visit Gastroenterology, [facility] [address] [place] [address] Meagan Chase CRNP [address] [place] [address] 09/07/2024 11:15 AM EST Office Visit Hematology/Oncology [facility] [place] [address] [facility] [place], [place] [phone] Héctor Bhatti MD [address] [facility] [place], [place] [address] 10/03/2024 3:00 PM EST Office Visit [facility] [address] [place] [facility] [place] [phone] February, Milton Alvarez MD [address] [place], [place] [phone] Pending Results Name Type Priority Associated Diagnoses Date /Time CLOSTRIDIUM DIFFICILE, PCR Lab Routine Chronic diarrhea 08/04/2024 9:25 AM EDT Health Maintenance Due Date Last Done Comments Hepatitis C Screening 1968 Adult Wellness Visit 2015 Colonoscopy 04/05/2024 04/05/2019, 11/09/2016 Diabetic Eye Exam 06/04/2024 06/04/2023, , 02/04/2021, Additional history exists COVID-19 Vaccine ( season) 2024 09/23/2021, 01/13/2021, 12/23/2020 Albumin/Creatinine Ratio 09/02/202409/02/2 023, 09/16/2022, 09/09/2021, Additional history exists CKD PHOS USE SMARTSET 39611 09/02/202408/17, 03/08/2023, 09/16/2022 Diabetic Foot Exam 09/30/2024 09/30/2023, 0 10/25/2022, 12/15/2021, Additional history exists CKD HGB USE SMARTSET 48200 11/14/202411/14, 09/02/2023, 09/02/2023, Additional history exists GFR [...] encounter Medical Devices Implanted Type Area Motor Tune Up Specialist Device Identifier Shelf Expiration Date Model / Serial / Lot Reunion Rsa Center Screw 6.5mm X 24mm Implanted:Qty: 1 on 09/14/2017 by Dante Morris DO [place] [facility] [place]: [place]er PEMA : ORTHOPAEDICS 05/03/2022 [id number] / / [id number] Reunion Rsa Humeral Cup 36mm X 4mm Implanted:Qty: 1 on 09/14/2017 by Dante Morris DO [place] [facility] [place]: Shoulder PEMA : ORTHOPAEDICS 08/22/2022 9738-7979 / / [id number] Reunion Rsa 3.1mm Drill Bit Implanted:Qty: 1 on 09/14/2017 by Dante Morris DO [place] [facility] [place]: Shoulder PEMA : ORTHOPAEDICS 03/24/2022 9621-7018 / / [id number] Reunion Rsa Glenoid Baseplate 28mm Implanted:Qty: 1 on 09/14/2017 by Dante Morris DO [place] [facility] [place]: Shoulder PEMA : ORTHOPAEDICS 08/01/2022 0048-5386 / / [id number] Reunion Rsa Peripheral Screw 4.5mm X 24mm Implanted:Qty: 1 on 09/14/2017 by Dante Morris DO [place] [facility]: Shoulder PEMA : ORTHOPAEDICS 06/30/2022 6846-4831 / / [id number] Reunion Rsa Peripheral Screw 4.5mm X 28mm Implanted:Qty: 1 on 09/14/2017 by Dante Morris DO [place] [facility] [place]: Shoulder PEMA : ORTHOPAEDICS 06/30/2022 7027-6726 / / [id number] Reunion Rsa Peripheral Screw 4.5mm X 20mm Implanted:Qty: 1 on 09/14/2017 by Dante Morris DO [place] [facility] [place]: Shoulder PEMA : ORTHOPAEDICS 04/13/2022 6000-2027 / / [id number] Reunion Rsa Concentric Glenosphere 36mm X 6mm Implanted:Qty: 1 on 09/14/2017 by Dante Morris DO at [place] [facility] Right: Shoulder PEMA : ORTHOPAEDICS 06/16/2022 5573-C-36 06 / / [id number] Reunion Rsa Peripheral Screw Implanted:Qty: 1 on 09/14/2017 by Dante Morris DO at [place] [facility] Right: Shoulder PEMA : ORTHOPAEDICS 02/11/2021 7201-1377 / / [id number] Reunion Tsa Modular Humeral Stem Size11 X 123mm Implanted:Qty: 1 on 09/14/2017 by Dante Morris DO at [place] [facility] Right: Shoulder PEMA : ORTHOPAEDICS 05/02/2022 5569-P-20 11 / / [id number] Reunion Rsa X3 Humeral Insert 36mm X 4mm Implanted:Qty: 1 on 09/14/2017 by Dante Morris DO [place] [facility] Right: Shoulder PEMA : ORTHOPAEDICS 03/22/2022 5571-S-36 04 / / [id number] Baseplate #5 Tritanium - [id number] Implanted:Qty: 1 on 10/22/2019 by Nick Vang MD at OR [facility] Left: Knee PEMA : ORTHOPAEDICS 08/07/2024 5536-B-50 0 / / [id number] Knee Triathlon Ps Stb Bead 4 L - [id number] Implanted:Qty: 1 on 10/22/2019 by Nick Vang MD at OR [facility] Left: Knee PEMA : ORTHOPAEDICS 04/08/2024 5516-F-40 1 / / [id number] Insert Tib Sz5 Knee - [id number] Implanted:Qty: 1 on 10/22/2019 by Nick Vang MD at OR [facility] Left: Knee PEMA : ORTHOPAEDICS 12/13/2022 5532-G-51 1 / / [id number] Triathlon Tritanium Symmetric Patella Implanted:Qty: 1 on 10/22/2019 by Nick Vang MD at OR [facility] Left: Knee 04/21/2024 5556-L-39 1 / / [id number] documented as of this encounter Visit Diagnoses Diagnosis Chronic diarrhea Diarrhea documented in this encounter Additional Health Concerns Infection Onset Date Last Indicated Resolved Time C. difficile Rule-Out 08/04/2024 08/04/2024 documented as of this encounter Advance Directives [...] Directives occurred with: Not Discussed Care Teams Programming Internship Relationship Specialty Start Date End Date February, Milton Alvarez MD [address] [place] [address] PCP - General Family Medicine 07/26/23 documented as of this encounter
--- OUTSIDE RECORDS SUMMARY | 2025-01-26 00:22 | External Medical Summary | Summary of Care ---
Author Name Unknown Organization [facility] Address [address] [place] [address] Phone [phone] Care Team Providers Care Consumer Safety Inspector Name Role Phone Milton Mcdaniel MD Primary Care Provider [phone] Reason for Visit * Reason Comments Outpatient Testing Encounter Details Date Type Department Care Team (Late st Contact Info) Description 07/30/2024 1:40 PM EDT Laboratory Laboratory, [place] [address] [place] [phone] [place], [facility] [address] [place], [place] [phone] Chronic diarrhea; Diabetes mellitus with stage 3 chronic kidney disease (HCC); Essential hypertension with goal blood pressure less than 140/90; Mixed hyperlipidemia Allergies Active Allergy Reactions Criticality Noted Date Comments Amoxicillin-Pot Clavulanate Hives 06/16/20 16 Clavulanic Acid Hives 07/09/2016 documented as of this encounter (statuses as of 07/30/2024) Medications Medication Sig Dispensed Refills Start Date [...] as needed 80 g 1 12/15/2021 Active appbackrTouch Verio w/Device KitIndications:Diab etes mellitus with stage 3 chronic kidney disease (HCC) Use as directed . Use to test blood sugars once daily e11.22 1 Kit 1 12/30/2021 Active appbackrTouch Verio In Vitro Strip Use to test blood sugar three times daily DX: E11.9 300 Strip 1 08/09/2022 Active appbackrTouch Delica Lancets 33G Use as directed to [...] BEDTIME 180 Tablet 3 05/11/2024 Active Pen [place] 32G X 4 MMIndications:Diabe melanie mellitus with [...] as of this encounter (statuses as of 07/30/2024) Active Problems Problem Noted Date Diagnosed Date [...] as of this encounter (statuses as of 07/30/2024) Resolved Problems Problem Noted Date Diagnosed Date [...] right 12/12/2017 11/28/2018 Diverticulosis of colon 11/09/201611/2017 Overview: By colonosopy Hemorrhoid 11/09/2016 11/28/2018 Overview: By colonoscopy documented as of this encounter (statuses as of 07/30/2024) Immunizations Name Administration Dates Next Due COVID-19 mRNA, LNP-s, No Pre serve, 2-Dose Series ([employer]) 09/23/2021,01/13/2021,12/23/2020 Pneumococcal Conjugate Vacc, 13 Valent (Prevnar) [...] 08/15/2024 12:00 PM EDT Office Visit Gastroenterology, [facility] [address] [place] [address] Meagan Chase CRNP [address] [place] [address] 09/07/2024 11:15 AM EST Office Visit Hematology/Oncology [facility] [place] [address] [facility] [place] [address] Héctor Bhatti MD [address] [facility] [place] [address] 10/03/2024 3:00 PM EST Office Visit [facility] [address] [place] [address] February, Milton Alvarez MD [address] [place] [address] Pending Results Name Type Priority Associated Diagnoses Date /Time GASTROINTESTINAL PATHOGEN PANEL, STOOL Lab Routine Chronic diarrhea 07/30/2024 1:18 PM EDT GASTROINTESTINAL PATHOGEN PANEL PCR Lab Routine Chronic diarrhea 07/30/2024 1:18 PM EDT GASTROINTESTINAL PATHOGEN PANEL CULTURE Lab Routine Chronic diarrhea 07/30/2024 1:18 PM EDT HEMOGLOBIN A1C Lab Routine Diabetes mellitus with stage 3 chronic kidney disease (HCC) 07/30/2024 1:23 PM EDT COMPREHENSIVE METABOLIC PANEL Lab Routine Essential hypertension with goal blood pressure less than 140/90 07/30/2024 1:23 PM EDT LIPID PANEL WITH DIRECT LDL IF TG IS HIGH Lab Routine Mixed hyperlipidemia 07/30/2024 1:23 PM EDT Health Maintenance Due Date Last Done Comments Hepatitis C Screening 1968 Adult Wellness Visit 2015 Colonoscopy 04/05/2024 04/05/2019, 11/09/2016 Diabetic Eye Exam 06/04/2024 06/04/2023, , 02/04/2021, Additional history exists COVID-19 Vaccine ( season) 2024 09/23/2021, 01/13/2021, 12/23/2020 Albumin/Creatinine Ratio 09/02/202409/02/2 023, 09/16/2022, 09/09/2021, Additional history exists CKD PHOS USE SMARTSET 43825 09/02/202408/17, 03/08/2023, 09/16/2022 GFR 09/25/2024 03/26/2024, 10/18, 09/02/2023, Additional history exists HbA1c 09/25/2024 03/26/2024, 10/18, 09/02/2023, Additional history exists Diabetic Foot Exam 09/30/2024 09/30/2023, 0 10/25/2022, 12/15/2021, Additional history exists CKD HGB USE SMARTSET 77029 11/14/202411/14, 09/02/2023, 09/02/2023, Additional history exists B-12 03/26/2025 03/26/2024, 02/15, [...] this encounter Medical Devices Implanted Type Area Sql Analyst Device Identifier Shelf Expiration Date Model / Serial / Lot Reunion Rsa Center Screw 6.5mm X 24mm Implanted:Qty: 1 on 09/14/2017 by Dante Morris, at [place] [facility] [place]: Shoulder PEMA : ORTHOPAEDICS 05/03/2022 1504-6321 / / [id number] Reunion Rsa Humeral Cup 36mm X 4mm Implanted:Qty: 1 on 09/14/2017 by Dante Morris DO [place] [facility] [place]: Shoulder PEMA : ORTHOPAEDICS 08/22/2022 9521-0601 / / [id number] Reunion Rsa 3.1mm Drill Bit Implanted:Qty: 1 on 09/14/2017 by Dante Morris DO at [place] [facility] Right: Shoulder PEMA : ORTHOPAEDICS 03/24/2022 9227-3708 / / [id number] Reunion Rsa Glenoid Baseplate 28mm Implanted:Qty: 1 on 09/14/2017 by Dante Morris DO at [place] [facility] Right: Shoulder PEMA : ORTHOPAEDICS 08/01/2022 2109-1793 / / [id number] Reunion Rsa Peripheral Screw 4.5mm X 24mm Implanted:Qty: 1 on 09/14/2017 by Dante Mroris DO at [place] [facility] [place]: Shoulder PEMA : ORTHOPAEDICS 06/30/2022 3901-4913 / / [id number] Reunion Rsa Peripheral Screw 4.5mm X 28mm Implanted:Qty: 1 on 09/14/2017 by Dante Morris DO [place] [facility]: Shoulder PEMA : ORTHOPAEDICS 06/30/2022 6056-5963 / / [id number] Reunion Rsa Peripheral Screw 4.5mm X 20mm Implanted:Qty: 1 on 09/14/2017 by Dante Morris DO at [place] [facility] Right: Shoulder PEMA : ORTHOPAEDICS 04/13/2022 0210-5090 / / [id number] Reunion Rsa Concentric Glenosphere 36mm X 6mm Implanted:Qty: 1 on 09/14/2017 by Dante Morris DO at [place] [facility] Right: Shoulder PEMA : ORTHOPAEDICS 06/16/2022 5573-C-36 06 / / [id number] Reunion Rsa Peripheral Screw Implanted:Qty: 1 on 09/14/2017 by Dante Morris DO at [place] [facility] [place] Right: Shoulder PEMA : ORTHOPAEDICS 02/11/2021 3059-7041 / / [id number] Reunion Tsa Modular Humeral Stem Size11 X 123mm Implanted:Qty: 1 on 09/14/2017 by Dante Morris DO at [place] [facility] Right: Shoulder PEMA : ORTHOPAEDICS 05/02/2022 5569-P-20 11 / / [id number] Reunion Rsa X3 Humeral Insert 36mm X 4mm Implanted:Qty: 1 on 09/14/2017 by Dante Morris DO at [place] [facility] [place] Right: Shoulder PEMA : ORTHOPAEDICS 03/22/2022 5571-S-36 04 / / [id number] Baseplate #5 Tritanium - [id number] Implanted:Qty: 1 on 10/22/2019 by Nick Vang MD at OR [facility] Left: Knee PEMA : ORTHOPAEDICS 08/07/2024 5536-B-50 0 / / [id number] Knee Triathlon Ps Stb Bead 4 L - [id number] Implanted:Qty: 1 on 10/22/2019 by Nick Vang MD at OR [facility] Left: Knee PEMA : ORTHOPAEDICS 04/08/2024 5516-F-40 1 / / [id number] Insert Tib Sz5 Knee - [id number] Implanted:Qty: 1 on 10/22/2019 by Nick Vang MD at OR [facility] Left: Knee PEMA : ORTHOPAEDICS 12/13/2022 5532-G-51 1 / / [id number] Triathlon Tritanium Symmetric Patella Implanted:Qty: 1 on 10/22/2019 by Nick Vang MD at OR [facility] Left: Knee 04/21/2024 5556-L-39 1 / / [id number] documented as of this encounter Visit Diagnoses Diagnosis Chronic diarrhea Diarrhea Diabetes mellitus with stage 3 chronic kidney disease (HCC) Type II or unspecified type diabetes mellitus with renal manifestations, not stated as uncontrolled Essential hypertension with goal blood pressure less than 140/90 Mixed hyperlipidemia documented in this encounter Additional Health Concerns Infection Onset Date Last Indicated Resolved Time Gastrointestinal Rule-Out 07/30/2024 07/30/2024 documented as of this encounter Advance Directives [...] Directives occurred with: Not Discussed Care Teams Consumer Safety Inspector Relationship Specialty Start Date End Date February, Milton Alvarez MD [address] [facility] [place] [address] PCP - General Family Medicine 07/26/23 documented as of this encounter
--- OUTSIDE RECORDS SUMMARY | 2025-01-26 00:22 | External Medical Summary ---
Author Name Unknown Address Unknown Organization [id number]:[facility]ATORY [facility] [address] [facility] [address] Laboratory Report Ordering Provider Test Date Status 08/04/2024 09:25:14 Final Observation Date Value Abnormality Reference (Units) Status Source 08/04/2024 09:25:14 Liquid Final Clostridioides difficile toxin and BI-[id number] strain DNA panel - Stool by GILMER with probe detection 08/04/2024 09:25:14 Negative. No C. difficile toxin B gene DNA detected by PCR (Amplified Probe). Negative Final Performing Location LABORATORY [facility] - [address] [place] [address]
--- OUTSIDE RECORDS SUMMARY | 2025-01-26 00:22 | External Medical Summary ---
Author Name Unknown Address Unknown Organization K01:LABORATORY [facility] - [address] [facility] [address] [facility] [address] Laboratory Report Ordering Provider Test Date Status 07/30/2024 13:23:12 Final Observation Date Value Abnormality Reference (Units ) Status HbA1C 07/30/2024 13:23:12 7.4 Above high normal 4. 0-5.6 (%) Final The use of HbA1c to monitor glycemic status is based on normal hemoglobin and HbA composition. This test should not be used in patients with abnormal hemoglobin that affects the half life of the red blood cell or the in vivo glycation rates. Glucose, estimated average 07/30/2024 13:23:12 166 Above high normal <126 (mg/dL) Abilio lacey Performing Location LAB[facility] [address] [facility] [address]
--- OUTSIDE RECORDS SUMMARY | 2025-01-26 00:22 | External Medical Summary ---
Author Name Unknown Address Unknown Organization [id number]:[facility] [place] [address] [address] [facility] [address] Laboratory Report Ordering Provider Test Date Status 07/30/2024 13:18:49 Final Observation Date Value Abnormality Reference (Units ) Status Campylobacter sp DNA.diarrheagenic [Presence] in Stool by GILMER with probe detection 07/30/2024 13:18:49 Negative Negative Final Salmonella sp rpoD gene [Presence] in Stool by GILMER with probe detection 07/30/2024 13:18:49 Negative Negative Final Shigella species+EIEC invasion plasmid antigen H ipaH gene [Presence] in Stool by GILMER with probe detection 07/30/2024 13:18:49 Negative Negative Final Vibrio sp DNA [Identifier] in Specimen by GILMER with probe detection 07/30/2024 13:18:49 Negative Negative Final Yersinia enterocolitica recN gene [Presence] in Stool by GILMER with probe detection 07/30/2024 13:18:49 Negative Negative Final Escherichia coli Stx1 toxin stx1 gene [Presence] in Stool by GILMER with probe detection 07/30/2024 13:18:49 Negative Negative Final Escherichia coli Stx2 toxin stx2 gene [Presence] in Stool by GILMER with probe detection 07/30/2024 13:18:49 Negative Negative Final Norovirus genogroups I and II RNA panel - Stool by GILMER with probe detection 07/30/2024 13:18:49 Negative Negative Final Rotavirus A RNA [Presence] in Stool by GILMER with probe detection 07/30/2024 13:18:49 Negative Negative Final Performing Location [facility] [place] [address] [address] [facility] [address]
--- OUTSIDE RECORDS SUMMARY | 2025-01-26 00:22 | External Medical Summary ---
Author Name Unknown Address Unknown Organization K01:[facility] [place] [address] [facility] [address] Laboratory Report Ordering Provider Test Date Status 07/30/2024 13:23:12 Final Observation Date Value Abnormality Reference (Units ) Status BUN 07/30/2024 13:23:12 22 Above high normal 6-20 (mg/dL) Final Creatinine 07/30/2024 13:23:12 1.1 0.6-1.2 (mg/dL) Final Glomerular filtration rate/1.73 sq M.predicted [Volume Rate/Area] in Serum, Plasma or Blood by Creatinine-based formula (CKD-EPI) 07/30/2024 13:23:12 67 >=60 (mL/min) Final eGFR is calculated based on the CKD-EPI 2020 equation. Sodium 07/30/2024 13:23:12 137 135-146 (m mol/L) Final Potassium 07/30/2024 13:23:12 4.0 3.5-5.1 (m mol/L) Final Cl 07/30/2024 13:23:12 98 98-107 (mm ol/L) Final CO2 07/30/2024 13:23:12 25 22-32 (mmo l/L) Final Anion gap 07/30/2024 13:23:12 14 7-15 (mmol /L) Final Glucose 07/30/2024 13:23:12 178 Above high normal 70 -120 (mg/dL) Final Albumin 07/30/2024 13:23:12 4.4 3.8-5.0 (g /dL) Final AST (Aspartate aminotransferase) 07/30/2024 13:23:12 28 10-50 (U/L) Fin al Alk Phos 07/30/2024 13:23:12 72 35-130 (U/ L) Final Bilirubin, Total 07/30/2024 13:23:12 0.5 <=1 .2 (mg/dL) Final Calcium 07/30/2024 13:23:12 9.1 8.4-10.2 ( mg/dL) Final Protein 07/30/2024 13:23:12 7.2 6.0-8.3 (g /dL) Final ALT (Alanine aminotransferase) 07/30/2024 13:23:12 38 10-50 (U/L) Abilio lacey Performing Location [facility] [place] [facility] [address] [facility] [address]
--- OUTSIDE RECORDS SUMMARY | 2025-01-26 00:22 | External Medical Summary | Summary of Care ---
Author Name Unknown Organization [facility] Address [address] [place] [address] Phone [phone] Care Team Providers Care Global Regulatory Lead Name Role Phone Milton Mcdaniel MD Primary Care Provider [phone] Reason for Visit * Reason Onset Date Comments MyCode Nonconsent - Not interested at this time 07/30/2024 Encounter Details Date Type Department Care Team (Late st Contact Info) Description 07/30/2024 Orders Only Outcomes Research Department [address], [place] [id number] tSella Griffith CHRA MyCode Nonconsent Documentation Allergies Active Allergy Reactions Criticality Noted Date [...] daily e11.22 1 Kit 1 12/30/2021 Active skyrockitTouch Verio In Vitro Strip Use to test blood sugar three times daily DX: E11.9 300 Strip 1 08/09/2022 Active [employer]uch Delica Lancets 33G Use as directed to [...] BEDTIME 180 Tablet 3 05/11/2024 Active Pen Stumpy Point 32G X 4 MMIndications:Diabe melanie mellitus with [...] mRNA, LNP-s, No Pre serve, 2-Dose Series ([employer]) 09/23/2021,01/13/2021,12/23/2020 Pneumococcal Conjugate Vacc, 13 Valent (Prevnar) [...] seeing, even when wearing glasses? No 10/22/19 Do you have serious difficul ty walking [...] No 10/22/2019 documented as of this encounter Progress Notes * Stella Griffith CHRA - 07/30/2024 1:20 PM EDT MyCode Nonconsent Documentation Gilberto Valles was approached in the clinic regarding participation in the MyCode Project and did notconsent. documented in this encounter Plan of Treatment Upcoming Encounters Date Type Department Care Team (Latest Contact Info) Description 07/30/2024 1:40 PM EDT Laboratory Laboratory, [facility] [place] [phone] [facility] [address] [facility] [place] [address] Chronic diarrhea; Diabetes mellitus with stage 3 chronic kidney disease (HCC); Essential hypertension with goal blood pressure less than 140/90; Mixed hyperlipidemia 08/15/2024 12:00 PM EDT Office Visit Gastroenterology, [facility] [address] [place] [address] Meagan Chase CRNP [address] [place] [address] 09/07/2024 11:15 AM EST Office Visit Hematology/Oncology [facility] [address] [facility] [place] [phone] Héctor Bhatti MD [address] [facility] [place] [address] 10/03/2024 3:00 PM EST Office Visit Family [facility] [address] [facility] [phone] Milton Mcdaniel MD [address] [place] [address] Health Maintenance Due Date Last Done Comments Hepatitis C Screening 1968 Adult Wellness Visit 2015 Colonoscopy 04/05/2024 04/05/2019, 11/09/2016 Diabetic Eye Exam 06/04/2024 06/04/2023, , 02/04/2021, Additional history exists COVID-19 Vaccine ( season) 2024 09/23/2021, 01/13/2021, 12/23/2020 Albumin/Creatinine Ratio 09/02/202409/02/ 023, 09/16/2022, 09/09/2021, Additional history exists CKD PHOS USE SMARTSET 69906 09/02/202408/17, 03/08/2023, 09/16/2022 GFR 09/25/2024 03/26/2024, 10/18, 09/02/2023, Additional history exists HbA1c 09/25/2024 03/26/2024, 10/18, 09/02/2023, Additional history exists Diabetic Foot Exam 09/30/2024 09/30/2023, 0 10/25/2022, 12/15/2021, Additional history exists CKD HGB USE SMARTSET 29112 11/14/202411/14, 09/02/2023, 09/02/2023, Additional history exists B-12 [...] this encounter Medical Devices Implanted Type Area Financial Services Auditor Device Identifier Shelf Expiration Date Model / Serial / Lot Reunion Rsa Center Screw 6.5mm X 24mm Implanted:Qty: 1 on 09/14/[place] [facility] [place] [employer]EMA : ORTHOPAEDICS 05/03/2022 [id number] / / [id number] Reunion Rsa Humeral Cup 36mm X 4mm Implanted:Qty: 1 on 09/14/2017 [place] Dante Morris [place] [facility] [place] [employer] : ORTHOPAEDICS 08/22/2022 [id number] / / [id number] Reunion Rsa 3.1mm Drill Bit Implanted:Qty: 1 on 09/14/2017 [place] Dante Morris [place] [facility] [place] [employer] : ORTHOPAEDICS 03/24/2022 [id number] / / [id number] Reunion Rsa Glenoid Baseplate 28mm Implanted:Qty: 1 on 09/14/2017 [place] Dante Morris [place] [facility] [place] [employer] : ORTHOPAEDICS 08/01/2022 2473-2641 / / [id number] Reunion Rsa Peripheral Screw 4.5mm X 24mm Implanted:Qty: 1 on 09/14/2017 [place] Dante Morris [place] [facility] [place] [employer] : ORTHOPAEDICS 06/30/2022 [id number] / / [id number] Reunion Rsa Peripheral Screw 4.5mm X 28mm Implanted:Qty: 1 on 09/14/2017 [place] Dante Morris [place] [facility] [place] [employer] : ORTHOPAEDICS 06/30/2022 2054-5728 / / [id number] Reunion Rsa Peripheral Screw 4.5mm X 20mm Implanted:Qty: 1 on 09/14/2017 [place] Dante Morris [place] [facility] [place]er [employer] : ORTHOPAEDICS 04/13/2022 [id number] / / [id number] Reunion Rsa Concentric Glenosphere 36mm X 6mm Implanted:Qty: 1 on 09/14/2017 [place] Dante Morris [place] [facility] [place]er [employer] : ORTHOPAEDICS 06/16/2022 5573-C-36 06 / / [id number] Reunion Rsa Peripheral Screw Implanted:Qty: 1 on 09/14/2017 [place] Dante Morris DO [place] [facility] [place]er [employer] : ORTHOPAEDICS 02/11/2021 [id number] / / [id number] Reunion Tsa Modular Humeral Stem Size11 X 123mm Implanted:Qty: 1 on 09/14/2017 [place] Dante Morris DO [place] [facility] [place] [employer] : ORTHOPAEDICS 05/02/2022 5569-P-20 11 / / [id number] Reunion Rsa X3 Humeral Insert 36mm X 4mm Implanted:Qty: 1 on 09/14/2017 [place] Dante Morris [place] [facility] [place]er P[employer] : ORTHOPAEDICS 03/22/2022 5571-S-36 04 / / [id number] Baseplate #5 Tritanium - [id number] Implanted:Qty: 1 on 10/22/2019 by Nick Vang MD at [facility] Left: Knee PEMA : ORTHOPAEDICS 08/07/2024 5536-B-50 0 / / [id number] Knee Triathlon Ps Stb Bead 4 L - [id number] Implanted:Qty: 1 on 10/22/2019 by Nick Vang MD at OR [facility] Left: Knee PEMA : ORTHOPAEDICS 04/08/2024 5516-F-40 1 / / [id number] Insert Tib Sz5 Knee - [id number] Implanted:Qty: 1 on 10/22/2019 by Nick Vang MD at OR [facility] Left: Knee PEMA : ORTHOPAEDICS 12/13/2022 5532-G-51 1 / / [id number] Triathlon Tritanium Symmetric Patella Implanted:Qty: 1 on 10/22/2019 by Nick Vang MD at OR [facility] Left: Knee 04/21/2024 5556-L-39 1 / / [...] Directives occurred with: Not Discussed Care Teams Global Regulatory Lead Relationship Specialty Start Date End Date February, Milton Alvarez MD [address] [place] [id number] PCP - General Family Medicine 07/26/23 documented as of this encounter
--- OUTSIDE RECORDS SUMMARY | 2025-01-26 00:22 | External Medical Summary ---
Author Name Unknown Address Unknown Organization K01:LAB[facility]ATORY [facility] [place] [facility] [address] [place] [address] Laboratory Report Ordering Provider Test Date Status 07/30/2024 13:23:12 Final Observation Date Value Abnormality Reference (Units ) Status Triglyceride 07/30/2024 13:23:12 139 <=174 ( mg/dL) Final Triglyceride Reference Range s (mg/dL):
<150 Acceptable
150-174 Borderline high
175-499 High
>=500 Very high Cholesterol 07/30/2024 13:23:12 125 <200 (mg /dL) Final Total Cholesterol Reference Ranges (mg/dL):
<200 Desirable
200-239 Borderline high
>=240 High HDL 07/30/2024 13:23:12 41 >39 (mg/dL ) Final HDL Cholesterol Reference Ra nges (mg/dL):
>=60 High (Desirable)
<50 Low (Undesirable) For Females
<40 Low (Undesirable) For Males NON-HDL CHOLESTEROL 07/30/2024 13:23:12 84 <=159 (mg/dL) Final Non-HDL Cholesterol Referenc e Range (mg/dL):
<100 Target level for high risk ASCVD patient
<130 Optimal for general population
130-159 Near optimal for general population
160-189 Borderline High
190-219 High
>=220 Very High LDL, (calculated) 07/30/2024 13:23:12 56 <= 129 (mg/dL) Final LDL Cholesterol Reference Ra nges (mg/dL):
<70 Target level for high risk ASCVD patient
<100 Optimal for general population
100-129 Near optimal for general population
130-159 Borderline high
160-189 High
>=190 Very high Performing Location LABORATORY [facility] [place] - [address] [facility] [address]
--- OUTSIDE RECORDS SUMMARY | 2025-01-26 00:22 | External Medical Summary ---
Author Name Unknown Address Unknown Organization K01:LABORATORY [facility] [place] - [address] [place] [id number] Laboratory Report Ordering Provider Test Date Status 07/30/2024 13:18:49 Final Observation Date Value Abnormality Reference (Units) Status Bacteria identified in Specimen by Culture 07/30/2024 13:18:49 No Aeromonas species or Plesiomonas species isolated. Final Test: Gastrointestinal Patho gen Panel Culture
Specimen Source: Stool
Specimen Type: Stool
Specimen Date: 07/30/2024 1318
Result Date: 08/02/2024 1144
Result Status: Final result
Resulting Lab: LABORATORY [facility]
[address]
[place] [facility]

CULTURE

No Aeromonas species or Plesiomonas species isolated.

null Performing Location LABORATORY [facility] [place] - [address] [facility] [address]
[2025-01-26] MEDS: PANTOprazole 40 MG TAB PO SCH (05:20)
[2025-01-26 05:49] LABS: Base Excess VBG 2.8 mEq/L; HCO3 VBG 27 mmol/L; Oxygen Saturation VBG 88.3 %; PCO2 VBG 40 mmHg (38-50); PO2 VBG 55 mmHg; pH VBG 7.44 (7.36-7.41)
[2025-01-26 06:06] LABS: Basophils # (auto) 0.05 K/uL (0.00-0.20); Basophils % (auto) 0.6 %; Eosinophils # (auto) 0.05 K/uL (0.00-0.50); Eosinophils % (auto) 0.6 %; Hematocrit (blood only) 39.4 % (42.0-52.0); Hemoglobin 13.5 g/dl (14.0-18.0); Immature Granulocytes # (auto) 0.04 K/uL (0.01-0.20); Immature Granulocytes % (auto) 0.5 %; Lymphocytes # (auto) 2.02 K/uL (1.20-3.40); Lymphocytes % (auto) 23.8 %; Mean Corpuscular Hemoglobin 30.6 pg (25.0-34.0); Mean Corpuscular Hgb Conc 34.3 g/dL (32.0-36.0); Mean Corpuscular Volume 89.3 fL (80.0-100.0); Mean Platelet Volume 12.5 fL (9.4-12.4); Monocytes # (auto) 1.02 K/uL (0.11-0.59); Neutrophils % (auto) 62.5 %; Platelet Count 141 K/uL (130-400); RDW Coefficient of Variation 12.8 % (11.5-14.5); RDW Standard Deviation 41.8 fL (36.4-46.3); Red Blood Count 4.41 M/uL (4.70-6.10); White Blood Count 8.48 K/ul (4.8-10.8)
[2025-01-26 06:13] LABS: BUN Creatinine Ratio 32.5 (10-20); Calcium 8.4 mg/dl (8.6-10.3); Magnesium 1.7 mg/dl (1.7-2.4); Potassium 3.7 mmol/L (3.5-5.1)
[2025-01-26 08:47] LABS: Estimated Average Glucose 217 mg/dl; Hemoglobin A1C 9.2 % (4.5-5.6)
[2025-01-26] MEDS: ENOXAPARIN INJ 40 MG/0.4 ML SYR SQ SCH (10:17)
[2025-01-26] MEDS: ATORVASTATIN 40 MG TAB PO SCH (10:18)
[2025-01-26] MEDS: METOPROLOL TARTRATE 25 MG TAB PO SCH (10:18)
[2025-01-26] MEDS: LANTUS PER UNIT CHARGE SQ SCH (10:26)
--- NOTE | 2025-01-26 12:28 | Electrocardiogram Report ---
Test Reason : Blood Pressure : */* mmHG Vent. Rate : 102 BPM Atrial Rate : 102 BPM P-R Int : 184 ms QRS Dur : 76 ms QT Int : 318 ms P-R-T Axes : 35 -6 78 degrees QTcB Int : 414 ms Poor data quality, interpretation may be adversely affected Sinus tachycardia Nonspecific T wave abnormality Abnormal ECG No previous ECGs available Confirmed by Fritz Vivas ([id number]) on 01/26/2025 12:27:33 PM Referred By: REFERRED SELF Confirmed By: Fritz Vivas
--- NOTE | 2025-01-26 15:41 | Discharge Summary ---
Discharge Summary Date of Service January 26, 2025 Principal Dx & Hospital Course #1 = Principal Diagnosis (1) Generalized weakness: 74-year-old male with past medical history significant for gout, hyperlipidemia, diabetes, CKD stage III, chronic atrial fibrillation, hypertension, GERD, osteoarthritis, history of psoriasis, history of polymyalgia rheumatica, history of monoclonal paraproteinemia, who lives at home with his fiance was brought in because of weakness and some confusion. Patient is currently alert and awake. Can tell his name. Knows that he is in the hospital. Can tell his age. Could tell current month. But could not tell current year. Denies any headache. Denies neck pain. Denies chest pain. Denies abdominal pain. Denies back pain. Denies leg pain. No runny nose or sore throat or cough. No shortness of breath. No nausea. Somewhat slow to answer. Hemodynamics are okay. As per ER initially was more confused but with the fluids his mental status seem to be improving. Called but could not able to reach his fiance currently Generalized weakness Some confusion Dehydration Possible UTI Empiric Rocephin Fluids Will follow cultures CT head is okay. Follow repeat labs If Not improving will do further workup Diabetes Continue home Lantus Hold p.o. 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 On CT abdomen pelvis Needs follow-up History of monoclonal paraproteinemia Follows with heme-onc Emery's esophagus On omeprazole BPH On Flomax CKD stage III Presented with creatinine 1.03 Will follow labs Hypertension On metoprolol Holding hydrochlorothiazide Will monitor Hyperlipidemia On statin Notes For Next Care Provider 74-year-old male with past medical history significant for gout, hyperlipidemia, diabetes, CKD stage III, chronic atrial fibrillation, hypertension, GERD, osteoarthritis, history of psoriasis, history of polymyalgia rheumatica, history of monoclonal paraproteinemia, who lives at home with his fiance was brought in because of weakness and some confusion. On medicine, CT abdomen/pelvis showed a number of chronic conditions without acute process. Received fluids and abx. Tolerated solid foods well without nausea or vomiting. On 01/26/2025 patient medically stable for discharge. Medication Changes From Visit -see below Admission HPI Per Admitting Provider 74-year-old male with past medical history significant for gout, hyperlipidemia, diabetes, CKD stage III, chronic atrial fibrillation, hypertension, GERD, osteoarthritis, history of psoriasis, history of polymyalgia rheumatica, history of monoclonal paraproteinemia, who lives at home with his fiance was brought in because of weakness and some confusion. Patient is currently alert and awake. Can tell his name. Knows that he is in the hospital. Can tell his age. Could tell current month. But could not tell current year. Denies any headache. Denies neck pain. Denies chest pain. Denies abdominal pain. Denies back pain. Denies leg pain. No runny nose or sore throat or cough. No shortness of breath. No nausea. Somewhat slow to answer. Hemodynamics are okay. As per ER initially was more confused but with the fluids his mental status seem to be improving. Called but could not able to reach his fiance currently Past medical history. As mentioned above Past surgical history. Left total knee arthroplasty. Bilateral carpal tunnel surgery. Colonoscopy. EGD. Appendectomy. Right reverse shoulder arthr oplasty. Left tendon sheath incision finger. Social history. No smoking. No alcohol use. No drug use. Family history. Father had diabetes. Heart attack. Stroke. Mother had diabetes. Brother has diabetes. Discharge Exam Gen: A&O 3 NAD HEENT: NCAT, EOMI, not icteric. External ears normal. No rhinorrhea. Moist mucous membranes. Neck: Supple, full range of motion, no observable masses, No meningeal sign. Lungs: No Respiratory distress. CV: RRR, no edema. Abdomen: Soft, nondistended, No rebound tenderness. MSK: No joint swelling, no redness. Skin: No rashes, petechiae, lesions. Normal color per patient. Neuro: Normal Gait, Grossly intact. Psych: Appropriate for situation. Updated Medication List Medication Instructions Recorded Confirmed Type atorvastatin 40 mg tablet 40 mg PO DAILY 01/25/25 01/25/25 History clobetasol 0.05 % scalp solution 1 applic topical DAILY PRN ITCHY 01/25/25 01/25/25 History SCALP dulaglutide 4.5 mg/0.5 mL 4.5 mg subcut WK 01/25/25 01/25/25 History subcutaneous pen injector (Trulicity) empagliflozin 25 mg tablet 25 mg PO DAILY 01/25/25 01/25/25 History (Jardiance) hydrochlorothiazide 25 mg tablet 25 mg PO QAM 01/25/25 01/25/25 History insulin glargine 100 unit/mL (3 30 unit subcut QAM 01/25/25 01/25/25 History mL) subcutaneous pen (Lantus Solostar U-100 Insulin) ketoconazole 2 % shampoo 1 ea topical 3XWK 01/25/25 01/25/25 History metoprolol tartrate 25 mg tablet 25 mg PO BID 01/25/25 01/25/25 History omeprazole 20 mg capsule,delayed 20 mg PO DAILYBB 01/25/25 01/25/25 History release tamsulosin 0.4 mg capsule 0.4 mg PO HS 01/25/25 01/25/25 History triamcinolone acetonide 0.1 % 1 applic topical BID PRN Skin 01/25/25 01/25/25 History topical cream Irritation ciprofloxacin HCl 500 mg tablet 500 mg PO BID 4 days #8 tabs 01/26/25 Rx (Cipro) ondansetron 4 mg disintegrating 4 mg PO Q8H PRN nausea and 01/26/25 Rx tablet vomiting 5 days #20 tabs Hospital Stay Data Consultations 01/25/25 19:28 ED Decision to Admit Stat Diagnostic Imagining Performed 01/25/25 17:22 CT abd pelvis wo con Stat CT head/brain wo con Stat Pending Results Patient Have Any Pending Studies at Discharge: No Discharge Instructions Given to Patient (Per Discharging Provider) 1. Please follow up with PCP. 2. Please drink plenty of water, progress diet slowly from full liquid, to soft food, to full diet. 3. Take medications as prescribed. 4. Follow up with PCP for chronic imaging findings: SMA stenosis, right adrenal nodule. Total Time Total Time Spent Total Time Spent (In Minutes): I spent a total of 35 minutes in direct patient care, including dbtz-fi-trcm time with the patient and/or family, reviewing medical records, ordering and reviewing diagnostic tests, and coordinating care with other healthcare providers. This time includes: history taking, physical examination, medical decision making, counseling, ECG interpretation, imaging interpretation, lab interpretation, orders, and education, excluding time spent in the performance of separately billed services.
[2025-01-26] MEDS ORDERED: cefTRIAXone SODIUM 2,000 MG/50 ML BAG IV SCH (19:00)
[2025-01-26] MEDS ORDERED: TAMSULOSIN HCL 0.4 MG CAP PO SCH (21:00)
--- NOTE | 2025-01-28 11:18 | Electrocardiogram Report ---
Test Reason : Blood Pressure : */* mmHG Vent. Rate : 65 BPM Atrial Rate : 65 BPM P-R Int : 174 ms QRS Dur : 88 ms QT Int : 410 ms P-R-T Axes : 45 2 28 degrees QTcB Int : 426 ms Normal sinus rhythm Possible Inferior infarct , age undetermined Abnormal ECG When compared with ECG of 25-Jan-2025 15:07, Vent. rate has decreased by 37 bpm Nonspecific T wave abnormality no longer evident in Lateral leads Confirmed by Aniket Faith ([id number]) on 01/28/2025 11:17:55 AM Referred By: REFERRED SELF Confirmed By: Aniket Faith
== END 2025-01-26 18:11 | disposition home or self-care (01) | DRG 641 ==
LOC: ED 14:57 → 2N 21:54 → INTOOBSV 21:54 → 2N 22:29